=== PATIENT | female | born 1980 | race Caucasian/White ===

== ENCOUNTER 2021-10-28 08:48 | Emergency (ER) | payer OTHER ==
[2021-10-28 10:13] LABS: Appearance CLEAR (CLEAR); Bilirubin NEGATIVE (NEGATIVE); Glucose 250 mg/dL (NEGATIVE); Ketones NEGATIVE (NEGATIVE); Protein,Urine Dip NEGATIVE (Negative); RBC NEGATIVE Ery/ul (0-5); Specific Gravity 1.015 (1.005-1.025)
[2021-10-28 10:14] LABS: Dipstick done @ ? MAIN LAB; Nitrite NEGATIVE (NEGATIVE); Urobilinogen 0.2 mg/dL (0-1)
[2021-10-28 10:15] LABS: Absolute Neutrophil Ct (ANC) 1.79 (1.4-6.9); Basophil (Absolute #) 0.02 (0-0.4); Eosinophil % 5.8 % (0.00-5.0); Hematocrit 40.2 % (35-47); Hemoglobin 13.4 gm/dl (12.0-16.0); Lymphocyte (Absolute #) 2.72 (1.0-4.6); Lymphocytes % 52.6 % (24.0-44.0); Mean Cell Volume 97.3 fl (78-100); Mean Corpuscular Hemoglobin 32.4 pg (26-32); Mean Corpuscular Hgb Concent. 33.3 g/dl (32-36); Mean Platelet Volume 10.6 fl (7.5-11.0); Monocyte (Absolute #) 0.34 (0.0-1.3); Monocytes % 6.6 % (0.0-12.0); Neutrophil % 34.6 % (36.0-66.0); Platelet Count 212 K/mm3 (150-450); Red Blood Count 4.13 M/mm3 (4.1-5.4); White Blood Count 5.2 K/mm3 (4.0-10.5)
[2021-10-28 10:26] VITALS: O2SAT 99
[2021-10-28 10:26] LABS: Epithelial Cells RARE /HPF (FEW); RBC 0-2 /HPF (0-2); WBC 0-2 /HPF (0-5)
--- NOTE | 2021-10-28 10:26 | ERPHSYRPT ---
- History of Present Illness Source: patient Exam Limitations: other (Very poor historian) Patient Subjective Stated Complaint: pt here for swollen face since this morning, she aslo is concerned with sore to right index finger, and right foot, no fevers Triage Nursing Assessment: pt alert, resp easy , face mask in place, has slight swelling to right of face, and has scan to right indec finger with is red and swollen, has scab to top of foot, she states her blood sugars have been high, and has not taken insulin today Physician History: 41 yo wf who is currently at a treatment for alcohol abuse states that her "face was swelling and that she had drainage from her R eye w discharge." She has R facial pressure but denies coryza/sinus drainage. Pt is a Type1 diabetic who has poor glucose control. She has a mild cough and has chronic nausea due to gastroparesis. Vomiting/diarrhea/dysuria/hematuria/fever/melena/hematichezia are all denied. Timing/Duration: today Severity: mild Modifying Factors: Improves With: nothing Associated Symptoms: nausea, cough, loss of appetite, No vomiting, No abdominal pain, No shortness of breath, No heartburn, No diaphoresis, No chills, No chest pain, No fever, No headaches, No malaise, No rash, No syncope, No seizure, No weakness Allergies/Adverse Reactions: grapefruit Allergy (Verified 10/28/21 09:05) dicyclomine [From Bentyl] Adverse Reaction (Verified 10/28/21 09:05) Hx Influenza Vaccination/Date Given: No Hx Pneumococcal Vaccination/Date Given: Yes Travel Risk - International Travel Have you traveled outside of the country in past 3 weeks: No - Coronavirus Screening Are you exhibiting any of the following symptoms?: No Close contact with a COVID-19 positive Pt in past 14-21 Days: No - Vaccine Status Have you recieved a Covid-19 vaccination: No - Review of Systems Constitutional: No Symptoms Eyes: No Symptoms, Discharge Ears, Nose, & Throat: No Symptoms Respiratory: No Symptoms, Cough Cardiac: No Symptoms Abdominal/Gastrointestinal: No Symptoms, Nausea Genitourinary Symptoms: No Symptoms Musculoskeletal: No Symptoms Skin: Skin Lesions Neurological: No Symptoms Psychological: No Symptoms Endocrine: No Symptoms Hematologic/Lymphatic: No Symptoms Immunological/Allergic: No Symptoms - Past Medical History Pertinent Past Medical History: Yes Respiratory History: Asthma Endocrine Medical History: Diabetes Type I GI Medical History: Other Psycho-Social History: Depression, Other Other Medical History: sepsis 2020,ptsd , chronic pain syndrome, gastric parasis - Past Surgical History Past Surgical History: Yes Gastrointestinal: Appendectomy, Cholecystectomy Musculoskeletal: Orthopedic Surgery Other Surgical History: left foot, right shoulder - Social History Smoking Status: Never smoker Exposure to second hand smoke: Yes Drug Use: none Patient Lives Alone: No Significant Family History: no pertinent family hx - Female History Hx Last Menstrual Period: jul Hx Now: No - Nursing Vital Signs Nursing Vital Signs: Initial Vital Signs Temperature 98.4 F 10/28/21 08:52 Pulse Rate 112 H 10/28/21 08:52 Respiratory Rate 16 10/28/21 08:52 Blood Pressure 182/114 10/28/21 08:52 O2 Sat by Pulse Oximetry 99 10/28/21 08:52 Pain Scale Pain Intensity 0 Hypertensive - Physical Exam General Appearance: no apparent distress Eye Exam: PERRL/EOMI, eyes nml inspection Ears, Nose, Throat Exam: pharynx normal, other (R TM occluded by cerumen) Neck Exam: normal inspection, non-tender, supple, full range of motion, No meningismus, No mass, No Brudzinski, No Kernig's Respiratory Exam: normal breath sounds, lungs clear, airway intact Cardiovascular Exam: regular rate/rhythm, capillary refill <2 sec, No normal heart sounds, No murmur Gastrointestinal/Abdomen Exam: soft, normal bowel sounds, No tenderness Back Exam: normal inspection, normal range of motion, No CVA tenderness Extremity Exam: normal inspection, normal range of motion Neurologic Exam: alert, oriented x 3, cooperative, 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 as tested, normal mood/affect, nml cerebellar function, nml station & gait, sensation nml Skin Exam: normal color, warm, dry, other (Very small excoriated area on R dorsal index wo evidence of cellulitis and w no exudate/Also similar lesion on R dorsal foot wo evidence of cellulitis or exudate/Good pedal pulse-radial pulse of R foot-R hand and good sensation of all digits) Lymphatic Exam: No adenopathy SpO2 Interpretation: normal SpO2: 99 O2 Delivery: Room Air - Course Nursing assessment & vital signs reviewed: Yes - Radiology Exams Chest X-ray Interpretation: Interpreted by me (CXR neg) - CT Exams Maxillofacial Bones CT Interpretation: Tele-radiologist Report (Nothing acute) Ordered Tests: Active Orders 24 hr Category Date Time Status CHEST 1 VIEW (PORTABLE) Stat Exams 10/28/21 09:47 Taken FACIAL BONES WO CONTRAST [CT] Stat Exams 10/28/21 09:46 Taken CBC W DIFF Stat Lab 10/28/21 09:05 Completed CMP Stat Lab 10/28/21 09:05 Completed Lactic Acid Stat Lab 10/28/21 09:48 Completed POCT GLUCOSE Stat Lab 10/28/21 09:24 Completed Medication Summary Discontinued Medications Generic Name Dose Route Start Last Admin Trade Name Freq PRN Reason Stop Dose Admin Clonidine 0.2 mg 10/28/21 10:29 10/28/21 10:35 Clonidine Hcl 0.1 Mg Tablet PO 10/28/21 10:30 0.2 mg STAT ONE Administration Clonidine Confirm 10/28/21 10:29 Clonidine Hcl 0.1 Mg Tablet Administered 10/28/21 10:30 Dose 0.2 mg .ROUTE .STK-MED ONE Insulin Glargine 12 unit 10/28/21 11:09 10/28/21 11:33 Insulin Glargine 1 Unit SQ 10/28/21 11:10 12 unit STAT ONE Administration Lab/Rad Data: Laboratory Result Diagrams 10/28/21 09:05 10/28/21 09:05 Laboratory Results 10/28/21 10/28/21 10/28/21 Range/Units 10:07 09:59 09:48 WBC (4.0-10.5) K/mm3 RBC (4.1-5.4) M/mm3 Hgb (12.0-16.0) gm/dl Hct (35-47) % MCV (78-100) fl MCH (26-32) pg MCHC (32-36) g/dl RDW (11.5-14.0) % Plt Count (150-450) K/mm3 MPV (7.5-11.0) fl Gran % (36.0-66.0) % Eos # (Auto) (0-0.5) Absolute Lymphs (auto) (1.0-4.6) Absolute Monos (auto) (0.0-1.3) Lymphocytes % (24.0-44.0) % Monocytes % (0.0-12.0) % Eosinophils % (0.00-5.0) % Basophils % (0.0-0.4) % Absolute Granulocytes (1.4-6.9) Basophils # (0-0.4) Sodium (137-145) mmol/L Potassium (3.5-5.1) mmol/L Chloride (98-107) mmol/L Carbon Dioxide (22-30) mmol/L Anion Gap (5-15) MEQ/L BUN (7-17) mg/dL Creatinine (0.52-1.04) mg/dL Estimated GFR ML/MIN Glucose (74-106) mg/dL POC Glucometer (74 to 106) mg/dL Lactic Acid 1.2 (0.4-2.0) Calcium (8.4-10.2) mg/dL Total Bilirubin (0.2-1.3) mg/dL AST (14-36) U/L ALT (0-35) U/L Alkaline Phosphatase (38-126) U/L Serum Total Protein (6.3-8.2) g/dL Albumin (3.5-5.0) g/dL Urinalys Dipstick Clnc MAIN LAB Urine Color YELLOW (YELLOW) Urine Appearance CLEAR (CLEAR) Urine pH 6.0 (5-6) Ur Specific [place] 1.015 (1.005-1.025) POC Urine Protein Conf NEGATIVE (Negative) Urine Ketones NEGATIVE (NEGATIVE) Urine Nitrite NEGATIVE (NEGATIVE) Urine Bilirubin NEGATIVE (NEGATIVE) Urine Urobilinogen 0.2 (0-1) mg/dL Urine Leukocytes TRACE (NEGATIVE) Urine WBC (Auto) 0-2 (0-5) /HPF Urine RBC (Auto) 0-2 (0-2) /HPF U Epithel Cells (Auto) RARE (FEW) /HPF Urine Bacteria (Auto) Not Reportable Urine RBC NEGATIVE (0-5) Mahamed/ul Ur Culture Indicated? NO Urine Glucose 250 (NEGATIVE) mg/dL Influenza Type A Ag NEGATIVE (NEGATIVE) Influenza Type B Ag NEGATIVE (NEGATIVE) RSV (PCR) NEGATIVE (Negative) SARS-CoV-2 (PCR) NEGATIVE (NEGATIVE) 10/28/21 10/28/21 10/28/21 Range/Units 09:24 09:05 09:05 WBC 5.2 (4.0-10.5) K/mm3 RBC 4.13 (4.1-5.4) M/mm3 Hgb 13.4 (12.0-16.0) gm/dl Hct 40.2 (35-47) % MCV 97.3 (78-100) fl MCH 32.4 H (26-32) pg MCHC 33.3 (32-36) g/dl RDW 13.0 (11.5-14.0) % Plt Count 212 (150-450) K/mm3 MPV 10.6 (7.5-11.0) fl Gran % 34.6 L (36.0-66.0) % Eos # (Auto) 0.30 (0-0.5) Absolute Lymphs (auto) 2.72 (1.0-4.6) Absolute Monos (auto) 0.34 (0.0-1.3) Lymphocytes % 52.6 H (24.0-44.0) % Monocytes % 6.6 (0.0-12.0) % Eosinophils % 5.8 H (0.00-5.0) % Basophils % 0.4 (0.0-0.4) % Absolute Granulocytes 1.79 (1.4-6.9) Basophils # 0.02 (0-0.4) Sodium 135 L (137-145) mmol/L Potassium 4.0 (3.5-5.1) mmol/L Chloride 100 (98-107) mmol/L Carbon Dioxide 25 (22-30) mmol/L Anion Gap 13.7 (5-15) MEQ/L BUN 17 (7-17) mg/dL Creatinine 0.64 (0.52-1.04) mg/dL Estimated GFR > 60.0 ML/MIN Glucose 334 H (74-106) mg/dL POC Glucometer 343 H (74 to 106) mg/dL Lactic Acid (0.4-2.0) Calcium 8.6 (8.4-10.2) mg/dL Total Bilirubin 0.50 (0.2-1.3) mg/dL AST 117 H (14-36) U/L ALT 122 H (0-35) U/L Alkaline Phosphatase 144 H (38-126) U/L Serum Total Protein 5.8 L (6.3-8.2) g/dL Albumin 3.6 (3.5-5.0) g/dL Urinalys Dipstick Clnc Urine Color (YELLOW) Urine Appearance (CLEAR) Urine pH (5-6) Ur Specific [place] (1.005-1.025) POC Urine Protein Conf (Negative) Urine Ketones (NEGATIVE) Urine Nitrite (NEGATIVE) Urine Bilirubin (NEGATIVE) Urine Urobilinogen (0-1) mg/dL Urine Leukocytes (NEGATIVE) Urine WBC (Auto) (0-5) /HPF Urine RBC (Auto) (0-2) /HPF U Epithel Cells (Auto) (FEW) /HPF Urine Bacteria (Auto) Urine RBC (0-5) Mahamed/ul Ur Culture Indicated? Urine Glucose (NEGATIVE) mg/dL Influenza Type A Ag (NEGATIVE) Influenza Type B Ag (NEGATIVE) RSV (PCR) (Negative) SARS-CoV-2 (PCR) (NEGATIVE) - Progress Progress: improved Progress Note: 10/28/21 11:49 0.2 po Clonidine w mild improvement in BP 12 units sq Lantis(usual AM dose for pt) Pt fed breakfast 10/28/21 13:11 Pt not given Humalog because she only takes 1unit 3 times a day No observable facial edema or eye discharge during stay Counseled pt/family regarding: lab results, diagnosis, need for follow-up, rad results - Departure Departure Disposition: Home Clinical Impression: Hypertension, Diabetes, Transaminitis Condition: Stable Critical Care Time: No Referrals: HAL PARK MD [Primary Care Provider] - Follow up/PCP as directed Instructions: Type 1 Diabetes, High Blood Pressure in Adults Additional Instructions: Continue current medications Resume current diabetes care Return to ER for any new signs/symptoms Watch your blood pressure
[2021-10-28] MEDS ORDERED: CLONIDINE 0.1 MG TABLET PO ONE (10:29)
[2021-10-28] MEDS ORDERED: CLONIDINE 0.1 MG TABLET ONE (10:29)
[2021-10-28 10:35] LABS: Urine Cultured Indicated? NO
[2021-10-28 10:46] LABS: ALBUMIN 3.6 g/dL (3.5-5.0); ALKALINE PHOSPHATASE 144 U/L (38-126); ANION GAP 13.7 MEQ/L (5-15); BLOOD UREA NITROGEN 17 mg/dL (7-17); CHLORIDE 100 mmol/L (98-107); Calcium 8.6 mg/dL (8.4-10.2); Carbon Dioxide 25 mmol/L (22-30); Creatinine 1 0.64 mg/dL (0.52-1.04); EST GLOMERULAR FILTRATION RATE > 60.0 ML/MIN; Glucose 334 mg/dL (74-106); SGOT/AST 117 U/L (14-36); SGPT/ALT 122 U/L (0-35); SODIUM 135 mmol/L (137-145); Total Protein 5.8 g/dL (6.3-8.2)
[2021-10-28 10:48] LABS: INFLUENZA A NEGATIVE (NEGATIVE); INFLUENZA B NEGATIVE (NEGATIVE); RESPIRATORY SYNCTIAL VIRUS NEGATIVE (Negative); SARS-CoV-2 Xpert Express NEGATIVE (NEGATIVE)
[2021-10-28] MEDS ORDERED: Lantus Insulin SQ ONE (11:09)
[2021-10-28 11:58] VITALS: BP 151/98; PULSE 98
--- NOTE | 2021-10-28 18:10 | XRAY ---
Indication: Cough. Right facial edema. Right eye matted shut. Comparison: None Portable chest demonstrates normal heart, lungs, and bony thorax.
--- NOTE | 2021-10-28 18:12 | XRAY ---
Indication: Cough. Right facial edema. Right eye matted shut. Multiple contiguous axial images obtained through the facial bones. Sagittal and coronal reformatted images obtained. Comparison: None No acute fracture, suspicious bony lesions, or osseous obstructive process. Orbits including roots, ortez, and floors intact. Mild left and minimal right maxillary sinus mucosal thickening. Remaining paranasal sinuses and nasal passages are clear. Mild nasal septal deviation to the right. Visualized noncontrasted soft tissues including base of the brain unremarkable. Impression: Minimal paranasal sinus disease and nasal septal deviation. Remaining CT facial bones negative. Comment: Preliminary interpretation made by [facility]. No critical discrepancy.
== END 2021-10-28 11:58 | disposition home or self-care (01) ==
LOC: ED 08:48
DX: R74.01 Elevation of levels of liver transaminase levels (principal); I10 Essential (primary) hypertension; E10.43 Type 1 diabetes mellitus with diabetic autonomic (poly)neuropathy; E10.65 Type 1 diabetes mellitus with hyperglycemia; K31.84 Gastroparesis; Z79.4 Long term (current) use of insulin; R05.9 Cough, unspecified; R11.0 Nausea
CPT/HCPCS: 0241U; 36000; 36415; 70486; 71045; 80053; 81015; 82947; 83605; 85025; 96372; 99284; A9270-GY

== ENCOUNTER 2021-12-05 18:28 | Emergency (ER) | payer OTHER ==
--- NOTE | 2021-12-05 19:08 | ERPHSYRPT ---
- History of Present Illness Time Seen by Provider: 12/05/21 19:08 Source: patient, family Patient Subjective Stated Complaint: pt c/o of body aches, cough, hyperglycemia, diarrhea, N&V x3 days Triage Nursing Assessment: Pt brought to the ER by someone from [facility], hyp ertensive, rates body pain as 9/10, has body aches, cough, diarrhea, N&V, hyperglycemia, pt is wearing a blood sugar sensor and it is 381, our glucometer tested at 339, pulses normal, skin n/w/d, no difficulties with breathing, has not coughed while in the room Physician History: This is a 41-year-old white female patient who is a resident of the [facility] and noticed approximately 3 days ago that she could not smell or taste. She had associated mild headache which worsened and mild aches and pains which worsened over the last 3 days as well. In the last 3 days, she has had the loss of taste and smell, headaches body aches nausea vomiting and diarrhea and a cough. She was seen at an outpatient clinic today and underwent a COVID test and that returned positive. She has no known exposure to anyone that she is aware of that has COVID or any other flu diagnosis. Patient has a history of hypothyroidism, migraine headache, asthma, anxiety, ADD H, chronic pain syndrome, gastric bypass surgery and gastroparesis as well as insulin-dependent diabetes. Her blood sugar on her monitor, was 396. On our Accu-Chek on arrival to emergency department was approximately 381. Patient also complains of yeast infection and a dry socket of her left side of her oral cavity. She is not on any antibiotics. Timing/Duration: day(s) (3) Severity: mild (To moderate) Modifying Factors: Improves With: nothing Associated Symptoms: nausea, vomiting, cough, loss of appetite, weakness, No abdominal pain, No shortness of breath, No chest pain Allergies/Adverse Reactions: grapefruit Allergy (Verified 12/05/21 18:52) dicyclomine [From Bentyl] Adverse Reaction (Verified 12/05/21 18:52) Home Medications: AMITRIPTYLINE HCL 50 mg Tab [AMITRIPTYLINE HCL 50 mg Tablet] 50 mg PO HS 12/05/21 [History] Apixaban [Eliquis 5 mg Tablet] 5 mg PO BID 12/05/21 [History] Atomoxetine HCl [Strattera] 60 mg PO UD 12/05/21 [History] Baclofen 20 mg PO QID 12/05/21 [History] Buspirone HCl 15 mg PO HS 12/05/21 [History] Clonidine HCl 0.1 mg [Clonidine 0.1 mg Tablet] 0.1 mg PO DAILY 12/05/21 [History] Dexlansoprazole [Dexlansoprazole Dr] 60 mg PO DAILY 12/05/21 [History] Escitalopram Oxalate [Lexapro] 20 mg PO DAILY 12/05/21 [History] Ferrous Sulfate 325 mg PO DAILY 12/05/21 [History] Folic Acid 1 mg [Folate 1 mg] 1 mg PO DAILY 12/05/21 [History] Furosemide 20 mg [Lasix 20 mg] 20 mg PO DAILY 12/05/21 [History] Gabapentin [Neurontin] 600 mg PO QID 12/05/21 [History] Insulin Lispro [Insulin Lispro Kwikpen U-100] 0 unit SQ UD 12/05/21 [History] Ipratropium/Albuterol Sulfate [Combivent Respimat Inhal [place]] 1 inh PO UD 12/05/21 [History] Levothyroxine Sodium 0.25 mcg PO QAM 12/05/21 [History] Lidocaine/Transparent Dressing [Lidocaine 4% Kit] 1 each TP DAILY 12/05/21 [History] Metoclopramide HCl 10 mg PO QID 12/05/21 [History] Midodrine HCl [Proamatine] 10 mg PO TID 12/05/21 [History] Mirtazapine 15 mg PO 12/05/21 [History] Promethazine HCl 25 mg [Phenergan 25 mg] 25 mg PO UD PRN 12/05/21 [History] Ropinirole HCl 0.5 mg [Requip 0.5 MG] 0.5 mg PO HS 12/05/21 [History] Sucralfate 1 gm PO QID 12/05/21 [History] Topiramate 100 mg PO HS 12/05/21 [History] Hx Influenza Vaccination/Date Given: No Hx Pneumococcal Vaccination/Date Given: Yes Travel Risk - International Travel Have you traveled outside of the country in past 3 weeks: No - Coronavirus Screening Are you exhibiting any of the following symptoms?: Yes Symptoms: Cough: New Onset, Shortness of Breath, Vomiting/Diarrhea, Loss of Taste or Smell, Headaches/Body Aches/Fatigue Close contact with a COVID-19 positive Pt in past 14-21 Days: No - Vaccine Status Have you recieved a Covid-19 vaccination: No - Review of Systems Constitutional: Weakness Eyes: No Symptoms Ears, Nose, & Throat: No Symptoms Respiratory: Cough Cardiac: No Symptoms Abdominal/Gastrointestinal: Nausea, Vomiting, Diarrhea, No Abdominal Pain Genitourinary Symptoms: No Symptoms Musculoskeletal: Arthralgias, Myalgias Skin: No Symptoms Neurological: No Symptoms Psychological: No Symptoms Endocrine: No Symptoms Hematologic/Lymphatic: No Symptoms Immunological/Allergic: No Symptoms All Other Systems: Reviewed and Negative - Past Medical History Pertinent Past Medical History: Yes Neurological History: Migraines Respiratory History: Asthma Endocrine Medical History: Diabetes Type I GI Medical History: Other Psycho-Social History: Anxiety, Attention Deficit Disorder, Depression, Other Other Medical History: sepsis 2020,ptsd , chronic pain syndrome, gastric parasis, hypotension - Past Surgical History Past Surgical History: Yes Gastrointestinal: Appendectomy, Cholecystectomy Musculoskeletal: Orthopedic Surgery Other Surgical History: left foot, right shoulder, gastric bypass - Social History Smoking Status: Never smoker Exposure to second hand smoke: No Drug Use: none Patient Lives Alone: No Significant Family History: no pertinent family hx - Female History Hx Last Menstrual Period: approx 3 months ago Hx Now: No (no sex) - Nursing Vital Signs Nursing Vital Signs: Initial Vital Signs Temperature 98.4 F 12/05/21 18:31 Pulse Rate 88 12/05/21 18:31 Blood Pressure 165/104 12/05/21 18:31 O2 Sat by Pulse Oximetry 100 12/05/21 18:31 Pain Scale Pain Intensity 0 - Physical Exam General Appearance: no apparent distress, alert, anxiety Eye Exam: PERRL/EOMI, eyes nml inspection Ears, Nose, Throat Exam: normal ENT inspection, moist mucous membranes Neck Exam: normal inspection, non-tender, supple, full range of motion Respiratory Exam: normal breath sounds, lungs clear, airway intact, No chest tenderness, No respiratory distress Cardiovascular Exam: regular rate/rhythm, normal heart sounds, normal peripheral pulses Gastrointestinal/Abdomen Exam: soft, normal bowel sounds, No tenderness Pelvic Exam: not done Rectal Exam: not done Back Exam: normal inspection, normal range of motion, No CVA tenderness, No vertebral tenderness Extremity Exam: normal inspection, normal range of motion, pelvis stable Neurologic Exam: alert, oriented x 3, cooperative, temporary administrative assistant II-XII nml as tested, normal mood/affect, nml cerebellar function, nml station & gait, sensation nml Skin Exam: normal color, warm, dry Lymphatic Exam: No adenopathy SpO2 Interpretation: normal SpO2: 100 O2 Delivery: Room Air - Course Nursing assessment & vital signs reviewed: Yes Ordered Tests: Active Orders 24 hr Category Date Time Status IV Insertion STAT Care 12/05/21 19:16 Active CHEST 1 VIEW (PORTABLE) Stat Exams 12/05/21 19:17 Taken AMYLASE Stat Lab 12/05/21 18:55 Completed BLOOD CULTURE Stat Lab 12/05/21 19:40 Received CBC W DIFF Stat Lab 12/05/21 18:55 Completed CMP Stat Lab 12/05/21 18:55 Completed HCG,QUALITATIVE URINE Stat Lab 12/05/21 21:18 Completed LIPASE Stat Lab 12/05/21 18:55 Completed Lactic Acid Stat Lab 12/05/21 19:28 Completed [place] Screen Stat Lab 12/05/21 18:55 Completed POCT GLUCOSE Stat Lab 12/05/21 18:50 Completed POCT GLUCOSE Stat Lab 12/05/21 20:56 Completed T4 (Thyroxine) Stat Lab 12/05/21 18:55 Completed TROPONIN Q3H Lab 12/05/21 18:55 Completed TROPONIN Q3H Lab 12/05/21 22:30 Ordered TROPONIN Q3H Lab 12/06/21 01:30 Ordered TROPONIN Q3H Lab 12/06/21 04:30 Ordered TROPONIN Q3H Lab 12/06/21 07:30 Ordered TSH [TSH, 3RD Generation] Stat Lab 12/05/21 18:55 Completed UA W/RFX CULTURE Stat Lab 12/05/21 21:20 Completed Urine Triage Profile Stat Lab 12/05/21 21:18 Received Medication Summary Discontinued Medications Generic Name Dose Route Start Last Admin Trade Name Freq PRN Reason Stop Dose Admin Cephalexin HCl 500 mg 12/05/21 19:28 12/05/21 19:42 Cephalexin 500 Mg Capsule PO 12/05/21 19:29 500 mg STAT ONE Administration Cephalexin HCl Confirm 12/05/21 19:40 Cephalexin Mh500 Mg Capsule Administered 12/05/21 19:41 Dose 500 mg .ROUTE .STK-MED ONE Clonidine 0.1 mg 12/05/21 21:27 12/05/21 21:31 Clonidine Hcl 0.1 Mg Tablet PO 12/05/21 21:28 0.1 mg STAT ONE Administration Clonidine Confirm 12/05/21 21:29 Clonidine Hcl 0.1 Mg Tablet Administered 12/05/21 21:30 Dose 0.1 mg .ROUTE .STK-MED ONE Fluconazole 150 mg 12/05/21 19:32 12/05/21 20:04 Fluconazole 150 Mg Tablet PO 12/05/21 19:33 150 mg STAT ONE Administration Fluconazole Confirm 12/05/21 19:58 Fluconazole 100 Mg Tablet Administered 12/05/21 19:59 Dose 200 mg .ROUTE .STK-MED ONE Sodium Chloride 1,000 mls @ 999 mls/hr 12/05/21 19:16 12/05/21 21:10 Sodium Chloride 0.9% 1000 Ml IV 12/05/21 20:16 Infused .Q1H1M STA Infusion Sodium Chloride Confirm 12/05/21 19:29 Sodium Chloride 0.9% 1000 Ml Administered 12/05/21 19:30 Dose 1,000 mls @ ud .ROUTE .STK-MED ONE Insulin Human Regular 4 unit 12/05/21 19:34 12/05/21 19:42 Insulin Regular, Human 1 Unit IV 12/05/21 19:35 4 unit STAT ONE Administration Insulin Human Regular Confirm 12/05/21 19:42 Insulin Regular, Human 1 Unit Administered 12/05/21 19:43 Dose 4 unit .ROUTE .STK-MED ONE Ketorolac Tromethamine 30 mg 12/05/21 19:27 12/05/21 19:33 Ketorolac Tromethamine 30 Mg/Ml Inj IV 12/05/21 19:28 30 mg STAT ONE Administration Ketorolac Tromethamine Confirm 12/05/21 19:32 Ketorolac Tromethamine 30 Mg/Ml Inj Administered 12/05/21 19:33 Dose 30 mg .ROUTE .STK-MED ONE Ondansetron HCl 4 mg 12/05/21 19:16 12/05/21 19:31 Ondansetron Hcl 4 Mg/2 Ml Vial IV 12/05/21 19:17 4 mg STAT ONE Administration Ondansetron HCl Confirm 12/05/21 19:28 Ondansetron Hcl 4 Mg/2 Ml Vial Administered 12/05/21 19:29 Dose 4 mg .ROUTE .STK-MED ONE Pantoprazole Sodium 40 mg 12/05/21 19:16 12/05/21 19:31 Pantoprazole 40 Mg Vial IV 12/05/21 19:17 40 mg STAT ONE Administration Pantoprazole Sodium Confirm 12/05/21 19:28 Pantoprazole 40 Mg Vial Administered 12/05/21 19:29 Dose 40 mg IV .STK-MED ONE Lab/Rad Data: Laboratory Result Diagrams 12/05/21 18:55 12/05/21 18:55 Laboratory Results 12/05/21 12/05/21 12/05/21 Range/Units 21:20 21:18 20:56 WBC (4.0-10.5) x10^3/uL RBC (4.1-5.4) x10^6/uL Hgb (12.0-16.0) g/dL Hct (35-47) % MCV (78-100) fL MCH (26-32) pg MCHC (32-36) g/dL RDW (11.5-14.0) % Plt Count (150-450) x10^3/uL MPV (7.5-11.0) fL Gran % (36.0-66.0) % Immature Gran % (Auto) (0.00-0.4) % Nucleat RBC Rel Count (0.00-0.1) % Eos # (Auto) (0-0.5) x10^3/uL Immature Gran # (Auto) (0.00-0.03) x10^3u/L Absolute Lymphs (auto) (1.0-4.6) x10^3/uL Absolute Monos (auto) (0.0-1.3) x10^3/uL Absolute Nucleated RBC (0.00-0.01) x10^3u/L Lymphocytes % (24.0-44.0) % Monocytes % (0.0-12.0) % Eosinophils % (0.00-5.0) % Basophils % (0.0-0.4) % Absolute Granulocytes (1.4-6.9) x10^3/uL Basophils # (0-0.4) x10^3/uL Sodium (137-145) mmol/L Potassium (3.5-5.1) mmol/L Chloride (98-107) mmol/L Carbon Dioxide (22-30) mmol/L Anion Gap (5-15) MEQ/L BUN (7-17) mg/dL Creatinine (0.52-1.04) mg/dL Estimated GFR ML/MIN Glucose (74-106) mg/dL POC Glucometer 106 (74 to 106) mg/dL Lactic Acid (0.4-2.0) Calcium (8.4-10.2) mg/dL Total Bilirubin (0.2-1.3) mg/dL AST (14-36) U/L ALT (0-35) U/L Alkaline Phosphatase (38-126) U/L Troponin I (0.000-0.034) ng/mL Serum Total Protein (6.3-8.2) g/dL Albumin (3.5-5.0) g/dL Amylase (30-110) U/L Lipase (23-300) U/L Thyroxine (T4) (5.53-10.96) ug/dL TSH 3rd Generation (0.47-4.68) mIU/L Urinalys Dipstick Clnc MAIN LAB Urine Color YELLOW (YELLOW) Urine Appearance CLEAR (CLEAR) Urine pH 7.0 (5-6) Ur Specific [place] 1.020 (1.005-1.025) POC Urine Protein Conf NEGATIVE (Negative) Urine Ketones NEGATIVE (NEGATIVE) Urine Nitrite NEGATIVE (NEGATIVE) Urine Bilirubin NEGATIVE (NEGATIVE) Urine Urobilinogen 0.2 (0-1) mg/dL Urine Leukocytes NEGATIVE (NEGATIVE) Urine WBC (Auto) 0-2 (0-5) /HPF Urine RBC (Auto) 0-2 (0-2) /HPF U Epithel Cells (Auto) RARE (FEW) /HPF Urine Bacteria (Auto) NONE (NEGATIVE) /HPF Urine RBC TRACE-INTACT (0-5) Mahamed/ul Ur Culture Indicated? NO Urine Glucose 500 (NEGATIVE) mg/dL Urine HCG, Qual NEGATIVE (Negative) Monoscreen (Negative) Influenza Type A Ag (NEGATIVE) Influenza Type B Ag (NEGATIVE) RSV (PCR) (Negative) SARS-CoV-2 (PCR) (NEGATIVE) Group A Strep Antibody (NEGATIVE) Slides for Path Review 12/05/21 12/05/21 12/05/21 Range/Units 19:40 19:40 19:28 WBC (4.0-10.5) x10^3/uL RBC (4.1-5.4) x10^6/uL Hgb (12.0-16.0) g/dL Hct (35-47) % MCV (78-100) fL MCH (26-32) pg MCHC (32-36) g/dL RDW (11.5-14.0) % Plt Count (150-450) x10^3/uL MPV (7.5-11.0) fL Gran % (36.0-66.0) % Immature Gran % (Auto) (0.00-0.4) % Nucleat RBC Rel Count (0.00-0.1) % Eos # (Auto) (0-0.5) x10^3/uL Immature Gran # (Auto) (0.00-0.03) x10^3u/L Absolute Lymphs (auto) (1.0-4.6) x10^3/uL Absolute Monos (auto) (0.0-1.3) x10^3/uL Absolute Nucleated RBC (0.00-0.01) x10^3u/L Lymphocytes % (24.0-44.0) % Monocytes % (0.0-12.0) % Eosinophils % (0.00-5.0) % Basophils % (0.0-0.4) % Absolute Granulocytes (1.4-6.9) x10^3/uL Basophils # (0-0.4) x10^3/uL Sodium (137-145) mmol/L Potassium (3.5-5.1) mmol/L Chloride (98-107) mmol/L Carbon Dioxide (22-30) mmol/L Anion Gap (5-15) MEQ/L BUN (7-17) mg/dL Creatinine (0.52-1.04) mg/dL Estimated GFR ML/MIN Glucose (74-106) mg/dL POC Glucometer (74 to 106) mg/dL Lactic Acid 0.9 (0.4-2.0) Calcium (8.4-10.2) mg/dL Total Bilirubin (0.2-1.3) mg/dL AST (14-36) U/L ALT (0-35) U/L Alkaline Phosphatase (38-126) U/L Troponin I (0.000-0.034) ng/mL Serum Total Protein (6.3-8.2) g/dL Albumin (3.5-5.0) g/dL Amylase (30-110) U/L Lipase (23-300) U/L Thyroxine (T4) (5.53-10.96) ug/dL TSH 3rd Generation (0.47-4.68) mIU/L Urinalys Dipstick Clnc Urine Color (YELLOW) Urine Appearance (CLEAR) Urine pH (5-6) Ur Specific [place] (1.005-1.025) POC Urine Protein Conf (Negative) Urine Ketones (NEGATIVE) Urine Nitrite (NEGATIVE) Urine Bilirubin (NEGATIVE) Urine Urobilinogen (0-1) mg/dL Urine Leukocytes (NEGATIVE) Urine WBC (Auto) (0-5) /HPF Urine RBC (Auto) (0-2) /HPF U Epithel Cells (Auto) (FEW) /HPF Urine Bacteria (Auto) (NEGATIVE) /HPF Urine RBC (0-5) Mahamed/ul Ur Culture Indicated? Urine Glucose (NEGATIVE) mg/dL Urine HCG, Qual (Negative) Monoscreen (Negative) Influenza Type A Ag NEGATIVE (NEGATIVE) Influenza Type B Ag NEGATIVE (NEGATIVE) RSV (PCR) NEGATIVE (Negative) SARS-CoV-2 (PCR) POSITIVE A (NEGATIVE) Group A Strep Antibody NOT DETECTED (NEGATIVE) Slides for Path Review 12/05/21 12/05/21 12/05/21 Range/Units 18:55 18:55 18:55 WBC (4.0-10.5) x10^3/uL RBC (4.1-5.4) x10^6/uL Hgb (12.0-16.0) g/dL Hct (35-47) % MCV (78-100) fL MCH (26-32) pg MCHC (32-36) g/dL RDW (11.5-14.0) % Plt Count (150-450) x10^3/uL MPV (7.5-11.0) fL Gran % (36.0-66.0) % Immature Gran % (Auto) (0.00-0.4) % Nucleat RBC Rel Count (0.00-0.1) % Eos # (Auto) (0-0.5) x10^3/uL Immature Gran # (Auto) (0.00-0.03) x10^3u/L Absolute Lymphs (auto) (1.0-4.6) x10^3/uL Absolute Monos (auto) (0.0-1.3) x10^3/uL Absolute Nucleated RBC (0.00-0.01) x10^3u/L Lymphocytes % (24.0-44.0) % Monocytes % (0.0-12.0) % Eosinophils % (0.00-5.0) % Basophils % (0.0-0.4) % Absolute Granulocytes (1.4-6.9) x10^3/uL Basophils # (0-0.4) x10^3/uL Sodium (137-145) mmol/L Potassium (3.5-5.1) mmol/L Chloride (98-107) mmol/L Carbon Dioxide (22-30) mmol/L Anion Gap (5-15) MEQ/L BUN (7-17) mg/dL Creatinine (0.52-1.04) mg/dL Estimated GFR ML/MIN Glucose (74-106) mg/dL POC Glucometer (74 to 106) mg/dL Lactic Acid (0.4-2.0) Calcium (8.4-10.2) mg/dL Total Bilirubin (0.2-1.3) mg/dL AST (14-36) U/L ALT (0-35) U/L Alkaline Phosphatase (38-126) U/L Troponin I < 0.012 (0.000-0.034) ng/mL Serum Total Protein (6.3-8.2) g/dL Albumin (3.5-5.0) g/dL Amylase (30-110) U/L Lipase (23-300) U/L Thyroxine (T4) 5.86 (5.53-10.96) ug/dL TSH 3rd Generation 1.280 (0.47-4.68) mIU/L Urinalys Dipstick Clnc Urine Color (YELLOW) Urine Appearance (CLEAR) Urine pH (5-6) Ur Specific [place] (1.005-1.025) POC Urine Protein Conf (Negative) Urine Ketones (NEGATIVE) Urine Nitrite (NEGATIVE) Urine Bilirubin (NEGATIVE) Urine Urobilinogen (0-1) mg/dL Urine Leukocytes (NEGATIVE) Urine WBC (Auto) (0-5) /HPF Urine RBC (Auto) (0-2) /HPF U Epithel Cells (Auto) (FEW) /HPF Urine Bacteria (Auto) (NEGATIVE) /HPF Urine RBC (0-5) Mahamed/ul Ur Culture Indicated? Urine Glucose (NEGATIVE) mg/dL Urine HCG, Qual (Negative) Monoscreen NEGATIVE (Negative) Influenza Type A Ag (NEGATIVE) Influenza Type B Ag (NEGATIVE) RSV (PCR) (Negative) SARS-CoV-2 (PCR) (NEGATIVE) Group A Strep Antibody (NEGATIVE) Slides for Path Review 12/05/21 12/05/21 12/05/21 Range/Units 18:55 18:55 18:50 WBC 2.4 L (4.0-10.5) x10^3/uL RBC 3.94 L (4.1-5.4) x10^6/uL Hgb 13.8 (12.0-16.0) g/dL Hct 40.0 (35-47) % MCV 101.5 H (78-100) fL MCH 35.0 H (26-32) pg MCHC 34.5 (32-36) g/dL RDW 13.0 (11.5-14.0) % Plt Count 227 (150-450) x10^3/uL MPV 12.5 H (7.5-11.0) fL Gran % 18.2 L (36.0-66.0) % Immature Gran % (Auto) 0.0 (0.00-0.4) % Nucleat RBC Rel Count 0.0 (0.00-0.1) % Eos # (Auto) 0.02 (0-0.5) x10^3/uL Immature Gran # (Auto) 0.00 (0.00-0.03) x10^3u/L Absolute Lymphs (auto) 1.77 (1.0-4.6) x10^3/uL Absolute Monos (auto) 0.14 (0.0-1.3) x10^3/uL Absolute Nucleated RBC 0.00 (0.00-0.01) x10^3u/L Lymphocytes % 74.7 H (24.0-44.0) % Monocytes % 5.9 (0.0-12.0) % Eosinophils % 0.8 (0.00-5.0) % Basophils % 0.4 (0.0-0.4) % Absolute Granulocytes 0.43 L (1.4-6.9) x10^3/uL Basophils # 0.01 (0-0.4) x10^3/uL Sodium 135 L (137-145) mmol/L Potassium 4.2 (3.5-5.1) mmol/L Chloride 104 (98-107) mmol/L Carbon Dioxide 26 (22-30) mmol/L Anion Gap 10.0 (5-15) MEQ/L BUN 12 (7-17) mg/dL Creatinine 0.62 (0.52-1.04) mg/dL Estimated GFR > 60.0 ML/MIN Glucose 316 H (74-106) mg/dL POC Glucometer 339 H (74 to 106) mg/dL Lactic Acid (0.4-2.0) Calcium 8.6 (8.4-10.2) mg/dL Total Bilirubin 0.40 (0.2-1.3) mg/dL AST 72 H (14-36) U/L ALT 95 H (0-35) U/L Alkaline Phosphatase 128 H (38-126) U/L Troponin I (0.000-0.034) ng/mL Serum Total Protein 5.5 L (6.3-8.2) g/dL Albumin 3.2 L (3.5-5.0) g/dL Amylase 45 (30-110) U/L Lipase 15 L (23-300) U/L Thyroxine (T4) (5.53-10.96) ug/dL TSH 3rd Generation (0.47-4.68) mIU/L Urinalys Dipstick Clnc Urine Color (YELLOW) Urine Appearance (CLEAR) Urine pH (5-6) Ur Specific [place] (1.005-1.025) POC Urine Protein Conf (Negative) Urine Ketones (NEGATIVE) Urine Nitrite (NEGATIVE) Urine Bilirubin (NEGATIVE) Urine Urobilinogen (0-1) mg/dL Urine Leukocytes (NEGATIVE) Urine WBC (Auto) (0-5) /HPF Urine RBC (Auto) (0-2) /HPF U Epithel Cells (Auto) (FEW) /HPF Urine Bacteria (Auto) (NEGATIVE) /HPF Urine RBC (0-5) Mahamed/ul Ur Culture Indicated? Urine Glucose (NEGATIVE) mg/dL Urine HCG, Qual (Negative) Monoscreen (Negative) Influenza Type A Ag (NEGATIVE) Influenza Type B Ag (NEGATIVE) RSV (PCR) (Negative) SARS-CoV-2 (PCR) (NEGATIVE) Group A Strep Antibody (NEGATIVE) Slides for Path Review YES - Progress Progress: improved - Departure Departure Disposition: Home Clinical Impression: Nausea vomiting and diarrhea, COVID-19 virus infection Condition: Stable Critical Care Time: No Referrals: HAL PARK MD [Primary Care Provider] - Follow up/PCP as directed Additional Instructions: Drink plenty of fluids. Monitor your blood sugar closely. Quarantine yourself for 7 to 10 days. Follow-up with your primary care physician for further evaluation and management. Take all your medications as prescribed. Prescriptions: Ondansetron ODT 4 MG [Zofran Odt 4 mg] 4 mg PO Q6H PRN PRN #10 tablet PRN Reason: Vomiting
[2021-12-05] MEDS ORDERED: PROTONIX 40 MG IV IV ONE ×2 (19:16→19:28)
[2021-12-05] MEDS ORDERED: Sodium Chloride 0.9% 1000 ML 1,000 ML IV STA (19:16)
[2021-12-05] MEDS ORDERED: Zofran 4 MG/2 ML VIAL IV ONE (19:16)
[2021-12-05] MEDS ORDERED: TORAdol 30 mg Injection IV ONE (19:27)
[2021-12-05] MEDS ORDERED: Zofran 4 MG/2 ML VIAL ONE (19:28)
[2021-12-05] MEDS ORDERED: KEFLEX 500 MG PO ONE (19:28)
[2021-12-05] MEDS ORDERED: Sodium Chloride 0.9% 1000 ML 1,000 ML ONE (19:29)
[2021-12-05] MEDS ORDERED: TORAdol 30 mg Injection ONE (19:32)
[2021-12-05] MEDS ORDERED: DIFLUCAN PO ONE (19:32)
[2021-12-05] MEDS ORDERED: HUMULIN R IV ONE (19:34)
[2021-12-05] MEDS ORDERED: KEFLEX 500 MG ONE (19:40)
[2021-12-05] MEDS ORDERED: HUMULIN R ONE (19:42)
[2021-12-05] MEDS ORDERED: Diflucan 100 MG ONE (19:58)
[2021-12-05 20:02] LABS: Absolute Neutrophil Ct (ANC) 0.43 x10^3/uL (1.4-6.9); Basophil (Absolute #) 0.01 x10^3/uL (0-0.4); Eosinophil % 0.8 % (0.00-5.0); Eosinophil (Absolute #) 0.02 x10^3/uL (0-0.5); Hemoglobin 13.8 g/dL (12.0-16.0); Lymphocyte (Absolute #) 1.77 x10^3/uL (1.0-4.6); Lymphocytes % 74.7 % (24.0-44.0); Mean Cell Volume 101.5 fL (78-100); Mean Corpuscular Hgb Concent. 34.5 g/dL (32-36); Mean Platelet Volume 12.5 fL (7.5-11.0); Monocyte (Absolute #) 0.14 x10^3/uL (0.0-1.3); Monocytes % 5.9 % (0.0-12.0); Neutrophil % 18.2 % (36.0-66.0); Platelet Count 227 x10^3/uL (150-450); Red Blood Count 3.94 x10^6/uL (4.1-5.4); White Blood Count 2.4 x10^3/uL (4.0-10.5)
[2021-12-05 20:11] LABS: ALBUMIN 3.2 g/dL (3.5-5.0); ALKALINE PHOSPHATASE 128 U/L (38-126); AMYLASE 45 U/L (30-110); BLOOD UREA NITROGEN 12 mg/dL (7-17); CHLORIDE 104 mmol/L (98-107); Calcium 8.6 mg/dL (8.4-10.2); Carbon Dioxide 26 mmol/L (22-30); Creatinine 1 0.62 mg/dL (0.52-1.04); EST GLOMERULAR FILTRATION RATE > 60.0 ML/MIN; Glucose 316 mg/dL (74-106); LIPASE 15 U/L (23-300); Potassium 4.2 mmol/L (3.5-5.1); SGOT/AST 72 U/L (14-36); SGPT/ALT 95 U/L (0-35); SODIUM 135 mmol/L (137-145); Total Protein 5.5 g/dL (6.3-8.2)
[2021-12-05 20:31] LABS: INFLUENZA A NEGATIVE (NEGATIVE); INFLUENZA B NEGATIVE (NEGATIVE); RESPIRATORY SYNCTIAL VIRUS NEGATIVE (Negative)
[2021-12-05 20:37] LABS: SARS-CoV-2 Xpert Express POSITIVE (NEGATIVE)
[2021-12-05 20:42] LABS: T4 (Thyroxine) 5.86 ug/dL (5.53-10.96); TSH, 3RD Generation 1.28 mIU/L (0.47-4.68)
[2021-12-05 20:54] LABS: Slide Review 1 YES
[2021-12-05] MEDS ORDERED: CLONIDINE 0.1 MG TABLET PO ONE (21:27)
[2021-12-05] MEDS ORDERED: CLONIDINE 0.1 MG TABLET ONE (21:29)
[2021-12-05 21:35] VITALS: O2SAT 100
[2021-12-05 21:48] LABS: Epithelial Cells RARE /HPF (FEW); RBC 0-2 /HPF (0-2); WBC 0-2 /HPF (0-5)
[2021-12-05 21:49] LABS: Appearance CLEAR (CLEAR); Bilirubin NEGATIVE (NEGATIVE); Glucose 500 mg/dL (NEGATIVE)
[2021-12-05 21:50] LABS: Dipstick done @ ? MAIN LAB; Ketones NEGATIVE (NEGATIVE); Nitrite NEGATIVE (NEGATIVE); Protein,Urine Dip NEGATIVE (Negative); RBC TRACE-INTACT Ery/ul (0-5); Urine Cultured Indicated? NO; Urobilinogen 0.2 mg/dL (0-1)
[2021-12-05 22:03] LABS: Amphetamine,Urine NEGATIVE (NEGATIVE); Barbiturate,Urine NEGATIVE (NEGATIVE); Benzodiazepine,Urine NEGATIVE (NEGATIVE); Cocaine,Urine NEGATIVE (NEGATIVE); Methadone,Urine NEGATIVE (NEGATIVE); Opiate,Urine NEGATIVE (NEGATIVE); PCP,Urine NEGATIVE (NEGATIVE); THC,Urine NEGATIVE (NEGATIVE)
[2021-12-05 22:12] VITALS: BP 167/112; PULSE 90
--- NOTE | 2021-12-06 08:45 | XRAY ---
Indication: Cough. Positive Covid 19. Comparison: October 28, 2021. Portable chest again demonstrates normal heart and lungs. Bony thorax intact. No new/acute findings.
== END 2021-12-05 22:23 | disposition home or self-care (01) ==
LOC: ED 18:28
DX: U07.1 COVID-19 (principal); R11.2 Nausea with vomiting, unspecified; R19.7 Diarrhea, unspecified; R43.8 Other disturbances of smell and taste; R51.9 Headache, unspecified; M79.10 Myalgia, unspecified site; R05.1 Acute cough; E10.65 Type 1 diabetes mellitus with hyperglycemia; Z79.01 Long term (current) use of anticoagulants; Z79.4 Long term (current) use of insulin; Z79.899 Other long term (current) drug therapy; Z28.310 Unvaccinated for COVID-19
CPT/HCPCS: 0241U; 36000; 36415; 71045; 80053; 80307; 81015; 82150; 82947; 83605; 83690; 84436; 84443; 84484; 84703; 85025; 86308; 87040; 87651; 96374; 96375; 99284; J1815; J1885; J2405; A9270-GY

== ENCOUNTER 2022-01-29 01:32 | Emergency (ER) | payer OTHER ==
--- NOTE | 2022-01-29 01:37 | ERPHSYRPT ---
- History of Present Illness Time Seen by Provider: 01/29/22 01:36 Source: patient, EMS Exam Limitations: no limitations Physician History: This is a 41-year-old white female insulin-dependent diabetic who checked her blood sugar approximately an hour and a half prior to arrival to emergency room. Based on a blood sugar reading of "high" patient used her sliding scale and thought she was receiving 2 units of her Lyumjev insulin subcutaneously. In fact, she gave herself 12 units and was concerned that she might have overdosed accidentally. She called EMS and EMS service arrived and rechecked her blood sugar and it was approximately 280 on their Accu-Chek reading. They waited approximately 10 minutes and rechecked the blood sugar and the reading was approximately 380. Patient does have a history of anxiety and she was very concerned because its change so quickly. Therefore she was brought to the emergency department. Upon arrival into the emergency department her blood sugar is more the expected 302 on our Accu-Chek reading. Patient arrives hemodynamically stable with no specific complaints. Timing/Duration: today Severity: mild Associated Symptoms: denies symptoms Allergies/Adverse Reactions: grapefruit Allergy (Verified 12/05/21 18:52) dicyclomine [From Bentyl] Adverse Reaction (Verified 12/05/21 18:52) Home Medications: AMITRIPTYLINE HCL 50 mg Tab [AMITRIPTYLINE HCL 50 mg Tablet] 50 mg PO HS 12/05/21 [History] Apixaban [Eliquis 5 mg Tablet] 5 mg PO BID 12/05/21 [History] Atomoxetine HCl [Strattera] 60 mg PO UD 12/05/21 [History] Baclofen 20 mg PO QID 12/05/21 [History] Buspirone HCl 15 mg PO HS 12/05/21 [History] Clonidine HCl 0.1 mg [Clonidine 0.1 mg Tablet] 0.1 mg PO DAILY 12/05/21 [His tory] Dexlansoprazole [Dexlansoprazole Dr] 60 mg PO DAILY 12/05/21 [History] Escitalopram Oxalate [Lexapro] 20 mg PO DAILY 12/05/21 [History] Ferrous Sulfate 325 mg PO DAILY 12/05/21 [History] Folic Acid 1 mg [Folate 1 mg] 1 mg PO DAILY 12/05/21 [History] Furosemide 20 mg [Lasix 20 mg] 20 mg PO DAILY 12/05/21 [History] Gabapentin [Neurontin] 600 mg PO QID 12/05/21 [History] Insulin Lispro [Insulin Lispro Kwikpen U-100] 0 unit SQ UD 12/05/21 [History] Ipratropium/Albuterol Sulfate [Combivent Respimat Inhal [place]] 1 inh PO UD 12/05/21 [History] Levothyroxine Sodium 0.25 mcg PO QAM 12/05/21 [History] Lidocaine/Transparent Dressing [Lidocaine 4% Kit] 1 each TP DAILY 12/05/21 [History] Metoclopramide HCl 10 mg PO QID 12/05/21 [History] Midodrine HCl [Proamatine] 10 mg PO TID 12/05/21 [History] Mirtazapine 15 mg PO HS 12/05/21 [History] Promethazine HCl 25 mg [Phenergan 25 mg] 25 mg PO UD PRN 12/05/21 [History] Ropinirole HCl 0.5 mg [Requip 0.5 MG] 0.5 mg PO HS 12/05/21 [History] Sucralfate 1 gm PO QID 12/05/21 [History] Topiramate 100 mg PO HS 12/05/21 [History] Hx Influenza Vaccination/Date Given: No Hx Pneumococcal Vaccination/Date Given: Yes Travel Risk - International Travel Have you traveled outside of the country in past 3 weeks: No - Coronavirus Screening Are you exhibiting any of the following symptoms?: No Close contact with a COVID-19 positive Pt in past 14-21 Days: No - Vaccine Status Have you recieved a Covid-19 vaccination: No - Review of Systems Constitutional: No Symptoms Eyes: No Symptoms Ears, Nose, & Throat: No Symptoms Respiratory: No Symptoms Cardiac: No Symptoms Abdominal/Gastrointestinal: No Symptoms Genitourinary Symptoms: No Symptoms Musculoskeletal: No Symptoms Skin: No Symptoms Neurological: No Symptoms Psychological: No Symptoms Endocrine: No Symptoms Hematologic/Lymphatic: No Symptoms Immunological/Allergic: No Symptoms All Other Systems: Reviewed and Negative - Past Medical History Pertinent Past Medical History: Yes Neurological History: Migraines Respiratory History: Asthma Endocrine Medical History: Diabetes Type I GI Medical History: Other Psycho-Social History: Anxiety, Attention Deficit Disorder, Depression, Other Other Medical History: sepsis 2020,ptsd , chronic pain syndrome, gastric parasis, hypotension - Past Surgical History Past Surgical History: Yes Gastrointestinal: Appendectomy, Cholecystectomy Musculoskeletal: Orthopedic Surgery Other Surgical History: left foot, right shoulder, gastric bypass - Social History Smoking Status: Never smoker Exposure to second hand smoke: No Drug Use: none Patient Lives Alone: No Significant Family History: no pertinent family hx - Nursing Vital Signs Nursing Vital Signs: Initial Vital Signs Temperature 96.8 F 01/29/22 01:33 Pulse Rate 88 01/29/22 01:33 Respiratory Rate 18 01/29/22 01:33 Blood Pressure 143/88 01/29/22 01:33 O2 Sat by Pulse Oximetry 96 01/29/22 01:33 Pain Scale Pain Intensity 6 - Physical Exam General Appearance: no apparent distress, alert, anxiety, thin Eye Exam: PERRL/EOMI, eyes nml inspection Ears, Nose, Throat Exam: normal ENT inspection, moist mucous membranes Neck Exam: normal inspection, non-tender, supple, full range of motion Respiratory Exam: normal breath sounds, lungs clear, airway intact, No chest tenderness, No respiratory distress Cardiovascular Exam: regular rate/rhythm, normal heart sounds, normal peripheral pulses Gastrointestinal/Abdomen Exam: soft, normal bowel sounds, No tenderness Pelvic Exam: not done Rectal Exam: not done Back Exam: normal inspection, normal range of motion, No CVA tenderness, No vertebral tenderness Extremity Exam: normal inspection, normal range of motion, pelvis stable Neurologic Exam: alert, oriented x 3, cooperative, blender / cook II-XII nml as tested, normal mood/affect, nml cerebellar function, nml station & gait, sensation nml Skin Exam: normal color, warm, dry Lymphatic Exam: No adenopathy SpO2 Interpretation: normal O2 Delivery: Room Air - Course Nursing assessment & vital signs reviewed: Yes Ordered Tests: Active Orders 24 hr Category Date Time Status POCT GLUCOSE Stat Lab 01/29/22 02:48 Completed Lab/Rad Data: Laboratory Results 01/29/22 Range/Units 02:48 POC Glucometer 89 (74 to 106) mg/dL - Progress Progress: improved, re-examined Progress Note: 01/29/22 02:23 Medical decision making: I reviewed the pharmacologic profile of Lyumjev insulin with the patient. We discussed the onset of action being 15 to 17 minutes, the peak time of action being approximately 1 hour and the half-life measures approximately 44 minutes. Together, we decided that we would recheck the blood sugar at approximately 02 45 this morning. The patient normally has a blood sugar around 250. We will discharge the patient to home if her blood sugar is between 200 and 300. She can then restart monitoring and covering with her usual sliding scale. Counseled pt/family regarding: diagnosis, need for follow-up - Departure Departure Disposition: Home Clinical Impression: Hyperglycemia due to type 1 diabetes mellitus, Accidental medication overdose Condition: Stable Critical Care Time: No Referrals: HAL PARK MD [NON-STAFF PHY W/O PRIVILEGES] - Follow up/PCP as directed Additional Instructions: Monitor your blood sugar closely. Make sure you are eating your diabetic diet well and checking your blood sugar levels before you treat your blood sugar levels with insulin. Follow-up with your primary prescribing provider for further evaluation and management.
[2022-01-29] MEDS ORDERED: D50W 50 ml Abboject IV ONE (03:46)
[2022-01-29 04:34] LABS: Absolute Neutrophil Ct (ANC) 1.45 x10^3/uL (1.4-6.9); Basophil (Absolute #) 0.05 x10^3/uL (0-0.4); Eosinophil % 6.8 % (0.00-5.0); Eosinophil (Absolute #) 0.37 x10^3/uL (0-0.5); Hematocrit 37.7 % (35-47); Hemoglobin 12.1 g/dL (12.0-16.0); Lymphocyte (Absolute #) 3.23 x10^3/uL (1.0-4.6); Lymphocytes % 59.3 % (24.0-44.0); Mean Cell Volume 100.8 fL (78-100); Mean Corpuscular Hemoglobin 32.4 pg (26-32); Mean Corpuscular Hgb Concent. 32.1 g/dL (32-36); Mean Platelet Volume 10.3 fL (7.5-11.0); Monocyte (Absolute #) 0.34 x10^3/uL (0.0-1.3); Monocytes % 6.2 % (0.0-12.0); Neutrophil % 26.6 % (36.0-66.0); Platelet Count 172 x10^3/uL (150-450); Red Blood Count 3.74 x10^6/uL (4.1-5.4); Red Cell Distribution Width 13.2 % (11.5-14.0); White Blood Count 5.5 x10^3/uL (4.0-10.5)
[2022-01-29 04:41] LABS: ALBUMIN 3.4 g/dL (3.5-5.0); ALKALINE PHOSPHATASE 91 U/L (38-126); ANION GAP 11.4 MEQ/L (5-15); BLOOD UREA NITROGEN 24 mg/dL (7-17); CHLORIDE 107 mmol/L (98-107); Calcium 8.9 mg/dL (8.4-10.2); Carbon Dioxide 23 mmol/L (22-30); Creatinine 1 0.57 mg/dL (0.52-1.04); EST GLOMERULAR FILTRATION RATE > 60.0 ML/MIN; Glucose 170 mg/dL (74-106); Potassium 3.7 mmol/L (3.5-5.1); SGOT/AST 39 U/L (14-36); SGPT/ALT 63 U/L (0-35); SODIUM 138 mmol/L (137-145); Total Protein 5.4 g/dL (6.3-8.2)
[2022-01-29 06:27] VITALS: BP 155/100; PULSE 81; O2SAT 100
== END 2022-01-29 07:05 | disposition home or self-care (01) ==
LOC: ED 01:32
DX: T38.3X1A Poisoning by insulin and oral hypoglycemic [antidiabetic] drugs, accidental (unintentional), initial encounter (principal); E10.65 Type 1 diabetes mellitus with hyperglycemia; Z79.01 Long term (current) use of anticoagulants; Z79.899 Other long term (current) drug therapy; Z28.310 Unvaccinated for COVID-19
CPT/HCPCS: 36415; 80053; 82947; 85025; 99283

== ENCOUNTER 2022-03-17 17:03 | Observation (INO) | payer OTHER ==
[2022-03-17] MEDS ORDERED: Sodium Chloride 0.9% 1000 ML 1,000 ML IV STA ×3 (17:18→23:07)
[2022-03-17] MEDS ORDERED: Zofran 4 MG/2 ML VIAL IV ONE (17:18)
[2022-03-17] MEDS ORDERED: Zofran 4 MG/2 ML VIAL ONE (17:36)
[2022-03-17] MEDS ORDERED: Sodium Chloride 0.9% 1000 ML 1,000 ML ONE ×2 (17:36→19:30)
--- NOTE | 2022-03-17 17:42 | ERPHSYRPT ---
- History of Present Illness Time Seen by Provider: 03/17/22 17:04 Source: patient Exam Limitations: no limitations Patient Subjective Stated Complaint: Pt got a new insulin pump 2 weeks ago and she changed her sight last night and she thinks that she must have got a bad s ight because her sugars were up and she has administered insulin through the pump but her sugars are still registering high Triage Nursing Assessment: Pt was brought to the ER by someone from the [facility], tachycardic, rates generalized pain as 8/10, vomited this morning, diarrhea, wears a dexcom that reads into her insulin pump, pt ate oatmeal and 3 eggs this morning but did not eat lunch or dinner, pulses normal Physician History: 41-year-old female insulin-dependent diabetic with recent change in insulin pump, last night changed site but her blood sugar was reading high despite using appropriate dosage which she thinks might have a bad site. She also report having nausea and one episode of vomiting and some loose stool without any a bdominal pain. She is complaining of generalized body aches fatigue tiredness, lack of energy. Does report history of DKA multiple times in the past. Timing/Duration: yesterday, gradual onset, worse Severity: moderate, severe Modifying Factors: Improves With: nothing Associated Symptoms: nausea, vomiting, loss of appetite, malaise, weakness, No shortness of breath, No cough, No chills, No chest pain Allergies/Adverse Reactions: grapefruit Allergy (Verified 03/17/22 17:36) dicyclomine [From Bentyl] Adverse Reaction (Verified 03/17/22 17:36) Home Medications: AMITRIPTYLINE HCL 50 mg Tab [AMITRIPTYLINE HCL 50 mg Tablet] 50 mg PO HS 12/05/21 [History] Apixaban [Eliquis 5 mg Tablet] 5 mg PO BID 12/05/21 [History] Atomoxetine HCl [Strattera] 60 mg PO UD 12/05/21 [History] Baclofen 20 mg PO QID 12/05/21 [History] Buspirone HCl 15 mg PO HS 12/05/21 [History] Clonidine HCl 0.1 mg [Clonidine 0.1 mg Tablet] 0.1 mg PO DAILY 12/05/21 [History] Dexlansoprazole [Dexlansoprazole Dr] 60 mg PO DAILY 12/05/21 [History] Escitalopram Oxalate [Lexapro] 20 mg PO DAILY 12/05/21 [History] Ferrous Sulfate 325 mg PO DAILY 12/05/21 [History] Folic Acid 1 mg [Folate 1 mg] 1 mg PO DAILY 12/05/21 [History] Furosemide 20 mg [Lasix 20 mg] 20 mg PO DAILY 12/05/21 [History] Gabapentin [Neurontin] 600 mg PO QID 12/05/21 [History] Insulin Lispro [Insulin Lispro Kwikpen U-100] 0 unit SQ UD 12/05/21 [History] Ipratropium/Albuterol Sulfate [Combivent Respimat Inhal [place]] 1 inh PO UD 12/05/21 [History] Levothyroxine Sodium 0.25 mcg PO QAM 12/05/21 [History] Lidocaine/Transparent Dressing [Lidocaine 4% Kit] 1 each TP DAILY 12/05/21 [History] Metoclopramide HCl 10 mg PO QID 12/05/21 [History] Midodrine HCl [Proamatine] 10 mg PO TID 12/05/21 [History] Mirtazapine 15 mg PO HS 12/05/21 [History] Promethazine HCl 25 mg [Phenergan 25 mg] 25 mg PO UD PRN 12/05/21 [History] Ropinirole HCl 0.5 mg [Requip 0.5 MG] 0.5 mg PO HS 12/05/21 [History] Sucralfate 1 gm PO QID 12/05/21 [History] Topiramate 100 mg PO HS 12/05/21 [History] Hx Influenza Vaccination/Date Given: No Hx Pneumococcal Vaccination/Date Given: Yes Travel Risk - International Travel Have you traveled outside of the country in past 3 weeks: No - Coronavirus Screening Are you exhibiting any of the following symptoms?: No Close contact with a COVID-19 positive Pt in past 14-21 Days: No - Vaccine Status Have you recieved a Covid-19 vaccination: No - Review of Systems Constitutional: Fatigue, Weakness Eyes: No Symptoms Ears, Nose, & Throat: No Symptoms Respiratory: No Symptoms Cardiac: No Symptoms Abdominal/Gastrointestinal: Abdominal Pain, Nausea, Vomiting, Diarrhea Genitourinary Symptoms: No Symptoms Musculoskeletal: Myalgias Skin: No Symptoms Neurological: Headache Psychological: Anxiety, Depression Endocrine: No Symptoms Hematologic/Lymphatic: No Symptoms Immunological/Allergic: No Symptoms - Past Medical History Pertinent Past Medical History: Yes Neurological History: Migraines Respiratory History: Asthma Endocrine Medical History: Diabetes Type I GI Medical History: Other Psycho-Social History: Anxiety, Attention Deficit Disorder, Depression, Other Other Medical History: sepsis 2020,ptsd , chronic pain syndrome, gastric parasis, hypotension - Past Surgical History Past Surgical History: Yes Gastrointestinal: Appendectomy, Cholecystectomy Musculoskeletal: Orthopedic Surgery Other Surgical History: left foot, right shoulder, gastric bypass - Social History Smoking Status: Never smoker Exposure to second hand smoke: No Drug Use: none Patient Lives Alone: No Significant Family History: no pertinent family hx - Female History Hx Last Menstrual Period: over a year-menapause Hx Now: No - Nursing Vital Signs Nursing Vital Signs: Initial Vital Signs Pulse Rate 115 H 03/17/22 17:19 Blood Pressure 122/66 03/17/22 17:19 O2 Sat by Pulse Oximetry 100 03/17/22 17:19 Pain Scale Pain Intensity 8 - Physical Exam General Appearance: no apparent distress, alert Eye Exam: PERRL/EOMI, eyes nml inspection Ears, Nose, Throat Exam: normal ENT inspection, TMs normal, pharynx normal, moist mucous membranes Neck Exam: normal inspection, non-tender, supple, full range of motion Respiratory Exam: normal breath sounds, lungs clear Cardiovascular Exam: normal heart sounds, tachycardia Gastrointestinal/Abdomen Exam: soft, normal bowel sounds, No tenderness, No guarding Back Exam: normal inspection, normal range of motion Extremity Exam: normal inspection, normal range of motion, pelvis stable Neurologic Exam: alert, oriented x 3, cooperative, pulp grinder and blender II-XII nml as tested Skin Exam: normal color SpO2 Interpretation: normal SpO2: 100 O2 Delivery: Room Air - Course EKG Interpreted by Me: RATE (110), Sinus Tach, NORMAL AXIS, NORMAL INTERVALS, NORMAL QRS Ordered Tests: Active Orders 24 hr Category Date Time Status EKG-ER Only STAT Care 03/17/22 17:18 Active IV Insertion STAT Care 03/17/22 17:18 Active NPO (ED) STAT Care 03/17/22 17:18 Active BLOOD CULTURE Stat Lab 03/17/22 17:45 Received CBC W DIFF Stat Lab 03/17/22 17:35 Completed CMP Stat Lab 03/17/22 17:35 Completed HCG,QUALITATIVE URINE Stat Lab 03/17/22 17:35 Completed LIPASE Stat Lab 03/17/22 17:35 Completed Lactic Acid Stat Lab 03/17/22 17:35 Completed MAGNESIUM Stat Lab 03/17/22 17:35 Completed TROPONIN Q4H Lab 03/17/22 17:35 Completed TROPONIN Q4H Lab 03/17/22 21:30 Ordered TROPONIN Q4H Lab 03/18/22 01:30 Ordered UA W/RFX CULTURE Stat Lab 03/17/22 17:35 Completed VENOUS BLOOD GAS Urgent Lab 03/17/22 17:35 Completed Medication Summary Generic Name Dose Route Start Last Admin Trade Name Freq PRN Reason Stop Dose Admin Sodium Chloride 1,000 mls @ 999 mls/hr 03/17/22 19:13 Sodium Chloride 0.9% 1000 Ml IV 03/17/22 20:13 .Q1H1M STA Discontinued Medications Generic Name Dose Route Start Last Admin Trade Name Freq PRN Reason Stop Dose Admin Sodium Chloride 1,000 mls @ 999 mls/hr 03/17/22 17:18 03/17/22 18:43 Sodium Chloride 0.9% 1000 Ml IV 03/17/22 18:18 Infused .Q1H1M STA Infusion Sodium Chloride Confirm 03/17/22 17:36 Sodium Chloride 0.9% 1000 Ml Administered 03/17/22 17:37 Dose 1,000 mls @ ud .ROUTE .STK-MED ONE Sodium Chloride Confirm 03/17/22 19:30 Sodium Chloride 0.9% 1000 Ml Administered 03/17/22 19:31 Dose 1,000 mls @ ud .ROUTE .STK-MED ONE Ondansetron HCl 4 mg 03/17/22 17:18 03/17/22 17:42 Ondansetron Hcl 4 Mg/2 Ml Vial IV 03/17/22 17:19 4 mg STAT ONE Administration Ondansetron HCl Confirm 03/17/22 17:36 Ondansetron Hcl 4 Mg/2 Ml Vial Administered 03/17/22 17:37 Dose 4 mg .ROUTE .STK-MED ONE Lab/Rad Data: Laboratory Result Diagrams 03/17/22 17:35 03/17/22 17:35 Laboratory Results 03/17/22 03/17/22 03/17/22 Range/Units 17:35 17:35 17:35 WBC (4.0-10.5) x10^3/uL RBC (4.1-5.4) x10^6/uL Hgb (12.0-16.0) g/dL Hct (35-47) % MCV (78-100) fL MCH (26-32) pg MCHC (32-36) g/dL RDW (11.5-14.0) % Plt Count (150-450) x10^3/uL MPV (7.5-11.0) fL Gran % (36.0-66.0) % Immature Gran % (Auto) (0.00-0.4) % Nucleat RBC Rel Count (0.00-0.1) % Eos # (Auto) (0-0.5) x10^3/uL Immature Gran # (Auto) (0.00-0.03) x10^3u/L Absolute Lymphs (auto) (1.0-4.6) x10^3/uL Absolute Monos (auto) (0.0-1.3) x10^3/uL Absolute Nucleated RBC (0.00-0.01) x10^3u/L Lymphocytes % (24.0-44.0) % Monocytes % (0.0-12.0) % Eosinophils % (0.00-5.0) % Basophils % (0.0-0.4) % Absolute Granulocytes (1.4-6.9) x10^3/uL Basophils # (0-0.4) x10^3/uL pO2/FiO2 Ratio 21.0 % VBG pH 7.30 L (7.32-7.42) VBG pCO2 at Pat Temp 34 L (42-55) mm/Hg VBG pO2 at Pat Temp 73 H (25-40) mm/Hg VBG HCO3 16.7 L* (22-28) meq/L VBG O2 Sat (Foreign) 89.1 L (95-100) VBG Base Excess -8.8 L (-2.0-2.0) VBG Hemoglobin 12.4 VBG Carboxyhemoglobin 0.0 (0.0-6.9) % T HGB POC Potassium 5.5 H (3.5-5.1) Sodium (137-145) mmol/L Potassium (3.5-5.1) mmol/L Chloride (98-107) mmol/L Carbon Dioxide (22-30) mmol/L Anion Gap (5-15) MEQ/L BUN (7-17) mg/dL Creatinine (0.52-1.04) mg/dL Estimated GFR ML/MIN Glucose (74-106) mg/dL Lactic Acid (0.4-2.0) Calcium (8.4-10.2) mg/dL Magnesium (1.6-2.3) mg/dL Total Bilirubin (0.2-1.3) mg/dL AST (14-36) U/L ALT (0-35) U/L Alkaline Phosphatase (38-126) U/L Troponin I < 0.012 (0.000-0.034) ng/mL Serum Total Protein (6.3-8.2) g/dL Albumin (3.5-5.0) g/dL Lipase (23-300) U/L Urinalys Dipstick Clnc MAIN LAB Urine Color YELLOW (YELLOW) Urine Appearance CLEAR (CLEAR) Urine pH 5.0 (5-6) Ur Specific Kiana <=1.005 (1.005-1.025) POC Urine Protein Conf NEGATIVE (Negative) Urine Ketones SMALL-15 (NEGATIVE) Urine Nitrite NEGATIVE (NEGATIVE) Urine Bilirubin NEGATIVE (NEGATIVE) Urine Urobilinogen 0.2 (0-1) mg/dL Urine Leukocytes NEGATIVE (NEGATIVE) Urine WBC (Auto) NONE (0-5) /HPF Urine RBC (Auto) NONE (0-2) /HPF U Epithel Cells (Auto) NONE (FEW) /HPF Urine Bacteria (Auto) NONE (NEGATIVE) /HPF Urine RBC NEGATIVE (0-5) Mahamed/ul Urine Mucus (Auto) SLIGHT (NEGATIVE) /HPF Ur Culture Indicated? NO Urine Glucose >=1000 (NEGATIVE) mg/dL Urine HCG, Qual (Negative) 03/17/22 03/17/22 03/17/22 Range/Units 17:35 17:35 17:35 WBC (4.0-10.5) x10^3/uL RBC (4.1-5.4) x10^6/uL Hgb (12.0-16.0) g/dL Hct (35-47) % MCV (78-100) fL MCH (26-32) pg MCHC (32-36) g/dL RDW (11.5-14.0) % Plt Count (150-450) x10^3/uL MPV (7.5-11.0) fL Gran % (36.0-66.0) % Immature Gran % (Auto) (0.00-0.4) % Nucleat RBC Rel Count (0.00-0.1) % Eos # (Auto) (0-0.5) x10^3/uL Immature Gran # (Auto) (0.00-0.03) x10^3u/L Absolute Lymphs (auto) (1.0-4.6) x10^3/uL Absolute Monos (auto) (0.0-1.3) x10^3/uL Absolute Nucleated RBC (0.00-0.01) x10^3u/L Lymphocytes % (24.0-44.0) % Monocytes % (0.0-12.0) % Eosinophils % (0.00-5.0) % Basophils % (0.0-0.4) % Absolute Granulocytes (1.4-6.9) x10^3/uL Basophils # (0-0.4) x10^3/uL pO2/FiO2 Ratio % VBG pH (7.32-7.42) VBG pCO2 at Pat Temp (42-55) mm/Hg VBG pO2 at Pat Temp (25-40) mm/Hg VBG HCO3 (22-28) meq/L VBG O2 Sat (Foreign) (95-100) VBG Base Excess (-2.0-2.0) VBG Hemoglobin VBG Carboxyhemoglobin (0.0-6.9) % T HGB POC Potassium (3.5-5.1) Sodium 121 L (137-145) mmol/L Potassium 5.6 H (3.5-5.1) mmol/L Chloride 86 L (98-107) mmol/L Carbon Dioxide 17 L (22-30) mmol/L Anion Gap 24.2 H (5-15) MEQ/L BUN 18 H (7-17) mg/dL Creatinine 1.21 H (0.52-1.04) mg/dL Estimated GFR 52.1 ML/MIN Glucose 1141 H* (74-106) mg/dL Lactic Acid 3.4 H (0.4-2.0) Calcium 8.1 L (8.4-10.2) mg/dL Magnesium 2.5 H (1.6-2.3) mg/dL Total Bilirubin 0.90 (0.2-1.3) mg/dL AST 317 H (14-36) U/L ALT 290 H (0-35) U/L Alkaline Phosphatase 242 H (38-126) U/L Troponin I (0.000-0.034) ng/mL Serum Total Protein 5.8 L (6.3-8.2) g/dL Albumin 3.9 (3.5-5.0) g/dL Lipase 38 (23-300) U/L Urinalys Dipstick Clnc Urine Color (YELLOW) Urine Appearance (CLEAR) Urine pH (5-6) Ur Specific Kiana (1.005-1.025) POC Urine Protein Conf (Negative) Urine Ketones (NEGATIVE) Urine Nitrite (NEGATIVE) Urine Bilirubin (NEGATIVE) Urine Urobilinogen (0-1) mg/dL Urine Leukocytes (NEGATIVE) Urine WBC (Auto) (0-5) /HPF Urine RBC (Auto) (0-2) /HPF U Epithel Cells (Auto) (FEW) /HPF Urine Bacteria (Auto) (NEGATIVE) /HPF Urine RBC (0-5) Mahamed/ul Urine Mucus (Auto) (NEGATIVE) /HPF Ur Culture Indicated? Urine Glucose (NEGATIVE) mg/dL Urine HCG, Qual NEGATIVE (Negative) 03/17/22 Range/Units 17:35 WBC 5.3 (4.0-10.5) x10^3/uL RBC 3.29 L (4.1-5.4) x10^6/uL Hgb 11.6 L (12.0-16.0) g/dL Hct 36.5 (35-47) % MCV 110.9 H (78-100) fL MCH 35.3 H (26-32) pg MCHC 31.8 L (32-36) g/dL RDW 12.9 (11.5-14.0) % Plt Count 210 (150-450) x10^3/uL MPV 11.5 H (7.5-11.0) fL Gran % 72.2 H (36.0-66.0) % Immature Gran % (Auto) 0.4 (0.00-0.4) % Nucleat RBC Rel Count 0.0 (0.00-0.1) % Eos # (Auto) 0.02 (0-0.5) x10^3/uL Immature Gran # (Auto) 0.02 (0.00-0.03) x10^3u/L Absolute Lymphs (auto) 0.92 L (1.0-4.6) x10^3/uL Absolute Monos (auto) 0.48 (0.0-1.3) x10^3/uL Absolute Nucleated RBC 0.00 (0.00-0.01) x10^3u/L Lymphocytes % 17.5 L (24.0-44.0) % Monocytes % 9.1 (0.0-12.0) % Eosinophils % 0.4 (0.00-5.0) % Basophils % 0.4 (0.0-0.4) % Absolute Granulocytes 3.79 (1.4-6.9) x10^3/uL Basophils # 0.02 (0-0.4) x10^3/uL pO2/FiO2 Ratio % VBG pH (7.32-7.42) VBG pCO2 at Pat Temp (42-55) mm/Hg VBG pO2 at Pat Temp (25-40) mm/Hg VBG HCO3 (22-28) meq/L VBG O2 Sat (Foreign) (95-100) VBG Base Excess (-2.0-2.0) VBG Hemoglobin VBG Carboxyhemoglobin (0.0-6.9) % T HGB POC Potassium (3.5-5.1) Sodium (137-145) mmol/L Potassium (3.5-5.1) mmol/L Chloride (98-107) mmol/L Carbon Dioxide (22-30) mmol/L Anion Gap (5-15) MEQ/L BUN (7-17) mg/dL Creatinine (0.52-1.04) mg/dL Estimated GFR ML/MIN Glucose (74-106) mg/dL Lactic Acid (0.4-2.0) Calcium (8.4-10.2) mg/dL Magnesium (1.6-2.3) mg/dL Total Bilirubin (0.2-1.3) mg/dL AST (14-36) U/L ALT (0-35) U/L Alkaline Phosphatase (38-126) U/L Troponin I (0.000-0.034) ng/mL Serum Total Protein (6.3-8.2) g/dL Albumin (3.5-5.0) g/dL Lipase (23-300) U/L Urinalys Dipstick Clnc Urine Color (YELLOW) Urine Appearance (CLEAR) Urine pH (5-6) Ur Specific Kiana (1.005-1.025) POC Urine Protein Conf (Negative) Urine Ketones (NEGATIVE) Urine Nitrite (NEGATIVE) Urine Bilirubin (NEGATIVE) Urine Urobilinogen (0-1) mg/dL Urine Leukocytes (NEGATIVE) Urine WBC (Auto) (0-5) /HPF Urine RBC (Auto) (0-2) /HPF U Epithel Cells (Auto) (FEW) /HPF Urine Bacteria (Auto) (NEGATIVE) /HPF Urine RBC (0-5) Mahamed/ul Urine Mucus (Auto) (NEGATIVE) /HPF Ur Culture Indicated? Urine Glucose (NEGATIVE) mg/dL Urine HCG, Qual (Negative) - Progress Progress: improved, re-examined Progress Note: 03/17/22 19:33 41-year-old is evaluated for hyperglycemia. She is given fluid bolus. She has a normal white count, chemistries show blood glucose of 1141 with a gap of 24 and bicarb of 17 with minimal ketones in the urine and serum pH of 7.3. I believe patient is in hyperosmolar state, started on insulin per protocol. Discussed with Dr. Glaser and patient is being admitted. Discussed with : Quinten Will see patient in: hospital (observation) Counseled pt/family regarding: lab results, diagnosis, need for follow-up - Departure Departure Disposition: Observation Clinical Impression: Nausea vomiting and diarrhea, Hyperosmolar hyperglycemic state (HHS) Condition: Stable Critical Care Time: No Referrals: ANGELITO BLEDSOE DO [Primary Care Provider] - Follow up/PCP as directed
[2022-03-17 17:48] LABS: VBG BASE EXCESS -8.8 (-2.0-2.0); VBG HCO3- 16.7 meq/L (22-28); VBG HEMOGLOBIN 12.4; VBG O2 SATURATION 89.1 (95-100); VBG POTASSIUM 5.5 (3.5-5.1); VBG pH 7.3 (7.32-7.42)
[2022-03-17 17:56] LABS: Absolute Neutrophil Ct (ANC) 3.79 x10^3/uL (1.4-6.9); Basophil (Absolute #) 0.02 x10^3/uL (0-0.4); Eosinophil % 0.4 % (0.00-5.0); Eosinophil (Absolute #) 0.02 x10^3/uL (0-0.5); Hematocrit 36.5 % (35-47); Hemoglobin 11.6 g/dL (12.0-16.0); Lymphocyte (Absolute #) 0.92 x10^3/uL (1.0-4.6); Lymphocytes % 17.5 % (24.0-44.0); Mean Cell Volume 110.9 fL (78-100); Mean Corpuscular Hemoglobin 35.3 pg (26-32); Mean Corpuscular Hgb Concent. 31.8 g/dL (32-36); Mean Platelet Volume 11.5 fL (7.5-11.0); Monocyte (Absolute #) 0.48 x10^3/uL (0.0-1.3); Monocytes % 9.1 % (0.0-12.0); Neutrophil % 72.2 % (36.0-66.0); Platelet Count 210 x10^3/uL (150-450); Red Blood Count 3.29 x10^6/uL (4.1-5.4); Red Cell Distribution Width 12.9 % (11.5-14.0); White Blood Count 5.3 x10^3/uL (4.0-10.5)
[2022-03-17 18:00] LABS: Appearance CLEAR (CLEAR); Bilirubin NEGATIVE (NEGATIVE); Glucose >=1000 mg/dL (NEGATIVE); Ketones SMALL-15 (NEGATIVE)
[2022-03-17 18:01] LABS: Dipstick done @ ? MAIN LAB; Nitrite NEGATIVE (NEGATIVE); Protein,Urine Dip NEGATIVE (Negative); RBC NEGATIVE Ery/ul (0-5); Specific Gravity <=1.005 (1.005-1.025); Urobilinogen 0.2 mg/dL (0-1)
[2022-03-17 18:05] LABS: Mucus SLIGHT /HPF (NEGATIVE)
[2022-03-17 18:12] LABS: ALBUMIN 3.9 g/dL (3.5-5.0); ANION GAP 24.2 MEQ/L (5-15); BILIRUBIN,TOTAL 0.9 mg/dL (0.2-1.3); Calcium 8.1 mg/dL (8.4-10.2); Creatinine 1 1.21 mg/dL (0.52-1.04); EST GLOMERULAR FILTRATION RATE 52.1 ML/MIN; MAGNESIUM 2.5 mg/dL (1.6-2.3); Potassium 5.6 mmol/L (3.5-5.1); Total Protein 5.8 g/dL (6.3-8.2)
[2022-03-17 19:00] LABS: Urine Cultured Indicated? NO
[2022-03-17 20:21] LABS: INFLUENZA A NEGATIVE (NEGATIVE); INFLUENZA B NEGATIVE (NEGATIVE); RESPIRATORY SYNCTIAL VIRUS NEGATIVE (Negative); SARS-CoV-2 Xpert Express NEGATIVE (NEGATIVE)
[2022-03-17] MEDS ORDERED: HUMULIN R ONE ×2 (20:56→20:57)
[2022-03-17] MEDS ORDERED: Sodium Chloride 0.9% 100 ML ONE (20:58)
[2022-03-17] MEDS ORDERED: HUMULIN R 100 UNIT in Sodium Chloride 0.9% 100 ML IV PRN (21:00)
[2022-03-17] MEDS ORDERED: TYLENOL 325 MG PO PRN (21:26)
[2022-03-17] MEDS ORDERED: DUONEB 0.5-3 MG/3 ml Neb IH PRN (21:26)
[2022-03-17] MEDS ORDERED: Sodium Chloride 0.9% 1000 ML 1,000 ML IV SCH (21:45)
[2022-03-17 22:08] LABS: ANION GAP 20.6 MEQ/L (5-15); Calcium 7.3 mg/dL (8.4-10.2); Creatinine 1 1.12 mg/dL (0.52-1.04)
[2022-03-17] MEDS ORDERED: DUONEB 0.5-3 MG/3 ml Neb IH ONE (22:55)
[2022-03-17] MEDS: DUONEB 0.5-3 MG/3 ml Neb IH SCH (23:09)
[2022-03-17] MEDS: Advair Hfa 230/21 Mcg COMMON CANISTER IH SCH (23:12)
[2022-03-17] MEDS ORDERED: CLONIDINE 0.1 MG TABLET PO ONE (23:57)
[2022-03-17] MEDS ORDERED: ELIQUIS 2.5 MG TABLET PO ONE (23:59)
[2022-03-17] MEDS ORDERED: LIORESAL 10 MG PO ONE (23:59)
[2022-03-17] MEDS ORDERED: BUSPAR 5 MG PO ONE (23:59)
[2022-03-18] MEDS ORDERED: FEOSOL 325 MG PO ONE
[2022-03-18] MEDS ORDERED: NEURONTIN PO ONE
[2022-03-18] MEDS ORDERED: ATARAX 25 MG PO PRN ×2 (00:01→07:18)
[2022-03-18] MEDS ORDERED: Reglan 10 MG PO ONE (00:02)
[2022-03-18] MEDS ORDERED: MIRTAZAPINE PO ONE (00:03)
[2022-03-18] MEDS ORDERED: PROAMATINE PO ONE (00:03)
[2022-03-18] MEDS ORDERED: TOPIRAMATE PO ONE (00:04)
[2022-03-18] MEDS ORDERED: Requip 0.5 MG PO ONE (00:04)
[2022-03-18] MEDS ORDERED: VENTOLIN COMMON CANISTER IH PRN (00:14)
[2022-03-18] MEDS ORDERED: REMERON 30 MG ONE (00:18)
[2022-03-18] MEDS: Carafate 1 GM PO ONE ×2 (00:31→00:40)
[2022-03-18 01:31] LABS: ANION GAP 12.4 MEQ/L (5-15); BLOOD UREA NITROGEN 16 mg/dL (7-17); CHLORIDE 103 mmol/L (98-107); Calcium 7.2 mg/dL (8.4-10.2); Carbon Dioxide 17 mmol/L (22-30); Creatinine 1 0.85 mg/dL (0.52-1.04); EST GLOMERULAR FILTRATION RATE > 60.0 ML/MIN; Glucose 414 mg/dL (74-106); Potassium 4.3 mmol/L (3.5-5.1); SODIUM 128 mmol/L (137-145)
[2022-03-18] MEDS ORDERED: D5W/0.45NS W/ 20mEq KCl 1000 ML 1,000 ML IV ONE (02:14)
[2022-03-18] MEDS: D5W/0.45NS W/ 20mEq KCl 1000 ML 1,000 ML IV SCH ×3 (02:19→20:03)
[2022-03-18 05:26] LABS: Absolute Neutrophil Ct (ANC) 2.12 x10^3/uL (1.4-6.9); Basophil (Absolute #) 0.02 x10^3/uL (0-0.4); Eosinophil % 3.3 % (0.00-5.0); Eosinophil (Absolute #) 0.17 x10^3/uL (0-0.5); Hematocrit 30.4 % (35-47); Hemoglobin 10.2 g/dL (12.0-16.0); Lymphocyte (Absolute #) 2.53 x10^3/uL (1.0-4.6); Lymphocytes % 48.5 % (24.0-44.0); Mean Cell Volume 102.7 fL (78-100); Mean Corpuscular Hemoglobin 34.5 pg (26-32); Mean Corpuscular Hgb Concent. 33.6 g/dL (32-36); Mean Platelet Volume 10.6 fL (7.5-11.0); Monocyte (Absolute #) 0.37 x10^3/uL (0.0-1.3); Monocytes % 7.1 % (0.0-12.0); Neutrophil % 40.5 % (36.0-66.0); Platelet Count 180 x10^3/uL (150-450); Red Blood Count 2.96 x10^6/uL (4.1-5.4); Red Cell Distribution Width 11.9 % (11.5-14.0); White Blood Count 5.2 x10^3/uL (4.0-10.5)
[2022-03-18 06:24] LABS: ALBUMIN 2.8 g/dL (3.5-5.0); ALKALINE PHOSPHATASE 131 U/L (38-126); ANION GAP 7.5 MEQ/L (5-15); BLOOD UREA NITROGEN 14 mg/dL (7-17); CHLORIDE 107 mmol/L (98-107); Calcium 7.5 mg/dL (8.4-10.2); Carbon Dioxide 24 mmol/L (22-30); Creatinine 1 0.86 mg/dL (0.52-1.04); EST GLOMERULAR FILTRATION RATE > 60.0 ML/MIN; Glucose 302 mg/dL (74-106); Potassium 3.7 mmol/L (3.5-5.1); SGOT/AST 91 U/L (14-36); SGPT/ALT 196 U/L (0-35); SODIUM 134 mmol/L (137-145); Total Protein 4.5 g/dL (6.3-8.2)
[2022-03-18] MEDS: DUONEB 0.5-3 MG/3 ml Neb IH SCH ×2 (06:36→11:32)
[2022-03-18] MEDS: Advair Hfa 230/21 Mcg COMMON CANISTER IH SCH ×2 (06:39→18:37)
[2022-03-18] MEDS ORDERED: MIRTAZAPINE PO PRN (07:10)
[2022-03-18] MEDS ORDERED: NON-FORMULARY ITEM (Hydroxyzine Hcl [Hydroxyzine Hcl] 50 MG Tablet) PO PRN (07:10)
[2022-03-18] MEDS ORDERED: REMERON 30 MG PO PRN (07:27)
[2022-03-18] MEDS ORDERED: MEDICATION INTERVENTION MC SCH ×3 (07:45→10:30)
[2022-03-18] MEDS: Reglan 10 MG PO SCH ×4 (08:20→22:01)
[2022-03-18 08:32] LABS: ANION GAP 9.3 MEQ/L (5-15); BLOOD UREA NITROGEN 12 mg/dL (7-17); CHLORIDE 106 mmol/L (98-107); Calcium 7.6 mg/dL (8.4-10.2); Carbon Dioxide 23 mmol/L (22-30); Creatinine 1 0.76 mg/dL (0.52-1.04); EST GLOMERULAR FILTRATION RATE > 60.0 ML/MIN; Glucose 344 mg/dL (74-106); Potassium 4.8 mmol/L (3.5-5.1); SODIUM 134 mmol/L (137-145)
--- NOTE | 2022-03-18 08:45 | PCM.HP ---
History of Present Illness - Chief Complaint Chief Complaint: [facility] History of Present Illness: is a 41 year old female pt of [facility] ( Residency) with brittle IDDM who was admitted through ER with HHS and BS of 1141. She started on an insulin pump 2 weeks ago with Muna Bahena. She changed sites 2d ago about 7 pm, then was "high" all night but was sleeping. Though she was somewhere > 400, in the morning was reading "HI" on accucheck, but was busy and by around 3 pm felt like she'd been "hit by a bus," was dizzy/lightheaded, generalized pain, muscle cramps. She changed her site then, but her BS didn't decreased. She was giving 5 units at a time due to the brittle nature of her diabetes. Pt is in alcohol rehab at [facility] for the past 5 months (of a 9 mo program). Not a smoker and no drug hx. Has had multiple hospitalizations for DKA (nearly 33 yrs of IDDM hx). Had sepsis with renal failure and [place] in Jul 2020. In DKA in Aug 2021 and transferred to tertiary care ctr. Overnight, her BS decreased to 400 then into the 200s. Around 2 am her fluids w ere switched to D5 1/2 NS. Insulin drip down to 0.25unit. Will d/c that, low dose SS, check BS q2h, let her eat. Co2 was 17 initially, down to 12 last pm (I was not called), then back to 17 this morning. Na intiially 123, now 128. - Review of Systems Constitutional: Chills (felt cold) Respiratory: Short Of Breath (better with nebs) Cardiac: Chest Pain (better with nebs), Edema (ankles, mild, x 2d) Abdominal/Gastrointestinal: Vomiting (x1), Diarrhea (for several weeks) Psychological: Anxiety, Depression (chronically, no current exacerbation), No Suicidal Ideations, No Homicidal Ideations All Other Systems: Reviewed and Negative Medications & Allergies Home Medications: Home Medication List AMITRIPTYLINE HCL 50 mg Tab [AMITRIPTYLINE HCL 50 mg Tablet] 50 mg PO HS 12/05/21 [History Confirmed 03/17/22] Apixaban [Eliquis 5 mg Tablet] 5 mg PO BID 12/05/21 [History Confirmed 03/17/22] Atomoxetine HCl [Strattera] 60 mg PO DAILY 12/05/21 [History Confirmed 03/17/22] Baclofen 20 mg PO QID 12/05/21 [History Confirmed 03/17/22] Buspirone HCl 15 mg PO HS 12/05/21 [History Confirmed 03/17/22] Clonidine HCl 0.1 mg [Clonidine 0.1 mg Tablet] 0.1 mg PO QHS 12/05/21 [History Confirmed 03/17/22] Dexlansoprazole [Dexlansoprazole Dr] 60 mg PO DAILY 12/05/21 [History Confirmed 03/17/22] Escitalopram Oxalate [Lexapro] 20 mg PO DAILY 12/05/21 [History Confirmed 03/17/22] Ferrous Sulfate 325 mg PO TID 12/05/21 [History Confirmed 03/17/22] Folic Acid 1 mg [Folate 1 mg] 1 mg PO DAILY 12/05/21 [History Confirmed 03/17/22] Furosemide 20 mg [Lasix 20 mg] 20 mg PO DAILY 12/05/21 [History Confirmed 03/17/22] Gabapentin [Neurontin] 600 mg PO QID 12/05/21 [History Confirmed 03/17/22] Ipratropium/Albuterol Sulfate [Combivent Respimat Inhal [place]] 1 inh PO DAILY 12/05/21 [History Confirmed 03/17/22] Levothyroxine Sodium 0.25 mcg PO QAM 12/05/21 [History Confirmed 03/17/22] Lidocaine/Transparent Dressing [Lidocaine 4% Kit] 1 each TP DAILY PRN PRN 12/05/21 [History Confirmed 03/17/22] Metoclopramide HCl 10 mg PO QID 12/05/21 [History Confirmed 03/17/22] Midodrine HCl [Proamatine] 5 mg PO TID 12/05/21 [History Confirmed 03/17/22] Mirtazapine 15 mg PO HS 12/05/21 [History Confirmed 03/17/22] Promethazine HCl 25 mg [Phenergan 25 mg] 25 mg PO Q4-6HPRN PRN 12/05/21 [History Confirmed 03/17/22] Ropinirole HCl 0.5 mg [Requip 0.5 MG] 0.5 mg PO HS 12/05/21 [History Confirmed 03/17/22] Sucralfate 1 gm PO QID 12/05/21 [History Confirmed 03/17/22] Albuterol 2.5 mg/3 ml Neb [Proventil 2.5 mg/3 ml Neb] 1 neb IH DAILY PRN PRN 03/17/22 [History Confirmed 03/17/22] Albuterol Sulfate [Albuterol Sulfate Hfa] 2 puff IH DAILY PRN PRN 03/17/22 [History Confirmed 03/17/22] Atomoxetine HCl [Strattera] 40 mg PO LUNCH 03/17/22 [History Confirmed 03/17/22] Biotin 5,000 mcg PO DAILY 03/17/22 [History Confirmed 03/17/22] Budesonide/Formoterol Fumarate [Budesonide-Formoterol 160-4.5] 2 puff IH BID 03/17/22 [History Confirmed 03/17/22] Diclofenac Epolamine 1 patch TOP Q12H PRN PRN 03/17/22 [History Confirmed 03/17/22] Erythromycin Base [Erythromycin] 250 mg PO BID 03/17/22 [History Confirmed 03/17/22] Mirtazapine 15 mg PO HS PRN PRN 03/17/22 [History Confirmed 03/17/22] Montelukast Sodium 10 mg [Singulair 10 MG] 10 mg PO DAILY 03/17/22 [History Confirmed 03/17/22] Multivitamin 1 tab PO DAILY 03/17/22 [History Confirmed 03/17/22] Omeprazole 20 mg PO DAILY PRN PRN 03/17/22 [History Confirmed 03/17/22] Topiramate 50 mg PO QHS 03/17/22 [History Confirmed 03/17/22] hydrOXYzine HCL [Hydroxyzine HCl] 50 mg PO HS PRN PRN 03/17/22 [History Confirmed 03/17/22] Allergies/Adverse Reactions: Allergies Allergy/AdvReac Type Severity Reaction Status Date / Time grapefruit Allergy Swelling Verified 03/17/22 21:57 dicyclomine [From Bentyl] AdvReac Verified 03/17/22 21:57 - Past Medical History Past Medical History: Yes Neurological History: Migraines ENT History: No Pertinent History Cardiac History: Coronary Artery Disease, Deep Vein Thrombosis, Myocardial Infarction ([place]) Respiratory History: Asthma, Pneumonia, Pulmonary Embolism Endocrine Medical History: Diabetes Type I Musculoskelatal History: No Pertinent History GI Medical History: GERD, GI Bleed, Other History: Renal Disease Pyscho-Social History: Anxiety, Attention Deficit Disorder, Depression, Other Reproductive Disorders: No Pertinent History Comment: sepsis 2020, ptsd, chronic pain syndrome, gastric paresis, hypotension. carpal tunnel bilateral and trigger finger left hand, kidney stones - Female History Hx Last Menstrual Period: over a year-menopause Are you now?: No - Past Surgical History Past Surgical History: Yes Neuro Surgical History: No Pertinent History Cardiac History: Cardiac Catheterization, Cardiac Stent Respiratory Surgery: No Pertinent History GI Surgical History: Appendectomy, Cholecystectomy Genitourinary Surgical Hx: No Pertinent History Musculskeletal Surgical Hx: Orthopedic Surgery Female Surgical History: No Pertinent History Other Surgical History: left foot, right shoulder. uvula removed. gastric bypass - Social History Smoking Status: Never smoker Exposure to second hand smoke: No Alcohol: None Drug Use: none Significant Family History: no pertinent family hx - Physical Exam Vital Signs: Vital Signs - 24 hr Temp Pulse Resp BP Pulse Ox 03/18/22 08:10 97.9 F 94 H 13 105/56 93 L 03/18/22 06:49 90 14 100 03/18/22 05:00 97.6 F 94 H 16 106/65 98 03/18/22 01:00 117 H 93/65 03/18/22 00:01 111 H 03/18/22 00:00 98.6 F 114 H 18 110/57 99 03/17/22 23:35 98.7 F 110 H 20 77/58 98 03/17/22 23:08 112 H 18 98 03/17/22 23:00 108 H 77/58 99 03/17/22 22:45 110 H 120/54 97 03/17/22 21:30 111 H 88/54 92 L 03/17/22 21:00 110 H 18 97/49 98 03/17/22 20:00 112 H 16 102/62 100 03/17/22 19:35 100 03/17/22 19:00 110 H 16 98/51 95 03/17/22 18:19 110 H 23 93/74 100 03/17/22 17:19 115 H 122/66 100 General Appearance: no apparent distress, alert Neurologic Exam: oriented x 3, cooperative Eye Exam: eyes nml inspection Ears, Nose, Throat Exam: moist mucous membranes Neck Exam: normal inspection Respiratory Exam: normal breath sounds, lungs clear, No crackles/rales, No rhonchi, No wheezing Cardiovascular Exam: regular rate/rhythm, normal heart sounds, No murmur Gastrointestinal/Abdomen Exam: soft, normal bowel sounds, No tenderness, No distention, No mass, No guarding, No rebound Back Exam: normal inspection, No rash Extremity Exam: normal inspection, No pedal edema, No swelling Results - Labs Lab/Micro Results: Lab Results-Last 24 Hours 03/17/22 03/17/22 03/17/22 Range/Units 17:35 17:35 17:35 WBC 5.3 (4.0-10.5) x10^3/uL RBC 3.29 L (4.1-5.4) x10^6/uL Hgb 11.6 L (12.0-16.0) g/dL Hct 36.5 (35-47) % MCV 110.9 H (78-100) fL MCH 35.3 H (26-32) pg MCHC 31.8 L (32-36) g/dL RDW 12.9 (11.5-14.0) % Plt Count 210 (150-450) x10^3/uL MPV 11.5 H (7.5-11.0) fL Gran % 72.2 H (36.0-66.0) % Immature Gran % (Auto) 0.4 (0.00-0.4) % Nucleat RBC Rel Count 0.0 (0.00-0.1) % Eos # (Auto) 0.02 (0-0.5) x10^3/uL Immature Gran # (Auto) 0.02 (0.00-0.03) x10^3u/L Absolute Lymphs (auto) 0.92 L (1.0-4.6) x10^3/uL Absolute Monos (auto) 0.48 (0.0-1.3) x10^3/uL Absolute Nucleated RBC 0.00 (0.00-0.01) x10^3u/L Lymphocytes % 17.5 L (24.0-44.0) % Monocytes % 9.1 (0.0-12.0) % Eosinophils % 0.4 (0.00-5.0) % Basophils % 0.4 (0.0-0.4) % Absolute Granulocytes 3.79 (1.4-6.9) x10^3/uL Basophils # 0.02 (0-0.4) x10^3/uL pO2/FiO2 Ratio % VBG pH (7.32-7.42) VBG pCO2 at Pat Temp (42-55) mm/Hg VBG pO2 at Pat Temp (25-40) mm/Hg VBG HCO3 (22-28) meq/L VBG O2 Sat (Foreign) (95-100) VBG Base Excess (-2.0-2.0) VBG Hemoglobin VBG Carboxyhemoglobin (0.0-6.9) % T HGB POC Potassium (3.5-5.1) Sodium 121 L (137-145) mmol/L Potassium 5.6 H (3.5-5.1) mmol/L Chloride 86 L (98-107) mmol/L Carbon Dioxide 17 L (22-30) mmol/L Anion Gap 24.2 H (5-15) MEQ/L BUN 18 H (7-17) mg/dL Creatinine 1.21 H (0.52-1.04) mg/dL Estimated GFR 52.1 ML/MIN Glucose 1141 H* (74-106) mg/dL POC Glucometer (50 to 500) mg/dL Lactic Acid 3.4 H (0.4-2.0) Calcium 8.1 L (8.4-10.2) mg/dL Magnesium 2.5 H (1.6-2.3) mg/dL Total Bilirubin 0.90 (0.2-1.3) mg/dL AST 317 H (14-36) U/L ALT 290 H (0-35) U/L Alkaline Phosphatase 242 H (38-126) U/L Troponin I (0.000-0.034) ng/mL Serum Total Protein 5.8 L (6.3-8.2) g/dL Albumin 3.9 (3.5-5.0) g/dL Lipase 38 (23-300) U/L Urinalys Dipstick Clnc Urine Color (YELLOW) Urine Appearance (CLEAR) Urine pH (5-6) Ur Specific [place] (1.005-1.025) POC Urine Protein Conf (Negative) Urine Ketones (NEGATIVE) Urine Nitrite (NEGATIVE) Urine Bilirubin (NEGATIVE) Urine Urobilinogen (0-1) mg/dL Urine Leukocytes (NEGATIVE) Urine WBC (Auto) (0-5) /HPF Urine RBC (Auto) (0-2) /HPF U Epithel Cells (Auto) (FEW) /HPF Urine Bacteria (Auto) (NEGATIVE) /HPF Urine RBC (0-5) Mahamed/ul Urine Mucus (Auto) (NEGATIVE) /HPF Ur Culture Indicated? Urine Glucose (NEGATIVE) mg/dL Urine HCG, Qual (Negative) Influenza Type A Ag (NEGATIVE) Influenza Type B Ag (NEGATIVE) RSV (PCR) (Negative) SARS-CoV-2 (PCR) (NEGATIVE) 03/17/22 03/17/22 03/17/22 Range/Units 17:35 17:35 17:35 WBC (4.0-10.5) x10^3/uL RBC (4.1-5.4) x10^6/uL Hgb (12.0-16.0) g/dL Hct (35-47) % MCV (78-100) fL MCH (26-32) pg MCHC (32-36) g/dL RDW (11.5-14.0) % Plt Count (150-450) x10^3/uL MPV (7.5-11.0) fL Gran % (36.0-66.0) % Immature Gran % (Auto) (0.00-0.4) % Nucleat RBC Rel Count (0.00-0.1) % Eos # (Auto) (0-0.5) x10^3/uL Immature Gran # (Auto) (0.00-0.03) x10^3u/L Absolute Lymphs (auto) (1.0-4.6) x10^3/uL Absolute Monos (auto) (0.0-1.3) x10^3/uL Absolute Nucleated RBC (0.00-0.01) x10^3u/L Lymphocytes % (24.0-44.0) % Monocytes % (0.0-12.0) % Eosinophils % (0.00-5.0) % Basophils % (0.0-0.4) % Absolute Granulocytes (1.4-6.9) x10^3/uL Basophils # (0-0.4) x10^3/uL pO2/FiO2 Ratio 21.0 % VBG pH 7.30 L (7.32-7.42) VBG pCO2 at Pat Temp 34 L (42-55) mm/Hg VBG pO2 at Pat Temp 73 H (25-40) mm/Hg VBG HCO3 16.7 L* (22-28) meq/L VBG O2 Sat (Foreign) 89.1 L (95-100) VBG Base Excess -8.8 L (-2.0-2.0) VBG Hemoglobin 12.4 VBG Carboxyhemoglobin 0.0 (0.0-6.9) % T HGB POC Potassium 5.5 H (3.5-5.1) Sodium (137-145) mmol/L Potassium (3.5-5.1) mmol/L Chloride (98-107) mmol/L Carbon Dioxide (22-30) mmol/L Anion Gap (5-15) MEQ/L BUN (7-17) mg/dL Creatinine (0.52-1.04) mg/dL Estimated GFR ML/MIN Glucose (74-106) mg/dL POC Glucometer (50 to 500) mg/dL Lactic Acid (0.4-2.0) Calcium (8.4-10.2) mg/dL Magnesium (1.6-2.3) mg/dL Total Bilirubin (0.2-1.3) mg/dL AST (14-36) U/L ALT (0-35) U/L Alkaline Phosphatase (38-126) U/L Troponin I < 0.012 (0.000-0.034) ng/mL Serum Total Protein (6.3-8.2) g/dL Albumin (3.5-5.0) g/dL Lipase (23-300) U/L Urinalys Dipstick Clnc Urine Color (YELLOW) Urine Appearance (CLEAR) Urine pH (5-6) Ur Specific [place] (1.005-1.025) POC Urine Protein Conf (Negative) Urine Ketones (NEGATIVE) Urine Nitrite (NEGATIVE) Urine Bilirubin (NEGATIVE) Urine Urobilinogen (0-1) mg/dL Urine Leukocytes (NEGATIVE) Urine WBC (Auto) (0-5) /HPF Urine RBC (Auto) (0-2) /HPF U Epithel Cells (Auto) (FEW) /HPF Urine Bacteria (Auto) (NEGATIVE) /HPF Urine RBC (0-5) Mahamed/ul Urine Mucus (Auto) (NEGATIVE) /HPF Ur Culture Indicated? Urine Glucose (NEGATIVE) mg/dL Urine HCG, Qual NEGATIVE (Negative) Influenza Type A Ag (NEGATIVE) Influenza Type B Ag (NEGATIVE) RSV (PCR) (Negative) SARS-CoV-2 (PCR) (NEGATIVE) 03/17/22 03/17/22 03/17/22 Range/Units 17:35 19:39 21:34 WBC (4.0-10.5) x10^3/uL RBC (4.1-5.4) x10^6/uL Hgb (12.0-16.0) g/dL Hct (35-47) % MCV (78-100) fL MCH (26-32) pg MCHC (32-36) g/dL RDW (11.5-14.0) % Plt Count (150-450) x10^3/uL MPV (7.5-11.0) fL Gran % (36.0-66.0) % Immature Gran % (Auto) (0.00-0.4) % Nucleat RBC Rel Count (0.00-0.1) % Eos # (Auto) (0-0.5) x10^3/uL Immature Gran # (Auto) (0.00-0.03) x10^3u/L Absolute Lymphs (auto) (1.0-4.6) x10^3/uL Absolute Monos (auto) (0.0-1.3) x10^3/uL Absolute Nucleated RBC (0.00-0.01) x10^3u/L Lymphocytes % (24.0-44.0) % Monocytes % (0.0-12.0) % Eosinophils % (0.00-5.0) % Basophils % (0.0-0.4) % Absolute Granulocytes (1.4-6.9) x10^3/uL Basophils # (0-0.4) x10^3/uL pO2/FiO2 Ratio % VBG pH (7.32-7.42) VBG pCO2 at Pat Temp (42-55) mm/Hg VBG pO2 at Pat Temp (25-40) mm/Hg VBG HCO3 (22-28) meq/L VBG O2 Sat (Foreign) (95-100) VBG Base Excess (-2.0-2.0) VBG Hemoglobin VBG Carboxyhemoglobin (0.0-6.9) % T HGB POC Potassium (3.5-5.1) Sodium 123 L (137-145) mmol/L Potassium 5.0 (3.5-5.1) mmol/L Chloride 94 L (98-107) mmol/L Carbon Dioxide 12 L* (22-30) mmol/L Anion Gap 20.6 H (5-15) MEQ/L BUN 18 H (7-17) mg/dL Creatinine 1.12 H (0.52-1.04) mg/dL Estimated GFR 57.0 ML/MIN Glucose 879 H* (74-106) mg/dL POC Glucometer (50 to 500) mg/dL Lactic Acid (0.4-2.0) Calcium 7.3 L (8.4-10.2) mg/dL Magnesium (1.6-2.3) mg/dL Total Bilirubin (0.2-1.3) mg/dL AST (14-36) U/L ALT (0-35) U/L Alkaline Phosphatase (38-126) U/L Troponin I (0.000-0.034) ng/mL Serum Total Protein (6.3-8.2) g/dL Albumin (3.5-5.0) g/dL Lipase (23-300) U/L Urinalys Dipstick Clnc MAIN LAB Urine Color YELLOW (YELLOW) Urine Appearance CLEAR (CLEAR) Urine pH 5.0 (5-6) Ur Specific [place] <=1.005 (1.005-1.025) POC Urine Protein Conf NEGATIVE (Negative) Urine Ketones SMALL-15 (NEGATIVE) Urine Nitrite NEGATIVE (NEGATIVE) Urine Bilirubin NEGATIVE (NEGATIVE) Urine Urobilinogen 0.2 (0-1) mg/dL Urine Leukocytes NEGATIVE (NEGATIVE) Urine WBC (Auto) NONE (0-5) /HPF Urine RBC (Auto) NONE (0-2) /HPF U Epithel Cells (Auto) NONE (FEW) /HPF Urine Bacteria (Auto) NONE (NEGATIVE) /HPF Urine RBC NEGATIVE (0-5) Mahamed/ul Urine Mucus (Auto) SLIGHT (NEGATIVE) /HPF Ur Culture Indicated? NO Urine Glucose >=1000 (NEGATIVE) mg/dL Urine HCG, Qual (Negative) Influenza Type A Ag NEGATIVE (NEGATIVE) Influenza Type B Ag NEGATIVE (NEGATIVE) RSV (PCR) NEGATIVE (Negative) SARS-CoV-2 (PCR) NEGATIVE (NEGATIVE) 03/17/22 03/17/22 03/17/22 Range/Units 21:50 21:56 23:12 WBC (4.0-10.5) x10^3/uL RBC (4.1-5.4) x10^6/uL Hgb (12.0-16.0) g/dL Hct (35-47) % MCV (78-100) fL MCH (26-32) pg MCHC (32-36) g/dL RDW (11.5-14.0) % Plt Count (150-450) x10^3/uL MPV (7.5-11.0) fL Gran % (36.0-66.0) % Immature Gran % (Auto) (0.00-0.4) % Nucleat RBC Rel Count (0.00-0.1) % Eos # (Auto) (0-0.5) x10^3/uL Immature Gran # (Auto) (0.00-0.03) x10^3u/L Absolute Lymphs (auto) (1.0-4.6) x10^3/uL Absolute Monos (auto) (0.0-1.3) x10^3/uL Absolute Nucleated RBC (0.00-0.01) x10^3u/L Lymphocytes % (24.0-44.0) % Monocytes % (0.0-12.0) % Eosinophils % (0.00-5.0) % Basophils % (0.0-0.4) % Absolute Granulocytes (1.4-6.9) x10^3/uL Basophils # (0-0.4) x10^3/uL pO2/FiO2 Ratio % VBG pH (7.32-7.42) VBG pCO2 at Pat Temp (42-55) mm/Hg VBG pO2 at Pat Temp (25-40) mm/Hg VBG HCO3 (22-28) meq/L VBG O2 Sat (Foreign) (95-100) VBG Base Excess (-2.0-2.0) VBG Hemoglobin VBG Carboxyhemoglobin (0.0-6.9) % T HGB POC Potassium (3.5-5.1) Sodium (137-145) mmol/L Potassium (3.5-5.1) mmol/L Chloride (98-107) mmol/L Carbon Dioxide (22-30) mmol/L Anion Gap (5-15) MEQ/L BUN (7-17) mg/dL Creatinine (0.52-1.04) mg/dL Estimated GFR ML/MIN Glucose (74-106) mg/dL POC Glucometer 558 H* (50 to 500) mg/dL Lactic Acid 2.4 H (0.4-2.0) Calcium (8.4-10.2) mg/dL Magnesium (1.6-2.3) mg/dL Total Bilirubin (0.2-1.3) mg/dL AST (14-36) U/L ALT (0-35) U/L Alkaline Phosphatase (38-126) U/L Troponin I < 0.012 (0.000-0.034) ng/mL Serum Total Protein (6.3-8.2) g/dL Albumin (3.5-5.0) g/dL Lipase (23-300) U/L Urinalys Dipstick Clnc Urine Color (YELLOW) Urine Appearance (CLEAR) Urine pH (5-6) Ur Specific [place] (1.005-1.025) POC Urine Protein Conf (Negative) Urine Ketones (NEGATIVE) Urine Nitrite (NEGATIVE) Urine Bilirubin (NEGATIVE) Urine Urobilinogen (0-1) mg/dL Urine Leukocytes (NEGATIVE) Urine WBC (Auto) (0-5) /HPF Urine RBC (Auto) (0-2) /HPF U Epithel Cells (Auto) (FEW) /HPF Urine Bacteria (Auto) (NEGATIVE) /HPF Urine RBC (0-5) Mahamed/ul Urine Mucus (Auto) (NEGATIVE) /HPF Ur Culture Indicated? Urine Glucose (NEGATIVE) mg/dL Urine HCG, Qual (Negative) Influenza Type A Ag (NEGATIVE) Influenza Type B Ag (NEGATIVE) RSV (PCR) (Negative) SARS-CoV-2 (PCR) (NEGATIVE) 03/18/22 03/18/22 03/18/22 Range/Units 00:04 00:28 01:09 WBC (4.0-10.5) x10^3/uL RBC (4.1-5.4) x10^6/uL Hgb (12.0-16.0) g/dL Hct (35-47) % MCV (78-100) fL MCH (26-32) pg MCHC (32-36) g/dL RDW (11.5-14.0) % Plt Count (150-450) x10^3/uL MPV (7.5-11.0) fL Gran % (36.0-66.0) % Immature Gran % (Auto) (0.00-0.4) % Nucleat RBC Rel Count (0.00-0.1) % Eos # (Auto) (0-0.5) x10^3/uL Immature Gran # (Auto) (0.00-0.03) x10^3u/L Absolute Lymphs (auto) (1.0-4.6) x10^3/uL Absolute Monos (auto) (0.0-1.3) x10^3/uL Absolute Nucleated RBC (0.00-0.01) x10^3u/L Lymphocytes % (24.0-44.0) % Monocytes % (0.0-12.0) % Eosinophils % (0.00-5.0) % Basophils % (0.0-0.4) % Absolute Granulocytes (1.4-6.9) x10^3/uL Basophils # (0-0.4) x10^3/uL pO2/FiO2 Ratio % VBG pH (7.32-7.42) VBG pCO2 at Pat Temp (42-55) mm/Hg VBG pO2 at Pat Temp (25-40) mm/Hg VBG HCO3 (22-28) meq/L VBG O2 Sat (Foreign) (95-100) VBG Base Excess (-2.0-2.0) VBG Hemoglobin VBG Carboxyhemoglobin (0.0-6.9) % T HGB POC Potassium (3.5-5.1) Sodium (137-145) mmol/L Potassium (3.5-5.1) mmol/L Chloride (98-107) mmol/L Carbon Dioxide (22-30) mmol/L Anion Gap (5-15) MEQ/L BUN (7-17) mg/dL Creatinine (0.52-1.04) mg/dL Estimated GFR ML/MIN Glucose (74-106) mg/dL POC Glucometer 441 H 414 H (50 to 500) mg/dL Lactic Acid (0.4-2.0) Calcium (8.4-10.2) mg/dL Magnesium (1.6-2.3) mg/dL Total Bilirubin (0.2-1.3) mg/dL AST (14-36) U/L ALT (0-35) U/L Alkaline Phosphatase (38-126) U/L Troponin I 0.014 (0.000-0.034) ng/mL Serum Total Protein (6.3-8.2) g/dL Albumin (3.5-5.0) g/dL Lipase (23-300) U/L Urinalys Dipstick Clnc Urine Color (YELLOW) Urine Appearance (CLEAR) Urine pH (5-6) Ur Specific [place] (1.005-1.025) POC Urine Protein Conf (Negative) Urine Ketones (NEGATIVE) Urine Nitrite (NEGATIVE) Urine Bilirubin (NEGATIVE) Urine Urobilinogen (0-1) mg/dL Urine Leukocytes (NEGATIVE) Urine WBC (Auto) (0-5) /HPF Urine RBC (Auto) (0-2) /HPF U Epithel Cells (Auto) (FEW) /HPF Urine Bacteria (Auto) (NEGATIVE) /HPF Urine RBC (0-5) Mahamed/ul Urine Mucus (Auto) (NEGATIVE) /HPF Ur Culture Indicated? Urine Glucose (NEGATIVE) mg/dL Urine HCG, Qual (Negative) Influenza Type A Ag (NEGATIVE) Influenza Type B Ag (NEGATIVE) RSV (PCR) (Negative) SARS-CoV-2 (PCR) (NEGATIVE) 03/18/22 03/18/22 03/18/22 Range/Units 01:09 02:07 03:06 WBC (4.0-10.5) x10^3/uL RBC (4.1-5.4) x10^6/uL Hgb (12.0-16.0) g/dL Hct (35-47) % MCV (78-100) fL MCH (26-32) pg MCHC (32-36) g/dL RDW (11.5-14.0) % Plt Count (150-450) x10^3/uL MPV (7.5-11.0) fL Gran % (36.0-66.0) % Immature Gran % (Auto) (0.00-0.4) % Nucleat RBC Rel Count (0.00-0.1) % Eos # (Auto) (0-0.5) x10^3/uL Immature Gran # (Auto) (0.00-0.03) x10^3u/L Absolute Lymphs (auto) (1.0-4.6) x10^3/uL Absolute Monos (auto) (0.0-1.3) x10^3/uL Absolute Nucleated RBC (0.00-0.01) x10^3u/L Lymphocytes % (24.0-44.0) % Monocytes % (0.0-12.0) % Eosinophils % (0.00-5.0) % Basophils % (0.0-0.4) % Absolute Granulocytes (1.4-6.9) x10^3/uL Basophils # (0-0.4) x10^3/uL pO2/FiO2 Ratio % VBG pH (7.32-7.42) VBG pCO2 at Pat Temp (42-55) mm/Hg VBG pO2 at Pat Temp (25-40) mm/Hg VBG HCO3 (22-28) meq/L VBG O2 Sat (Foreign) (95-100) VBG Base Excess (-2.0-2.0) VBG Hemoglobin VBG Carboxyhemoglobin (0.0-6.9) % T HGB POC Potassium (3.5-5.1) Sodium 128 L (137-145) mmol/L Potassium 4.3 (3.5-5.1) mmol/L Chloride 103 (98-107) mmol/L Carbon Dioxide 17 L (22-30) mmol/L Anion Gap 12.4 (5-15) MEQ/L BUN 16 (7-17) mg/dL Creatinine 0.85 (0.52-1.04) mg/dL Estimated GFR > 60.0 ML/MIN Glucose 414 H (74-106) mg/dL POC Glucometer 336 H 325 H (50 to 500) mg/dL Lactic Acid (0.4-2.0) Calcium 7.2 L (8.4-10.2) mg/dL Magnesium (1.6-2.3) mg/dL Total Bilirubin (0.2-1.3) mg/dL AST (14-36) U/L ALT (0-35) U/L Alkaline Phosphatase (38-126) U/L Troponin I (0.000-0.034) ng/mL Serum Total Protein (6.3-8.2) g/dL Albumin (3.5-5.0) g/dL Lipase (23-300) U/L Urinalys Dipstick Clnc Urine Color (YELLOW) Urine Appearance (CLEAR) Urine pH (5-6) Ur Specific [place] (1.005-1.025) POC Urine Protein Conf (Negative) Urine Ketones (NEGATIVE) Urine Nitrite (NEGATIVE) Urine Bilirubin (NEGATIVE) Urine Urobilinogen (0-1) mg/dL Urine Leukocytes (NEGATIVE) Urine WBC (Auto) (0-5) /HPF Urine RBC (Auto) (0-2) /HPF U Epithel Cells (Auto) (FEW) /HPF Urine Bacteria (Auto) (NEGATIVE) /HPF Urine RBC (0-5) Mahamed/ul Urine Mucus (Auto) (NEGATIVE) /HPF Ur Culture Indicated? Urine Glucose (NEGATIVE) mg/dL Urine HCG, Qual (Negative) Influenza Type A Ag (NEGATIVE) Influenza Type B Ag (NEGATIVE) RSV (PCR) (Negative) SARS-CoV-2 (PCR) (NEGATIVE) 03/18/22 03/18/22 03/18/22 Range/Units 04:06 04:30 04:30 WBC 5.2 (4.0-10.5) x10^3/uL RBC 2.96 L (4.1-5.4) x10^6/uL Hgb 10.2 L (12.0-16.0) g/dL Hct 30.4 L (35-47) % MCV 102.7 H D (78-100) fL MCH 34.5 H (26-32) pg MCHC 33.6 (32-36) g/dL RDW 11.9 (11.5-14.0) % Plt Count 180 (150-450) x10^3/uL MPV 10.6 (7.5-11.0) fL Gran % 40.5 (36.0-66.0) % Immature Gran % (Auto) 0.2 (0.00-0.4) % Nucleat RBC Rel Count 0.0 (0.00-0.1) % Eos # (Auto) 0.17 (0-0.5) x10^3/uL Immature Gran # (Auto) 0.01 (0.00-0.03) x10^3u/L Absolute Lymphs (auto) 2.53 (1.0-4.6) x10^3/uL Absolute Monos (auto) 0.37 (0.0-1.3) x10^3/uL Absolute Nucleated RBC 0.00 (0.00-0.01) x10^3u/L Lymphocytes % 48.5 H (24.0-44.0) % Monocytes % 7.1 (0.0-12.0) % Eosinophils % 3.3 (0.00-5.0) % Basophils % 0.4 (0.0-0.4) % Absolute Granulocytes 2.12 (1.4-6.9) x10^3/uL Basophils # 0.02 (0-0.4) x10^3/uL pO2/FiO2 Ratio % VBG pH (7.32-7.42) VBG pCO2 at Pat Temp (42-55) mm/Hg VBG pO2 at Pat Temp (25-40) mm/Hg VBG HCO3 (22-28) meq/L VBG O2 Sat (Foreign) (95-100) VBG Base Excess (-2.0-2.0) VBG Hemoglobin VBG Carboxyhemoglobin (0.0-6.9) % T HGB POC Potassium (3.5-5.1) Sodium 134 L (137-145) mmol/L Potassium 3.7 (3.5-5.1) mmol/L Chloride 107 (98-107) mmol/L Carbon Dioxide 24 (22-30) mmol/L Anion Gap 7.5 (5-15) MEQ/L BUN 14 (7-17) mg/dL Creatinine 0.86 (0.52-1.04) mg/dL Estimated GFR > 60.0 ML/MIN Glucose 302 H (74-106) mg/dL POC Glucometer 293 H (50 to 500) mg/dL Lactic Acid (0.4-2.0) Calcium 7.5 L (8.4-10.2) mg/dL Magnesium (1.6-2.3) mg/dL Total Bilirubin 0.20 (0.2-1.3) mg/dL AST 91 H (14-36) U/L ALT 196 H (0-35) U/L Alkaline Phosphatase 131 H (38-126) U/L Troponin I (0.000-0.034) ng/mL Serum Total Protein 4.5 L (6.3-8.2) g/dL Albumin 2.8 L (3.5-5.0) g/dL Lipase (23-300) U/L Urinalys Dipstick Clnc Urine Color (YELLOW) Urine Appearance (CLEAR) Urine pH (5-6) Ur Specific [place] (1.005-1.025) POC Urine Protein Conf (Negative) Urine Ketones (NEGATIVE) Urine Nitrite (NEGATIVE) Urine Bilirubin (NEGATIVE) Urine Urobilinogen (0-1) mg/dL Urine Leukocytes (NEGATIVE) Urine WBC (Auto) (0-5) /HPF Urine RBC (Auto) (0-2) /HPF U Epithel Cells (Auto) (FEW) /HPF Urine Bacteria (Auto) (NEGATIVE) /HPF Urine RBC (0-5) Mahamed/ul Urine Mucus (Auto) (NEGATIVE) /HPF Ur Culture Indicated? Urine Glucose (NEGATIVE) mg/dL Urine HCG, Qual (Negative) Influenza Type A Ag (NEGATIVE) Influenza Type B Ag (NEGATIVE) RSV (PCR) (Negative) SARS-CoV-2 (PCR) (NEGATIVE) 03/18/22 03/18/22 03/18/22 Range/Units 05:01 06:01 06:55 WBC (4.0-10.5) x10^3/uL RBC (4.1-5.4) x10^6/uL Hgb (12.0-16.0) g/dL Hct (35-47) % MCV (78-100) fL MCH (26-32) pg MCHC (32-36) g/dL RDW (11.5-14.0) % Plt Count (150-450) x10^3/uL MPV (7.5-11.0) fL Gran % (36.0-66.0) % Immature Gran % (Auto) (0.00-0.4) % Nucleat RBC Rel Count (0.00-0.1) % Eos # (Auto) (0-0.5) x10^3/uL Immature Gran # (Auto) (0.00-0.03) x10^3u/L Absolute Lymphs (auto) (1.0-4.6) x10^3/uL Absolute Monos (auto) (0.0-1.3) x10^3/uL Absolute Nucleated RBC (0.00-0.01) x10^3u/L Lymphocytes % (24.0-44.0) % Monocytes % (0.0-12.0) % Eosinophils % (0.00-5.0) % Basophils % (0.0-0.4) % Absolute Granulocytes (1.4-6.9) x10^3/uL Basophils # (0-0.4) x10^3/uL pO2/FiO2 Ratio % VBG pH (7.32-7.42) VBG pCO2 at Pat Temp (42-55) mm/Hg VBG pO2 at Pat Temp (25-40) mm/Hg VBG HCO3 (22-28) meq/L VBG O2 Sat (Foreign) (95-100) VBG Base Excess (-2.0-2.0) VBG Hemoglobin VBG Carboxyhemoglobin (0.0-6.9) % T HGB POC Potassium (3.5-5.1) Sodium (137-145) mmol/L Potassium (3.5-5.1) mmol/L Chloride (98-107) mmol/L Carbon Dioxide (22-30) mmol/L Anion Gap (5-15) MEQ/L BUN (7-17) mg/dL Creatinine (0.52-1.04) mg/dL Estimated GFR ML/MIN Glucose (74-106) mg/dL POC Glucometer 278 H 291 H 274 H (50 to 500) mg/dL Lactic Acid (0.4-2.0) Calcium (8.4-10.2) mg/dL Magnesium (1.6-2.3) mg/dL Total Bilirubin (0.2-1.3) mg/dL AST (14-36) U/L ALT (0-35) U/L Alkaline Phosphatase (38-126) U/L Troponin I (0.000-0.034) ng/mL Serum Total Protein (6.3-8.2) g/dL Albumin (3.5-5.0) g/dL Lipase (23-300) U/L Urinalys Dipstick Clnc Urine Color (YELLOW) Urine Appearance (CLEAR) Urine pH (5-6) Ur Specific [place] (1.005-1.025) POC Urine Protein Conf (Negative) Urine Ketones (NEGATIVE) Urine Nitrite (NEGATIVE) Urine Bilirubin (NEGATIVE) Urine Urobilinogen (0-1) mg/dL Urine Leukocytes (NEGATIVE) Urine WBC (Auto) (0-5) /HPF Urine RBC (Auto) (0-2) /HPF U Epithel Cells (Auto) (FEW) /HPF Urine Bacteria (Auto) (NEGATIVE) /HPF Urine RBC (0-5) Mahamed/ul Urine Mucus (Auto) (NEGATIVE) /HPF Ur Culture Indicated? Urine Glucose (NEGATIVE) mg/dL Urine HCG, Qual (Negative) Influenza Type A Ag (NEGATIVE) Influenza Type B Ag (NEGATIVE) RSV (PCR) (Negative) SARS-CoV-2 (PCR) (NEGATIVE) 03/18/22 03/18/22 Range/Units 07:39 08:15 WBC (4.0-10.5) x10^3/uL RBC (4.1-5.4) x10^6/uL Hgb (12.0-16.0) g/dL Hct (35-47) % MCV (78-100) fL MCH (26-32) pg MCHC (32-36) g/dL RDW (11.5-14.0) % Plt Count (150-450) x10^3/uL MPV (7.5-11.0) fL Gran % (36.0-66.0) % Immature Gran % (Auto) (0.00-0.4) % Nucleat RBC Rel Count (0.00-0.1) % Eos # (Auto) (0-0.5) x10^3/uL Immature Gran # (Auto) (0.00-0.03) x10^3u/L Absolute Lymphs (auto) (1.0-4.6) x10^3/uL Absolute Monos (auto) (0.0-1.3) x10^3/uL Absolute Nucleated RBC (0.00-0.01) x10^3u/L Lymphocytes % (24.0-44.0) % Monocytes % (0.0-12.0) % Eosinophils % (0.00-5.0) % Basophils % (0.0-0.4) % Absolute Granulocytes (1.4-6.9) x10^3/uL Basophils # (0-0.4) x10^3/uL pO2/FiO2 Ratio % VBG pH (7.32-7.42) VBG pCO2 at Pat Temp (42-55) mm/Hg VBG pO2 at Pat Temp (25-40) mm/Hg VBG HCO3 (22-28) meq/L VBG O2 Sat (Foreign) (95-100) VBG Base Excess (-2.0-2.0) VBG Hemoglobin VBG Carboxyhemoglobin (0.0-6.9) % T HGB POC Potassium (3.5-5.1) Sodium 134 L (137-145) mmol/L Potassium 4.8 D (3.5-5.1) mmol/L Chloride 106 (98-107) mmol/L Carbon Dioxide 23 (22-30) mmol/L Anion Gap 9.3 (5-15) MEQ/L BUN 12 (7-17) mg/dL Creatinine 0.76 (0.52-1.04) mg/dL Estimated GFR > 60.0 ML/MIN Glucose 344 H (74-106) mg/dL POC Glucometer 304 H (50 to 500) mg/dL Lactic Acid (0.4-2.0) Calcium 7.6 L (8.4-10.2) mg/dL Magnesium (1.6-2.3) mg/dL Total Bilirubin (0.2-1.3) mg/dL AST (14-36) U/L ALT (0-35) U/L Alkaline Phosphatase (38-126) U/L Troponin I (0.000-0.034) ng/mL Serum Total Protein (6.3-8.2) g/dL Albumin (3.5-5.0) g/dL Lipase (23-300) U/L Urinalys Dipstick Clnc Urine Color (YELLOW) Urine Appearance (CLEAR) Urine pH (5-6) Ur Specific [place] (1.005-1.025) POC Urine Protein Conf (Negative) Urine Ketones (NEGATIVE) Urine Nitrite (NEGATIVE) Urine Bilirubin (NEGATIVE) Urine Urobilinogen (0-1) mg/dL Urine Leukocytes (NEGATIVE) Urine WBC (Auto) (0-5) /HPF Urine RBC (Auto) (0-2) /HPF U Epithel Cells (Auto) (FEW) /HPF Urine Bacteria (Auto) (NEGATIVE) /HPF Urine RBC (0-5) Mahamed/ul Urine Mucus (Auto) (NEGATIVE) /HPF Ur Culture Indicated? Urine Glucose (NEGATIVE) mg/dL Urine HCG, Qual (Negative) Influenza Type A Ag (NEGATIVE) Influenza Type B Ag (NEGATIVE) RSV (PCR) (Negative) SARS-CoV-2 (PCR) (NEGATIVE) Accuchecks Date 03/18/22 Date 03/18/22 Date 03/18/22 Date 03/18/22 Date 03/18/22 Date 03/18/22 Date 03/18/22 Date 03/18/22 Date 03/18/22 Date 03/17/22 Time 08:11 Time 07:00 Time 06:00 Time 05:00 Time 03:00 Time 03:00 Time 01:00 Time 01:00 Time 00:00 Time 23:00 - Other Procedures and Tests Respiratory Therapy 03/18/22 00:16 Respiratory Therapy Assessment DAILY Assessment/Plan (1) Hyperosmolar hyperglycemic state (HHS) Current Visit: Yes Status: Acute Assessment & Plan: improved, but still low CO2. continue to watch. Off insulin drip. BS in the 200s now, which is probably fairly normal for her (she says she is extremely nervous is BS gets to 150 because she drops so suddenly from there at times). Code(s): E11.00 - TYPE 2 DIAB W HYPROSM W/O NONKET HYPRGLY-HYPROS COMA ([facility]) (2) Diarrhea Current Visit: Yes Status: Acute Qualifiers: Diarrhea type: unspecified type Qualified Code(s): R19.7 - Diarrhea, unspecified Assessment & Plan: Will do GI pathogen panel Code(s): R19.7 - DIARRHEA, UNSPECIFIED (3) Hyponatremia Current Visit: Yes Status: Acute Assessment & Plan: improved Code(s): E87.1 - HYPO-OSMOLALITY AND HYPONATREMIA (4) Anemia Current Visit: Yes Status: Acute Qualifiers: Anemia type: unspecified type Qualified Code(s): D64.9 - Anemia, unspecified Code(s): D64.9 - ANEMIA, UNSPECIFIED
[2022-03-18] MEDS ORDERED: NON-FORMULARY ITEM (Apixaban*** [Eliquis 5 Mg Tablet***] 5 MG Tablet) PO SCH (10:00)
[2022-03-18] MEDS ORDERED: Carafate SUSPENSION 1000 MG/10 ML PO SCH (10:00)
[2022-03-18] MEDS ORDERED: ERYTHROMYCIN BASE 250 MG PO SCH (10:00)
[2022-03-18] MEDS ORDERED: FLUZONE QUAD 2022-2023 SYRINGE IM ONE (10:00)
[2022-03-18] MEDS ORDERED: NON-FORMULARY ITEM (Gabapentin [Neurontin] 600 MG Tablet) PO SCH (10:00)
[2022-03-18] MEDS ORDERED: NON-FORMULARY ITEM (Baclofen [Baclofen] 20 MG Tablet) PO SCH (10:00)
[2022-03-18] MEDS ORDERED: PROTONIX 40 MG IV IV SCH (10:00)
[2022-03-18] MEDS ORDERED: LIDOCAINE TP PRN (10:10)
[2022-03-18] MEDS ORDERED: DICLOFENAC EPOLAMINE TOP PRN (10:10)
[2022-03-18] MEDS: PROAMATINE PO SCH ×3 (10:57→22:04)
[2022-03-18] MEDS: FEOSOL 325 MG PO SCH ×3 (10:57→22:02)
[2022-03-18] MEDS: ELIQUIS 2.5 MG TABLET PO SCH ×2 (10:57→22:02)
[2022-03-18] MEDS: Carafate 1 GM PO SCH ×5 (10:57→22:04)
[2022-03-18] MEDS: LIORESAL 10 MG PO SCH ×4 (10:57→22:01)
[2022-03-18] MEDS: NEURONTIN PO SCH ×4 (10:57→22:01)
[2022-03-18] MEDS: Singulair 10 MG PO SCH (10:59)
[2022-03-18] MEDS: LASIX 20 MG PO SCH (10:59)
[2022-03-18] MEDS: FOLATE 1 MG PO SCH (11:00)
[2022-03-18] MEDS: Lexapro PO SCH ×3 (11:00→22:02)
[2022-03-18] MEDS: SYNTHROID 25 MCG PO SCH (11:00)
[2022-03-18] MEDS: Protonix 40MG Tablet PO SCH (11:00)
[2022-03-18 12:49] LABS: ANION GAP 11.5 MEQ/L (5-15); BLOOD UREA NITROGEN 10 mg/dL (7-17); CHLORIDE 108 mmol/L (98-107); Calcium 8.2 mg/dL (8.4-10.2); Carbon Dioxide 22 mmol/L (22-30); Creatinine 1 0.73 mg/dL (0.52-1.04); EST GLOMERULAR FILTRATION RATE > 60.0 ML/MIN; Glucose 75 mg/dL (74-106); Potassium 4.1 mmol/L (3.5-5.1); SODIUM 138 mmol/L (137-145)
[2022-03-18] MEDS: HUMALOG SQ PRN ×4 (14:28→22:09)
[2022-03-18 16:05] LABS: 027 TOX PROD PRESUMPTIVE NEGATIVE (NEGATIVE); TOXIGENIC C. DIFF ORG NEGATIVE (NEGATIVE)
[2022-03-18] MEDS: PROVENTIL 2.5 MG/3 ML NEB IH PRN (16:24)
[2022-03-18 16:29] LABS: ANION GAP 13.8 MEQ/L (5-15); BLOOD UREA NITROGEN 9 mg/dL (7-17); CHLORIDE 107 mmol/L (98-107); Calcium 7.9 mg/dL (8.4-10.2); Creatinine 1 0.85 mg/dL (0.52-1.04); EST GLOMERULAR FILTRATION RATE > 60.0 ML/MIN; Glucose 280 mg/dL (74-106); Potassium 5.1 mmol/L (3.5-5.1); SODIUM 129 mmol/L (137-145)
[2022-03-18 16:40] LABS: Carbon Dioxide 13 mmol/L (22-30)
[2022-03-18] MEDS: PHENERGAN 25 MG PO PRN (18:24)
[2022-03-18 20:34] LABS: ANION GAP 10.4 MEQ/L (5-15); BLOOD UREA NITROGEN 8 mg/dL (7-17); CHLORIDE 109 mmol/L (98-107); Calcium 7.4 mg/dL (8.4-10.2); Carbon Dioxide 17 mmol/L (22-30); Creatinine 1 0.87 mg/dL (0.52-1.04); EST GLOMERULAR FILTRATION RATE > 60.0 ML/MIN; Glucose 454 mg/dL (74-106); Potassium 4.3 mmol/L (3.5-5.1); SODIUM 132 mmol/L (137-145)
[2022-03-18] MEDS ORDERED: MIRTAZAPINE PO SCH (22:00)
[2022-03-18] MEDS ORDERED: NON-FORMULARY ITEM (Buspirone Hcl [Buspirone Hcl] 7.5 MG Tablet) PO SCH (22:00)
[2022-03-18] MEDS: REMERON 30 MG PO SCH (22:01)
[2022-03-18] MEDS: Requip 0.5 MG PO SCH (22:01)
[2022-03-18] MEDS: TOPIRAMATE PO SCH (22:03)
[2022-03-18] MEDS: BUSPAR 5 MG PO SCH (22:03)
[2022-03-18] MEDS: CLONIDINE 0.1 MG TABLET PO SCH (22:03)
[2022-03-19 01:06] LABS: ANION GAP 9.4 MEQ/L (5-15); BLOOD UREA NITROGEN 9 mg/dL (7-17); CHLORIDE 114 mmol/L (98-107); Calcium 8.4 mg/dL (8.4-10.2); Carbon Dioxide 21 mmol/L (22-30); Creatinine 1 0.83 mg/dL (0.52-1.04); EST GLOMERULAR FILTRATION RATE > 60.0 ML/MIN; Potassium 3.7 mmol/L (3.5-5.1)
[2022-03-19 01:14] LABS: Glucose 46 mg/dL (74-106); SODIUM 140 mmol/L (137-145)
[2022-03-19 05:27] LABS: Hematocrit 31.4 % (35-47); Mean Cell Volume 108.7 fL (78-100); Mean Corpuscular Hemoglobin 34.6 pg (26-32); Mean Corpuscular Hgb Concent. 31.8 g/dL (32-36); Mean Platelet Volume 10.8 fL (7.5-11.0); Platelet Count 167 x10^3/uL (150-450); Red Blood Count 2.89 x10^6/uL (4.1-5.4); Red Cell Distribution Width 12.6 % (11.5-14.0); White Blood Count 3.9 x10^3/uL (4.0-10.5)
[2022-03-19] MEDS: D5W/0.45NS W/ 20mEq KCl 1000 ML 1,000 ML IV SCH ×2 (05:47→15:26)
[2022-03-19 05:54] LABS: ANION GAP 8.5 MEQ/L (5-15); BLOOD UREA NITROGEN 10 mg/dL (7-17); CHLORIDE 110 mmol/L (98-107); Calcium 7.8 mg/dL (8.4-10.2); Carbon Dioxide 20 mmol/L (22-30); Creatinine 1 0.72 mg/dL (0.52-1.04); EST GLOMERULAR FILTRATION RATE > 60.0 ML/MIN; Glucose 329 mg/dL (74-106); SODIUM 134 mmol/L (137-145)
[2022-03-19] MEDS: DUONEB 0.5-3 MG/3 ml Neb IH SCH (05:57)
[2022-03-19] MEDS: Advair Hfa 230/21 Mcg COMMON CANISTER IH SCH ×2 (06:00→18:04)
[2022-03-19] MEDS: HUMALOG SQ PRN ×4 (06:03→23:32)
[2022-03-19 06:06] LABS: Potassium 4.7 mmol/L (3.5-5.1)
[2022-03-19] MEDS: Zofran 4 MG/2 ML VIAL IV PRN (06:07)
[2022-03-19] MEDS: LASIX 20 MG PO SCH (08:31)
[2022-03-19] MEDS: Reglan 10 MG PO SCH ×4 (08:31→21:56)
[2022-03-19] MEDS: SYNTHROID 25 MCG PO SCH (08:31)
[2022-03-19] MEDS: FEOSOL 325 MG PO SCH ×3 (08:31→21:57)
[2022-03-19] MEDS: ELIQUIS 2.5 MG TABLET PO SCH ×2 (08:31→21:58)
[2022-03-19] MEDS: Singulair 10 MG PO SCH (08:31)
[2022-03-19] MEDS: NEURONTIN PO SCH ×4 (08:31→21:57)
[2022-03-19] MEDS: Protonix 40MG Tablet PO SCH (08:32)
[2022-03-19] MEDS: PROAMATINE PO SCH ×3 (08:32→21:57)
[2022-03-19] MEDS: FOLATE 1 MG PO SCH (08:32)
[2022-03-19] MEDS: Carafate 1 GM PO SCH ×4 (08:33→21:58)
[2022-03-19] MEDS ORDERED: NON-FORMULARY ITEM (Escitalopram Oxalate [Lexapro] 20 MG Tablet) PO SCH (10:00)
[2022-03-19] MEDS ORDERED: DEXLANSOPRAZOLE 60 MG PO SCH (10:00)
[2022-03-19] MEDS: LIORESAL 10 MG PO SCH ×4 (10:15→21:57)
[2022-03-19] MEDS: PROVENTIL 2.5 MG/3 ML NEB IH PRN (11:01)
[2022-03-19] MEDS ORDERED: Mylicon 80MG PO PRN (14:33)
[2022-03-19] MEDS ORDERED: MARY'S MOUTHWASH PO PRN (14:35)
--- NOTE | 2022-03-19 14:42 | PCM.NOTE ---
Date and Time: 03/19/22 4663 Subjective Assessment: Pt is not feeling well, is dizzy when up. Her head (maxillary and frontal sinuses) are painful and burning; this started several days prior to admission. She is tolerating po but still feeling nauseated. Had several episodes of low blood sugars; decided with RN that if BS are 300 or over, will take low dose SS, but if under 300 will just observe. C/o gas and bloating. C/o chest feeling heavy/lungs tight. Doing nebs; did extra neb without relief. - Review of Systems Constitutional: Fatigue Ears, Nose, & Throat: Sinus Drainage, Other (sinus pain) Respiratory: Other (lungs tight) Cardiac: Chest Pain Abdominal/Gastrointestinal: Nausea, Other (gas pain and abd bloating) Objective Exam General Appearance: no apparent distress, alert Neurologic Exam: oriented x 3, cooperative Skin Exam: normal color, warm, dry, No rash Eye Exam: eyes nml inspection Ears, Nose, Throat Exam: moist mucous membranes Neck Exam: normal inspection Respiratory Exam: normal breath sounds, lungs clear, No crackles/rales, No rhonchi, No wheezing Cardiovascular Exam: regular rate/rhythm, normal heart sounds, No murmur Gastrointestinal/Abdomen Exam: soft, normal bowel sounds, No tenderness, No distention, No mass, No guarding, No rebound Extremity Exam: normal inspection, No pedal edema, No swelling Back Exam: normal inspection, No rash OBJECTIVE DATA Vital Signs: Vital Signs - 24 hr Temp Pulse Resp BP Pulse Ox 03/19/22 12:00 98.2 F 102 H 28 H 128/79 96 03/19/22 11:14 90 18 95 03/19/22 08:00 98.2 F 99 H 16 99/66 95 03/19/22 06:03 92 H 24 100 03/19/22 04:00 97.9 F 82 19 120/67 96 03/19/22 00:01 84 03/19/22 00:00 97.7 F 84 14 100/57 98 03/18/22 20:00 98 H 03/18/22 19:44 96.8 F 98 H 20 112/70 96 03/18/22 18:37 88 16 100 03/18/22 16:46 98.0 F 78 16 109/83 97 03/18/22 16:43 64 18 95 Pain Assessment - Last Documented Pain Intensity 0 Pain Scale Used 0-10 Pain Scale Intake and Output: Intake & Output 03/17/22 03/18/22 03/19/22 03/20/22 11:59 11:59 11:59 11:59 Intake Total 3666 2841 Output Total 5234 2977 1656 Balance 274 -2094 -4159 Weight 62 kg 62.2 kg Lab Results: Lab Results-Last 24 Hours 03/18/22 03/18/22 03/18/22 Range/Units 15:23 16:00 16:14 WBC (4.0-10.5) x10^3/uL RBC (4.1-5.4) x10^6/uL Hgb (12.0-16.0) g/dL Hct (35-47) % MCV (78-100) fL MCH (26-32) pg MCHC (32-36) g/dL RDW (11.5-14.0) % Plt Count (150-450) x10^3/uL MPV (7.5-11.0) fL Sodium 129 L D (137-145) mmol/L Potassium 5.1 D (3.5-5.1) mmol/L Chloride 107 (98-107) mmol/L Carbon Dioxide 13 L* (22-30) mmol/L Anion Gap 13.8 (5-15) MEQ/L BUN 9 (7-17) mg/dL Creatinine 0.85 (0.52-1.04) mg/dL Estimated GFR > 60.0 ML/MIN Glucose 280 H (74-106) mg/dL POC Glucometer 201 H (74 to 106) mg/dL Hemoglobin A1c (4.5-6.0) % Calcium 7.9 L (8.4-10.2) mg/dL C. difficile Screen NEGATIVE (NEGATIVE) C.difficile 027-NAP1-B1 PRESUMPTIVE NEGATIVE (NEGATIVE) 03/18/22 03/18/22 03/18/22 Range/Units 18:19 20:10 20:11 WBC (4.0-10.5) x10^3/uL RBC (4.1-5.4) x10^6/uL Hgb (12.0-16.0) g/dL Hct (35-47) % MCV (78-100) fL MCH (26-32) pg MCHC (32-36) g/dL RDW (11.5-14.0) % Plt Count (150-450) x10^3/uL MPV (7.5-11.0) fL Sodium 132 L (137-145) mmol/L Potassium 4.3 (3.5-5.1) mmol/L Chloride 109 H (98-107) mmol/L Carbon Dioxide 17 L (22-30) mmol/L Anion Gap 10.4 (5-15) MEQ/L BUN 8 (7-17) mg/dL Creatinine 0.87 (0.52-1.04) mg/dL Estimated GFR > 60.0 ML/MIN Glucose 454 H (74-106) mg/dL POC Glucometer 270 H 409 H (74 to 106) mg/dL Hemoglobin A1c (4.5-6.0) % Calcium 7.4 L (8.4-10.2) mg/dL C. difficile Screen (NEGATIVE) C.difficile 027-NAP1-B1 (NEGATIVE) 03/18/22 03/19/22 03/19/22 Range/Units 22:00 00:00 00:04 WBC (4.0-10.5) x10^3/uL RBC (4.1-5.4) x10^6/uL Hgb (12.0-16.0) g/dL Hct (35-47) % MCV (78-100) fL MCH (26-32) pg MCHC (32-36) g/dL RDW (11.5-14.0) % Plt Count (150-450) x10^3/uL MPV (7.5-11.0) fL Sodium 140 D (137-145) mmol/L Potassium 3.7 (3.5-5.1) mmol/L Chloride 114 H (98-107) mmol/L Carbon Dioxide 21 L (22-30) mmol/L Anion Gap 9.4 (5-15) MEQ/L BUN 9 (7-17) mg/dL Creatinine 0.83 (0.52-1.04) mg/dL Estimated GFR > 60.0 ML/MIN Glucose 46 L* (74-106) mg/dL POC Glucometer 268 H 69 L (74 to 106) mg/dL Hemoglobin A1c (4.5-6.0) % Calcium 8.4 (8.4-10.2) mg/dL C. difficile Screen (NEGATIVE) C.difficile 027-NAP1-B1 (NEGATIVE) 03/19/22 03/19/22 03/19/22 Range/Units 00:41 01:29 04:05 WBC (4.0-10.5) x10^3/uL RBC (4.1-5.4) x10^6/uL Hgb (12.0-16.0) g/dL Hct (35-47) % MCV (78-100) fL MCH (26-32) pg MCHC (32-36) g/dL RDW (11.5-14.0) % Plt Count (150-450) x10^3/uL MPV (7.5-11.0) fL Sodium (137-145) mmol/L Potassium (3.5-5.1) mmol/L Chloride (98-107) mmol/L Carbon Dioxide (22-30) mmol/L Anion Gap (5-15) MEQ/L BUN (7-17) mg/dL Creatinine (0.52-1.04) mg/dL Estimated GFR ML/MIN Glucose (74-106) mg/dL POC Glucometer 65 L 128 H 300 H (74 to 106) mg/dL Hemoglobin A1c (4.5-6.0) % Calcium (8.4-10.2) mg/dL C. difficile Screen (NEGATIVE) C.difficile 027-NAP1-B1 (NEGATIVE) 03/19/22 03/19/22 03/19/22 Range/Units 04:25 04:25 06:00 WBC 3.9 L (4.0-10.5) x10^3/uL RBC 2.89 L (4.1-5.4) x10^6/uL Hgb 10.0 L (12.0-16.0) g/dL Hct 31.4 L (35-47) % MCV 108.7 H (78-100) fL MCH 34.6 H (26-32) pg MCHC 31.8 L (32-36) g/dL RDW 12.6 (11.5-14.0) % Plt Count 167 (150-450) x10^3/uL MPV 10.8 (7.5-11.0) fL Sodium 134 L (137-145) mmol/L Potassium 4.7 D (3.5-5.1) mmol/L Chloride 110 H (98-107) mmol/L Carbon Dioxide 20 L (22-30) mmol/L Anion Gap 8.5 (5-15) MEQ/L BUN 10 (7-17) mg/dL Creatinine 0.72 (0.52-1.04) mg/dL Estimated GFR > 60.0 ML/MIN Glucose 329 H (74-106) mg/dL POC Glucometer 335 H (74 to 106) mg/dL Hemoglobin A1c (4.5-6.0) % Calcium 7.8 L (8.4-10.2) mg/dL C. difficile Screen (NEGATIVE) C.difficile 027-NAP1-B1 (NEGATIVE) 03/19/22 03/19/22 03/19/22 Range/Units 07:55 10:17 12:02 WBC (4.0-10.5) x10^3/uL RBC (4.1-5.4) x10^6/uL Hgb (12.0-16.0) g/dL Hct (35-47) % MCV (78-100) fL MCH (26-32) pg MCHC (32-36) g/dL RDW (11.5-14.0) % Plt Count (150-450) x10^3/uL MPV (7.5-11.0) fL Sodium (137-145) mmol/L Potassium (3.5-5.1) mmol/L Chloride (98-107) mmol/L Carbon Dioxide (22-30) mmol/L Anion Gap (5-15) MEQ/L BUN (7-17) mg/dL Creatinine (0.52-1.04) mg/dL Estimated GFR ML/MIN Glucose (74-106) mg/dL POC Glucometer 348 H 233 H 255 H (74 to 106) mg/dL Hemoglobin A1c (4.5-6.0) % Calcium (8.4-10.2) mg/dL C. difficile Screen (NEGATIVE) C.difficile 027-NAP1-B1 (NEGATIVE) 03/19/22 Range/Units Unknown WBC (4.0-10.5) x10^3/uL RBC (4.1-5.4) x10^6/uL Hgb (12.0-16.0) g/dL Hct (35-47) % MCV (78-100) fL MCH (26-32) pg MCHC (32-36) g/dL RDW (11.5-14.0) % Plt Count (150-450) x10^3/uL MPV (7.5-11.0) fL Sodium (137-145) mmol/L Potassium (3.5-5.1) mmol/L Chloride (98-107) mmol/L Carbon Dioxide (22-30) mmol/L Anion Gap (5-15) MEQ/L BUN (7-17) mg/dL Creatinine (0.52-1.04) mg/dL Estimated GFR ML/MIN Glucose (74-106) mg/dL POC Glucometer (74 to 106) mg/dL Hemoglobin A1c 5.14 (4.5-6.0) % Calcium (8.4-10.2) mg/dL C. difficile Screen (NEGATIVE) C.difficile 027-NAP1-B1 (NEGATIVE) Radiology Exams: Radiology Procedures Category Date Time Status CHEST 2 VIEWS (PA AND LAT) Urgent Exams 03/19/22 Ordered Multi-Disciplinary Progress Notes: Multi-Disciplinary Progress Notes 03/19/22 12:01 Case Management Note by Tessy Joshi S/W PATIENT- SHE CONTINUES TO DENY ANY NEW NEEDS AT TIME OF DC Initialized on 03/19/22 12:01 - END OF NOTE Assessment/Plan (1) Hyperosmolar hyperglycemic state (HHS) Current Visit: Yes Status: Resolved Assessment & Plan: AG is nl and CO2 is 20 today. Code(s): E11.00 - TYPE 2 DIAB W HYPROSM W/O NONKET HYPRGLY-HYPROS COMA ([facility]) (2) DM I (diabetes mellitus, type I) Current Visit: Yes Status: Acute Qualifiers: Diabetes mellitus complication status: without complication Qualified Code(s): E10.9 - Type 1 diabetes mellitus without complications Assessment & Plan: She has an appt with [facility] tomorrow at 2:30, so plan is to discharge tomorrow; [employer] [facility] [employer] will pick her up at 1:00 and take her to her appt. Would like to continue to watch the BS overnight and hopefully tomorrow she will get her pump adjusted so it is working correctly. (3) Diarrhea Current Visit: Yes Status: Acute Qualifiers: Diarrhea type: unspecified type Qualified Code(s): R19.7 - Diarrhea, unspecified Code(s): R19.7 - DIARRHEA, UNSPECIFIED (4) Hyponatremia Current Visit: Yes Status: Acute Assessment & Plan: much improved, 134 today. Code(s): E87.1 - HYPO-OSMOLALITY AND HYPONATREMIA (5) Anemia Current Visit: Yes Status: Acute Qualifiers: Anemia type: unspecified type Qualified Code(s): D64.9 - Anemia, unspecified Assessment & Plan: Will need OP CBC, CMP. Code(s): D64.9 - ANEMIA, UNSPECIFIED (6) Elevated LFTs Current Visit: Yes Status: Acute Assessment & Plan: rechecking. Code(s): R79.89 - OTHER SPECIFIED ABNORMAL FINDINGS OF BLOOD CHEMISTRY
[2022-03-19 14:53] LABS: ALBUMIN 2.8 g/dL (3.5-5.0); BILIRUBIN,TOTAL 0.2 mg/dL (0.2-1.3); Direct Bilirubin 0.2 mg/dL (0.0-0.4); Total Protein 4.6 g/dL (6.3-8.2)
--- NOTE | 2022-03-19 15:13 | XRAY ---
Exam: AP upright and portable upright lateral chest films from 03/19/2022. Comparison: AP upright portable chest film from 12/05/2021. Indication: Chest tightness. Findings: The two-view study reveals mild rotation of the chest on the lateral radiograph. The heart size and contour are normal. The santino and mediastinal structures appear unremarkable. The lungs are adequately inflated. No air space infiltrates, vascular congestion, pneumothorax, or pleural fluid is seen. Mild lower dorsal kyphosis is seen. Surgical clips are seen within right upper quadrant consistent with prior cholecystectomy. There is minimal anterior vertebral endplate spurring within the lower thoracic spine. No acute osseous process is seen. Impression: 1. No acute cardiopulmonary disease is seen, no change from 12/05/2021.
[2022-03-19] MEDS: ROCEPHIN 1 Gm-D5w 50 ml Bag** 1 G/50 ML IVPB IV SCH (15:26)
[2022-03-19] MEDS: PHENERGAN 25 MG PO PRN (17:54)
[2022-03-19] MEDS: Requip 0.5 MG PO SCH (21:56)
[2022-03-19] MEDS: REMERON 30 MG PO SCH (21:56)
[2022-03-19] MEDS: BUSPAR 5 MG PO SCH (21:57)
[2022-03-19] MEDS: CLONIDINE 0.1 MG TABLET PO SCH (21:58)
[2022-03-19] MEDS: Lexapro PO SCH (21:58)
[2022-03-19] MEDS: TOPIRAMATE PO SCH (21:59)
[2022-03-20] MEDS: D5W/0.45NS W/ 20mEq KCl 1000 ML 1,000 ML IV SCH (02:29)
[2022-03-20 06:07] LABS: Hematocrit 38.9 % (35-47); Hemoglobin 11.4 g/dL (12.0-16.0); Mean Corpuscular Hemoglobin 34.9 pg (26-32); Mean Corpuscular Hgb Concent. 29.3 g/dL (32-36); Mean Platelet Volume 10.5 fL (7.5-11.0); Platelet Count 132 x10^3/uL (150-450); Red Blood Count 3.27 x10^6/uL (4.1-5.4); Red Cell Distribution Width 12.7 % (11.5-14.0)
[2022-03-20] MEDS: DUONEB 0.5-3 MG/3 ml Neb IH SCH (06:31)
[2022-03-20] MEDS: Advair Hfa 230/21 Mcg COMMON CANISTER IH SCH (06:32)
[2022-03-20] MEDS: HUMALOG SQ PRN ×2 (07:18→10:03)
[2022-03-20] MEDS: Reglan 10 MG PO SCH ×2 (08:25→12:09)
[2022-03-20] MEDS: LIORESAL 10 MG PO SCH ×3 (08:25→12:09)
[2022-03-20] MEDS: Protonix 40MG Tablet PO SCH (08:25)
[2022-03-20] MEDS: NEURONTIN PO SCH ×2 (08:25→12:09)
[2022-03-20] MEDS: Singulair 10 MG PO SCH (08:25)
[2022-03-20] MEDS: ELIQUIS 2.5 MG TABLET PO SCH (08:25)
[2022-03-20] MEDS: LASIX 20 MG PO SCH (08:26)
[2022-03-20] MEDS: SYNTHROID 25 MCG PO SCH (08:26)
[2022-03-20] MEDS: FOLATE 1 MG PO SCH (08:26)
[2022-03-20] MEDS: Carafate 1 GM PO SCH ×2 (08:27→12:09)
[2022-03-20] MEDS: ROCEPHIN 1 Gm-D5w 50 ml Bag** 1 G/50 ML IVPB IV SCH (08:27)
[2022-03-20] MEDS: PROAMATINE PO SCH (08:27)
[2022-03-20] MEDS: FEOSOL 325 MG PO SCH (08:27)
[2022-03-20] MEDS ORDERED: PROAMATINE PO ONE (08:35)
[2022-03-20 08:44] LABS: ALBUMIN 3.4 g/dL (3.5-5.0); ALKALINE PHOSPHATASE 131 U/L (38-126); ANION GAP 13.7 MEQ/L (5-15); BLOOD UREA NITROGEN 11 mg/dL (7-17); CHLORIDE 107 mmol/L (98-107); Calcium 8.2 mg/dL (8.4-10.2); Carbon Dioxide 20 mmol/L (22-30); Creatinine 1 0.68 mg/dL (0.52-1.04); EST GLOMERULAR FILTRATION RATE > 60.0 ML/MIN; Glucose 382 mg/dL (74-106); Potassium 4.6 mmol/L (3.5-5.1); SGOT/AST 47 U/L (14-36); SGPT/ALT 120 U/L (0-35); SODIUM 136 mmol/L (137-145); Total Protein 5.3 g/dL (6.3-8.2)
--- NOTE | 2022-03-20 08:44 | PCM.DS ---
Discharge Summary Date of Admission: 03/17/22 21:22 Admitting Physician: DELBERT IBANEZ Primary Care Provider: ANGELITO LARSON, Allergies Allergies grapefruit Allergy (Verified 03/17/22 21:57) [facility] Hospital Summary - Hospital Course Hospital Course: Pt is a 41 yo female pt of Angelito Larson (in [place] under Dr. Luis Pizano) with Type I DM who was admitted through ER in [facility] with a blood sugar of 1141. She had gotten an insulin pump 2 weeks before and had changed the location and it kept reading "HI" then her glucometer read "HI." Her CO2 was 17 when she came in. No immediate nidus of infection was found. She was placed on insulin drip and her BS came down to 300s by the next morning. She is very brittle, and her sugars dropped a few times so we ended up just using low dose sliding scale insulin when her BS was > 300. On her second hospital day she talked about her head hurting with sinus congestion, so we started treating for sinusitis with IV rocephin (day #2 today). She will be sent home with 8 days of po augmentin. She has some low BP here, intermittently (particularly in the morning), so at home she will start taking 10mg midodrin at night, instead of 5mg. She generally takes 5mg po TID but can increase to 10mg po TID as needed. She is anemic and her WBC have been low the past 2 days - will have f/u CBC in 1 week. She has macrocytic anemia so we are checkign B12 and folate this morning. She will be seeing Muna Bahena in office this afternoon, so will be discharged this morning. Her BS have been from 110s to 400 in the past 24 hours. We discussed that if she feels poorly she may need to come back in through the ER. She's had some dizziness with low BP but no syncope. Jsoe po. - Vitals & Intake/Output Vital Signs: Vital Signs Temperature 98.4 F 03/20/22 07:50 Pulse Rate 96 H 03/20/22 07:50 Respiratory Rate 16 03/20/22 07:50 Blood Pressure 94/46 03/20/22 07:50 O2 Sat by Pulse Oximetry 90 L 03/20/22 07:50 Intake & Output: Intake & Output 03/17/22 03/18/22 03/19/22 03/20/22 11:59 11:59 11:59 11:59 Intake Total 3663 6974 3381 Output Total 9356 1511 4589 Balance 325 -8421 -3934 Weight 62 kg 62.2 kg - Lab Result Diagrams: 03/20/22 06:02 03/19/22 04:25 Lab Results-Last 24 Hrs: Lab Results-Last 24 Hours 03/19/22 03/19/22 03/19/22 Range/Units 04:25 10:17 12:02 WBC (4.0-10.5) x10^3/uL RBC (4.1-5.4) x10^6/uL Hgb (12.0-16.0) g/dL Hct (35-47) % MCV (78-100) fL MCH (26-32) pg MCHC (32-36) g/dL RDW (11.5-14.0) % Plt Count (150-450) x10^3/uL MPV (7.5-11.0) fL POC Glucometer 233 H 255 H (74 to 106) mg/dL Total Bilirubin 0.20 (0.2-1.3) mg/dL Direct Bilirubin 0.2 (0.0-0.4) mg/dL AST 48 H (14-36) U/L ALT 146 H (0-35) U/L Alkaline Phosphatase 114 (38-126) U/L Troponin I (0.000-0.034) ng/mL Serum Total Protein 4.6 L (6.3-8.2) g/dL Albumin 2.8 L (3.5-5.0) g/dL 03/19/22 03/19/22 03/19/22 Range/Units 14:50 15:07 17:05 WBC (4.0-10.5) x10^3/uL RBC (4.1-5.4) x10^6/uL Hgb (12.0-16.0) g/dL Hct (35-47) % MCV (78-100) fL MCH (26-32) pg MCHC (32-36) g/dL RDW (11.5-14.0) % Plt Count (150-450) x10^3/uL MPV (7.5-11.0) fL POC Glucometer 329 H 288 H (74 to 106) mg/dL Total Bilirubin (0.2-1.3) mg/dL Direct Bilirubin (0.0-0.4) mg/dL AST (14-36) U/L ALT (0-35) U/L Alkaline Phosphatase (38-126) U/L Troponin I < 0.012 (0.000-0.034) ng/mL Serum Total Protein (6.3-8.2) g/dL Albumin (3.5-5.0) g/dL 03/19/22 03/19/22 03/20/22 Range/Units 20:43 23:21 01:24 WBC (4.0-10.5) x10^3/uL RBC (4.1-5.4) x10^6/uL Hgb (12.0-16.0) g/dL Hct (35-47) % MCV (78-100) fL MCH (26-32) pg MCHC (32-36) g/dL RDW (11.5-14.0) % Plt Count (150-450) x10^3/uL MPV (7.5-11.0) fL POC Glucometer 134 H 411 H 256 H (74 to 106) mg/dL Total Bilirubin (0.2-1.3) mg/dL Direct Bilirubin (0.0-0.4) mg/dL AST (14-36) U/L ALT (0-35) U/L Alkaline Phosphatase (38-126) U/L Troponin I (0.000-0.034) ng/mL Serum Total Protein (6.3-8.2) g/dL Albumin (3.5-5.0) g/dL 03/20/22 03/20/22 03/20/22 Range/Units 03:09 05:04 06:02 WBC 3.0 L (4.0-10.5) x10^3/uL RBC 3.27 L (4.1-5.4) x10^6/uL Hgb 11.4 L (12.0-16.0) g/dL Hct 38.9 (35-47) % MCV 119.0 H D (78-100) fL MCH 34.9 H (26-32) pg MCHC 29.3 L (32-36) g/dL RDW 12.7 (11.5-14.0) % Plt Count 132 L (150-450) x10^3/uL MPV 10.5 (7.5-11.0) fL POC Glucometer 110 H 284 H (74 to 106) mg/dL Total Bilirubin (0.2-1.3) mg/dL Direct Bilirubin (0.0-0.4) mg/dL AST (14-36) U/L ALT (0-35) U/L Alkaline Phosphatase (38-126) U/L Troponin I (0.000-0.034) ng/mL Serum Total Protein (6.3-8.2) g/dL Albumin (3.5-5.0) g/dL 03/20/22 Range/Units 07:08 WBC (4.0-10.5) x10^3/uL RBC (4.1-5.4) x10^6/uL Hgb (12.0-16.0) g/dL Hct (35-47) % MCV (78-100) fL MCH (26-32) pg MCHC (32-36) g/dL RDW (11.5-14.0) % Plt Count (150-450) x10^3/uL MPV (7.5-11.0) fL POC Glucometer 397 H (74 to 106) mg/dL Total Bilirubin (0.2-1.3) mg/dL Direct Bilirubin (0.0-0.4) mg/dL AST (14-36) U/L ALT (0-35) U/L Alkaline Phosphatase (38-126) U/L Troponin I (0.000-0.034) ng/mL Serum Total Protein (6.3-8.2) g/dL Albumin (3.5-5.0) g/dL Micro Results-Entire Visit: Microbiology 03/17/22 17:45 Blood Culture - Preliminary Blood NO GROWTH TO DATE 03/17/22 17:35 Blood Culture - Preliminary Blood NO GROWTH TO DATE Accuchecks Date 03/20/22 Date 03/19/22 Date 03/19/22 Date 03/19/22 Date 03/19/22 Date 03/19/22 Date 03/19/22 Date 03/19/22 Time 05:05 Time 01:15 Time 23:30 Time 17:13 Time 15:16 Time 12:00 Time 10:25 Time 10:25 - Radiology Exams Ordered Rad Exams-Entire Visit: Radiology Procedures Category Date Time Status CHEST 2 VIEWS (PA AND LAT) Urgent Exams 03/19/22 14:53 Completed - Procedures and Test Procedures and Tests throughout Hospitalization: Therapy Orders & Screens 03/18/22 00:00 RT Screen per Nursing Assess ONCE Comment: Protocol Order Physician Instructions: Greater than 3 points order RT Admission Screen Reason For Exam: Triggered on Admission Diagnosis: [facility] Diagnosis: [facility] Pneumonia: No Home O2: No Asthma: Yes CHF: No Home CPAP/BIPAP: No Home Nebs/MDI: Yes Total Points: 9 03/18/22 00:16 Respiratory Therapy Assessment DAILY Comment: Diagnosis: HHS 03/19/22 14:36 EKG STAT Comment: Diagnosis: [facility] Discharge Exam General Appearance: no apparent distress, alert Neurologic Exam: oriented x 3, cooperative Eye Exam: eyes nml inspection Ears, Nose, Throat Exam: moist mucous membranes Neck Exam: normal inspection Respiratory Exam: normal breath sounds, lungs clear, No crackles/rales, No rhonchi, No wheezing Cardiovascular Exam: regular rate/rhythm, normal heart sounds, No murmur Back Exam: normal inspection, No rash Extremity Exam: normal inspection Skin Exam: normal color, warm, dry, No rash Final Diagnosis/Problem List - Final Discharge Diagnosis/Problem (1) Hyperosmolar hyperglycemic state ([facility]HS) Current Visit: Yes Status: Resolved Assessment & Plan: Resolved. Needs to get her pump affixed correctly today and get some education via Muna Bahena - [employer] appt this afternoon. Code(s): E11.00 - TYPE 2 DIAB W HYPROSM W/O NONKET HYPRGLY-HYPROS COMA ([facility]) (2) DM I (diabetes mellitus, type I) Current Visit: Yes Status: Chronic (3) Hyponatremia Current Visit: Yes Status: Acute Assessment & Plan: was much improved - recheck in 1 week. Code(s): E87.1 - HYPO-OSMOLALITY AND HYPONATREMIA (4) Anemia Current Visit: Yes Status: Acute Assessment & Plan: Chronic, and on Fe at home- macrocytic here so checking B12 and folate (she takes a folic acid supplement po) - will recehck CBC in 1 week. Code(s): D64.9 - ANEMIA, UNSPECIFIED (5) Elevated LFTs Current Visit: Yes Status: Acute Assessment & Plan: some improvement today. Code(s): R79.89 - OTHER SPECIFIED ABNORMAL FINDINGS OF BLOOD CHEMISTRY (6) Leukopenia Current Visit: Yes Status: Acute Code(s): D72.819 - DECREASED WHITE BLOOD CELL COUNT, UNSPECIFIED - Discharge Disposition: Home, Self-Care Condition: Good Prescriptions: New Lactobacillus Acidophilus [Acidophilus TABLET] 1 tab PO BID #16 tablet Amox Tr/Potass Clav. 875 mg [Augmentin 875-125 Tablet] 875 mg PO BID 8 Days #16 tablet Simethicone 80 mg [Mylicon 80MG] 80 mg PO QID PRN PRN tablet PRN Reason: Gas Continue Promethazine HCl 25 mg [Phenergan 25 mg] 25 mg PO Q4-6HPRN PRN PRN Reason: Nausea AMITRIPTYLINE HCL 50 mg Tab [AMITRIPTYLINE HCL 50 mg Tablet] 50 mg PO HS Buspirone HCl 15 mg PO HS Atomoxetine HCl [Strattera] 60 mg PO DAILY Apixaban [Eliquis 5 mg Tablet] 5 mg PO BID Folic Acid 1 mg [Folate 1 mg] 1 mg PO DAILY Dexlansoprazole [Dexlansoprazole Dr] 60 mg PO DAILY Gabapentin [Neurontin] 600 mg PO QID Ropinirole HCl 0.5 mg [Requip 0.5 MG] 0.5 mg PO HS Metoclopramide HCl 10 mg PO QID Lidocaine/Transparent Dressing [Lidocaine 4% Kit] 1 each TP DAILY PRN PRN PRN Reason: Pain Levothyroxine Sodium 0.25 mcg PO QAM Sucralfate 1 gm PO QID Furosemide 20 mg [Lasix 20 mg] 20 mg PO DAILY Mirtazapine 15 mg PO HS Clonidine HCl 0.1 mg [Clonidine 0.1 mg Tablet] 0.1 mg PO QHS Ipratropium/Albuterol Sulfate [Combivent Respimat Inhal [place]] 1 inh PO DAILY Baclofen 20 mg PO QID Escitalopram Oxalate [Lexapro] 20 mg PO DAILY Midodrine HCl [Proamatine] 5 mg PO TID Ferrous Sulfate 325 mg PO TID Multivitamin 1 tab PO DAILY Montelukast Sodium 10 mg [Singulair 10 MG] 10 mg PO DAILY Biotin 5,000 mcg PO DAILY Omeprazole 20 mg PO DAILY PRN PRN PRN Reason: heartburn hydrOXYzine HCL [Hydroxyzine HCl] 50 mg PO HS PRN PRN PRN Reason: Insomnia Diclofenac Epolamine 1 patch TOP Q12H PRN PRN PRN Reason: Pain Mirtazapine 15 mg PO HS PRN PRN PRN Reason: Insomnia Topiramate 50 mg PO QHS Atomoxetine HCl [Strattera] 40 mg PO LUNCH Budesonide/Formoterol Fumarate [Budesonide-Formoterol 160-4.5] 2 puff IH BID Albuterol Sulfate [Albuterol Sulfate Hfa] 2 puff IH DAILY PRN PRN PRN Reason: Shortness Of Breath Albuterol 2.5 mg/3 ml Neb [Proventil 2.5 mg/3 ml Neb] 1 neb IH DAILY PRN PRN PRN Reason: Shortness Of Breath Discontinued Erythromycin Base [Erythromycin] 250 mg PO BID Follow up with: ANGELITO LARSON DO [Primary Care Provider] -
[2022-03-20 11:45] VITALS: BP 140/70; O2SAT 98
[2022-03-20 12:07] VITALS: PULSE 113
[2022-03-20] MEDS: Zofran 4 MG/2 ML VIAL IV PRN (12:20)
[2022-03-20 14:10] LABS: Folate (Folic Acid) 17.4 ng/mL (2.76 - >20)
[2022-03-21 13:22] LABS: Adenovirus F40/41 Not Detected (Not Detected); Astrovirus Not Detected (Not Detected); Campylobacter Not Detected (Not Detected); Cryptosporidium Not Detected (Not Detected); Cyclospora cayetanensis Not Detected (Not Detected); Entamoeba histolytica Not Detected (Not Detected); Enteroaggregative E coli Detected (Not Detected); Enterpathogenic E coli Not Detected (Not Detected); Entertoxigenic E coli Not Detected (Not Detected); Giardia lamblia Not Detected (Not Detected); Norovirus GI/GII Detected (Not Detected); Plesiomonas shigelloides Not Detected (Not Detected); Rotavirus A Not Detected (Not Detected); Salmonella Not Detected (Not Detected); Shig-toxin-producing E coli Not Detected (Not Detected); Shigella/Enterinvasive E coli Not Detected (Not Detected); Vibrio Not Detected (Not Detected); Vibrio cholerae Not Detected (Not Detected); Yersinia enterocolitica Not Detected (Not Detected)
[2022-03-21 13:33] LABS: Sapovirus Not Detected (Not Detected)
== END 2022-03-20 13:16 | disposition home or self-care (01) ==
LOC: ED 17:03 → ICU 21:22
PROVIDERS: ADMIT Family Medicine; ATTEND Family Medicine
DX: E11.00 Type 2 diabetes mellitus with hyperosmolarity without nonketotic hyperglycemic-hyperosmolar coma (NKHHC) (principal); E87.1 Hypo-osmolality and hyponatremia; D64.9 Anemia, unspecified; R79.89 Other specified abnormal findings of blood chemistry; D72.819 Decreased white blood cell count, unspecified; I95.9 Hypotension, unspecified; I25.10 Atherosclerotic heart disease of native coronary artery without angina pectoris; J32.9 Chronic sinusitis, unspecified; R19.7 Diarrhea, unspecified; Z79.899 Other long term (current) drug therapy; Z20.828 Contact with and (suspected) exposure to other viral communicable diseases
CPT/HCPCS: 0241U; 36000; 36415; 71046; 80048; 80053; 80076; 81015; 81025; 82607; 82746; 82805; 82947; 83036; 83605; 83690; 83735; 84484; 85025; 85027; 87040; 87493; 87507; 93005; 94640; 96360; 96374; 99285; G0378; J0696; J1815; J1817; J2405; J7609; A9270-GY

== ENCOUNTER 2022-05-01 02:28 | Inpatient (IN) | payer OTHER ==
[2022-05-01] MEDS ORDERED: Sodium Chloride 0.9% 1000 ML 1,000 ML IV STA (02:33)
[2022-05-01 03:12] LABS: Absolute Neutrophil Ct (ANC) 1.86 x10^3/uL (1.4-6.9); Basophil (Absolute #) 0.02 x10^3/uL (0-0.4); Eosinophil % 4.3 % (0.00-5.0); Eosinophil (Absolute #) 0.18 x10^3/uL (0-0.5); Hematocrit 36.9 % (35-47); Lymphocyte (Absolute #) 1.75 x10^3/uL (1.0-4.6); Lymphocytes % 41.9 % (24.0-44.0); Mean Cell Volume 98.1 fL (78-100); Mean Corpuscular Hemoglobin 31.9 pg (26-32); Mean Corpuscular Hgb Concent. 32.5 g/dL (32-36); Mean Platelet Volume 10.4 fL (7.5-11.0); Monocyte (Absolute #) 0.36 x10^3/uL (0.0-1.3); Monocytes % 8.6 % (0.0-12.0); Neutrophil % 44.5 % (36.0-66.0); Platelet Count 182 x10^3/uL (150-450); Red Blood Count 3.76 x10^6/uL (4.1-5.4); Red Cell Distribution Width 12.4 % (11.5-14.0); White Blood Count 4.2 x10^3/uL (4.0-10.5)
[2022-05-01 03:25] LABS: ALBUMIN 3.6 g/dL (3.5-5.0); ALKALINE PHOSPHATASE 221 U/L (38-126); ANION GAP 18.6 MEQ/L (5-15); BLOOD UREA NITROGEN 23 mg/dL (7-17); CHLORIDE 94 mmol/L (98-107); Calcium 8.7 mg/dL (8.4-10.2); Carbon Dioxide 19 mmol/L (22-30); Creatinine 1 0.61 mg/dL (0.52-1.04); EST GLOMERULAR FILTRATION RATE > 60.0 ML/MIN; LIPASE 27 U/L (23-300); Potassium 4.3 mmol/L (3.5-5.1); SGOT/AST 131 U/L (14-36); SGPT/ALT 177 U/L (0-35); SODIUM 127 mmol/L (137-145); Total Protein 5.4 g/dL (6.3-8.2)
[2022-05-01 03:29] LABS: INR 0.99 (0.8-3.0); PROTIME 10.5 SECONDS (9.4-12.5)
[2022-05-01 03:43] LABS: Glucose 706 mg/dL (74-106)
[2022-05-01] MEDS ORDERED: Sodium Chloride 0.9% 1000 ML 1,000 ML ONE (03:47)
[2022-05-01 03:48] LABS: INFLUENZA A NEGATIVE (NEGATIVE); INFLUENZA B NEGATIVE (NEGATIVE); RESPIRATORY SYNCTIAL VIRUS NEGATIVE (Negative); SARS-CoV-2 Xpert Express NEGATIVE (NEGATIVE)
--- NOTE | 2022-05-01 03:50 | ERPHSYRPT ---
- History of Present Illness Time Seen by Provider: 05/01/22 02:35 Source: patient Exam Limitations: no limitations Patient Subjective Stated Complaint: pt states she has been having HI blood sugar reading since 7pm yesterday after eating some popcorn. pt states she has been careful in consuming less carbs, but despite this her blood sugar is still reading HI. pt has a dexcom, basal rate is .375 on insulin pump. Triage Nursing Assessment: pt is alert and oriented x4, pt states she has pain in abdomen that is chronic due to gastroparesis. she rates her pain at 8/10 in abdomen. vitals BP 118/74, 97% RA, HR 111, resp 18, temp 97.5 tympanic Physician History: Patient is a 41-year-old female presents to our ED via EMS with a history of alcoholism, resident at the [facility] positive history of type 1 diabetes on an insulin pump presents to our ED for evaluation of hypoglycemia. Patient took 7 units of Humalog today at approximately 7 PM. In spite patient's blood sugar read high on her monitor. Patient denies pain. No trauma. No fever. Symptoms are mild to moderate in intensity. No specific worsening improving factors. Patient voices no other complaints or concerns at this time. Timing/Duration: today Severity: moderate Modifying Factors: Improves With: nothing Associated Symptoms: denies symptoms Allergies/Adverse Reactions: dicyclomine [From Bentyl] Allergy (Verified 05/01/22 02:40) grapefruit Allergy (Verified 03/17/22 21:57) Swelling Home Medications: AMITRIPTYLINE HCL 50 mg Tab [AMITRIPTYLINE HCL 50 mg Tablet] 50 mg PO HS 12/05 [History] Apixaban [Eliquis 5 mg Tablet] 5 mg PO BID 12/05/21 [History] Atomoxetine HCl [Strattera] 60 mg PO DAILY 12/05/21 [History] Baclofen 20 mg PO QID 12/05/21 [History] Buspirone HCl 15 mg PO HS 12/05/21 [History] Clonidine HCl 0.1 mg [Clonidine 0.1 mg Tablet] 0.1 mg PO QHS 12/05/21 [History] Dexlansoprazole [Dexlansoprazole Dr] 60 mg PO DAILY 12/05/21 [History] Escitalopram Oxalate [Lexapro] 20 mg PO DAILY 12/05/21 [History] Ferrous Sulfate 325 mg PO TID 12/05/21 [History] Folic Acid 1 mg [Folate 1 mg] 1 mg PO DAILY 12/05/21 [History] Furosemide 20 mg [Lasix 20 mg] 20 mg PO DAILY 12/05/21 [History] Gabapentin [Neurontin] 600 mg PO QID 12/05/21 [History] Ipratropium/Albuterol Sulfate [Combivent Respimat Inhal [place]] 1 inh PO DAILY 12/05/21 [History] Levothyroxine Sodium 0.25 mcg PO QAM 12/05/21 [History] Lidocaine/Transparent Dressing [Lidocaine 4% Kit] 1 each TP DAILY PRN PRN 12/05/21 [History] Metoclopramide HCl 10 mg PO QID 12/05/21 [History] Midodrine HCl [Proamatine] 5 mg PO TID 12/05/21 [History] Mirtazapine 15 mg PO HS 12/05/21 [History] Promethazine HCl 25 mg [Phenergan 25 mg] 25 mg PO Q4-6HPRN PRN 12/05/21 [History] Ropinirole HCl 0.5 mg [Requip 0.5 MG] 0.5 mg PO HS 12/05/21 [History] Sucralfate 1 gm PO QID 12/05/21 [History] Albuterol 2.5 mg/3 ml Neb [Proventil 2.5 mg/3 ml Neb] 1 neb IH DAILY PRN PRN 03/17/22 [History] Albuterol Sulfate [Albuterol Sulfate Hfa] 2 puff IH DAILY PRN PRN 03/17/22 [History] Atomoxetine HCl [Strattera] 40 mg PO LUNCH 03/17/22 [History] Biotin 5,000 mcg PO DAILY 03/17/22 [History] Budesonide/Formoterol Fumarate [Budesonide-Formoterol 160-4.5] 2 puff IH BID 03/17/22 [History] Diclofenac Epolamine 1 patch TOP Q12H PRN PRN 03/17/22 [History] Mirtazapine 15 mg PO HS PRN PRN 03/17/22 [History] Montelukast Sodium 10 mg [Singulair 10 MG] 10 mg PO DAILY 03/17/22 [History] Multivitamin 1 tab PO DAILY 03/17/22 [History] Omeprazole 20 mg PO DAILY PRN PRN 03/17/22 [History] Topiramate 50 mg PO QHS 03/17/22 [History] hydrOXYzine HCL [Hydroxyzine HCl] 50 mg PO HS PRN PRN 03/17/22 [History] Hx Influenza Vaccination/Date Given: No Hx Pneumococcal Vaccination/Date Given: Yes Travel Risk - International Travel Have you traveled outside of the country in past 3 weeks: No - Coronavirus Screening Are you exhibiting any of the following symptoms?: No Close contact with a COVID-19 positive Pt in past 14-21 Days: No - Vaccine Status Have you recieved a Covid-19 vaccination: No - Review of Systems Constitutional: No Symptoms, No Fever, No Chills Eyes: No Symptoms Ears, Nose, & Throat: No Symptoms Respiratory: No Symptoms, No Cough, No Dyspnea Cardiac: No Symptoms, No Chest Pain, No Edema, No Syncope Abdominal/Gastrointestinal: No Symptoms, No Abdominal Pain, No Nausea, No Vomiting, No Diarrhea Genitourinary Symptoms: No Symptoms, No Dysuria Musculoskeletal: No Symptoms, No Back Pain, No Neck Pain Skin: No Symptoms, No Rash Neurological: No Symptoms, No Dizziness, No Focal Weakness, No Sensory Changes Psychological: No Symptoms Endocrine: No Symptoms Hematologic/Lymphatic: No Symptoms Immunological/Allergic: No Symptoms All Other Systems: Reviewed and Negative - Past Medical History Pertinent Past Medical History: Yes Neurological History: Migraines ENT History: No Pertinent History Cardiac History: Coronary Artery Disease, Deep Vein Thrombosis, Myocardial Infarction ([place]) Respiratory History: Asthma, Pneumonia, Pulmonary Embolism Endocrine Medical History: Diabetes Type I Musculoskeletal History: No Pertinent History GI Medical History: GERD, GI Bleed, Other History: Renal Disease Psycho-Social History: Anxiety, Attention Deficit Disorder, Depression, Other Female Reproductive Disorders: No Pertinent History Other Medical History: sepsis 2020, ptsd, chronic pain syndrome, gastric paresis, hypotension. carpal tunnel bilateral and trigger finger left hand, kidney stones - Past Surgical History Past Surgical History: Yes Neuro Surgical History: No Pertinent History Cardiac: Cardiac Catheterization, Cardiac Stent Respiratory: No Pertinent History Gastrointestinal: Appendectomy, Cholecystectomy Genitourinary: No Pertinent History Musculoskeletal: Orthopedic Surgery Female Surgical History: No Pertinent History Other Surgical History: left foot, right shoulder. uvula removed. gastric bypass - Social History Smoking Status: Never smoker Exposure to second hand smoke: No Drug Use: none Patient Lives Alone: No Significant Family History: no pertinent family hx - Female History Hx Now: No - Nursing Vital Signs Nursing Vital Signs: Initial Vital Signs Temperature 97.5 F 05/01/22 02:28 Pulse Rate 70 05/01/22 02:28 Respiratory Rate 18 05/01/22 02:28 Blood Pressure 118/74 05/01/22 02:28 O2 Sat by Pulse Oximetry 93 L 05/01/22 02:28 Pain Scale Pain Intensity 0 - Physical Exam General Appearance: no apparent distress, alert Eye Exam: PERRL/EOMI, eyes nml inspection Ears, Nose, Throat Exam: normal ENT inspection, TMs normal, pharynx normal, moist mucous membranes Neck Exam: normal inspection, non-tender, supple, full range of motion Respiratory Exam: normal breath sounds, lungs clear, airway intact, No respiratory distress Cardiovascular Exam: regular rate/rhythm, normal heart sounds, normal peripheral pulses Gastrointestinal/Abdomen Exam: soft, normal bowel sounds, tenderness (Mild diffuse abdominal tenderness), No mass Back Exam: normal inspection, normal range of motion, No CVA tenderness, No vertebral tenderness Extremity Exam: normal inspection, normal range of motion, pelvis stable Neurologic Exam: alert, oriented x 3, cooperative, normal mood/affect, nml cerebellar function, nml station & gait, sensation nml, No motor deficits Skin Exam: normal color, warm, dry, No rash Lymphatic Exam: No adenopathy SpO2 Interpretation: normal SpO2: 94 O2 Delivery: Room Air - Course Nursing assessment & vital signs reviewed: Yes EKG Interpreted by Me: RATE (108), Sinus Tach, NORMAL AXIS, NORMAL INTERVALS - CT Exams Abdomen/Pelvis CT Interpretation: Tele-radiologist Report (Mild left hydronephrosis and hydroureter. Abundant fecal burden throughout the nondistended colon. Mild distention of the proximal small bowel without transition zone. Anterior wedging of T12 vertebrae. Bilateral breast prosthesis) Ordered Tests: Active Orders 24 hr Category Date Time Status Environmental Compliance Inspector STAT Care 05/01/22 02:33 Active EKG-ER Only STAT Care 05/01/22 02:33 Active IV Insertion STAT Care 05/01/22 02:33 Active Pulse Oximetry (ED) STAT Care 05/01/22 02:33 Active Telemetry q4h Care 05/01/22 05:03 Active ABDOMEN AND PELVIS W/0 CONTRAS [CT] Stat Exams 05/01/22 02:36 Taken BLOOD CULTURE Stat Lab 05/01/22 03:00 Received CBC W DIFF Stat Lab 05/01/22 02:50 Completed CMP Stat Lab 05/01/22 02:50 Completed HCG,QUALITATIVE URINE Stat Lab 05/01/22 04:02 Ordered LIPASE Stat Lab 05/01/22 02:50 Completed Lactic Acid Stat Lab 05/01/22 02:55 Completed MAGNESIUM Stat Lab 05/01/22 05:23 Ordered PHOSPHOROUS Stat Lab 05/01/22 05:23 Ordered POCT GLUCOSE Stat Lab 05/01/22 04:40 Completed PROTIME WITH INR Stat Lab 05/01/22 02:50 Completed PTT Stat Lab 05/01/22 02:50 Completed TROPONIN Q4H Lab 05/01/22 02:50 Completed TROPONIN Q4H Lab 05/01/22 06:45 Ordered TROPONIN Q4H Lab 05/01/22 10:45 Ordered UA W/RFX CULTURE Stat Lab 05/01/22 04:02 Ordered VBG [VENOUS BLOOD GAS] Stat Lab 05/01/22 02:55 Completed Transfer Order Routine Transfer 05/01/22 Ordered Medication Summary Generic Name Dose Route Start Last Admin Trade Name Freq PRN Reason Stop Dose Admin Insulin Human Regular 100 unit 100 mls @ 6.223 mls/hr 05/01/22 05:02 05/01/22 05:17 / Sodium Chloride IV 05/31/22 05:01 0.1 unit/kg/hr .Q16H5M PRN 6.223 mls/hr DKA/HYPERGLYCEMIA Administration Protocol 0.1 UNIT/KG/HR Potassium Chloride 20 meq in 100 mls @ 50 mls/hr 05/01/22 05:15 05/01/22 05:19 Potassium Chloride 20 Meq In Water 100ml IV 05/01/22 09:14 50 mls/hr Q2H TRACY Administration Sodium Chloride 1,000 mls @ 100 mls/hr 05/01/22 05:30 05/01/22 05:23 Sodium Chloride 0.9% 1000 Ml IV 05/31/22 05:29 100 mls/hr .Q10H TRACY Administration Discontinued Medications Generic Name Dose Route Start Last Admin Trade Name Mikayla PRN Reason Stop Dose Admin Sodium Chloride 1,000 mls @ 999 mls/hr 05/01/22 02:33 05/01/22 03:48 Sodium Chloride 0.9% 1000 Ml IV 05/01/22 03:33 999 mls/hr .Q1H1M STA Administration Sodium Chloride Confirm 05/01/22 03:47 Sodium Chloride 0.9% 1000 Ml Administered 05/01/22 03:48 Dose 1,000 mls @ ud .ROUTE .STK-MED ONE Sodium Chloride Confirm 05/01/22 05:16 Sodium Chloride 0.9% Administered 05/01/22 05:17 Dose 100 mls @ ud .ROUTE .STK-MED ONE Insulin Human Regular Confirm 05/01/22 05:16 Insulin Regular, Human 1 Unit Administered 05/01/22 05:17 Dose 100 unit .ROUTE .STK-MED ONE Ondansetron HCl 4 mg 05/01/22 04:02 05/01/22 04:22 Ondansetron Hcl 4 Mg/2 Ml Vial IV 05/01/22 04:03 4 mg STAT ONE Administration Ondansetron HCl Confirm 05/01/22 04:20 Ondansetron Hcl 4 Mg/2 Ml Vial Administered 05/01/22 04:21 Dose 4 mg .ROUTE .STK-MED ONE Lab/Rad Data: Laboratory Result Diagrams 05/01/22 02:50 05/01/22 02:50 Laboratory Results 05/01/22 05/01/22 05/01/22 Range/Units 04:40 03:00 02:55 WBC (4.0-10.5) x10^3/uL RBC (4.1-5.4) x10^6/uL Hgb (12.0-16.0) g/dL Hct (35-47) % MCV (78-100) fL MCH (26-32) pg MCHC (32-36) g/dL RDW (11.5-14.0) % Plt Count (150-450) x10^3/uL MPV (7.5-11.0) fL Gran % (36.0-66.0) % Immature Gran % (Auto) (0.00-0.4) % Nucleat RBC Rel Count (0.00-0.1) % Eos # (Auto) (0-0.5) x10^3/uL Immature Gran # (Auto) (0.00-0.03) x10^3u/L Absolute Lymphs (auto) (1.0-4.6) x10^3/uL Absolute Monos (auto) (0.0-1.3) x10^3/uL Absolute Nucleated RBC (0.00-0.01) x10^3u/L Lymphocytes % (24.0-44.0) % Monocytes % (0.0-12.0) % Eosinophils % (0.00-5.0) % Basophils % (0.0-0.4) % Absolute Granulocytes (1.4-6.9) x10^3/uL Basophils # (0-0.4) x10^3/uL PT (9.4-12.5) SECONDS INR (0.8-3.0) APTT (25.1-36.5) SECONDS pO2/FiO2 Ratio 21.0 % VBG pH 7.44 H (7.32-7.42) VBG pCO2 at Pat Temp 30 L (42-55) mm/Hg VBG pO2 at Pat Temp 105 H (25-40) mm/Hg VBG HCO3 20.4 L (22-28) meq/L VBG O2 Sat (Foreign) 93.5 L (95-100) VBG Base Excess -2.8 L (-2.0-2.0) VBG Hemoglobin 12.6 VBG Carboxyhemoglobin 0.0 (0.0-6.9) % T HGB POC Potassium 4.5 (3.5-5.1) Sodium (137-145) mmol/L Potassium (3.5-5.1) mmol/L Chloride (98-107) mmol/L Carbon Dioxide (22-30) mmol/L Anion Gap (5-15) MEQ/L BUN (7-17) mg/dL Creatinine (0.52-1.04) mg/dL Estimated GFR ML/MIN Glucose (74-106) mg/dL POC Glucometer 514 H* (50 to 500) mg/dL Lactic Acid (0.4-2.0) Calcium (8.4-10.2) mg/dL Total Bilirubin (0.2-1.3) mg/dL AST (14-36) U/L ALT (0-35) U/L Alkaline Phosphatase (38-126) U/L Troponin I (0.000-0.034) ng/mL Serum Total Protein (6.3-8.2) g/dL Albumin (3.5-5.0) g/dL Lipase (23-300) U/L Influenza Type A Ag NEGATIVE (NEGATIVE) Influenza Type B Ag NEGATIVE (NEGATIVE) RSV (PCR) NEGATIVE (Negative) SARS-CoV-2 (PCR) NEGATIVE (NEGATIVE) 05/01/22 05/01/22 05/01/22 Range/Units 02:55 02:50 02:50 WBC (4.0-10.5) x10^3/uL RBC (4.1-5.4) x10^6/uL Hgb (12.0-16.0) g/dL Hct (35-47) % MCV (78-100) fL MCH (26-32) pg MCHC (32-36) g/dL RDW (11.5-14.0) % Plt Count (150-450) x10^3/uL MPV (7.5-11.0) fL Gran % (36.0-66.0) % Immature Gran % (Auto) (0.00-0.4) % Nucleat RBC Rel Count (0.00-0.1) % Eos # (Auto) (0-0.5) x10^3/uL Immature Gran # (Auto) (0.00-0.03) x10^3u/L Absolute Lymphs (auto) (1.0-4.6) x10^3/uL Absolute Monos (auto) (0.0-1.3) x10^3/uL Absolute Nucleated RBC (0.00-0.01) x10^3u/L Lymphocytes % (24.0-44.0) % Monocytes % (0.0-12.0) % Eosinophils % (0.00-5.0) % Basophils % (0.0-0.4) % Absolute Granulocytes (1.4-6.9) x10^3/uL Basophils # (0-0.4) x10^3/uL PT 10.5 (9.4-12.5) SECONDS INR 0.99 (0.8-3.0) APTT 25.0 L (25.1-36.5) SECONDS pO2/FiO2 Ratio % VBG pH (7.32-7.42) VBG pCO2 at Pat Temp (42-55) mm/Hg VBG pO2 at Pat Temp (25-40) mm/Hg VBG HCO3 (22-28) meq/L VBG O2 Sat (Foreign) (95-100) VBG Base Excess (-2.0-2.0) VBG Hemoglobin VBG Carboxyhemoglobin (0.0-6.9) % T HGB POC Potassium (3.5-5.1) Sodium (137-145) mmol/L Potassium (3.5-5.1) mmol/L Chloride (98-107) mmol/L Carbon Dioxide (22-30) mmol/L Anion Gap (5-15) MEQ/L BUN (7-17) mg/dL Creatinine (0.52-1.04) mg/dL Estimated GFR ML/MIN Glucose (74-106) mg/dL POC Glucometer (50 to 500) mg/dL Lactic Acid 1.5 (0.4-2.0) Calcium (8.4-10.2) mg/dL Total Bilirubin (0.2-1.3) mg/dL AST (14-36) U/L ALT (0-35) U/L Alkaline Phosphatase (38-126) U/L Troponin I < 0.012 (0.000-0.034) ng/mL Serum Total Protein (6.3-8.2) g/dL Albumin (3.5-5.0) g/dL Lipase (23-300) U/L Influenza Type A Ag (NEGATIVE) Influenza Type B Ag (NEGATIVE) RSV (PCR) (Negative) SARS-CoV-2 (PCR) (NEGATIVE) 05/01/22 05/01/22 Range/Units 02:50 02:50 WBC 4.2 (4.0-10.5) x10^3/uL RBC 3.76 L (4.1-5.4) x10^6/uL Hgb 12.0 (12.0-16.0) g/dL Hct 36.9 (35-47) % MCV 98.1 (78-100) fL MCH 31.9 (26-32) pg MCHC 32.5 (32-36) g/dL RDW 12.4 (11.5-14.0) % Plt Count 182 (150-450) x10^3/uL MPV 10.4 (7.5-11.0) fL Gran % 44.5 (36.0-66.0) % Immature Gran % (Auto) 0.2 (0.00-0.4) % Nucleat RBC Rel Count 0.0 (0.00-0.1) % Eos # (Auto) 0.18 (0-0.5) x10^3/uL Immature Gran # (Auto) 0.01 (0.00-0.03) x10^3u/L Absolute Lymphs (auto) 1.75 (1.0-4.6) x10^3/uL Absolute Monos (auto) 0.36 (0.0-1.3) x10^3/uL Absolute Nucleated RBC 0.00 (0.00-0.01) x10^3u/L Lymphocytes % 41.9 (24.0-44.0) % Monocytes % 8.6 (0.0-12.0) % Eosinophils % 4.3 (0.00-5.0) % Basophils % 0.5 (0.0-0.4) % Absolute Granulocytes 1.86 (1.4-6.9) x10^3/uL Basophils # 0.02 (0-0.4) x10^3/uL PT (9.4-12.5) SECONDS INR (0.8-3.0) APTT (25.1-36.5) SECONDS pO2/FiO2 Ratio % VBG pH (7.32-7.42) VBG pCO2 at Pat Temp (42-55) mm/Hg VBG pO2 at Pat Temp (25-40) mm/Hg VBG HCO3 (22-28) meq/L VBG O2 Sat (Foreign) (95-100) VBG Base Excess (-2.0-2.0) VBG Hemoglobin VBG Carboxyhemoglobin (0.0-6.9) % T HGB POC Potassium (3.5-5.1) Sodium 127 L (137-145) mmol/L Potassium 4.3 (3.5-5.1) mmol/L Chloride 94 L (98-107) mmol/L Carbon Dioxide 19 L (22-30) mmol/L Anion Gap 18.6 H (5-15) MEQ/L BUN 23 H (7-17) mg/dL Creatinine 0.61 (0.52-1.04) mg/dL Estimated GFR > 60.0 ML/MIN Glucose 706 H* (74-106) mg/dL POC Glucometer (50 to 500) mg/dL Lactic Acid (0.4-2.0) Calcium 8.7 (8.4-10.2) mg/dL Total Bilirubin 0.70 (0.2-1.3) mg/dL AST 131 H (14-36) U/L ALT 177 H (0-35) U/L Alkaline Phosphatase 221 H (38-126) U/L Troponin I (0.000-0.034) ng/mL Serum Total Protein 5.4 L (6.3-8.2) g/dL Albumin 3.6 (3.5-5.0) g/dL Lipase 27 (23-300) U/L Influenza Type A Ag (NEGATIVE) Influenza Type B Ag (NEGATIVE) RSV (PCR) (Negative) SARS-CoV-2 (PCR) (NEGATIVE) - Progress Progress: improved Progress Note: Corrected sodium is 136. Serum osmolarity using measured sodium is 305, water deficit is estimated to be at 3.4 L 05/01/22 04:31 Patient may require a CT urogram to further evaluate the mild left hydr onephrosis and hydroureter observed on CT abdomen pelvis. 05/01/22 05:01 Patient reassessed. Vital stable. Patient in DKA. Insulin and potassium initiated. IV fluids infusing. We will admit patient to the ICU for further evaluation and treatment. 05/01/22 05:[address] Glaser who accepts admission to observation. 05/01/22 05:32 Discussed with : Quinten Will see patient in: hospital (observation) Counseled pt/family regarding: lab results, diagnosis, rad results - Departure Departure Disposition: Observation Clinical Impression: fecal stasis, Left hydronephrosis and hydroureter, DKA (diabetic ketoacidosis), Transaminitis, Elevated alkaline phosphatase level Condition: Stable Critical Care Time: No Referrals: ANGELITO BLEDSOE DO [Primary Care Provider] - Follow up/PCP as directed
[2022-05-01 03:55] LABS: VBG BASE EXCESS -2.8 (-2.0-2.0); VBG HCO3- 20.4 meq/L (22-28); VBG HEMOGLOBIN 12.6; VBG O2 SATURATION 93.5 (95-100); VBG POTASSIUM 4.5 (3.5-5.1); VBG pH 7.44 (7.32-7.42)
[2022-05-01] MEDS ORDERED: Zofran 4 MG/2 ML VIAL IV ONE (04:02)
[2022-05-01] MEDS ORDERED: Zofran 4 MG/2 ML VIAL ONE (04:20)
[2022-05-01] MEDS ORDERED: HUMULIN R 100 UNIT in Sodium Chloride 0.9% 100 ML IV PRN (05:02)
[2022-05-01] MEDS ORDERED: HUMULIN R ONE (05:16)
[2022-05-01] MEDS ORDERED: Sodium Chloride 0.9% 100 ML ONE (05:16)
[2022-05-01] MEDS: POTASSIUM CHLORIDE 20 mEq IN WATER 100ML 20 MEQ/100 ML BAG IV SCH ×2 (05:19→21:41)
[2022-05-01] MEDS: Sodium Chloride 0.9% 1000 ML 1,000 ML IV SCH ×3 (05:23→21:31)
[2022-05-01 05:53] LABS: MAGNESIUM 2.5 mg/dL (1.6-2.3); PHOSPHOROUS 5.2 mg/dL (2.5-4.5)
[2022-05-01 06:00] LABS: Appearance CLEAR (CLEAR)
[2022-05-01 06:01] LABS: Bilirubin NEGATIVE (NEGATIVE); Dipstick done @ ? MAIN LAB; Glucose >=1000 mg/dL (NEGATIVE); Ketones >=160 (NEGATIVE); Nitrite NEGATIVE (NEGATIVE); Protein,Urine Dip NEGATIVE (Negative); RBC TRACE-INTACT Ery/ul (0-5); Urobilinogen 0.2 mg/dL (0-1)
[2022-05-01 06:04] LABS: Urine Cultured Indicated? NO
[2022-05-01] MEDS ORDERED: MORPHINE SULFATE 2 MG INJ IV PRN (06:10)
[2022-05-01] MEDS ORDERED: Sodium Chloride 0.9% 1000 ML 1,000 ML IV SCH (06:10)
[2022-05-01] MEDS ORDERED: VENTOLIN COMMON CANISTER IH PRN (07:51)
[2022-05-01] MEDS ORDERED: PROVENTIL 2.5 MG/3 ML NEB IH PRN (07:51)
[2022-05-01] MEDS ORDERED: NON-FORMULARY ITEM (Hydroxyzine Hcl [Hydroxyzine Hcl] 50 MG Tablet) PO PRN (07:51)
[2022-05-01] MEDS ORDERED: NON-FORMULARY ITEM (Ondansetron Hcl [Ondansetron Hcl] 4 MG Tablet) PO PRN (07:51)
[2022-05-01] MEDS ORDERED: DICLOFENAC EPOLAMINE TOP PRN (07:51)
[2022-05-01] MEDS ORDERED: LIDOCAINE TP PRN (07:51)
[2022-05-01] MEDS ORDERED: NON-FORMULARY ITEM (Omeprazole [Omeprazole] 20 MG Capsule.Dr) PO PRN (07:51)
[2022-05-01] MEDS ORDERED: NON-FORMULARY ITEM (Lipase/Protease/Amylase [Creon Dr 36,000 Unit Capsule] 1 EACH Capsule. PO SCH ×2 (08:00→11:30)
[2022-05-01 08:12] LABS: ANION GAP 8.9 MEQ/L (5-15); BLOOD UREA NITROGEN 20 mg/dL (7-17); CHLORIDE 103 mmol/L (98-107); Calcium 8.1 mg/dL (8.4-10.2); Carbon Dioxide 26 mmol/L (22-30); EST GLOMERULAR FILTRATION RATE > 60.0 ML/MIN; Glucose 278 mg/dL (74-106); Potassium 4.5 mmol/L (3.5-5.1); SODIUM 133 mmol/L (137-145)
[2022-05-01] MEDS ORDERED: Protonix 20MG Tablet PO PRN (08:13)
[2022-05-01] MEDS ORDERED: ATARAX 25 MG PO PRN (08:19)
[2022-05-01] MEDS ORDERED: DUONEB 0.5-3 MG/3 ml Neb IH ONE (08:27)
[2022-05-01] MEDS: DUONEB 0.5-3 MG/3 ml Neb IH SCH ×2 (08:27→21:14)
[2022-05-01] MEDS ORDERED: Lidoderm Patch 5% TOP PRN (08:51)
[2022-05-01] MEDS: LIORESAL 10 MG PO SCH ×4 (08:53→21:26)
--- NOTE | 2022-05-01 08:56 | XRAY ---
Indication: Abdomen pain. Multiple contiguous axial images obtained through the abdomen and pelvis without contrast. Comparison: None Lung bases are clear. Heart not enlarged. Partially visualized bilateral breast implants. Previous gastric bypass surgery and cholecystectomy. Noncontrasted stomach and bowel loops appear nonobstructed. There is significant diffuse scattered colonic fecal debris with moderate rectal impaction. No free fluid/air. Remaining liver, pancreas, spleen, adrenal glands, kidneys, ureters, bladder, and uterus are unremarkable for noncontrast exam. Mild scattered vascular calcifications. No AAA. Osseous structures intact. No ventral or inguinal hernias. Impression: Diffuse fecal stasis with rectal impaction. Comment: Preliminary interpretation made by [facility]. No critical discrepancy.
[2022-05-01] MEDS ORDERED: MEDICATION INTERVENTION MC SCH ×5 (09:00)
[2022-05-01] MEDS: ROCEPHIN 1 Gm-D5w 50 ml Bag** 1 G/50 ML IVPB IV SCH (09:55)
[2022-05-01] MEDS: Singulair 10 MG PO SCH (09:56)
[2022-05-01] MEDS: Reglan 10 MG PO SCH ×4 (09:56→21:28)
[2022-05-01] MEDS: SYNTHROID 25 MCG PO SCH (09:56)
[2022-05-01] MEDS: Protonix 40MG Tablet PO SCH (09:57)
[2022-05-01] MEDS: NEURONTIN PO SCH ×4 (09:57→21:28)
[2022-05-01] MEDS: FOLATE 1 MG PO SCH (09:58)
[2022-05-01] MEDS: ELIQUIS 2.5 MG TABLET PO SCH ×2 (09:59→21:26)
[2022-05-01] MEDS ORDERED: COMBIVENT RESPIMAT COMMON CANISTER IH SCH (10:00)
[2022-05-01] MEDS ORDERED: NON-FORMULARY ITEM (Midodrine Hcl [Midodrine Hcl] 10 MG Tablet) PO SCH (10:00)
[2022-05-01] MEDS ORDERED: NON-FORMULARY ITEM (Budesonide/Formoterol Fumarate [Budesonide-Formoterol 160-4.5] 10.2 GM IH SCH (10:00)
[2022-05-01] MEDS ORDERED: FLUZONE QUAD 2022-2023 SYRINGE IM ONE (10:00)
[2022-05-01] MEDS ORDERED: NON-FORMULARY ITEM (Baclofen [Baclofen] 20 MG Tablet) PO SCH (10:00)
[2022-05-01] MEDS ORDERED: NON-FORMULARY ITEM (Apixaban*** [Eliquis 5 Mg Tablet***] 5 MG Tablet) PO SCH (10:00)
[2022-05-01] MEDS ORDERED: ERYTHROMYCIN BASE 250 MG PO SCH (10:00)
[2022-05-01] MEDS ORDERED: DEXLANSOPRAZOLE 60 MG PO SCH (10:00)
[2022-05-01] MEDS ORDERED: NON-FORMULARY ITEM (Gabapentin [Neurontin] 600 MG Tablet) PO SCH (10:00)
[2022-05-01] MEDS: PROAMATINE PO SCH ×3 (10:22→21:26)
[2022-05-01] MEDS: Carafate SUSPENSION 1000 MG/10 ML PO SCH ×4 (10:22→21:28)
[2022-05-01] MEDS: PATIENT OWN MEDICATION PO SCH ×2 (12:43→17:29)
[2022-05-01 13:04] LABS: ANION GAP 8.3 MEQ/L (5-15); BLOOD UREA NITROGEN 18 mg/dL (7-17); CHLORIDE 104 mmol/L (98-107); Calcium 7.9 mg/dL (8.4-10.2); Carbon Dioxide 25 mmol/L (22-30); Creatinine 1 0.67 mg/dL (0.52-1.04); EST GLOMERULAR FILTRATION RATE > 60.0 ML/MIN; Glucose 310 mg/dL (74-106); Potassium 4.3 mmol/L (3.5-5.1); SODIUM 133 mmol/L (137-145)
--- NOTE | 2022-05-01 14:49 | PCM.HP ---
History of Present Illness - Chief Complaint Chief Complaint: DKA, hydronephrosis History of Present Illness: is a 41 year old female pt of DAVION Larson with hx DM on insulin who was admitted through ER with [facility]. Her BS was 706 and CO2 was 19 (AG 18.6). Pt lives at [facility]. Her pump is working, but she started reading high for the past 3-4 days. She said yesterday she kept giving herself insulin but thought maybe her site was bad (could not get the blood sugar to stop reading "HI"). She changed the site a few times without results. She notes she's had lung and sinus congestion for 3-4 days. Run down for 3-4 days. She was placed on insulin drip, although cautiously as her sugars are quite brittle. - Review of Systems Cardiac: Chest Pain (substernal discomfort, thinks reflux, 3.5/10, dull constant, tight, x 3-4 d) Abdominal/Gastrointestinal: Nausea (creon helps) Genitourinary Symptoms: Dysuria, No Hematuria Neurological: Dizziness Psychological: Anxiety (10d ago, got into some trouble at [facility], had increased anxiety/depression, but that has resolved.) All Other Systems: Reviewed and Negative Medications & Allergies Home Medications: Home Medication List AMITRIPTYLINE HCL 50 mg Tab [AMITRIPTYLINE HCL 50 mg Tablet] 50 mg PO HS 12/05/21 [History Confirmed 05/01/22] Apixaban [Eliquis 5 mg Tablet] 5 mg PO BID 12/05/21 [History Confirmed 05/01/22] Atomoxetine HCl [Strattera] 60 mg PO DAILY 12/05/21 [History Confirmed 05/01/22] Baclofen 20 mg PO QID 12/05/21 [History Confirmed 05/01/22] Dexlansoprazole [Dexlansoprazole Dr] 60 mg PO DAILY 12/05/21 [History Confirmed 05/01/22] Escitalopram Oxalate [Lexapro] 20 mg PO 1700 12/05/21 [History Confirmed 05/01/22] Ferrous Sulfate 325 mg PO TID 12/05/21 [History Confirmed 05/01/22] Folic Acid 1 mg [Folate 1 mg] 1 mg PO DAILY 12/05/21 [History Confirmed 05/01/22] Furosemide 20 mg [Lasix 20 mg] 20 mg PO DAILY 12/05/21 [History Confirmed 05/01/22] Gabapentin [Neurontin] 600 mg PO QID 12/05/21 [History Confirmed 05/01/22] Ipratropium/Albuterol Sulfate [Combivent Respimat Inhal [place]] 1 inh PO DAILY 12/05/21 [History Confirmed 05/01/22] Levothyroxine Sodium 25 mcg PO QAM 12/05/21 [History Confirmed 05/01/22] Lidocaine/Transparent Dressing [Lidocaine 4% Kit] 1 each TP DAILY PRN PRN 12/05/21 [History Confirmed 05/01/22] Metoclopramide HCl 10 mg PO QID 12/05/21 [History Confirmed 05/01/22] Mirtazapine 15 mg PO HS 12/05/21 [History Confirmed 05/01/22] Promethazine HCl 25 mg [Phenergan 25 mg] 25 mg PO Q4-6HPRN PRN 12/05/21 [History Confirmed 05/01/22] Ropinirole HCl 0.5 mg [Requip 0.5 MG] 0.5 mg PO HS 12/05/21 [History Confirmed 05/01/22] Sucralfate 1 gm PO QID 12/05/21 [History Confirmed 05/01/22] Albuterol 2.5 mg/3 ml Neb [Proventil 2.5 mg/3 ml Neb] 1 neb IH DAILY PRN PRN 03/17/22 [History Confirmed 05/01/22] Albuterol Sulfate [Albuterol Sulfate Hfa] 2 puff IH DAILY PRN PRN 03/17/22 [History Confirmed 05/01/22] Atomoxetine HCl [Strattera] 40 mg PO LUNCH 03/17/22 [History Confirmed 05/01/22] Biotin 5,000 mcg PO DAILY 03/17/22 [History Confirmed 05/01/22] Budesonide/Formoterol Fumarate [Budesonide-Formoterol 160-4.5] 2 puff IH BID 03/17/22 [History Confirmed 05/01/22] Diclofenac Epolamine 1 patch TOP Q12H PRN PRN 03/17/22 [History Confirmed 04/07 12/26] Mirtazapine 15 mg PO HS PRN PRN 03/17/22 [History Confirmed 05/01/22] Montelukast Sodium 10 mg [Singulair 10 MG] 10 mg PO DAILY 03/17/22 [History Confirmed 05/01/22] Multivitamin 1 tab PO DAILY 03/17/22 [History Confirmed 05/01/22] Omeprazole 20 mg PO DAILY PRN PRN 03/17/22 [History Confirmed 05/01/22] Topiramate 50 mg PO QHS 03/17/22 [History Confirmed 05/01/22] hydrOXYzine HCL [Hydroxyzine HCl] 50 mg PO HS PRN PRN 03/17/22 [History Confirmed 05/01/22] Simethicone 80 mg [Mylicon 80MG] 80 mg PO QID PRN PRN tablet 03/20/22 [Rx Confirmed 05/01/22] Buspirone HCl 5 mg [Buspar 5 mg] 10 mg PO QHS 05/01/22 [History Confirmed 05/01/22] Erythromycin Base [Erythromycin] 250 mg PO BID 05/01/22 [History Confirmed 05/01/22] Lipase/Protease/Amylase [Gina [place] 36,000 Unit Capsule] 1 cap PO TID PRN 05/01/22 [History Confirmed 05/01/22] Lipase/Protease/Amylase [[place] 36,000 Unit Capsule] 2 cap PO AC 05/01/22 [History Confirmed 05/01/22] Midodrine HCl 10 mg PO TID 05/01/22 [History Confirmed 05/01/22] ondansetron HCL [Ondansetron HCl] 4 mg PO Q6H PRN PRN 05/01/22 [History Confirmed 05/01/22] Allergies/Adverse Reactions: Allergies Allergy/AdvReac Type Severity Reaction Status Date / Time dicyclomine [From Bentyl] Allergy Verified 05/01/22 06:13 grapefruit Allergy Swelling Verified 05/01/22 06:13 - Past Medical History Past Medical History: Yes Neurological History: Migraines ENT History: No Pertinent History Cardiac History: Coronary Artery Disease, Deep Vein Thrombosis, Myocardial Infarction ([place]) Respiratory History: Asthma, Pneumonia, Pulmonary Embolism Endocrine Medical History: Diabetes Type I Musculoskelatal History: No Pertinent History GI Medical History: GERD, GI Bleed, Other History: Renal Disease Pyscho-Social History: Anxiety, Attention Deficit Disorder, Depression, Other Reproductive Disorders: No Pertinent History Comment: sepsis 2020, ptsd, chronic pain syndrome, gastric paresis, hypotension. carpal tunnel bilateral and trigger finger left hand, kidney stones - Female History Are you now?: No - Past Surgical History Past Surgical History: Yes Neuro Surgical History: No Pertinent History Cardiac History: Cardiac Catheterization, Cardiac Stent Respiratory Surgery: No Pertinent History GI Surgical History: Appendectomy, Cholecystectomy Genitourinary Surgical Hx: No Pertinent History Musculskeletal Surgical Hx: Orthopedic Surgery Female Surgical History: No Pertinent History Other Surgical History: left foot, right shoulder. uvula removed. gastric bypass - Social History Smoking Status: Never smoker Exposure to second hand smoke: No Alcohol: None Drug Use: none Significant Family History: no pertinent family hx - Physical Exam Vital Signs: Vital Signs - 24 hr Temp Pulse Resp BP Pulse Ox 05/01/22 12:00 98.6 F 98 H 24 146/96 96 05/01/22 09:30 97.9 F 93 H 21 122/69 96 05/01/22 08:30 98 H 18 97 05/01/22 07:25 97.5 F 95 H 23 127/63 96 05/01/22 07:00 98 H 20 127/63 97 05/01/22 06:44 97 05/01/22 06:00 97.9 F 93 H 21 122/69 96 05/01/22 05:35 94 L 05/01/22 05:09 93 H 18 115/74 99 05/01/22 04:00 95 H 18 138/77 98 05/01/22 03:28 96 H 20 141/87 98 05/01/22 02:50 94 L 05/01/22 02:28 97.5 F 70 18 118/74 93 L General Appearance: no apparent distress, alert Neurologic Exam: oriented x 3, cooperative Eye Exam: eyes nml inspection Ears, Nose, Throat Exam: moist mucous membranes Neck Exam: normal inspection, non-tender, No lymphadenopathy, No subcutaneous emphysema, No thyromegaly Respiratory Exam: normal breath sounds, lungs clear, No diminished breath sounds, No crackles/rales, No rhonchi, No wheezing Cardiovascular Exam: regular rate/rhythm, normal heart sounds, No murmur Gastrointestinal/Abdomen Exam: soft, normal bowel sounds, No distention, No mass, No guarding, No rebound Back Exam: normal inspection, No rash Extremity Exam: normal inspection, No pedal edema, No swelling Skin Exam: normal color, warm, dry, No rash Results - Labs Lab/Micro Results: Lab Results-Last 24 Hours 05/01/22 05/01/22 05/01/22 Range/Units 02:50 02:50 02:50 WBC 4.2 (4.0-10.5) x10^3/uL RBC 3.76 L (4.1-5.4) x10^6/uL Hgb 12.0 (12.0-16.0) g/dL Hct 36.9 (35-47) % MCV 98.1 (78-100) fL MCH 31.9 (26-32) pg MCHC 32.5 (32-36) g/dL RDW 12.4 (11.5-14.0) % Plt Count 182 (150-450) x10^3/uL MPV 10.4 (7.5-11.0) fL Gran % 44.5 (36.0-66.0) % Immature Gran % (Auto) 0.2 (0.00-0.4) % Nucleat RBC Rel Count 0.0 (0.00-0.1) % Eos # (Auto) 0.18 (0-0.5) x10^3/uL Immature Gran # (Auto) 0.01 (0.00-0.03) x10^3u/L Absolute Lymphs (auto) 1.75 (1.0-4.6) x10^3/uL Absolute Monos (auto) 0.36 (0.0-1.3) x10^3/uL Absolute Nucleated RBC 0.00 (0.00-0.01) x10^3u/L Lymphocytes % 41.9 (24.0-44.0) % Monocytes % 8.6 (0.0-12.0) % Eosinophils % 4.3 (0.00-5.0) % Basophils % 0.5 (0.0-0.4) % Absolute Granulocytes 1.86 (1.4-6.9) x10^3/uL Basophils # 0.02 (0-0.4) x10^3/uL PT (9.4-12.5) SECONDS INR (0.8-3.0) APTT (25.1-36.5) SECONDS pO2/FiO2 Ratio % VBG pH (7.32-7.42) VBG pCO2 at Pat Temp (42-55) mm/Hg VBG pO2 at Pat Temp (25-40) mm/Hg VBG HCO3 (22-28) meq/L VBG O2 Sat (Foreign) (95-100) VBG Base Excess (-2.0-2.0) VBG Hemoglobin VBG Carboxyhemoglobin (0.0-6.9) % T HGB POC Potassium (3.5-5.1) Sodium 127 L (137-145) mmol/L Potassium 4.3 (3.5-5.1) mmol/L Chloride 94 L (98-107) mmol/L Carbon Dioxide 19 L (22-30) mmol/L Anion Gap 18.6 H (5-15) MEQ/L BUN 23 H (7-17) mg/dL Creatinine 0.61 (0.52-1.04) mg/dL Estimated GFR > 60.0 ML/MIN Glucose 706 H* (74-106) mg/dL POC Glucometer (50 to 500) mg/dL Lactic Acid (0.4-2.0) Calcium 8.7 (8.4-10.2) mg/dL Phosphorus (2.5-4.5) mg/dL Magnesium (1.6-2.3) mg/dL Total Bilirubin 0.70 (0.2-1.3) mg/dL AST 131 H (14-36) U/L ALT 177 H (0-35) U/L Alkaline Phosphatase 221 H (38-126) U/L Troponin I < 0.012 (0.000-0.034) ng/mL Serum Total Protein 5.4 L (6.3-8.2) g/dL Albumin 3.6 (3.5-5.0) g/dL Lipase 27 (23-300) U/L Urinalys Dipstick Clnc Urine Color (YELLOW) Urine Appearance (CLEAR) Urine pH (5-6) Ur Specific [place] (1.005-1.025) POC Urine Protein Conf (Negative) Urine Ketones (NEGATIVE) Urine Nitrite (NEGATIVE) Urine Bilirubin (NEGATIVE) Urine Urobilinogen (0-1) mg/dL Urine Leukocytes (NEGATIVE) Urine WBC (Auto) (0-5) /HPF Urine RBC (Auto) U Epithel Cells (Auto) (FEW) /HPF Urine Bacteria (Auto) Urine RBC (0-5) Mahamed/ul Ur Culture Indicated? Urine Glucose (NEGATIVE) mg/dL Urine HCG, Qual (Negative) Influenza Type A Ag (NEGATIVE) Influenza Type B Ag (NEGATIVE) RSV (PCR) (Negative) SARS-CoV-2 (PCR) (NEGATIVE) 05/01/22 05/01/22 05/01/22 Range/Units 02:50 02:50 02:55 WBC (4.0-10.5) x10^3/uL RBC (4.1-5.4) x10^6/uL Hgb (12.0-16.0) g/dL Hct (35-47) % MCV (78-100) fL MCH (26-32) pg MCHC (32-36) g/dL RDW (11.5-14.0) % Plt Count (150-450) x10^3/uL MPV (7.5-11.0) fL Gran % (36.0-66.0) % Immature Gran % (Auto) (0.00-0.4) % Nucleat RBC Rel Count (0.00-0.1) % Eos # (Auto) (0-0.5) x10^3/uL Immature Gran # (Auto) (0.00-0.03) x10^3u/L Absolute Lymphs (auto) (1.0-4.6) x10^3/uL Absolute Monos (auto) (0.0-1.3) x10^3/uL Absolute Nucleated RBC (0.00-0.01) x10^3u/L Lymphocytes % (24.0-44.0) % Monocytes % (0.0-12.0) % Eosinophils % (0.00-5.0) % Basophils % (0.0-0.4) % Absolute Granulocytes (1.4-6.9) x10^3/uL Basophils # (0-0.4) x10^3/uL PT 10.5 (9.4-12.5) SECONDS INR 0.99 (0.8-3.0) APTT 25.0 L (25.1-36.5) SECONDS pO2/FiO2 Ratio % VBG pH (7.32-7.42) VBG pCO2 at Pat Temp (42-55) mm/Hg VBG pO2 at Pat Temp (25-40) mm/Hg VBG HCO3 (22-28) meq/L VBG O2 Sat (Foreign) (95-100) VBG Base Excess (-2.0-2.0) VBG Hemoglobin VBG Carboxyhemoglobin (0.0-6.9) % T HGB POC Potassium (3.5-5.1) Sodium (137-145) mmol/L Potassium (3.5-5.1) mmol/L Chloride (98-107) mmol/L Carbon Dioxide (22-30) mmol/L Anion Gap (5-15) MEQ/L BUN (7-17) mg/dL Creatinine (0.52-1.04) mg/dL Estimated GFR ML/MIN Glucose (74-106) mg/dL POC Glucometer (50 to 500) mg/dL Lactic Acid 1.5 (0.4-2.0) Calcium (8.4-10.2) mg/dL Phosphorus 5.2 H (2.5-4.5) mg/dL Magnesium 2.5 H (1.6-2.3) mg/dL Total Bilirubin (0.2-1.3) mg/dL AST (14-36) U/L ALT (0-35) U/L Alkaline Phosphatase (38-126) U/L Troponin I (0.000-0.034) ng/mL Serum Total Protein (6.3-8.2) g/dL Albumin (3.5-5.0) g/dL Lipase (23-300) U/L Urinalys Dipstick Clnc Urine Color (YELLOW) Urine Appearance (CLEAR) Urine pH (5-6) Ur Specific [place] (1.005-1.025) POC Urine Protein Conf (Negative) Urine Ketones (NEGATIVE) Urine Nitrite (NEGATIVE) Urine Bilirubin (NEGATIVE) Urine Urobilinogen (0-1) mg/dL Urine Leukocytes (NEGATIVE) Urine WBC (Auto) (0-5) /HPF Urine RBC (Auto) U Epithel Cells (Auto) (FEW) /HPF Urine Bacteria (Auto) Urine RBC (0-5) Mahamed/ul Ur Culture Indicated? Urine Glucose (NEGATIVE) mg/dL Urine HCG, Qual (Negative) Influenza Type A Ag (NEGATIVE) Influenza Type B Ag (NEGATIVE) RSV (PCR) (Negative) SARS-CoV-2 (PCR) (NEGATIVE) 05/01/22 05/01/22 05/01/22 Range/Units 02:55 03:00 04:02 WBC (4.0-10.5) x10^3/uL RBC (4.1-5.4) x10^6/uL Hgb (12.0-16.0) g/dL Hct (35-47) % MCV (78-100) fL MCH (26-32) pg MCHC (32-36) g/dL RDW (11.5-14.0) % Plt Count (150-450) x10^3/uL MPV (7.5-11.0) fL Gran % (36.0-66.0) % Immature Gran % (Auto) (0.00-0.4) % Nucleat RBC Rel Count (0.00-0.1) % Eos # (Auto) (0-0.5) x10^3/uL Immature Gran # (Auto) (0.00-0.03) x10^3u/L Absolute Lymphs (auto) (1.0-4.6) x10^3/uL Absolute Monos (auto) (0.0-1.3) x10^3/uL Absolute Nucleated RBC (0.00-0.01) x10^3u/L Lymphocytes % (24.0-44.0) % Monocytes % (0.0-12.0) % Eosinophils % (0.00-5.0) % Basophils % (0.0-0.4) % Absolute Granulocytes (1.4-6.9) x10^3/uL Basophils # (0-0.4) x10^3/uL PT (9.4-12.5) SECONDS INR (0.8-3.0) APTT (25.1-36.5) SECONDS pO2/FiO2 Ratio 21.0 % VBG pH 7.44 H (7.32-7.42) VBG pCO2 at Pat Temp 30 L (42-55) mm/Hg VBG pO2 at Pat Temp 105 H (25-40) mm/Hg VBG HCO3 20.4 L (22-28) meq/L VBG O2 Sat (Foreign) 93.5 L (95-100) VBG Base Excess -2.8 L (-2.0-2.0) VBG Hemoglobin 12.6 VBG Carboxyhemoglobin 0.0 (0.0-6.9) % T HGB POC Potassium 4.5 (3.5-5.1) Sodium (137-145) mmol/L Potassium (3.5-5.1) mmol/L Chloride (98-107) mmol/L Carbon Dioxide (22-30) mmol/L Anion Gap (5-15) MEQ/L BUN (7-17) mg/dL Creatinine (0.52-1.04) mg/dL Estimated GFR ML/MIN Glucose (74-106) mg/dL POC Glucometer (50 to 500) mg/dL Lactic Acid (0.4-2.0) Calcium (8.4-10.2) mg/dL Phosphorus (2.5-4.5) mg/dL Magnesium (1.6-2.3) mg/dL Total Bilirubin (0.2-1.3) mg/dL AST (14-36) U/L ALT (0-35) U/L Alkaline Phosphatase (38-126) U/L Troponin I (0.000-0.034) ng/mL Serum Total Protein (6.3-8.2) g/dL Albumin (3.5-5.0) g/dL Lipase (23-300) U/L Urinalys Dipstick Clnc Urine Color (YELLOW) Urine Appearance (CLEAR) Urine pH (5-6) Ur Specific [place] (1.005-1.025) POC Urine Protein Conf (Negative) Urine Ketones (NEGATIVE) Urine Nitrite (NEGATIVE) Urine Bilirubin (NEGATIVE) Urine Urobilinogen (0-1) mg/dL Urine Leukocytes (NEGATIVE) Urine WBC (Auto) (0-5) /HPF Urine RBC (Auto) U Epithel Cells (Auto) (FEW) /HPF Urine Bacteria (Auto) Urine RBC (0-5) Mahamed/ul Ur Culture Indicated? Urine Glucose (NEGATIVE) mg/dL Urine HCG, Qual NEGATIVE (Negative) Influenza Type A Ag NEGATIVE (NEGATIVE) Influenza Type B Ag NEGATIVE (NEGATIVE) RSV (PCR) NEGATIVE (Negative) SARS-CoV-2 (PCR) NEGATIVE (NEGATIVE) 05/01/22 05/01/22 05/01/22 Range/Units 04:40 05:30 06:08 WBC (4.0-10.5) x10^3/uL RBC (4.1-5.4) x10^6/uL Hgb (12.0-16.0) g/dL Hct (35-47) % MCV (78-100) fL MCH (26-32) pg MCHC (32-36) g/dL RDW (11.5-14.0) % Plt Count (150-450) x10^3/uL MPV (7.5-11.0) fL Gran % (36.0-66.0) % Immature Gran % (Auto) (0.00-0.4) % Nucleat RBC Rel Count (0.00-0.1) % Eos # (Auto) (0-0.5) x10^3/uL Immature Gran # (Auto) (0.00-0.03) x10^3u/L Absolute Lymphs (auto) (1.0-4.6) x10^3/uL Absolute Monos (auto) (0.0-1.3) x10^3/uL Absolute Nucleated RBC (0.00-0.01) x10^3u/L Lymphocytes % (24.0-44.0) % Monocytes % (0.0-12.0) % Eosinophils % (0.00-5.0) % Basophils % (0.0-0.4) % Absolute Granulocytes (1.4-6.9) x10^3/uL Basophils # (0-0.4) x10^3/uL PT (9.4-12.5) SECONDS INR (0.8-3.0) APTT (25.1-36.5) SECONDS pO2/FiO2 Ratio % VBG pH (7.32-7.42) VBG pCO2 at Pat Temp (42-55) mm/Hg VBG pO2 at Pat Temp (25-40) mm/Hg VBG HCO3 (22-28) meq/L VBG O2 Sat (Foreign) (95-100) VBG Base Excess (-2.0-2.0) VBG Hemoglobin VBG Carboxyhemoglobin (0.0-6.9) % T HGB POC Potassium (3.5-5.1) Sodium (137-145) mmol/L Potassium (3.5-5.1) mmol/L Chloride (98-107) mmol/L Carbon Dioxide (22-30) mmol/L Anion Gap (5-15) MEQ/L BUN (7-17) mg/dL Creatinine (0.52-1.04) mg/dL Estimated GFR ML/MIN Glucose (74-106) mg/dL POC Glucometer 514 H* 455 H (50 to 500) mg/dL Lactic Acid (0.4-2.0) Calcium (8.4-10.2) mg/dL Phosphorus (2.5-4.5) mg/dL Magnesium (1.6-2.3) mg/dL Total Bilirubin (0.2-1.3) mg/dL AST (14-36) U/L ALT (0-35) U/L Alkaline Phosphatase (38-126) U/L Troponin I (0.000-0.034) ng/mL Serum Total Protein (6.3-8.2) g/dL Albumin (3.5-5.0) g/dL Lipase (23-300) U/L Urinalys Dipstick Clnc MAIN LAB Urine Color YELLOW (YELLOW) Urine Appearance CLEAR (CLEAR) Urine pH 6.0 (5-6) Ur Specific [place] 1.010 (1.005-1.025) POC Urine Protein Conf NEGATIVE (Negative) Urine Ketones >=160 (NEGATIVE) Urine Nitrite NEGATIVE (NEGATIVE) Urine Bilirubin NEGATIVE (NEGATIVE) Urine Urobilinogen 0.2 (0-1) mg/dL Urine Leukocytes NEGATIVE (NEGATIVE) Urine WBC (Auto) NONE (0-5) /HPF Urine RBC (Auto) Not Reportable U Epithel Cells (Auto) NONE (FEW) /HPF Urine Bacteria (Auto) Not Reportable Urine RBC TRACE-INTACT (0-5) Mahamed/ul Ur Culture Indicated? NO Urine Glucose >=1000 (NEGATIVE) mg/dL Urine HCG, Qual (Negative) Influenza Type A Ag (NEGATIVE) Influenza Type B Ag (NEGATIVE) RSV (PCR) (Negative) SARS-CoV-2 (PCR) (NEGATIVE) 05/01/22 05/01/22 05/01/22 Range/Units 07:10 08:00 08:00 WBC (4.0-10.5) x10^3/uL RBC (4.1-5.4) x10^6/uL Hgb (12.0-16.0) g/dL Hct (35-47) % MCV (78-100) fL MCH (26-32) pg MCHC (32-36) g/dL RDW (11.5-14.0) % Plt Count (150-450) x10^3/uL MPV (7.5-11.0) fL Gran % (36.0-66.0) % Immature Gran % (Auto) (0.00-0.4) % Nucleat RBC Rel Count (0.00-0.1) % Eos # (Auto) (0-0.5) x10^3/uL Immature Gran # (Auto) (0.00-0.03) x10^3u/L Absolute Lymphs (auto) (1.0-4.6) x10^3/uL Absolute Monos (auto) (0.0-1.3) x10^3/uL Absolute Nucleated RBC (0.00-0.01) x10^3u/L Lymphocytes % (24.0-44.0) % Monocytes % (0.0-12.0) % Eosinophils % (0.00-5.0) % Basophils % (0.0-0.4) % Absolute Granulocytes (1.4-6.9) x10^3/uL Basophils # (0-0.4) x10^3/uL PT (9.4-12.5) SECONDS INR (0.8-3.0) APTT (25.1-36.5) SECONDS pO2/FiO2 Ratio % VBG pH (7.32-7.42) VBG pCO2 at Pat Temp (42-55) mm/Hg VBG pO2 at Pat Temp (25-40) mm/Hg VBG HCO3 (22-28) meq/L VBG O2 Sat (Foreign) (95-100) VBG Base Excess (-2.0-2.0) VBG Hemoglobin VBG Carboxyhemoglobin (0.0-6.9) % T HGB POC Potassium (3.5-5.1) Sodium 133 L (137-145) mmol/L Potassium 4.5 (3.5-5.1) mmol/L Chloride 103 (98-107) mmol/L Carbon Dioxide 26 (22-30) mmol/L Anion Gap 8.9 (5-15) MEQ/L BUN 20 H (7-17) mg/dL Creatinine 0.50 L (0.52-1.04) mg/dL Estimated GFR > 60.0 ML/MIN Glucose 278 H (74-106) mg/dL POC Glucometer 322 H (50 to 500) mg/dL Lactic Acid (0.4-2.0) Calcium 8.1 L (8.4-10.2) mg/dL Phosphorus (2.5-4.5) mg/dL Magnesium (1.6-2.3) mg/dL Total Bilirubin (0.2-1.3) mg/dL AST (14-36) U/L ALT (0-35) U/L Alkaline Phosphatase (38-126) U/L Troponin I < 0.012 (0.000-0.034) ng/mL Serum Total Protein (6.3-8.2) g/dL Albumin (3.5-5.0) g/dL Lipase (23-300) U/L Urinalys Dipstick Clnc Urine Color (YELLOW) Urine Appearance (CLEAR) Urine pH (5-6) Ur Specific [place] (1.005-1.025) POC Urine Protein Conf (Negative) Urine Ketones (NEGATIVE) Urine Nitrite (NEGATIVE) Urine Bilirubin (NEGATIVE) Urine Urobilinogen (0-1) mg/dL Urine Leukocytes (NEGATIVE) Urine WBC (Auto) (0-5) /HPF Urine RBC (Auto) U Epithel Cells (Auto) (FEW) /HPF Urine Bacteria (Auto) Urine RBC (0-5) Mahamed/ul Ur Culture Indicated? Urine Glucose (NEGATIVE) mg/dL Urine HCG, Qual (Negative) Influenza Type A Ag (NEGATIVE) Influenza Type B Ag (NEGATIVE) RSV (PCR) (Negative) SARS-CoV-2 (PCR) (NEGATIVE) 10/26/22 10/26/22 10/26/22 Range/Units 08:06 09:06 10:19 WBC (4.0-10.5) x10^3/uL RBC (4.1-5.4) x10^6/uL Hgb (12.0-16.0) g/dL Hct (35-47) % MCV (78-100) fL MCH (26-32) pg MCHC (32-36) g/dL RDW (11.5-14.0) % Plt Count (150-450) x10^3/uL MPV (7.5-11.0) fL Gran % (36.0-66.0) % Immature Gran % (Auto) (0.00-0.4) % Nucleat RBC Rel Count (0.00-0.1) % Eos # (Auto) (0-0.5) x10^3/uL Immature Gran # (Auto) (0.00-0.03) x10^3u/L Absolute Lymphs (auto) (1.0-4.6) x10^3/uL Absolute Monos (auto) (0.0-1.3) x10^3/uL Absolute Nucleated RBC (0.00-0.01) x10^3u/L Lymphocytes % (24.0-44.0) % Monocytes % (0.0-12.0) % Eosinophils % (0.00-5.0) % Basophils % (0.0-0.4) % Absolute Granulocytes (1.4-6.9) x10^3/uL Basophils # (0-0.4) x10^3/uL PT (9.4-12.5) SECONDS INR (0.8-3.0) APTT (25.1-36.5) SECONDS pO2/FiO2 Ratio % VBG pH (7.32-7.42) VBG pCO2 at Pat Temp (42-55) mm/Hg VBG pO2 at Pat Temp (25-40) mm/Hg VBG HCO3 (22-28) meq/L VBG O2 Sat (Foreign) (95-100) VBG Base Excess (-2.0-2.0) VBG Hemoglobin VBG Carboxyhemoglobin (0.0-6.9) % T HGB POC Potassium (3.5-5.1) Sodium (137-145) mmol/L Potassium (3.5-5.1) mmol/L Chloride (98-107) mmol/L Carbon Dioxide (22-30) mmol/L Anion Gap (5-15) MEQ/L BUN (7-17) mg/dL Creatinine (0.52-1.04) mg/dL Estimated GFR ML/MIN Glucose (74-106) mg/dL POC Glucometer 266 H 263 H 326 H (50 to 500) mg/dL Lactic Acid (0.4-2.0) Calcium (8.4-10.2) mg/dL Phosphorus (2.5-4.5) mg/dL Magnesium (1.6-2.3) mg/dL Total Bilirubin (0.2-1.3) mg/dL AST (14-36) U/L ALT (0-35) U/L Alkaline Phosphatase (38-126) U/L Troponin I (0.000-0.034) ng/mL Serum Total Protein (6.3-8.2) g/dL Albumin (3.5-5.0) g/dL Lipase (23-300) U/L Urinalys Dipstick Clnc Urine Color (YELLOW) Urine Appearance (CLEAR) Urine pH (5-6) Ur Specific [place] (1.005-1.025) POC Urine Protein Conf (Negative) Urine Ketones (NEGATIVE) Urine Nitrite (NEGATIVE) Urine Bilirubin (NEGATIVE) Urine Urobilinogen (0-1) mg/dL Urine Leukocytes (NEGATIVE) Urine WBC (Auto) (0-5) /HPF Urine RBC (Auto) U Epithel Cells (Auto) (FEW) /HPF Urine Bacteria (Auto) Urine RBC (0-5) Mahamed/ul Ur Culture Indicated? Urine Glucose (NEGATIVE) mg/dL Urine HCG, Qual (Negative) Influenza Type A Ag (NEGATIVE) Influenza Type B Ag (NEGATIVE) RSV (PCR) (Negative) SARS-CoV-2 (PCR) (NEGATIVE) 05/01/22 05/01/22 05/01/22 Range/Units 10:40 11:04 12:12 WBC (4.0-10.5) x10^3/uL RBC (4.1-5.4) x10^6/uL Hgb (12.0-16.0) g/dL Hct (35-47) % MCV (78-100) fL MCH (26-32) pg MCHC (32-36) g/dL RDW (11.5-14.0) % Plt Count (150-450) x10^3/uL MPV (7.5-11.0) fL Gran % (36.0-66.0) % Immature Gran % (Auto) (0.00-0.4) % Nucleat RBC Rel Count (0.00-0.1) % Eos # (Auto) (0-0.5) x10^3/uL Immature Gran # (Auto) (0.00-0.03) x10^3u/L Absolute Lymphs (auto) (1.0-4.6) x10^3/uL Absolute Monos (auto) (0.0-1.3) x10^3/uL Absolute Nucleated RBC (0.00-0.01) x10^3u/L Lymphocytes % (24.0-44.0) % Monocytes % (0.0-12.0) % Eosinophils % (0.00-5.0) % Basophils % (0.0-0.4) % Absolute Granulocytes (1.4-6.9) x10^3/uL Basophils # (0-0.4) x10^3/uL PT (9.4-12.5) SECONDS INR (0.8-3.0) APTT (25.1-36.5) SECONDS pO2/FiO2 Ratio % VBG pH (7.32-7.42) VBG pCO2 at Pat Temp (42-55) mm/Hg VBG pO2 at Pat Temp (25-40) mm/Hg VBG HCO3 (22-28) meq/L VBG O2 Sat (Foreign) (95-100) VBG Base Excess (-2.0-2.0) VBG Hemoglobin VBG Carboxyhemoglobin (0.0-6.9) % T HGB POC Potassium (3.5-5.1) Sodium (137-145) mmol/L Potassium (3.5-5.1) mmol/L Chloride (98-107) mmol/L Carbon Dioxide (22-30) mmol/L Anion Gap (5-15) MEQ/L BUN (7-17) mg/dL Creatinine (0.52-1.04) mg/dL Estimated GFR ML/MIN Glucose (74-106) mg/dL POC Glucometer 366 H 328 H (50 to 500) mg/dL Lactic Acid (0.4-2.0) Calcium (8.4-10.2) mg/dL Phosphorus (2.5-4.5) mg/dL Magnesium (1.6-2.3) mg/dL Total Bilirubin (0.2-1.3) mg/dL AST (14-36) U/L ALT (0-35) U/L Alkaline Phosphatase (38-126) U/L Troponin I < 0.012 (0.000-0.034) ng/mL Serum Total Protein (6.3-8.2) g/dL Albumin (3.5-5.0) g/dL Lipase (23-300) U/L Urinalys Dipstick Clnc Urine Color (YELLOW) Urine Appearance (CLEAR) Urine pH (5-6) Ur Specific [place] (1.005-1.025) POC Urine Protein Conf (Negative) Urine Ketones (NEGATIVE) Urine Nitrite (NEGATIVE) Urine Bilirubin (NEGATIVE) Urine Urobilinogen (0-1) mg/dL Urine Leukocytes (NEGATIVE) Urine WBC (Auto) (0-5) /HPF Urine RBC (Auto) U Epithel Cells (Auto) (FEW) /HPF Urine Bacteria (Auto) Urine RBC (0-5) Mahamed/ul Ur Culture Indicated? Urine Glucose (NEGATIVE) mg/dL Urine HCG, Qual (Negative) Influenza Type A Ag (NEGATIVE) Influenza Type B Ag (NEGATIVE) RSV (PCR) (Negative) SARS-CoV-2 (PCR) (NEGATIVE) 05/01/22 05/01/22 05/01/22 Range/Units 12:37 13:10 13:53 WBC (4.0-10.5) x10^3/uL RBC (4.1-5.4) x10^6/uL Hgb (12.0-16.0) g/dL Hct (35-47) % MCV (78-100) fL MCH (26-32) pg MCHC (32-36) g/dL RDW (11.5-14.0) % Plt Count (150-450) x10^3/uL MPV (7.5-11.0) fL Gran % (36.0-66.0) % Immature Gran % (Auto) (0.00-0.4) % Nucleat RBC Rel Count (0.00-0.1) % Eos # (Auto) (0-0.5) x10^3/uL Immature Gran # (Auto) (0.00-0.03) x10^3u/L Absolute Lymphs (auto) (1.0-4.6) x10^3/uL Absolute Monos (auto) (0.0-1.3) x10^3/uL Absolute Nucleated RBC (0.00-0.01) x10^3u/L Lymphocytes % (24.0-44.0) % Monocytes % (0.0-12.0) % Eosinophils % (0.00-5.0) % Basophils % (0.0-0.4) % Absolute Granulocytes (1.4-6.9) x10^3/uL Basophils # (0-0.4) x10^3/uL PT (9.4-12.5) SECONDS INR (0.8-3.0) APTT (25.1-36.5) SECONDS pO2/FiO2 Ratio % VBG pH (7.32-7.42) VBG pCO2 at Pat Temp (42-55) mm/Hg VBG pO2 at Pat Temp (25-40) mm/Hg VBG HCO3 (22-28) meq/L VBG O2 Sat (Foreign) (95-100) VBG Base Excess (-2.0-2.0) VBG Hemoglobin VBG Carboxyhemoglobin (0.0-6.9) % T HGB POC Potassium (3.5-5.1) Sodium 133 L (137-145) mmol/L Potassium 4.3 (3.5-5.1) mmol/L Chloride 104 (98-107) mmol/L Carbon Dioxide 25 (22-30) mmol/L Anion Gap 8.3 (5-15) MEQ/L BUN 18 H (7-17) mg/dL Creatinine 0.67 (0.52-1.04) mg/dL Estimated GFR > 60.0 ML/MIN Glucose 310 H (74-106) mg/dL POC Glucometer 327 H 377 H (50 to 500) mg/dL Lactic Acid (0.4-2.0) Calcium 7.9 L (8.4-10.2) mg/dL Phosphorus (2.5-4.5) mg/dL Magnesium (1.6-2.3) mg/dL Total Bilirubin (0.2-1.3) mg/dL AST (14-36) U/L ALT (0-35) U/L Alkaline Phosphatase (38-126) U/L Troponin I (0.000-0.034) ng/mL Serum Total Protein (6.3-8.2) g/dL Albumin (3.5-5.0) g/dL Lipase (23-300) U/L Urinalys Dipstick Clnc Urine Color (YELLOW) Urine Appearance (CLEAR) Urine pH (5-6) Ur Specific [place] (1.005-1.025) POC Urine Protein Conf (Negative) Urine Ketones (NEGATIVE) Urine Nitrite (NEGATIVE) Urine Bilirubin (NEGATIVE) Urine Urobilinogen (0-1) mg/dL Urine Leukocytes (NEGATIVE) Urine WBC (Auto) (0-5) /HPF Urine RBC (Auto) U Epithel Cells (Auto) (FEW) /HPF Urine Bacteria (Auto) Urine RBC (0-5) Mahamed/ul Ur Culture Indicated? Urine Glucose (NEGATIVE) mg/dL Urine HCG, Qual (Negative) Influenza Type A Ag (NEGATIVE) Influenza Type B Ag (NEGATIVE) RSV (PCR) (Negative) SARS-CoV-2 (PCR) (NEGATIVE) Accuchecks Date 05/01/22 Date 05/01/22 Date 05/01/22 Date 05/01/22 Time 13:57 Time 11:00 Time 08:07 - Radiology Impressions Radiology Exams & Impressions: Radiology Procedures Category Date Time Status ABDOMEN AND PELVIS W/0 CONTRAS [CT] Stat Exams 05/01/22 02:36 Completed - Other Procedures and Tests Respiratory Therapy 05/01/22 08:30 Respiratory Therapy Assessment DAILY Assessment/Plan (1) Hyperosmolar hyperglycemic state (HHS) Current Visit: No Status: Resolved Assessment & Plan: BS has come down. Will discontinue the drip when under 250. Tolerating po. I think likely to developing sinusitis - will treat with IV antibiotics. Code(s): E11.00 - TYPE 2 DIAB W HYPROSM W/O NONKET HYPRGLY-HYPROS COMA ([facility]) (2) Hyponatremia Current Visit: No Status: Acute Code(s): E87.1 - HYPO-OSMOLALITY AND HYPONATREMIA (3) DM I (diabetes mellitus, type I) Current Visit: No Status: Chronic Qualifiers: Diabetes mellitus complication status: without complication Qualified Code(s): E10.9 - Type 1 diabetes mellitus without complications (4) Acute sinusitis Current Visit: Yes Status: Acute Qualifiers: Sinusitis location: frontal Recurrence: recurrent Qualified Code(s): J01.11 - Acute recurrent frontal sinusitis Assessment & Plan: will treat with rocephin inpatient; amoxicillin when discharges to home. Code(s): J01.90 - ACUTE SINUSITIS, UNSPECIFIED
[2022-05-01] MEDS: Lexapro PO SCH (16:16)
[2022-05-01 16:40] LABS: ANION GAP 9.6 MEQ/L (5-15); BLOOD UREA NITROGEN 17 mg/dL (7-17); CHLORIDE 104 mmol/L (98-107); Calcium 8.4 mg/dL (8.4-10.2); Carbon Dioxide 25 mmol/L (22-30); EST GLOMERULAR FILTRATION RATE > 60.0 ML/MIN; Glucose 249 mg/dL (74-106); SODIUM 134 mmol/L (137-145)
[2022-05-01] MEDS ORDERED: NON-FORMULARY ITEM (Escitalopram Oxalate [Lexapro] 20 MG Tablet) PO SCH (17:00)
[2022-05-01] MEDS ORDERED: CLONIDINE 0.1 MG TABLET PO ONE (18:02)
[2022-05-01] MEDS ORDERED: Advair Hfa 230/21 Mcg COMMON CANISTER IH SCH (19:00)
[2022-05-01] MEDS: Zofran 4 MG/2 ML VIAL IV PRN (19:07)
[2022-05-01] MEDS: Advair Hfa 230/21 Mcg COMMON CANISTER IH SCH (19:18)
[2022-05-01] MEDS: Requip 0.5 MG PO SCH (21:26)
[2022-05-01] MEDS: TOPIRAMATE PO SCH (21:26)
[2022-05-01] MEDS: BUSPAR 5 MG PO SCH (21:27)
[2022-05-01] MEDS: MIRTAZAPINE PO SCH (21:27)
[2022-05-01] MEDS ORDERED: Lantus Insulin SQ ONE (22:00)
[2022-05-02] MEDS ORDERED: HUMALOG SQ PRN
[2022-05-02 04:48] LABS: Absolute Neutrophil Ct (ANC) 1.89 x10^3/uL (1.4-6.9); Basophil (Absolute #) 0.02 x10^3/uL (0-0.4); Eosinophil % 5.9 % (0.00-5.0); Eosinophil (Absolute #) 0.26 x10^3/uL (0-0.5); Hematocrit 34.1 % (35-47); Hemoglobin 11.2 g/dL (12.0-16.0); Lymphocyte (Absolute #) 1.92 x10^3/uL (1.0-4.6); Lymphocytes % 43.2 % (24.0-44.0); Mean Cell Volume 96.3 fL (78-100); Mean Corpuscular Hemoglobin 31.6 pg (26-32); Mean Corpuscular Hgb Concent. 32.8 g/dL (32-36); Mean Platelet Volume 10.5 fL (7.5-11.0); Monocyte (Absolute #) 0.34 x10^3/uL (0.0-1.3); Monocytes % 7.7 % (0.0-12.0); Neutrophil % 42.5 % (36.0-66.0); Platelet Count 188 x10^3/uL (150-450); Red Blood Count 3.54 x10^6/uL (4.1-5.4); Red Cell Distribution Width 12.6 % (11.5-14.0); White Blood Count 4.4 x10^3/uL (4.0-10.5)
[2022-05-02 04:51] LABS: VBG BASE EXCESS 5.5 (-2.0-2.0); VBG HCO3- 29.9 meq/L (22-28); VBG HEMOGLOBIN 11.8; VBG O2 SATURATION 92.9 (95-100); VBG POTASSIUM 3.6 (3.5-5.1); VBG pH 7.46 (7.32-7.42)
[2022-05-02 05:15] LABS: ALBUMIN 3.1 g/dL (3.5-5.0); ALKALINE PHOSPHATASE 110 U/L (38-126); ANION GAP 5.2 MEQ/L (5-15); BLOOD UREA NITROGEN 19 mg/dL (7-17); CHLORIDE 104 mmol/L (98-107); Calcium 8.3 mg/dL (8.4-10.2); Carbon Dioxide 29 mmol/L (22-30); Creatinine 1 0.52 mg/dL (0.52-1.04); EST GLOMERULAR FILTRATION RATE > 60.0 ML/MIN; Glucose 177 mg/dL (74-106); Potassium 3.6 mmol/L (3.5-5.1); SGOT/AST 39 U/L (14-36); SGPT/ALT 118 U/L (0-35); SODIUM 135 mmol/L (137-145); Total Protein 5.2 g/dL (6.3-8.2)
[2022-05-02] MEDS: Advair Hfa 230/21 Mcg COMMON CANISTER IH SCH ×4 (06:10→19:42)
[2022-05-02] MEDS: DUONEB 0.5-3 MG/3 ml Neb IH SCH (06:10)
[2022-05-02] MEDS: Zofran 4 MG/2 ML VIAL IV PRN (07:27)
[2022-05-02] MEDS: PATIENT OWN MEDICATION PO SCH ×3 (07:36→16:52)
[2022-05-02] MEDS: PHENERGAN 25 MG PO PRN ×2 (08:29→17:16)
--- NOTE | 2022-05-02 08:59 | PCM.NOTE ---
Date and Time: 05/02/22853 Subjective Assessment: Her insulin drip was off at 9:30 pm last night. She is not feeling well overall (nauseated). Is on moderate dose sliding scale. BS down to 110s at one point. - Review of Systems Constitutional: No Fever Abdominal/Gastrointestinal: Nausea Objective Exam General Appearance: no apparent distress, alert Neurologic Exam: oriented x 3, cooperative Skin Exam: normal color, warm, dry, No rash Eye Exam: eyes nml inspection Ears, Nose, Throat Exam: moist mucous membranes Neck Exam: normal inspection Respiratory Exam: normal breath sounds, lungs clear, No crackles/rales, No rhonchi, No wheezing Cardiovascular Exam: regular rate/rhythm, normal heart sounds, No murmur Gastrointestinal/Abdomen Exam: soft, normal bowel sounds, No tenderness, No distention, No mass, No guarding, No rebound Extremity Exam: normal inspection, No swelling, No tenderness Back Exam: normal inspection, No rash OBJECTIVE DATA Vital Signs: Vital Signs - 24 hr Temp Pulse Resp BP Pulse Ox 05/02/22 07:58 97.9 F 98 H 16 119/75 97 05/02/22 07:38 95 H 05/02/22 06:10 76 16 97 05/02/22 04:00 98.4 F 84 24 127/81 96 05/02/22 00:01 90 05/01/22 23:26 97.3 F 90 15 142/80 95 05/01/22 20:00 97.8 F 97 H 15 149/94 97 05/01/22 19:18 96 H 18 93 L 05/01/22 19:15 157/95 05/01/22 16:00 98.6 F 112 H 14 145/114 100 05/01/22 12:00 98.6 F 93 H 24 146/96 96 05/01/22 09:30 97.9 F 93 H 21 122/69 96 Pain Assessment - Last Documented Pain Intensity 0 Intake and Output: Intake & Output 04/29/22 04/30/22 05/01/22 05/02/22 11:59 11:59 11:59 11:59 Intake Total 1413 Output Total 450 Balance 963 Weight 61.3 kg Lab Results: Lab Results-Last 24 Hours 05/01/22 05/01/22 05/01/22 Range/Units 09:06 10:19 10:40 WBC (4.0-10.5) x10^3/uL RBC (4.1-5.4) x10^6/uL Hgb (12.0-16.0) g/dL Hct (35-47) % MCV (78-100) fL MCH (26-32) pg MCHC (32-36) g/dL RDW (11.5-14.0) % Plt Count (150-450) x10^3/uL MPV (7.5-11.0) fL Gran % (36.0-66.0) % Immature Gran % (Auto) (0.00-0.4) % Nucleat RBC Rel Count (0.00-0.1) % Eos # (Auto) (0-0.5) x10^3/uL Immature Gran # (Auto) (0.00-0.03) x10^3u/L Absolute Lymphs (auto) (1.0-4.6) x10^3/uL Absolute Monos (auto) (0.0-1.3) x10^3/uL Absolute Nucleated RBC (0.00-0.01) x10^3u/L Lymphocytes % (24.0-44.0) % Monocytes % (0.0-12.0) % Eosinophils % (0.00-5.0) % Basophils % (0.0-0.4) % Absolute Granulocytes (1.4-6.9) x10^3/uL Basophils # (0-0.4) x10^3/uL pO2/FiO2 Ratio % VBG pH (7.32-7.42) VBG pCO2 at Pat Temp (42-55) mm/Hg VBG pO2 at Pat Temp (25-40) mm/Hg VBG HCO3 (22-28) meq/L VBG O2 Sat (Foreign) (95-100) VBG Base Excess (-2.0-2.0) VBG Hemoglobin VBG Carboxyhemoglobin (0.0-6.9) % T HGB POC Potassium (3.5-5.1) Sodium (137-145) mmol/L Potassium (3.5-5.1) mmol/L Chloride (98-107) mmol/L Carbon Dioxide (22-30) mmol/L Anion Gap (5-15) MEQ/L BUN (7-17) mg/dL Creatinine (0.52-1.04) mg/dL Estimated GFR ML/MIN Glucose (74-106) mg/dL POC Glucometer 263 H 326 H (74 to 106) mg/dL Calcium (8.4-10.2) mg/dL Total Bilirubin (0.2-1.3) mg/dL AST (14-36) U/L ALT (0-35) U/L Alkaline Phosphatase (38-126) U/L Troponin I < 0.012 (0.000-0.034) ng/mL Serum Total Protein (6.3-8.2) g/dL Albumin (3.5-5.0) g/dL 05/01/22 05/01/22 05/01/22 Range/Units 11:04 12:12 12:37 WBC (4.0-10.5) x10^3/uL RBC (4.1-5.4) x10^6/uL Hgb (12.0-16.0) g/dL Hct (35-47) % MCV (78-100) fL MCH (26-32) pg MCHC (32-36) g/dL RDW (11.5-14.0) % Plt Count (150-450) x10^3/uL MPV (7.5-11.0) fL Gran % (36.0-66.0) % Immature Gran % (Auto) (0.00-0.4) % Nucleat RBC Rel Count (0.00-0.1) % Eos # (Auto) (0-0.5) x10^3/uL Immature Gran # (Auto) (0.00-0.03) x10^3u/L Absolute Lymphs (auto) (1.0-4.6) x10^3/uL Absolute Monos (auto) (0.0-1.3) x10^3/uL Absolute Nucleated RBC (0.00-0.01) x10^3u/L Lymphocytes % (24.0-44.0) % Monocytes % (0.0-12.0) % Eosinophils % (0.00-5.0) % Basophils % (0.0-0.4) % Absolute Granulocytes (1.4-6.9) x10^3/uL Basophils # (0-0.4) x10^3/uL pO2/FiO2 Ratio % VBG pH (7.32-7.42) VBG pCO2 at Pat Temp (42-55) mm/Hg VBG pO2 at Pat Temp (25-40) mm/Hg VBG HCO3 (22-28) meq/L VBG O2 Sat (Foreign) (95-100) VBG Base Excess (-2.0-2.0) VBG Hemoglobin VBG Carboxyhemoglobin (0.0-6.9) % T HGB POC Potassium (3.5-5.1) Sodium 133 L (137-145) mmol/L Potassium 4.3 (3.5-5.1) mmol/L Chloride 104 (98-107) mmol/L Carbon Dioxide 25 (22-30) mmol/L Anion Gap 8.3 (5-15) MEQ/L BUN 18 H (7-17) mg/dL Creatinine 0.67 (0.52-1.04) mg/dL Estimated GFR > 60.0 ML/MIN Glucose 310 H (74-106) mg/dL POC Glucometer 366 H 328 H (74 to 106) mg/dL Calcium 7.9 L (8.4-10.2) mg/dL Total Bilirubin (0.2-1.3) mg/dL AST (14-36) U/L ALT (0-35) U/L Alkaline Phosphatase (38-126) U/L Troponin I (0.000-0.034) ng/mL Serum Total Protein (6.3-8.2) g/dL Albumin (3.5-5.0) g/dL 05/01/22 05/01/22 05/01/22 Range/Units 13:10 13:53 15:06 WBC (4.0-10.5) x10^3/uL RBC (4.1-5.4) x10^6/uL Hgb (12.0-16.0) g/dL Hct (35-47) % MCV (78-100) fL MCH (26-32) pg MCHC (32-36) g/dL RDW (11.5-14.0) % Plt Count (150-450) x10^3/uL MPV (7.5-11.0) fL Gran % (36.0-66.0) % Immature Gran % (Auto) (0.00-0.4) % Nucleat RBC Rel Count (0.00-0.1) % Eos # (Auto) (0-0.5) x10^3/uL Immature Gran # (Auto) (0.00-0.03) x10^3u/L Absolute Lymphs (auto) (1.0-4.6) x10^3/uL Absolute Monos (auto) (0.0-1.3) x10^3/uL Absolute Nucleated RBC (0.00-0.01) x10^3u/L Lymphocytes % (24.0-44.0) % Monocytes % (0.0-12.0) % Eosinophils % (0.00-5.0) % Basophils % (0.0-0.4) % Absolute Granulocytes (1.4-6.9) x10^3/uL Basophils # (0-0.4) x10^3/uL pO2/FiO2 Ratio % VBG pH (7.32-7.42) VBG pCO2 at Pat Temp (42-55) mm/Hg VBG pO2 at Pat Temp (25-40) mm/Hg VBG HCO3 (22-28) meq/L VBG O2 Sat (Foreign) (95-100) VBG Base Excess (-2.0-2.0) VBG Hemoglobin VBG Carboxyhemoglobin (0.0-6.9) % T HGB POC Potassium (3.5-5.1) Sodium (137-145) mmol/L Potassium (3.5-5.1) mmol/L Chloride (98-107) mmol/L Carbon Dioxide (22-30) mmol/L Anion Gap (5-15) MEQ/L BUN (7-17) mg/dL Creatinine (0.52-1.04) mg/dL Estimated GFR ML/MIN Glucose (74-106) mg/dL POC Glucometer 327 H 377 H 341 H (74 to 106) mg/dL Calcium (8.4-10.2) mg/dL Total Bilirubin (0.2-1.3) mg/dL AST (14-36) U/L ALT (0-35) U/L Alkaline Phosphatase (38-126) U/L Troponin I (0.000-0.034) ng/mL Serum Total Protein (6.3-8.2) g/dL Albumin (3.5-5.0) g/dL 05/01/22 05/01/22 05/01/22 Range/Units 16:20 16:23 17:18 WBC (4.0-10.5) x10^3/uL RBC (4.1-5.4) x10^6/uL Hgb (12.0-16.0) g/dL Hct (35-47) % MCV (78-100) fL MCH (26-32) pg MCHC (32-36) g/dL RDW (11.5-14.0) % Plt Count (150-450) x10^3/uL MPV (7.5-11.0) fL Gran % (36.0-66.0) % Immature Gran % (Auto) (0.00-0.4) % Nucleat RBC Rel Count (0.00-0.1) % Eos # (Auto) (0-0.5) x10^3/uL Immature Gran # (Auto) (0.00-0.03) x10^3u/L Absolute Lymphs (auto) (1.0-4.6) x10^3/uL Absolute Monos (auto) (0.0-1.3) x10^3/uL Absolute Nucleated RBC (0.00-0.01) x10^3u/L Lymphocytes % (24.0-44.0) % Monocytes % (0.0-12.0) % Eosinophils % (0.00-5.0) % Basophils % (0.0-0.4) % Absolute Granulocytes (1.4-6.9) x10^3/uL Basophils # (0-0.4) x10^3/uL pO2/FiO2 Ratio % VBG pH (7.32-7.42) VBG pCO2 at Pat Temp (42-55) mm/Hg VBG pO2 at Pat Temp (25-40) mm/Hg VBG HCO3 (22-28) meq/L VBG O2 Sat (Foreign) (95-100) VBG Base Excess (-2.0-2.0) VBG Hemoglobin VBG Carboxyhemoglobin (0.0-6.9) % T HGB POC Potassium (3.5-5.1) Sodium 134 L (137-145) mmol/L Potassium 4.0 (3.5-5.1) mmol/L Chloride 104 (98-107) mmol/L Carbon Dioxide 25 (22-30) mmol/L Anion Gap 9.6 (5-15) MEQ/L BUN 17 (7-17) mg/dL Creatinine 0.60 (0.52-1.04) mg/dL Estimated GFR > 60.0 ML/MIN Glucose 249 H (74-106) mg/dL POC Glucometer 249 H 112 H (74 to 106) mg/dL Calcium 8.4 (8.4-10.2) mg/dL Total Bilirubin (0.2-1.3) mg/dL AST (14-36) U/L ALT (0-35) U/L Alkaline Phosphatase (38-126) U/L Troponin I (0.000-0.034) ng/mL Serum Total Protein (6.3-8.2) g/dL Albumin (3.5-5.0) g/dL 05/01/22 05/01/22 05/01/22 Range/Units 18:58 20:07 20:51 WBC (4.0-10.5) x10^3/uL RBC (4.1-5.4) x10^6/uL Hgb (12.0-16.0) g/dL Hct (35-47) % MCV (78-100) fL MCH (26-32) pg MCHC (32-36) g/dL RDW (11.5-14.0) % Plt Count (150-450) x10^3/uL MPV (7.5-11.0) fL Gran % (36.0-66.0) % Immature Gran % (Auto) (0.00-0.4) % Nucleat RBC Rel Count (0.00-0.1) % Eos # (Auto) (0-0.5) x10^3/uL Immature Gran # (Auto) (0.00-0.03) x10^3u/L Absolute Lymphs (auto) (1.0-4.6) x10^3/uL Absolute Monos (auto) (0.0-1.3) x10^3/uL Absolute Nucleated RBC (0.00-0.01) x10^3u/L Lymphocytes % (24.0-44.0) % Monocytes % (0.0-12.0) % Eosinophils % (0.00-5.0) % Basophils % (0.0-0.4) % Absolute Granulocytes (1.4-6.9) x10^3/uL Basophils # (0-0.4) x10^3/uL pO2/FiO2 Ratio % VBG pH (7.32-7.42) VBG pCO2 at Pat Temp (42-55) mm/Hg VBG pO2 at Pat Temp (25-40) mm/Hg VBG HCO3 (22-28) meq/L VBG O2 Sat (Foreign) (95-100) VBG Base Excess (-2.0-2.0) VBG Hemoglobin VBG Carboxyhemoglobin (0.0-6.9) % T HGB POC Potassium (3.5-5.1) Sodium (137-145) mmol/L Potassium (3.5-5.1) mmol/L Chloride (98-107) mmol/L Carbon Dioxide (22-30) mmol/L Anion Gap (5-15) MEQ/L BUN (7-17) mg/dL Creatinine (0.52-1.04) mg/dL Estimated GFR ML/MIN Glucose (74-106) mg/dL POC Glucometer 286 H 315 H 279 H (74 to 106) mg/dL Calcium (8.4-10.2) mg/dL Total Bilirubin (0.2-1.3) mg/dL AST (14-36) U/L ALT (0-35) U/L Alkaline Phosphatase (38-126) U/L Troponin I (0.000-0.034) ng/mL Serum Total Protein (6.3-8.2) g/dL Albumin (3.5-5.0) g/dL 05/02/22 05/02/22 05/02/22 Range/Units 00:20 02:04 03:57 WBC (4.0-10.5) x10^3/uL RBC (4.1-5.4) x10^6/uL Hgb (12.0-16.0) g/dL Hct (35-47) % MCV (78-100) fL MCH (26-32) pg MCHC (32-36) g/dL RDW (11.5-14.0) % Plt Count (150-450) x10^3/uL MPV (7.5-11.0) fL Gran % (36.0-66.0) % Immature Gran % (Auto) (0.00-0.4) % Nucleat RBC Rel Count (0.00-0.1) % Eos # (Auto) (0-0.5) x10^3/uL Immature Gran # (Auto) (0.00-0.03) x10^3u/L Absolute Lymphs (auto) (1.0-4.6) x10^3/uL Absolute Monos (auto) (0.0-1.3) x10^3/uL Absolute Nucleated RBC (0.00-0.01) x10^3u/L Lymphocytes % (24.0-44.0) % Monocytes % (0.0-12.0) % Eosinophils % (0.00-5.0) % Basophils % (0.0-0.4) % Absolute Granulocytes (1.4-6.9) x10^3/uL Basophils # (0-0.4) x10^3/uL pO2/FiO2 Ratio % VBG pH (7.32-7.42) VBG pCO2 at Pat Temp (42-55) mm/Hg VBG pO2 at Pat Temp (25-40) mm/Hg VBG HCO3 (22-28) meq/L VBG O2 Sat (Foreign) (95-100) VBG Base Excess (-2.0-2.0) VBG Hemoglobin VBG Carboxyhemoglobin (0.0-6.9) % T HGB POC Potassium (3.5-5.1) Sodium (137-145) mmol/L Potassium (3.5-5.1) mmol/L Chloride (98-107) mmol/L Carbon Dioxide (22-30) mmol/L Anion Gap (5-15) MEQ/L BUN (7-17) mg/dL Creatinine (0.52-1.04) mg/dL Estimated GFR ML/MIN Glucose (74-106) mg/dL POC Glucometer 461 H 316 H 172 H (74 to 106) mg/dL Calcium (8.4-10.2) mg/dL Total Bilirubin (0.2-1.3) mg/dL AST (14-36) U/L ALT (0-35) U/L Alkaline Phosphatase (38-126) U/L Troponin I (0.000-0.034) ng/mL Serum Total Protein (6.3-8.2) g/dL Albumin (3.5-5.0) g/dL 05/02/22 05/02/22 05/02/22 Range/Units 04:15 04:15 04:15 WBC 4.4 (4.0-10.5) x10^3/uL RBC 3.54 L (4.1-5.4) x10^6/uL Hgb 11.2 L (12.0-16.0) g/dL Hct 34.1 L (35-47) % MCV 96.3 (78-100) fL MCH 31.6 (26-32) pg MCHC 32.8 (32-36) g/dL RDW 12.6 (11.5-14.0) % Plt Count 188 (150-450) x10^3/uL MPV 10.5 (7.5-11.0) fL Gran % 42.5 (36.0-66.0) % Immature Gran % (Auto) 0.2 (0.00-0.4) % Nucleat RBC Rel Count 0.0 (0.00-0.1) % Eos # (Auto) 0.26 (0-0.5) x10^3/uL Immature Gran # (Auto) 0.01 (0.00-0.03) x10^3u/L Absolute Lymphs (auto) 1.92 (1.0-4.6) x10^3/uL Absolute Monos (auto) 0.34 (0.0-1.3) x10^3/uL Absolute Nucleated RBC 0.00 (0.00-0.01) x10^3u/L Lymphocytes % 43.2 (24.0-44.0) % Monocytes % 7.7 (0.0-12.0) % Eosinophils % 5.9 H (0.00-5.0) % Basophils % 0.5 (0.0-0.4) % Absolute Granulocytes 1.89 (1.4-6.9) x10^3/uL Basophils # 0.02 (0-0.4) x10^3/uL pO2/FiO2 Ratio 21.0 % VBG pH 7.46 H (7.32-7.42) VBG pCO2 at Pat Temp 42 (42-55) mm/Hg VBG pO2 at Pat Temp 105 H (25-40) mm/Hg VBG HCO3 29.9 H* (22-28) meq/L VBG O2 Sat (Foreign) 92.9 L (95-100) VBG Base Excess 5.5 H (-2.0-2.0) VBG Hemoglobin 11.8 VBG Carboxyhemoglobin 0.0 (0.0-6.9) % T HGB POC Potassium 3.6 (3.5-5.1) Sodium 135 L (137-145) mmol/L Potassium 3.6 (3.5-5.1) mmol/L Chloride 104 (98-107) mmol/L Carbon Dioxide 29 (22-30) mmol/L Anion Gap 5.2 (5-15) MEQ/L BUN 19 H (7-17) mg/dL Creatinine 0.52 (0.52-1.04) mg/dL Estimated GFR > 60.0 ML/MIN Glucose 177 H (74-106) mg/dL POC Glucometer (74 to 106) mg/dL Calcium 8.3 L (8.4-10.2) mg/dL Total Bilirubin 0.40 (0.2-1.3) mg/dL AST 39 H (14-36) U/L ALT 118 H (0-35) U/L Alkaline Phosphatase 110 (38-126) U/L Troponin I (0.000-0.034) ng/mL Serum Total Protein 5.2 L (6.3-8.2) g/dL Albumin 3.1 L (3.5-5.0) g/dL 05/02/22 Range/Units 07:22 WBC (4.0-10.5) x10^3/uL RBC (4.1-5.4) x10^6/uL Hgb (12.0-16.0) g/dL Hct (35-47) % MCV (78-100) fL MCH (26-32) pg MCHC (32-36) g/dL RDW (11.5-14.0) % Plt Count (150-450) x10^3/uL MPV (7.5-11.0) fL Gran % (36.0-66.0) % Immature Gran % (Auto) (0.00-0.4) % Nucleat RBC Rel Count (0.00-0.1) % Eos # (Auto) (0-0.5) x10^3/uL Immature Gran # (Auto) (0.00-0.03) x10^3u/L Absolute Lymphs (auto) (1.0-4.6) x10^3/uL Absolute Monos (auto) (0.0-1.3) x10^3/uL Absolute Nucleated RBC (0.00-0.01) x10^3u/L Lymphocytes % (24.0-44.0) % Monocytes % (0.0-12.0) % Eosinophils % (0.00-5.0) % Basophils % (0.0-0.4) % Absolute Granulocytes (1.4-6.9) x10^3/uL Basophils # (0-0.4) x10^3/uL pO2/FiO2 Ratio % VBG pH (7.32-7.42) VBG pCO2 at Pat Temp (42-55) mm/Hg VBG pO2 at Pat Temp (25-40) mm/Hg VBG HCO3 (22-28) meq/L VBG O2 Sat (Foreign) (95-100) VBG Base Excess (-2.0-2.0) VBG Hemoglobin VBG Carboxyhemoglobin (0.0-6.9) % T HGB POC Potassium (3.5-5.1) Sodium (137-145) mmol/L Potassium (3.5-5.1) mmol/L Chloride (98-107) mmol/L Carbon Dioxide (22-30) mmol/L Anion Gap (5-15) MEQ/L BUN (7-17) mg/dL Creatinine (0.52-1.04) mg/dL Estimated GFR ML/MIN Glucose (74-106) mg/dL POC Glucometer 301 H (74 to 106) mg/dL Calcium (8.4-10.2) mg/dL Total Bilirubin (0.2-1.3) mg/dL AST (14-36) U/L ALT (0-35) U/L Alkaline Phosphatase (38-126) U/L Troponin I (0.000-0.034) ng/mL Serum Total Protein (6.3-8.2) g/dL Albumin (3.5-5.0) g/dL Radiology Exams: Radiology Procedures Category Date Time Status ABDOMEN AND PELVIS W/0 CONTRAS [CT] Stat Exams 05/01/22 02:36 Completed Assessment/Plan (1) Hyperosmolar hyperglycemic state (HHS) Current Visit: No Status: Resolved Assessment & Plan: Doing much better. Off insulin drip. Code(s): E11.00 - TYPE 2 DIAB W HYPROSM W/O NONKET HYPRGLY-HYPROS COMA ([facility]) (2) Hyponatremia Current Visit: No Status: Acute Assessment & Plan: much improved Code(s): E87.1 - HYPO-OSMOLALITY AND HYPONATREMIA (3) DM I (diabetes mellitus, type I) Current Visit: No Status: Chronic Qualifiers: Diabetes mellitus complication status: without complication Qualified Code(s): E10.9 - Type 1 diabetes mellitus without complications Assessment & Plan: may need 1/2 the low dose sliding scale to avoid hypoglycemia. (4) Acute sinusitis Current Visit: Yes Status: Acute Qualifiers: Sinusitis location: frontal Recurrence: recurrent Qualified Code(s): J01.11 - Acute recurrent frontal sinusitis Assessment & Plan: on IV rocephin . Code(s): J01.90 - ACUTE SINUSITIS, UNSPECIFIED
[2022-05-02] MEDS: HUMALOG SQ PRN ×4 (10:07→21:18)
[2022-05-02] MEDS: FOLATE 1 MG PO SCH (10:07)
[2022-05-02] MEDS: Reglan 10 MG PO SCH ×4 (10:08→21:17)
[2022-05-02] MEDS: Acidophilus TABLET PO SCH ×3 (10:08→21:17)
[2022-05-02] MEDS: Singulair 10 MG PO SCH (10:08)
[2022-05-02] MEDS: SYNTHROID 25 MCG PO SCH (10:08)
[2022-05-02] MEDS: Protonix 40MG Tablet PO SCH (10:08)
[2022-05-02] MEDS: LIORESAL 10 MG PO SCH ×4 (10:08→21:17)
[2022-05-02] MEDS: NEURONTIN PO SCH ×4 (10:08→21:16)
[2022-05-02] MEDS: ELIQUIS 2.5 MG TABLET PO SCH ×2 (10:08→21:17)
[2022-05-02] MEDS: Carafate SUSPENSION 1000 MG/10 ML PO SCH ×4 (10:09→21:19)
[2022-05-02] MEDS: PROAMATINE PO SCH ×3 (10:10→21:18)
[2022-05-02] MEDS: ROCEPHIN 1 Gm-D5w 50 ml Bag** 1 G/50 ML IVPB IV SCH (10:14)
[2022-05-02] MEDS: Sodium Chloride 0.9% 1000 ML 1,000 ML IV SCH ×2 (11:56→21:16)
[2022-05-02] MEDS: FLUZONE QUAD 2022-2023 SYRINGE IM ONE (13:50)
[2022-05-02] MEDS: Lexapro PO SCH (16:53)
[2022-05-02] MEDS ORDERED: CLONIDINE 0.1 MG TABLET PO ONE (17:35)
[2022-05-02] MEDS: BUSPAR 5 MG PO SCH (21:16)
[2022-05-02] MEDS: TOPIRAMATE PO SCH (21:18)
[2022-05-02] MEDS: MIRTAZAPINE PO SCH (21:18)
[2022-05-02] MEDS: Requip 0.5 MG PO SCH (21:18)
[2022-05-03] MEDS: HUMALOG SQ PRN ×4 (00:47→17:26)
[2022-05-03] MEDS: FLUZONE QUAD 2022-2023 SYRINGE IM ONE (07:13)
[2022-05-03] MEDS: Zofran 4 MG/2 ML VIAL IV PRN ×2 (07:41→17:10)
[2022-05-03] MEDS: Sodium Chloride 0.9% 1000 ML 1,000 ML IV SCH ×2 (07:50→16:32)
[2022-05-03] MEDS: PHENERGAN 25 MG PO PRN ×2 (08:28→13:04)
[2022-05-03] MEDS ORDERED: Lantus Insulin SQ ONE (08:29)
--- NOTE | 2022-05-03 08:34 | PCM.NOTE ---
Date and Time: 05/03/22830 patient states she feels nauseated, weak, dizzy, multiple somatic complaints. pressure under right eye. blood sugar over 400 this am, has been high consisten tly on checks. only receiving sliding scale coverage at this time. Objective Exam General Appearance: no apparent distress, alert Neurologic Exam: alert, oriented x 3, cooperative, normal mood/affect, nml cerebellar function, sensation nml, No motor deficits Ears, Nose, Throat Exam: other (right maxillary sinus tenderness) Respiratory Exam: normal breath sounds, lungs clear, No respiratory distress Cardiovascular Exam: regular rate/rhythm, normal heart sounds Gastrointestinal/Abdomen Exam: soft, No tenderness, No mass OBJECTIVE DATA Vital Signs: Vital Signs - 24 hr Temp Pulse Resp BP Pulse Ox 05/03/22 08:00 95.7 F 84 18 132/84 97 05/03/22 04:00 97.1 F 91 H 18 144/85 97 05/03/22 00:00 97.8 F 89 18 138/86 97 05/02/22 20:00 98.1 F 92 H 20 120/96 97 05/02/22 19:10 87 17 95 05/02/22 16:00 98.1 F 102 H 16 160/110 96 05/02/22 11:29 98.0 F 101 H 16 120/79 98 Pain Assessment - Last Documented Pain Intensity 0 Intake and Output: Intake & Output 04/30/22 05/01/22 05/02/22 05/03/22 11:59 11:59 11:59 11:59 Intake Total 1413 3630 Output Total 450 Balance 963 3630 Weight 61.3 kg 61.3 kg Lab Results: Lab Results-Last 24 Hours 05/02/22 05/02/22 05/02/22 Range/Units 11:08 11:36 16:42 Glucose 639 H* (74-106) mg/dL POC Glucometer Cancelled 260 H 05/02/22 05/02/22 05/03/22 Range/Units 20:26 21:07 00:10 Glucose (74-106) mg/dL POC Glucometer 538 H* 474 H 316 H 05/03/22 05/03/22 Range/Units 04:23 07:43 Glucose (74-106) mg/dL POC Glucometer 195 H 402 H Multi-Disciplinary Progress Notes: Multi-Disciplinary Progress Notes 05/02/22 12:17 Case Management Note by Tessy Joshi S/W PATIENT- SHE CONTINUES TO DENY ANY NEW NEEDS AT TIME OF DC. SHE REPORTS SHE HAS ALL OF HER DIABETIC SUPPLIES AT HOME. Initialized on 05/02/22 12:17 - END OF NOTE Assessment/Plan (1) Hyperosmolar hyperglycemic state (HHS) Current Visit: No Status: Resolved Assessment & Plan: add lantus 20units this am, continue sliding scale coverage, wears a pump at home. no labs this am, check bmp Code(s): E11.00 - TYPE 2 DIAB W HYPROSM W/O NONKET HYPRGLY-HYPROS COMA ([facility]) (2) Acute sinusitis Current Visit: Yes Status: Acute Qualifiers: Sinusitis location: frontal Recurrence: recurrent Qualified Code(s): J01.11 - Acute recurrent frontal sinusitis Assessment & Plan: continue rocephin Code(s): J01.90 - ACUTE SINUSITIS, UNSPECIFIED (3) Hyponatremia Current Visit: No Status: Acute Code(s): E87.1 - HYPO-OSMOLALITY AND HYPONATREMIA
[2022-05-03] MEDS: PATIENT OWN MEDICATION PO SCH ×2 (08:42→11:49)
[2022-05-03] MEDS: LIORESAL 10 MG PO SCH ×4 (09:02→21:49)
[2022-05-03] MEDS: Singulair 10 MG PO SCH (09:02)
[2022-05-03] MEDS: Acidophilus TABLET PO SCH ×3 (09:02→21:49)
[2022-05-03] MEDS: FOLATE 1 MG PO SCH (09:02)
[2022-05-03] MEDS: Protonix 40MG Tablet PO SCH (09:02)
[2022-05-03] MEDS: ELIQUIS 2.5 MG TABLET PO SCH ×2 (09:02→21:49)
[2022-05-03] MEDS: Reglan 10 MG PO SCH ×4 (09:02→21:49)
[2022-05-03] MEDS: NEURONTIN PO SCH ×4 (09:02→21:49)
[2022-05-03] MEDS: ROCEPHIN 1 Gm-D5w 50 ml Bag** 1 G/50 ML IVPB IV SCH (09:02)
[2022-05-03] MEDS: PROAMATINE PO SCH ×3 (09:03→16:27)
[2022-05-03] MEDS: Carafate SUSPENSION 1000 MG/10 ML PO SCH ×4 (09:03→21:53)
[2022-05-03] MEDS: SYNTHROID 25 MCG PO SCH (09:03)
[2022-05-03 09:24] LABS: Absolute Neutrophil Ct (ANC) 1.68 x10^3/uL (1.4-6.9); Basophil (Absolute #) 0.03 x10^3/uL (0-0.4); Eosinophil % 6.3 % (0.00-5.0); Eosinophil (Absolute #) 0.21 x10^3/uL (0-0.5); Hematocrit 43.6 % (35-47); Hemoglobin 13.8 g/dL (12.0-16.0); Lymphocyte (Absolute #) 1.17 x10^3/uL (1.0-4.6); Lymphocytes % 34.9 % (24.0-44.0); Mean Cell Volume 100.2 fL (78-100); Mean Corpuscular Hemoglobin 31.7 pg (26-32); Mean Corpuscular Hgb Concent. 31.7 g/dL (32-36); Mean Platelet Volume 9.7 fL (7.5-11.0); Monocyte (Absolute #) 0.25 x10^3/uL (0.0-1.3); Monocytes % 7.5 % (0.0-12.0); Neutrophil % 50.1 % (36.0-66.0); Platelet Count 186 x10^3/uL (150-450); Red Blood Count 4.35 x10^6/uL (4.1-5.4); Red Cell Distribution Width 13.1 % (11.5-14.0); White Blood Count 3.4 x10^3/uL (4.0-10.5)
[2022-05-03] MEDS: DUONEB 0.5-3 MG/3 ml Neb IH SCH (09:32)
[2022-05-03] MEDS: Advair Hfa 230/21 Mcg COMMON CANISTER IH SCH ×2 (09:32→19:44)
[2022-05-03 09:35] LABS: ANION GAP 8.1 MEQ/L (5-15); BLOOD UREA NITROGEN 15 mg/dL (7-17); CHLORIDE 100 mmol/L (98-107); Calcium 8.8 mg/dL (8.4-10.2); Carbon Dioxide 30 mmol/L (22-30); Creatinine 1 0.52 mg/dL (0.52-1.04); EST GLOMERULAR FILTRATION RATE > 60.0 ML/MIN; Glucose 346 mg/dL (74-106); SODIUM 135 mmol/L (137-145)
[2022-05-03] MEDS: ZENPEP DR 5,000 UNIT CAPSULE PO SCH (16:25)
[2022-05-03] MEDS: Lexapro PO SCH (16:28)
[2022-05-03] MEDS: Lantus Insulin SQ SCH ×2 (17:12→21:50)
[2022-05-03] MEDS ORDERED: D50W 50 ml Abboject IV ONE (21:22)
[2022-05-03] MEDS ORDERED: D50W 50ML Vial IV ONE (21:28)
[2022-05-03] MEDS: TOPIRAMATE PO SCH (21:49)
[2022-05-03] MEDS: Requip 0.5 MG PO SCH (21:49)
[2022-05-03] MEDS: BUSPAR 5 MG PO SCH (21:49)
[2022-05-03] MEDS: Dextrose 5%-NS IV Solution 1000 ML 1,000 ML IV SCH (21:51)
[2022-05-03] MEDS: MIRTAZAPINE PO SCH (21:52)
[2022-05-03] MEDS: Mylicon 80MG PO PRN (22:00)
[2022-05-04] MEDS: Sodium Chloride 0.9% 1000 ML 1,000 ML IV SCH ×3 (01:07→15:53)
[2022-05-04 06:13] LABS: Absolute Neutrophil Ct (ANC) 1.27 x10^3/uL (1.4-6.9); Basophil (Absolute #) 0.02 x10^3/uL (0-0.4); Eosinophil % 6.1 % (0.00-5.0); Hematocrit 35.4 % (35-47); Hemoglobin 11.1 g/dL (12.0-16.0); Lymphocyte (Absolute #) 1.54 x10^3/uL (1.0-4.6); Mean Cell Volume 100.6 fL (78-100); Mean Corpuscular Hemoglobin 31.5 pg (26-32); Mean Corpuscular Hgb Concent. 31.4 g/dL (32-36); Mean Platelet Volume 10.4 fL (7.5-11.0); Monocyte (Absolute #) 0.25 x10^3/uL (0.0-1.3); Monocytes % 7.6 % (0.0-12.0); Neutrophil % 38.7 % (36.0-66.0); Platelet Count 174 x10^3/uL (150-450); Red Blood Count 3.52 x10^6/uL (4.1-5.4); Red Cell Distribution Width 13.6 % (11.5-14.0); White Blood Count 3.3 x10^3/uL (4.0-10.5)
[2022-05-04 06:46] LABS: ANION GAP 7.9 MEQ/L (5-15); BLOOD UREA NITROGEN 14 mg/dL (7-17); CHLORIDE 103 mmol/L (98-107); Calcium 8.3 mg/dL (8.4-10.2); Carbon Dioxide 26 mmol/L (22-30); Creatinine 1 0.52 mg/dL (0.52-1.04); EST GLOMERULAR FILTRATION RATE > 60.0 ML/MIN; Glucose 384 mg/dL (74-106); MAGNESIUM 1.8 mg/dL (1.6-2.3); Potassium 4.2 mmol/L (3.5-5.1); SODIUM 133 mmol/L (137-145)
[2022-05-04] MEDS: Dextrose 5%-NS IV Solution 1000 ML 1,000 ML IV SCH ×2 (07:30→16:14)
[2022-05-04] MEDS: PROAMATINE PO SCH ×3 (08:02→17:08)
[2022-05-04] MEDS: DUONEB 0.5-3 MG/3 ml Neb IH SCH (08:03)
[2022-05-04] MEDS: HUMALOG SQ PRN ×3 (08:05→14:32)
[2022-05-04] MEDS: ZENPEP DR 5,000 UNIT CAPSULE PO SCH ×3 (08:05→16:02)
[2022-05-04] MEDS: Advair Hfa 230/21 Mcg COMMON CANISTER IH SCH ×2 (08:06→20:43)
[2022-05-04] MEDS: Zofran 4 MG/2 ML VIAL IV PRN (08:07)
[2022-05-04] MEDS: PHENERGAN 25 MG PO PRN ×3 (08:07→15:54)
[2022-05-04] MEDS: ELIQUIS 2.5 MG TABLET PO SCH ×2 (08:40→21:19)
[2022-05-04] MEDS: SYNTHROID 25 MCG PO SCH (08:41)
[2022-05-04] MEDS: NEURONTIN PO SCH ×4 (08:41→21:18)
[2022-05-04] MEDS: FOLATE 1 MG PO SCH (08:41)
[2022-05-04] MEDS: ROCEPHIN 1 Gm-D5w 50 ml Bag** 1 G/50 ML IVPB IV SCH (08:41)
[2022-05-04] MEDS: Acidophilus TABLET PO SCH ×3 (08:41→21:19)
[2022-05-04] MEDS: Carafate SUSPENSION 1000 MG/10 ML PO SCH ×4 (08:42→21:19)
[2022-05-04] MEDS: LIORESAL 10 MG PO SCH ×4 (08:42→21:19)
[2022-05-04] MEDS: Protonix 40MG Tablet PO SCH (08:43)
[2022-05-04] MEDS: Reglan 10 MG PO SCH ×4 (08:43→21:18)
[2022-05-04] MEDS: Singulair 10 MG PO SCH (08:43)
--- NOTE | 2022-05-04 11:20 | PCM.NOTE ---
Date and Time: 05/04/221118 Subjective Assessment: doing little better - Review of Systems Constitutional: No Fever, No Chills Eyes: No Symptoms Ears, Nose, & Throat: No Symptoms Respiratory: No Cough, No Short Of Breath Cardiac: No Chest Pain, No Edema, No Syncope Abdominal/Gastrointestinal: No Abdominal Pain, No Nausea, No Vomiting, No Diarrhea Genitourinary Symptoms: No Dysuria Musculoskeletal: No Back Pain, No Neck Pain Skin: No Rash Neurological: No Dizziness, No Focal Weakness, No Sensory Changes Psychological: No Symptoms Endocrine: No Symptoms Hematologic/Lymphatic: No Symptoms Immunological/Allergic: No Symptoms Objective Exam General Appearance: no apparent distress, alert Neurologic Exam: alert, oriented x 3, cooperative, normal mood/affect, nml cerebellar function, sensation nml, No motor deficits Skin Exam: normal color, warm, dry Eye Exam: PERRL, EOMI, eyes nml inspection Ears, Nose, Throat Exam: normal ENT inspection, pharynx normal, moist mucous membranes Neck Exam: normal inspection, non-tender, supple, full range of motion Respiratory Exam: normal breath sounds, lungs clear, No respiratory distress Cardiovascular Exam: regular rate/rhythm, normal heart sounds Gastrointestinal/Abdomen Exam: soft, No tenderness, No mass Extremity Exam: normal inspection, normal range of motion Back Exam: normal inspection, normal range of motion, No CVA tenderness, No vertebral tenderness Pelvic Exam: deferred Rectal Exam: deferred OBJECTIVE DATA Vital Signs: Vital Signs - 24 hr Temp Pulse Resp BP Pulse Ox 05/04/22 08:08 95 05/04/22 08:07 81 16 95 05/04/22 08:00 97.5 F 86 16 142/85 95 05/04/22 04:00 97.5 F 84 16 140/83 95 05/04/22 00:00 97.5 F 95 H 16 125/83 94 L 05/03/22 20:00 97.8 F 112 H 18 159/95 95 05/03/22 19:45 77 18 94 L 05/03/22 16:00 18 05/03/22 12:00 97.1 F 98 H 16 155/90 94 L Pain Assessment - Last Documented Pain Intensity 0 Intake and Output: Intake & Output 05/01/22 05/02/22 05/03/22 05/04/22 11:59 11:59 11:59 11:59 Intake Total 1413 3630 3598 Output Total 450 Balance 963 3630 3598 Weight 61.3 kg 61.3 kg 64.6 kg Lab Results: Lab Results-Last 24 Hours 05/03/22 05/03/22 05/03/22 Range/Units 11:48 16:17 17:22 WBC (4.0-10.5) x10^3/uL RBC (4.1-5.4) x10^6/uL Hgb (12.0-16.0) g/dL Hct (35-47) % MCV (78-100) fL MCH (26-32) pg MCHC (32-36) g/dL RDW (11.5-14.0) % Plt Count (150-450) x10^3/uL MPV (7.5-11.0) fL Gran % (36.0-66.0) % Immature Gran % (Auto) (0.00-0.4) % Nucleat RBC Rel Count (0.00-0.1) % Eos # (Auto) (0-0.5) x10^3/uL Immature Gran # (Auto) (0.00-0.03) x10^3u/L Absolute Lymphs (auto) (1.0-4.6) x10^3/uL Absolute Monos (auto) (0.0-1.3) x10^3/uL Absolute Nucleated RBC (0.00-0.01) x10^3u/L Lymphocytes % (24.0-44.0) % Monocytes % (0.0-12.0) % Eosinophils % (0.00-5.0) % Basophils % (0.0-0.4) % Absolute Granulocytes (1.4-6.9) x10^3/uL Basophils # (0-0.4) x10^3/uL Glucose 685 H* (70-110) Sodium (137-145) mmol/L Potassium (3.5-5.1) mmol/L Chloride (98-107) mmol/L Carbon Dioxide (22-30) mmol/L Anion Gap (5-15) MEQ/L BUN (7-17) mg/dL Creatinine (0.52-1.04) mg/dL Estimated GFR ML/MIN POC Glucometer 218 H 532 H* (74 to 106) mg/dL Calcium (8.4-10.2) mg/dL Magnesium (1.6-2.3) mg/dL 05/03/22 05/03/22 05/03/22 Range/Units 19:26 21:20 21:32 WBC (4.0-10.5) x10^3/uL RBC (4.1-5.4) x10^6/uL Hgb (12.0-16.0) g/dL Hct (35-47) % MCV (78-100) fL MCH (26-32) pg MCHC (32-36) g/dL RDW (11.5-14.0) % Plt Count (150-450) x10^3/uL MPV (7.5-11.0) fL Gran % (36.0-66.0) % Immature Gran % (Auto) (0.00-0.4) % Nucleat RBC Rel Count (0.00-0.1) % Eos # (Auto) (0-0.5) x10^3/uL Immature Gran # (Auto) (0.00-0.03) x10^3u/L Absolute Lymphs (auto) (1.0-4.6) x10^3/uL Absolute Monos (auto) (0.0-1.3) x10^3/uL Absolute Nucleated RBC (0.00-0.01) x10^3u/L Lymphocytes % (24.0-44.0) % Monocytes % (0.0-12.0) % Eosinophils % (0.00-5.0) % Basophils % (0.0-0.4) % Absolute Granulocytes (1.4-6.9) x10^3/uL Basophils # (0-0.4) x10^3/uL Glucose 133 H (70-110) Sodium (137-145) mmol/L Potassium (3.5-5.1) mmol/L Chloride (98-107) mmol/L Carbon Dioxide (22-30) mmol/L Anion Gap (5-15) MEQ/L BUN (7-17) mg/dL Creatinine (0.52-1.04) mg/dL Estimated GFR ML/MIN POC Glucometer 345 H 38 L* (74 to 106) mg/dL Calcium (8.4-10.2) mg/dL Magnesium (1.6-2.3) mg/dL 05/03/22 05/03/22 05/04/22 Range/Units 22:40 23:55 02:47 WBC (4.0-10.5) x10^3/uL RBC (4.1-5.4) x10^6/uL Hgb (12.0-16.0) g/dL Hct (35-47) % MCV (78-100) fL MCH (26-32) pg MCHC (32-36) g/dL RDW (11.5-14.0) % Plt Count (150-450) x10^3/uL MPV (7.5-11.0) fL Gran % (36.0-66.0) % Immature Gran % (Auto) (0.00-0.4) % Nucleat RBC Rel Count (0.00-0.1) % Eos # (Auto) (0-0.5) x10^3/uL Immature Gran # (Auto) (0.00-0.03) x10^3u/L Absolute Lymphs (auto) (1.0-4.6) x10^3/uL Absolute Monos (auto) (0.0-1.3) x10^3/uL Absolute Nucleated RBC (0.00-0.01) x10^3u/L Lymphocytes % (24.0-44.0) % Monocytes % (0.0-12.0) % Eosinophils % (0.00-5.0) % Basophils % (0.0-0.4) % Absolute Granulocytes (1.4-6.9) x10^3/uL Basophils # (0-0.4) x10^3/uL Glucose (70-110) Sodium (137-145) mmol/L Potassium (3.5-5.1) mmol/L Chloride (98-107) mmol/L Carbon Dioxide (22-30) mmol/L Anion Gap (5-15) MEQ/L BUN (7-17) mg/dL Creatinine (0.52-1.04) mg/dL Estimated GFR ML/MIN POC Glucometer 140 H 108 H 254 H (74 to 106) mg/dL Calcium (8.4-10.2) mg/dL Magnesium (1.6-2.3) mg/dL 05/04/22 05/04/22 05/04/22 Range/Units 06:01 06:04 06:04 WBC 3.3 L (4.0-10.5) x10^3/uL RBC 3.52 L (4.1-5.4) x10^6/uL Hgb 11.1 L (12.0-16.0) g/dL Hct 35.4 (35-47) % MCV 100.6 H (78-100) fL MCH 31.5 (26-32) pg MCHC 31.4 L (32-36) g/dL RDW 13.6 (11.5-14.0) % Plt Count 174 (150-450) x10^3/uL MPV 10.4 (7.5-11.0) fL Gran % 38.7 (36.0-66.0) % Immature Gran % (Auto) 0.0 (0.00-0.4) % Nucleat RBC Rel Count 0.0 (0.00-0.1) % Eos # (Auto) 0.20 (0-0.5) x10^3/uL Immature Gran # (Auto) 0.00 (0.00-0.03) x10^3u/L Absolute Lymphs (auto) 1.54 (1.0-4.6) x10^3/uL Absolute Monos (auto) 0.25 (0.0-1.3) x10^3/uL Absolute Nucleated RBC 0.00 (0.00-0.01) x10^3u/L Lymphocytes % 47.0 H (24.0-44.0) % Monocytes % 7.6 (0.0-12.0) % Eosinophils % 6.1 H (0.00-5.0) % Basophils % 0.6 (0.0-0.4) % Absolute Granulocytes 1.27 L (1.4-6.9) x10^3/uL Basophils # 0.02 (0-0.4) x10^3/uL Glucose 384 H (70-110) Sodium 133 L (137-145) mmol/L Potassium 4.2 (3.5-5.1) mmol/L Chloride 103 (98-107) mmol/L Carbon Dioxide 26 (22-30) mmol/L Anion Gap 7.9 (5-15) MEQ/L BUN 14 (7-17) mg/dL Creatinine 0.52 (0.52-1.04) mg/dL Estimated GFR > 60.0 ML/MIN POC Glucometer 355 H (74 to 106) mg/dL Calcium 8.3 L (8.4-10.2) mg/dL Magnesium 1.8 (1.6-2.3) mg/dL 05/04/22 Range/Units 07:39 WBC (4.0-10.5) x10^3/uL RBC (4.1-5.4) x10^6/uL Hgb (12.0-16.0) g/dL Hct (35-47) % MCV (78-100) fL MCH (26-32) pg MCHC (32-36) g/dL RDW (11.5-14.0) % Plt Count (150-450) x10^3/uL MPV (7.5-11.0) fL Gran % (36.0-66.0) % Immature Gran % (Auto) (0.00-0.4) % Nucleat RBC Rel Count (0.00-0.1) % Eos # (Auto) (0-0.5) x10^3/uL Immature Gran # (Auto) (0.00-0.03) x10^3u/L Absolute Lymphs (auto) (1.0-4.6) x10^3/uL Absolute Monos (auto) (0.0-1.3) x10^3/uL Absolute Nucleated RBC (0.00-0.01) x10^3u/L Lymphocytes % (24.0-44.0) % Monocytes % (0.0-12.0) % Eosinophils % (0.00-5.0) % Basophils % (0.0-0.4) % Absolute Granulocytes (1.4-6.9) x10^3/uL Basophils # (0-0.4) x10^3/uL Glucose (70-110) Sodium (137-145) mmol/L Potassium (3.5-5.1) mmol/L Chloride (98-107) mmol/L Carbon Dioxide (22-30) mmol/L Anion Gap (5-15) MEQ/L BUN (7-17) mg/dL Creatinine (0.52-1.04) mg/dL Estimated GFR ML/MIN POC Glucometer 297 H (74 to 106) mg/dL Calcium (8.4-10.2) mg/dL Magnesium (1.6-2.3) mg/dL Multi-Disciplinary Progress Notes: Multi-Disciplinary Progress Notes 05/03/22 11:34 Case Management Note by Tessy Joshi S/W PATIENT- SHE CONTINUES TO DENY ANY NEW NEEDS AT TIME OF DC. SHE REPORTS SHE HAS ALL OF HER DIABETIC SUPPLIES AT HOME AND WILL BE ABLE TO GET TO HER FOLLOW UPS. SHE PLANS TO RETURN HOME TO HER PLF AT TIME OF DC Initialized on 05/03/22 11:34 - END OF NOTE Assessment/Plan (1) DKA (diabetic ketoacidosis) Current Visit: Yes Status: Acute Qualifiers: Diabetes mellitus type: type 1 Diabetes mellitus complication detail: w [facility] coma Qualified Code(s): E10.10 - Type 1 diabetes mellitus with ketoacidosis without coma Assessment & Plan: Chief Complaint Diagnosis HYPEROSMOLAR HYPERGLEMIC STATE, SINUSITIS Allergies Allergy/AdvReac Type Severity Reaction Status Date / Time dicyclomine [From Bentyl] Allergy Verified 05/01/22 06:13 grapefruit Allergy Swelling Verified 05/01/22 06:13 Vital Signs (Last 24 hours) Temp Pulse Resp BP Pulse Ox 05/04/22 08:08 95 05/04/22 08:07 81 16 95 05/04/22 08:00 97.5 F 86 16 142/85 95 05/04/22 04:00 97.5 F 84 16 140/83 95 05/04/22 00:00 97.5 F 95 H 16 125/83 94 L 05/03/22 20:00 97.8 F 112 H 18 159/95 95 05/03/22 19:45 77 18 94 L 05/03/22 16:00 18 05/03/22 12:00 97.1 F 98 H 16 155/90 94 L Home Medications Medication Instructions Recorded Confirmed Last Taken Type Buspirone HCl 5 mg [Buspar 5 10 mg PO QHS 05/01/22 05/01/22 04/29/22 22:00 History mg] Erythromycin Base [Erythromycin] 250 mg PO BID 05/01/22 05/01/22 04/30/22 10:00 History Lipase/Protease/Amylase [Gina Cortes 1 cap PO TID PRN 05/01/22 05/01/22 Unknown History 36,000 Unit Capsule] Lipase/Protease/Amylase [Gina Cortes 2 cap PO AC 05/01/22 05/01/22 04/30/22 17:00 History 36,000 Unit Capsule] Midodrine HCl 10 mg PO TID 05/01/22 05/01/22 04/30/22 17:00 History ondansetron HCL [Ondansetron HCl] 4 mg PO Q6H PRN PRN 05/01/22 05/01/22 Unknown History Current Medications Generic Name Dose Route Start Last Admin Trade Name Freq PRN Reason Stop Dose Admin Albuterol/Ipratropium 3 ml 05/01/22 07:00 05/04/22 08:03 Ipratropium/Albuterol Sulfate 3 Ml Ampul.Neb IH 05/31/22 06:59 3 ml DAILY TRACY Administration Amitriptyline HCl 50 mg 05/01/22 22:00 05/03/22 21:50 Amitriptyline Hcl 50 Mg Tablet PO 05/31/22 21:59 50 mg HS TRACY Administration Lipase/Protease/Amylase 7 each 05/03/22 16:30 05/04/22 08:05 Lipase/Protease/Amylase 1 Each Capsule.Dr PO 06/02/22 16:29 7 each AC TRACY Administration Apixaban 5 mg 05/01/22 10:00 05/04/22 08:40 Apixaban 2.5 Mg Tablet PO 05/31/22 09:59 5 mg BID TRACY Administration Baclofen 20 mg 05/01/22 10:00 05/04/22 08:42 Baclofen 10 Mg Tablet PO 05/31/22 09:59 20 mg QID TRACY Administration Buspirone HCl 10 mg 05/01/22 22:00 05/03/22 21:49 Buspirone Hcl 5 Mg Tablet PO 05/31/22 21:59 10 mg QHS TRACY Administration Escitalopram Oxalate 20 mg 05/01/22 17:00 05/03/22 16:28 Escitalopram Oxalate 10 Mg Tablet PO 05/31/22 16:59 20 mg 1700 TRACY Administration Folic Acid 1 mg 05/01/22 10:00 05/04/22 08:41 Folic Acid 1 Mg Tablet PO 05/31/22 09:59 1 mg DAILY TRACY Administration Gabapentin 600 mg 05/01/22 10:00 05/04/22 08:41 Gabapentin 300 Mg Capsule PO 05/31/22 09:59 600 mg QID TRACY Administration Hydroxyzine HCl 50 mg 05/01/22 08:19 Hydroxyzine Hcl 25 Mg Tablet PO 05/31/22 08:18 HS PRN PRN INSOMNIA Sodium Chloride 1,000 mls @ 100 mls/hr 05/01/22 05:30 05/04/22 06:03 Sodium Chloride 0.9% 1000 Ml IV 05/31/22 05:29 100 mls/hr .Q10H TRACY Administration Ceftriaxone Sodium/Dextrose 1 g in 50 mls @ 100 mls/hr 05/01/22 10:00 05/04/22 08:41 Rocephin 1 Gm-D5w 50 Ml Bag IV 05/06/22 09:59 100 mls/hr Q24H10 TARCY Administration Dextrose/Sodium Chloride 1,000 mls @ 100 mls/hr 05/03/22 22:00 05/04/22 07:30 Dextrose 5%-Ns Iv Solution 1000 Ml IV 06/02/22 21:59 Not Given .Q10H [facility] Insulin Glargine 10 unit 05/03/22 17:00 05/03/22 21:50 Insulin Glargine 1 Unit SQ 06/02/22 16:59 Not Given [facility] Insulin Human Lispro 0 unit 05/02/22 09:26 05/04/22 08:05 Insulin Lispro 1 Unit SQ 06/01/22 09:25 4 unit UD PRN Administration HYPERGLYCEMIA Lactobacillus Acidophilus 1 tab 05/02/22 10:00 05/04/22 08:41 Lactobacillus Acidophilus 1 Tab Tablet PO 06/01/22 09:59 1 tab TID TRACY Administration Levothyroxine Sodium 25 mcg 05/01/22 10:00 05/04/22 08:41 Levothyroxine Sodium 25 Mcg Tablet PO 05/31/22 09:59 25 mcg QAM TRACY Administration Lidocaine 1 patch 05/01/22 08:51 Lidocaine Hcl 1 Patch Patch TOP 05/31/22 08:50 QDP PRN PAIN Metoclopramide HCl 10 mg 10/26/22 10:00 05/04/22 08:43 Metoclopramide Hcl 10 Mg Tablet PO 05/31/22 09:59 10 mg QID TRACY Administration Midodrine 10 mg 05/03/22 13:00 05/04/22 08:02 Midodrine Hcl 5 Mg Tablet PO 06/02/22 12:59 Not Given TIDWM TRACY Mirtazapine 15 mg 05/01/22 22:00 05/03/22 21:52 Mirtazapine 15 Mg Tablet PO 05/31/22 21:59 15 mg HS TRACY Administration Miscellaneous Information 1 each 05/01/22 09:00 Medication Intervention 1 Each Each 05/31/22 08:59 .RN TO CHECK TRACY Miscellaneous Information 1 each 05/01/22 09:00 Medication Intervention 1 Each Each 05/31/22 08:59 .RN TO CHECK TRACY Montelukast Sodium 10 mg 05/01/22 10:00 05/04/22 08:43 Montelukast Sodium 10 Mg Tablet PO 05/31/22 09:59 10 mg DAILY TRACY Administration Morphine Sulfate 2 mg 05/01/22 06:10 Morphine Sulfate 2 Mg/Ml Inj IV 05/06/22 06:09 Q4H PRN PRN PAIN Ondansetron HCl 4 mg 05/01/22 06:10 05/04/22 08:07 Ondansetron Hcl 4 Mg/2 Ml Vial IV 05/31/22 06:09 4 mg Q6H PRN PRN Administration NAUSEA/VOMITING Ondansetron HCl 4 mg 05/01/22 08:11 Zofran 4 Mg/Udtablet Orally Disintegrating PO 05/31/22 08:10 Q6H PRN PRN NAUSEA Pantoprazole Sodium 40 mg 05/01/22 10:00 05/04/22 08:43 Protonix (Pantoprazole) 40 Mg Tablet PO 05/31/22 09:59 40 mg DAILY TRACY Administration Promethazine HCl 25 mg 05/01/22 07:51 05/04/22 08:07 Promethazine Hcl 25 Mg Tablet PO 05/31/22 07:50 25 mg Q4HPRN PRN Administration NAUSEA Ropinirole HCl 0.5 mg 05/01/22 22:00 05/03/22 21:49 Ropinirole Hcl 0.5 Mg Tablet PO 05/31/22 21:59 0.5 mg HS TRACY Administration Fluticasone/Salmeterol 2 puff 05/01/22 09:00 05/04/22 08:06 Fluticasone/Salmeterol 230/ Common Canister IH 05/31/22 08:59 2 puff BIDRT TRACY Administration Simethicone 80 mg 05/01/22 07:51 05/03/22 22:00 Simethicone 80 Mg Tab.Chew PO 05/31/22 07:50 80 mg QID PRN PRN Administration GAS Sucralfate 1,000 mg 05/01/22 10:00 05/04/22 08:42 Sucralfate 1000 Mg/10 Ml Suspension PO 05/31/22 09:59 1,000 mg QID TRACY Administration Topiramate 50 mg 05/01/22 22:00 05/03/22 21:49 Topiramate 50 Mg Tablet PO 05/31/22 21:59 Not Given QHS [facility] Discontinued Medications Generic Name Dose Route Start Last Admin Trade Name Freq PRN Reason Stop Dose Admin Albuterol Sulfate 2 puff 05/01/22 07:51 Albuterol Common Canister Inhaler 05/31/22 07:50 DAILY PRN PRN SHORTNESS OF BREATH Albuterol Sulfate mg 05/01/22 07:51 Albuterol Sulfate 2.5 Mg/3 Ml Neb IH 05/31/22 07:50 DAILY PRN PRN SHORTNESS OF BREATH Albuterol/Ipratropium 1 puff 05/01/22 10:00 Ipratropium/Albuterol Respimat Common Canister 05/31/22 09:59 DAILY TRACY Albuterol/Ipratropium Confirm 05/01/22 08:27 Ipratropium/Albuterol Sulfate 3 Ml Ampul.Neb Administered 05/01/22 08:28 Dose 3 ml IH .STK-MED ONE Clonidine 0.1 mg 05/01/22 18:02 05/01/22 18:05 Clonidine Hcl 0.1 Mg Tablet PO 05/01/22 18:03 0.1 mg STAT ONE Administration Clonidine 0.1 mg 05/02/22 17:35 05/02/22 17:42 Clonidine Hcl 0.1 Mg Tablet PO 05/02/22 17:36 0.1 mg 1XONLY ONE Administration Dextrose Confirm 05/03/22 21:22 Dextrose 50%-Water 50 Ml Abboject Administered 05/03/22 21:23 Dose 50 ml IV .STK-MED ONE Dextrose 25 ml 05/03/22 21:28 05/03/22 21:29 Dextrose 50%-Water 50 Ml Vial IV 05/03/22 21:29 25 ml STAT ONE Administration Sodium Chloride 1,000 mls @ 999 mls/hr 05/01/22 02:33 05/01/22 03:48 Sodium Chloride 0.9% 1000 Ml IV 05/01/22 03:33 999 mls/hr .Q1H1M STA Administration Sodium Chloride Confirm 05/01/22 03:47 Sodium Chloride 0.9% 1000 Ml Administered 05/01/22 03:48 Dose 1,000 mls @ ud .ROUTE .STK-MED ONE Insulin Human Regular 100 unit 100 mls @ 6.223 mls/hr 05/01/22 05:02 05/01/22 21:30 / Sodium Chloride IV 05/31/22 05:01 0 unit/kg/hr .Q16H5M PRN 0 mls/hr DKA/HYPERGLYCEMIA Titration Protocol 0.1 UNIT/KG/HR Potassium Chloride 20 meq in 100 mls @ 50 mls/hr 05/01/22 05:15 05/01/22 21:41 Potassium Chloride 20 Meq In Water 100ml IV 05/01/22 09:14 Not Given Q2H TRACY Sodium Chloride Confirm 05/01/22 05:16 Sodium Chloride 0.9% Administered 05/01/22 05:17 Dose 100 mls @ ud .ROUTE .STK-MED ONE Insulin Glargine 10 unit 05/01/22 22:00 05/01/22 22:31 Insulin Glargine 1 Unit SQ 05/01/22 22:01 Not Given ONCE ONE Insulin Glargine 20 unit 05/03/22 08:29 05/03/22 08:41 Insulin Glargine 1 Unit SQ 05/03/22 08:30 20 unit NOW ONE Administration Insulin Human Lispro 0 unit 05/02/22 00:00 05/02/22 00:27 Insulin Lispro 1 Unit SQ 06/01/22 00:00 15 unit UD PRN Administration HYPERGLYCEMIA Insulin Human Regular Confirm 05/01/22 05:16 Insulin Regular, Human 1 Unit Administered 05/01/22 05:17 Dose 100 unit .ROUTE .STK-MED ONE Midodrine 10 mg 05/01/22 10:00 05/03/22 09:03 Midodrine Hcl 5 Mg Tablet PO 05/31/22 09:59 5 mg TID TRACY Administration Miscellaneous Information 1 each 05/01/22 09:00 Medication Intervention 1 Each Each 05/31/22 08:59 .RN TO CHECK TRACY Miscellaneous Information 1 each 05/01/22 09:00 Medication Intervention 1 Each Each 05/31/22 08:59 .RN TO CHECK TRACY Miscellaneous Information 1 each 05/01/22 09:00 Medication Intervention 1 Each Each 05/31/22 08:59 .RN TO CHECK TRACY Non-Formulary Medication 2 puff 05/01/22 10:00 Budesonide/Formoterol Fumarate [Budesonide-Formoterol 160-4.5] 05/31/22 09:59 BID TRACY Ondansetron HCl 4 mg 05/01/22 04:02 05/01/22 04:22 Ondansetron Hcl 4 Mg/2 Ml Vial IV 05/01/22 04:03 4 mg STAT ONE Administration Ondansetron HCl Confirm 05/01/22 04:20 Ondansetron Hcl 4 Mg/2 Ml Vial Administered 05/01/22 04:21 Dose 4 mg .ROUTE .STK-MED ONE Pantoprazole Sodium 20 mg 05/01/22 08:13 Pantoprazole 20 Mg Tab PO 05/31/22 08:12 DAILY PRN PRN heartburn Creon 36,000 - 1 each 05/01/22 12:30 05/03/22 11:49 Patient Own Med PO 05/31/22 12:29 1 each Misc AC TRACY Administration Fluticasone/Salmeterol 2 puff 05/01/22 19:00 05/01/22 08:27 Fluticasone/Salmeterol / Common Canister IH 05/31/22 18:59 2 puff BIDRT TRACY Administration Intake & Output (Last 24 hours) 05/01/22 05/02/22 05/03/22 05/04/22 11:59 11:59 11:59 11:59 Intake Total 1413 3630 3598 Output Total 450 Balance 963 3630 3598 Weight 61.3 kg 61.3 kg 64.6 kg Microbiology Results (Last 24 hours) 05/01/22 09:15 Clean Catch Midstream Urine Culture - Final <10K NORMAL SKIN RADHA PROBABLE SKIN CONTAMINANT Laboratory Results (Last 24 hours) 05/04/22 05/04/22 05/04/22 07:39 06:04 06:04 WBC 3.3 L RBC 3.52 L Hgb 11.1 L Hct 35.4 MCV 100.6 H MCH 31.5 MCHC 31.4 L RDW 13.6 Plt Count 174 MPV 10.4 Gran % 38.7 Immature Gran % (Auto) 0.0 Nucleat RBC Rel Count 0.0 Eos # (Auto) 0.20 Immature Gran # (Auto) 0.00 Absolute Lymphs (auto) 1.54 Absolute Monos (auto) 0.25 Absolute Nucleated RBC 0.00 Lymphocytes % 47.0 H Monocytes % 7.6 Eosinophils % 6.1 H Basophils % 0.6 Absolute Granulocytes 1.27 L Basophils # 0.02 Glucose 384 H Sodium 133 L Potassium 4.2 Chloride 103 Carbon Dioxide 26 Anion Gap 7.9 BUN 14 Creatinine 0.52 Estimated GFR > 60.0 POC Glucometer 297 H Calcium 8.3 L Magnesium 1.8 05/04/22 05/04/22 05/03/22 06:01 02:47 23:55 WBC RBC Hgb Hct MCV MCH MCHC RDW Plt Count MPV Gran % Immature Gran % (Auto) Nucleat RBC Rel Count Eos # (Auto) Immature Gran # (Auto) Absolute Lymphs (auto) Absolute Monos (auto) Absolute Nucleated RBC Lymphocytes % Monocytes % Eosinophils % Basophils % Absolute Granulocytes Basophils # Glucose Sodium Potassium Chloride Carbon Dioxide Anion Gap BUN Creatinine Estimated GFR POC Glucometer 355 H 254 H 108 H Calcium Magnesium 05/03/22 05/03/22 05/03/22 22:40 21:32 21:20 WBC RBC Hgb Hct MCV MCH MCHC RDW Plt Count MPV Gran % Immature Gran % (Auto) Nucleat RBC Rel Count Eos # (Auto) Immature Gran # (Auto) Absolute Lymphs (auto) Absolute Monos (auto) Absolute Nucleated RBC Lymphocytes % Monocytes % Eosinophils % Basophils % Absolute Granulocytes Basophils # Glucose 133 H Sodium Potassium Chloride Carbon Dioxide Anion Gap BUN Creatinine Estimated GFR POC Glucometer 140 H 38 L* Calcium Magnesium 05/03/22 05/03/22 05/03/22 19:26 17:22 16:17 WBC RBC Hgb Hct MCV MCH MCHC RDW Plt Count MPV Gran % Immature Gran % (Auto) Nucleat RBC Rel Count Eos # (Auto) Immature Gran # (Auto) Absolute Lymphs (auto) Absolute Monos (auto) Absolute Nucleated RBC Lymphocytes % Monocytes % Eosinophils % Basophils % Absolute Granulocytes Basophils # Glucose 685 H* Sodium Potassium Chloride Carbon Dioxide Anion Gap BUN Creatinine Estimated GFR POC Glucometer 345 H 532 H* Calcium Magnesium 05/03/22 11:48 WBC RBC Hgb Hct MCV MCH MCHC RDW Plt Count MPV Gran % Immature Gran % (Auto) Nucleat RBC Rel Count Eos # (Auto) Immature Gran # (Auto) Absolute Lymphs (auto) Absolute Monos (auto) Absolute Nucleated RBC Lymphocytes % Monocytes % Eosinophils % Basophils % Absolute Granulocytes Basophils # Glucose Sodium Potassium Chloride Carbon Dioxide Anion Gap BUN Creatinine Estimated GFR POC Glucometer 218 H Calcium Magnesium Orders (Last 24 hours) Category Date Time Status House Regular Diet Diet 05/04/22 Breakfast Active BMP AM.LAB Lab 05/04/22 06:04 Completed Blood Sugar [Glucose] Stat Lab 05/03/22 21:32 Completed CBC W DIFF AM.LAB Lab 05/04/22 06:04 Completed Glucose,Critical Care Stat Lab 05/03/22 16:17 Completed MAGNESIUM AM.LAB Lab 05/04/22 06:04 Completed POCT GLUCOSE Stat Lab 05/03/22 11:48 Completed POCT GLUCOSE Stat Lab 05/03/22 17:22 Completed POCT GLUCOSE Stat Lab 05/03/22 19:26 Completed POCT GLUCOSE Stat Lab 05/03/22 21:20 Completed POCT GLUCOSE Stat Lab 05/03/22 22:40 Completed POCT GLUCOSE Stat Lab 05/03/22 23:55 Completed POCT GLUCOSE Stat Lab 05/04/22 02:47 Completed POCT GLUCOSE Stat Lab 05/04/22 06:01 Completed POCT GLUCOSE Stat Lab 05/04/22 07:39 Completed D5ns 1000 ml [Dextrose 5%-NS IV Solution 1000 ML] 1,000 Med 05/03/22 22:00 Active ml IV 100 mls/hr Dextrose 50%-Water 50 ml Vial* [D50W 50ML Vial] Med 05/03/22 21:28 Discontinued 25 ml IV STAT ONE Dextrose 50%-Water Syringe [D50W 50 ml Abboject] Med 05/03/22 21:22 Discontinued 50 ml IV .STK-MED ONE Insulin Glargine [Lantus Insulin] Med 05/03/22 17:00 Active 10 unit SQ HS Lipase/Protease/Amylase [Zenpep Dr 5,000 Unit Capsule] Med 05/03/22 16:30 Active 7 each PO AC Midodrine HCl [Proamatine] Med 05/03/22 13:00 Active 10 mg PO TIDWM Pulse Oximetry .spot check RT 05/04/22 08:08 Active Patient Care Notes (Last 24 hours) 05/03/22 21:43 Nursing Note by Zhanna Thompson Call made to Dr. St to report blood glucose, order for D5NS @ 100/hr. Initialized on 05/03/22 21:43 - END OF NOTE 05/03/22 21:30 Nursing Note by Zhanna Thompson Patient's asked for glucose to be taken because she was "feeling funny". POCT taken, blood glucose 38. D50, 25mL given, patient given apple juice. Lab called and erica stat glucose. Initialized on 05/03/22 21:30 - END OF NOTE 05/03/22 21:26 Nursing Note by Nichole Dorman Patient requested blood sugar check due to feeling weird. Does not feel well. Patient is diaphoretic at this time. Checked blood sugar with glucometer. Glucometer read 38 at this time. Notified primary nurse placed stat order for lab draw at this time. Primary nurse treating blood sugar at this time. Refer to [facility]. Initialized on 05/03/22 21:26 - END OF NOTE 05/03/22 11:34 Case Management Note by Tessy Joshi S/W PATIENT- SHE CONTINUES TO DENY ANY NEW NEEDS AT TIME OF DC. SHE REPORTS SHE HAS ALL OF HER DIABETIC SUPPLIES AT HOME AND WILL BE ABLE TO GET TO HER FOLLOW UPS. SHE PLANS TO RETURN HOME TO HER PLF AT TIME OF DC Initialized on 05/03/22 11:34 - END OF NOTE Code(s): E11.10 - TYPE 2 DIABETES MELLITUS WITH KETOACIDOSIS WITHOUT COMA (2) Hyperglycemia due to type 1 diabetes mellitus Current Visit: Yes Status: Acute Code(s): E10.65 - TYPE 1 DIABETES MELLITUS WITH HYPERGLYCEMIA
[2022-05-04] MEDS: ZOFRAN ODT 4 MG PO PRN ×2 (11:59→15:54)
[2022-05-04] MEDS: Lexapro PO SCH (17:07)
[2022-05-04] MEDS: Mylicon 80MG PO PRN (19:44)
[2022-05-04] MEDS: BUSPAR 5 MG PO SCH (21:18)
[2022-05-04] MEDS: Requip 0.5 MG PO SCH (21:19)
[2022-05-04] MEDS: MIRTAZAPINE PO SCH (21:20)
[2022-05-04] MEDS: Lantus Insulin SQ SCH (21:20)
[2022-05-04] MEDS: TOPIRAMATE PO SCH (21:21)
[2022-05-05] MEDS: Sodium Chloride 0.9% 1000 ML 1,000 ML IV SCH ×3 (01:46→20:28)
[2022-05-05] MEDS: Dextrose 5%-NS IV Solution 1000 ML 1,000 ML IV SCH ×2 (03:46→19:39)
[2022-05-05] MEDS: DUONEB 0.5-3 MG/3 ml Neb IH SCH (07:42)
[2022-05-05] MEDS: Advair Hfa 230/21 Mcg COMMON CANISTER IH SCH ×2 (07:43→19:46)
[2022-05-05] MEDS: Zofran 4 MG/2 ML VIAL IV PRN (07:57)
[2022-05-05] MEDS: PROAMATINE PO SCH ×3 (07:57→16:23)
[2022-05-05] MEDS: ZENPEP DR 5,000 UNIT CAPSULE PO SCH ×3 (07:57→16:22)
[2022-05-05] MEDS: SYNTHROID 25 MCG PO SCH (07:59)
[2022-05-05] MEDS: ROCEPHIN 1 Gm-D5w 50 ml Bag** 1 G/50 ML IVPB IV SCH (07:59)
[2022-05-05] MEDS: Reglan 10 MG PO SCH ×4 (09:16→20:32)
[2022-05-05] MEDS: Acidophilus TABLET PO SCH ×3 (09:16→20:32)
[2022-05-05] MEDS: PHENERGAN 25 MG PO PRN ×2 (09:16→17:51)
[2022-05-05] MEDS: ELIQUIS 2.5 MG TABLET PO SCH ×2 (09:17→20:32)
[2022-05-05] MEDS: LIORESAL 10 MG PO SCH ×4 (09:17→20:31)
[2022-05-05] MEDS: Singulair 10 MG PO SCH (09:17)
[2022-05-05] MEDS: FOLATE 1 MG PO SCH (09:17)
[2022-05-05] MEDS: NEURONTIN PO SCH ×4 (09:17→20:32)
[2022-05-05] MEDS: Protonix 40MG Tablet PO SCH (09:18)
[2022-05-05] MEDS: Carafate SUSPENSION 1000 MG/10 ML PO SCH ×4 (09:18→20:33)
--- NOTE | 2022-05-05 13:39 | PCM.NOTE ---
Date and Time: 05/05/221337 Subjective Assessment: still multiple fluctuation in her blood sugars - Review of Systems Constitutional: No Fever, No Chills Eyes: No Symptoms Ears, Nose, & Throat: No Symptoms Respiratory: No Cough, No Short Of Breath Cardiac: No Chest Pain, No Edema, No Syncope Abdominal/Gastrointestinal: No Abdominal Pain, No Nausea, No Vomiting, No Diarrhea Genitourinary Symptoms: No Dysuria Musculoskeletal: No Back Pain, No Neck Pain Skin: No Rash Neurological: No Dizziness, No Focal Weakness, No Sensory Changes Psychological: No Symptoms Endocrine: No Symptoms Hematologic/Lymphatic: No Symptoms Immunological/Allergic: No Symptoms Objective Exam General Appearance: no apparent distress, alert Neurologic Exam: alert, oriented x 3, cooperative, normal mood/affect, nml cerebellar function, sensation nml, No motor deficits Skin Exam: normal color, warm, dry Eye Exam: PERRL, EOMI, eyes nml inspection Ears, Nose, Throat Exam: normal ENT inspection, pharynx normal, moist mucous membranes Neck Exam: normal inspection, non-tender, supple, full range of motion Respiratory Exam: normal breath sounds, lungs clear, No respiratory distress Cardiovascular Exam: regular rate/rhythm, normal heart sounds Gastrointestinal/Abdomen Exam: soft, No tenderness, No mass Extremity Exam: normal inspection, normal range of motion Back Exam: normal inspection, normal range of motion, No CVA tenderness, No vertebral tenderness Pelvic Exam: deferred Rectal Exam: deferred OBJECTIVE DATA Vital Signs: Vital Signs - 24 hr Temp Pulse Resp BP Pulse Ox 05/05/22 12:00 96.9 F 93 H 16 140/72 98 05/05/22 07:53 96.9 F 87 16 145/83 93 L 05/05/22 07:45 85 16 95 05/05/22 04:00 97.3 F 91 H 18 165/80 98 05/05/22 00:00 97.5 F 76 15 124/73 97 05/04/22 20:44 101 H 18 95 05/04/22 20:00 97.1 F 110 H 19 142/85 98 05/04/22 16:00 97.1 F 107 H 18 172/93 99 Pain Assessment - Last Documented Pain Intensity 0 Intake and Output: Intake & Output 05/03/22 05/04/22 05/05/22 05/06/22 11:59 11:59 11:59 11:59 Intake Total 3635 2098 4247 Balance 3630 3592 4242 Weight 64.6 kg 63.1 kg Lab Results: Lab Results-Last 24 Hours 05/01/22 05/04/22 05/04/22 Range/Units 05:30 14:28 15:50 POC Glucometer 355 H 186 H (74 to 106) mg/dL Serum Osmolality 316 H (275-295) mOsmol/kg 05/04/22 05/04/22 05/05/22 Range/Units 16:50 20:02 00:09 POC Glucometer 77 400 H 251 H (74 to 106) mg/dL Serum Osmolality (275-295) mOsmol/kg 05/05/22 05/05/22 05/05/22 Range/Units 03:59 07:29 10:39 POC Glucometer 205 H 184 H 517 H* (74 to 106) mg/dL Serum Osmolality (275-295) mOsmol/kg 05/05/22 05/05/22 05/05/22 Range/Units 10:44 11:48 12:09 POC Glucometer 471 H 500 H 469 H (74 to 106) mg/dL Serum Osmolality (275-295) mOsmol/kg Assessment/Plan (1) DKA (diabetic ketoacidosis) Current Visit: Yes Status: Acute Qualifiers: Diabetes mellitus type: type 1 Diabetes mellitus complication detail: without coma Qualified Code(s): E10.10 - Type 1 diabetes mellitus with ke toacidosis without coma Assessment & Plan: Chief Complaint Diagnosis HYPEROSMOLAR HYPERGLEMIC STATE, SINUSITIS Allergies Allergy/AdvReac Type Severity Reaction Status Date / Time dicyclomine [From Bentyl] Allergy Verified 05/01/22 06:13 grapefruit Allergy Swelling Verified 05/01/22 06:13 Vital Signs (Last 24 hours) Temp Pulse Resp BP Pulse Ox 05/05/22 12:00 96.9 F 93 H 16 140/72 98 05/05/22 07:53 96.9 F 87 16 145/83 93 L 05/05/22 07:45 85 16 95 05/05/22 04:00 97.3 F 91 H 18 165/80 98 05/05/22 00:00 97.5 F 76 15 124/73 97 05/04/22 20:44 101 H 18 95 05/04/22 20:00 97.1 F 110 H 19 142/85 98 05/04/22 16:00 97.1 F 107 H 18 172/93 99 Home Medications Medication Instructions Recorded Confirmed Last Taken Type Buspirone HCl 5 mg [Buspar 5 10 mg PO QHS 05/01/22 05/01/22 04/29/22 22:00 History mg] Erythromycin Base [Erythromycin] 250 mg PO BID 05/01/22 05/01/22 04/30/22 10:00 History Lipase/Protease/Amylase [Gina Cortes 1 cap PO TID PRN 05/01/22 05/01/22 Unknown History 36,000 Unit Capsule] Lipase/Protease/Amylase [Gina Cortes 2 cap PO AC 05/01/22 05/01/22 04/30/22 17:00 History 36,000 Unit Capsule] Midodrine HCl 10 mg PO TID 05/01/22 05/01/22 04/30/22 17:00 History ondansetron HCL [Ondansetron HCl] 4 mg PO Q6H PRN PRN 05/01/22 05/01/22 Unknown History Current Medications Generic Name Dose Route Start Last Admin Trade Name Freq PRN Reason Stop Dose Admin Albuterol/Ipratropium 3 ml 05/01/22 07:00 05/05/22 07:42 Ipratropium/Albuterol Sulfate 3 Ml Ampul.Neb IH 05/31/22 06:59 3 ml DAILY TRACY Administration Amitriptyline HCl 50 mg 05/01/22 22:00 05/04/22 21:19 Amitriptyline Hcl 50 Mg Tablet PO 05/31/22 21:59 50 mg HS TRACY Administration Lipase/Protease/Amylase 7 each 05/03/22 16:30 05/05/22 12:31 Lipase/Protease/Amylase 1 Each Capsule.Dr PO 06/02/22 16:29 7 each AC TRACY Administration Apixaban 5 mg 05/01/22 10:00 05/05/22 09:17 Apixaban 2.5 Mg Tablet PO 05/31/22 09:59 5 mg BID TRACY Administration Baclofen 20 mg 05/01/22 10:00 05/05/22 13:39 Baclofen 10 Mg Tablet PO 05/31/22 09:59 20 mg QID TRACY Administration Buspirone HCl 10 mg 05/01/22 22:00 05/04/22 21:18 Buspirone Hcl 5 Mg Tablet PO 05/31/22 21:59 10 mg QHS TRACY Administration Escitalopram Oxalate 20 mg 05/01/22 17:00 05/04/22 17:07 Escitalopram Oxalate 10 Mg Tablet PO 05/31/22 16:59 20 mg 1700 TRACY Administration Folic Acid 1 mg 05/01/22 10:00 05/05/22 09:17 Folic Acid 1 Mg Tablet PO 05/31/22 09:59 1 mg DAILY TRACY Administration Gabapentin 600 mg 05/01/22 10:00 05/05/22 13:39 Gabapentin 300 Mg Capsule PO 05/31/22 09:59 600 mg QID TRACY Administration Hydroxyzine HCl 50 mg 05/01/22 08:19 Hydroxyzine Hcl 25 Mg Tablet PO 05/31/22 08:18 HS PRN PRN INSOMNIA Sodium Chloride 1,000 mls @ 100 mls/hr 05/01/22 05:30 05/05/22 01:46 Sodium Chloride 0.9% 1000 Ml IV 05/31/22 05:29 100 mls/hr .Q10H TRACY Administration Ceftriaxone Sodium/Dextrose 1 g in 50 mls @ 100 mls/hr 05/01/22 10:00 05/05/22 07:59 Rocephin 1 Gm-D5w 50 Ml Bag IV 05/07/22 09:59 100 mls/hr Q24H10 TRACY Administration Dextrose/Sodium Chloride 1,000 mls @ 100 mls/hr 05/03/22 22:00 05/05/22 03:46 Dextrose 5%-Ns Iv Solution 1000 Ml IV 06/02/22 21:59 Not Given .Q10H [facility] Insulin Glargine 10 unit 05/03/22 17:00 05/04/22 21:20 Insulin Glargine 1 Unit SQ 06/02/22 16:59 Not Given HS [facility] Insulin Human Lispro 0 unit 05/02/22 09:26 05/04/22 14:32 Insulin Lispro 1 Unit SQ 06/01/22 09:25 8 unit UD PRN Administration HYPERGLYCEMIA Lactobacillus Acidophilus 1 tab 05/02/22 10:00 05/05/22 09:16 Lactobacillus Acidophilus 1 Tab Tablet PO 06/01/22 09:59 1 tab TID TRACY Administration Levothyroxine Sodium 25 mcg 05/01/22 10:00 05/05/22 07:59 Levothyroxine Sodium 25 Mcg Tablet PO 05/31/22 09:59 25 mcg QAM TRACY Administration Lidocaine 1 patch 05/01/22 08:51 Lidocaine Hcl 1 Patch Patch TOP 05/31/22 08:50 QDP PRN PAIN Metoclopramide HCl 10 mg 05/01/22 10:00 05/05/22 13:38 Metoclopramide Hcl 10 Mg Tablet PO 05/31/22 09:59 10 mg QID TRACY Administration Midodrine 10 mg 05/03/22 13:00 05/05/22 12:32 Midodrine Hcl 5 Mg Tablet PO 06/02/22 12:59 10 mg TIDWM TRACY Administration Mirtazapine 15 mg 05/01/22 22:00 05/04/22 21:20 Mirtazapine 15 Mg Tablet PO 05/31/22 21:59 15 mg HS TRACY Administration Miscellaneous Information 1 each 05/01/22 09:00 Medication Intervention 1 Each Each 05/31/22 08:59 .RN TO CHECK TRACY Miscellaneous Information 1 each 05/01/22 09:00 Medication Intervention 1 Each Each 05/31/22 08:59 .RN TO CHECK TRACY Montelukast Sodium 10 mg 05/01/22 10:00 05/05/22 09:17 Montelukast Sodium 10 Mg Tablet PO 05/31/22 09:59 10 mg DAILY TRACY Administration Morphine Sulfate 2 mg 05/01/22 06:10 Morphine Sulfate 2 Mg/Ml Inj IV 05/06/22 06:09 Q4H PRN PRN PAIN Ondansetron HCl 4 mg 05/01/22 06:10 05/05/22 07:57 Ondansetron Hcl 4 Mg/2 Ml Vial IV 05/31/22 06:09 4 mg Q6H PRN PRN Administration NAUSEA/VOMITING Ondansetron HCl 4 mg 05/01/22 08:11 05/04/22 15:54 Zofran 4 Mg/Udtablet Orally Disintegrating PO 05/31/22 08:10 4 mg Q6H PRN PRN Administration NAUSEA Pantoprazole Sodium 40 mg 05/01/22 10:00 05/05/22 09:18 Protonix (Pantoprazole) 40 Mg Tablet PO 05/31/22 09:59 40 mg DAILY TRACY Administration Promethazine HCl 25 mg 05/01/22 07:51 05/05/22 09:16 Promethazine Hcl 25 Mg Tablet PO 05/31/22 07:50 25 mg Q4HPRN PRN Administration NAUSEA Ropinirole HCl 0.5 mg 05/01/22 22:00 05/04/22 21:19 Ropinirole Hcl 0.5 Mg Tablet PO 05/31/22 21:59 0.5 mg HS TRACY Administration Fluticasone/Salmeterol 2 puff 05/01/22 09:00 05/05/22 07:43 Fluticasone/Salmeterol / Common Canister 05/31/22 08:59 2 puff BIDRT TRACY Administration Simethicone 80 mg 05/01/22 07:51 05/04/22 19:44 Simethicone 80 Mg Tab.Chew PO 05/31/22 07:50 80 mg QID PRN PRN Administration GAS Sucralfate 1,000 mg 05/01/22 10:00 05/05/22 12:32 Sucralfate 1000 Mg/10 Ml Suspension PO 05/31/22 09:59 1,000 mg QID TRACY Administration Topiramate 50 mg 05/01/22 22:00 05/04/22 21:21 Topiramate 50 Mg Tablet PO 05/31/22 21:59 Not Given QHS TRACY Discontinued Medications Generic Name Dose Route Start Last Admin Trade Name Freq PRN Reason Stop Dose Admin Albuterol Sulfate 2 puff 05/01/22 07:51 Albuterol Common Canister Inhaler 05/31/22 07:50 DAILY PRN PRN SHORTNESS OF BREATH Albuterol Sulfate mg 05/01/22 07:51 Albuterol Sulfate 2.5 Mg/3 Ml Neb 05/31/22 07:50 DAILY PRN PRN SHORTNESS OF BREATH Albuterol/Ipratropium 1 puff 05/01/22 10:00 Ipratropium/Albuterol Respimat Common Canister 05/31/22 09:59 DAILY TRACY Albuterol/Ipratropium Confirm 05/01/22 08:27 Ipratropium/Albuterol Sulfate 3 Ml Ampul.Neb Administered 05/01/22 08:28 Dose 3 ml IH .STK-MED ONE Clonidine 0.1 mg 05/01/22 18:02 05/01/22 18:05 Clonidine Hcl 0.1 Mg Tablet PO 05/01/22 18:03 0.1 mg STAT ONE Administration Clonidine 0.1 mg 05/02/22 17:35 05/02/22 17:42 Clonidine Hcl 0.1 Mg Tablet PO 05/02/22 17:36 0.1 mg 1XONLY ONE Administration Dextrose Confirm 05/03/22 21:22 Dextrose 50%-Water 50 Ml Abboject Administered 05/03/22 21:23 Dose 50 ml IV .STK-MED ONE Dextrose 25 ml 05/03/22 21:28 05/03/22 21:29 Dextrose 50%-Water 50 Ml Vial IV 05/03/22 21:29 25 ml STAT ONE Administration Sodium Chloride 1,000 mls @ 999 mls/hr 05/01/22 02:33 05/01/22 03:48 Sodium Chloride 0.9% 1000 Ml IV 05/01/22 03:33 999 mls/hr .Q1H1M STA Administration Sodium Chloride Confirm 05/01/22 03:47 Sodium Chloride 0.9% 1000 Ml Administered 05/01/22 03:48 Dose 1,000 mls @ ud .ROUTE .STK-MED ONE Insulin Human Regular 100 unit 100 mls @ 6.223 mls/hr 05/01/22 05:02 05/01/22 21:30 / Sodium Chloride IV 05/31/22 05:01 0 unit/kg/hr .Q16H5M PRN 0 mls/hr DKA/HYPERGLYCEMIA Titration Protocol 0.1 UNIT/KG/HR Potassium Chloride 20 meq in 100 mls @ 50 mls/hr 05/01/22 05:15 05/01/22 21:41 Potassium Chloride 20 Meq In Water 100ml IV 05/01/22 09:14 Not Given Q2H TRACY Sodium Chloride Confirm 05/01/22 05:16 Sodium Chloride 0.9% Administered 05/01/22 05:17 Dose 100 mls @ ud .ROUTE .STK-MED ONE Insulin Glargine 10 unit 05/01/22 22:00 05/01/22 22:31 Insulin Glargine 1 Unit SQ 05/01/22 22:01 Not Given ONCE ONE Insulin Glargine 20 unit 05/03/22 08:29 05/03/22 08:41 Insulin Glargine 1 Unit SQ 05/03/22 08:30 20 unit NOW ONE Administration Insulin Human Lispro 0 unit 05/02/22 00:00 05/02/22 00:27 Insulin Lispro 1 Unit SQ 06/01/22 00:00 15 unit UD PRN Administration HYPERGLYCEMIA Insulin Human Regular Confirm 05/01/22 05:16 Insulin Regular, Human 1 Unit Administered 05/01/22 05:17 Dose 100 unit .ROUTE .STK-MED ONE Midodrine 10 mg 05/01/22 10:00 05/03/22 09:03 Midodrine Hcl 5 Mg Tablet PO 05/31/22 09:59 5 mg TID TRACY Administration Miscellaneous Information 1 each 05/01/22 09:00 Medication Intervention 1 Each Each 05/31/22 08:59 .RN TO CHECK TRACY Miscellaneous Information 1 each 05/01/22 09:00 Medication Intervention 1 Each Each 05/31/22 08:59 .RN TO CHECK TRACY Miscellaneous Information 1 each 05/01/22 09:00 Medication Intervention 1 Each Each 05/31/22 08:59 .RN TO CHECK TRACY Non-Formulary Medication 2 puff 05/01/22 10:00 Budesonide/Formoterol Fumarate [Budesonide-Formoterol 160-4.5] IH 05/31/22 09:59 BID TRACY Ondansetron HCl 4 mg 05/01/22 04:02 05/01/22 04:22 Ondansetron Hcl 4 Mg/2 Ml Vial IV 05/01/22 04:03 4 mg STAT ONE Administration Ondansetron HCl Confirm 05/01/22 04:20 Ondansetron Hcl 4 Mg/2 Ml Vial Administered 05/01/22 04:21 Dose 4 mg .ROUTE .STK-MED ONE Pantoprazole Sodium 20 mg 05/01/22 08:13 Pantoprazole 20 Mg Tab PO 05/31/22 08:12 DAILY PRN PRN heartburn Creon 36,000 - 1 each 05/01/22 12:30 05/03/22 11:49 Patient Own Med PO 05/31/22 12:29 1 each Misc AC TRACY Administration Fluticasone/Salmeterol 2 puff 05/01/22 19:00 05/01/22 08:27 Fluticasone/Salmeterol Common Canister IH 05/31/22 18:59 2 puff BIDRT TRACY Administration Intake & Output (Last 24 hours) 05/03/22 05/04/22 05/05/22 05/06/22 11:59 11:59 11:59 11:59 Intake Total 3630 3598 4241 Balance 3630 3598 4241 Weight 64.6 kg 63.1 kg Microbiology Results (Last 24 hours) 05/01/22 02:50 Blood Blood Culture Gram Stain - Final Not Reportable 05/01/22 02:50 Blood Blood Culture - Final NO GROWTH 05/01/22 03:00 Blood Blood Culture Gram Stain - Final Not Reportable 05/01/22 03:00 Blood Blood Culture - Final NO GROWTH Laboratory Results (Last 24 hours) 05/05/22 05/05/22 05/05/22 12:09 11:48 10:44 POC Glucometer 469 H 500 H 471 H Serum Osmolality 05/05/22 05/05/22 05/05/22 10:39 07:29 03:59 POC Glucometer 517 H* 184 H 205 H Serum Osmolality 05/05/22 05/04/22 05/04/22 00:09 20:02 16:50 POC Glucometer 251 H 400 H 77 Serum Osmolality 05/04/22 05/04/22 05/01/22 15:50 14:28 05:30 POC Glucometer 186 H 355 H Serum Osmolality 316 H Orders (Last 24 hours) Category Date Time Status 1800 Calorie Carbohydrate Diet [Consistent Carbohydrate Diet 05/05/22 Dinner Active Diet 1800 Calorie] POCT GLUCOSE Stat Lab 05/04/22 14:28 Completed POCT GLUCOSE Stat Lab 05/04/22 15:50 Completed POCT GLUCOSE Stat Lab 05/04/22 16:50 Completed POCT GLUCOSE Stat Lab 05/04/22 20:02 Completed POCT GLUCOSE Stat Lab 05/05/22 00:09 Completed POCT GLUCOSE Stat Lab 05/05/22 03:59 Completed POCT GLUCOSE Stat Lab 05/05/22 07:29 Completed POCT GLUCOSE Stat Lab 05/05/22 10:39 Completed POCT GLUCOSE Stat Lab 05/05/22 10:39 Received POCT GLUCOSE Stat Lab 05/05/22 10:44 Completed POCT GLUCOSE Stat Lab 05/05/22 11:48 Completed POCT GLUCOSE Stat Lab 05/05/22 12:09 Completed Patient Care Notes (Last 24 hours) 05/04/22 23:25 Nursing Note by Zhanna Thompson During evening assessment, discussed patient's glucose levels, lantus being over 24 hours ago at this time, and resuming dexcom pump. Patient agreeable to resuming after glucose check at 1999. Patient's glucose at 1999 was 400. Patient reconnected pump at that time. It administered 2 units via pump. At 2130 per meter patient's glucose was beginning trend downward, but not in the rapid manner as seen in previous days. Patient resting comfortably at this time. Initialized on 05/04/22 23:25 - END OF NOTE 05/04/22 17:00 (created 05/04/22 17:48) Nursing Note by Tali Sevilla pt "feeling funny" bs in 70s, snack given Initialized on 05/04/22 17:48 - END OF NOTE Code(s): E11.10 - TYPE 2 DIABETES MELLITUS WITH KETOACIDOSIS WITHOUT COMA (2) Hyperglycemia due to type 1 diabetes mellitus Current Visit: Yes Status: Acute Code(s): E10.65 - TYPE 1 DIABETES MELLITUS WITH HYPERGLYCEMIA
[2022-05-05] MEDS ORDERED: HUMALOG IV ONE (16:05)
[2022-05-05] MEDS: Lexapro PO SCH (16:26)
[2022-05-05] MEDS: HUMALOG SQ PRN (20:29)
[2022-05-05] MEDS: BUSPAR 5 MG PO SCH (20:31)
[2022-05-05] MEDS: Requip 0.5 MG PO SCH (20:32)
[2022-05-05] MEDS: Lantus Insulin SQ SCH (20:32)
[2022-05-05] MEDS: MIRTAZAPINE PO SCH (20:33)
[2022-05-05] MEDS: TOPIRAMATE PO SCH (20:33)
[2022-05-06] MEDS: Dextrose 5%-NS IV Solution 1000 ML 1,000 ML IV SCH (02:12)
[2022-05-06] MEDS ORDERED: HUMALOG ONE (04:33)
[2022-05-06] MEDS: HUMALOG SQ PRN ×5 (04:34→23:54)
[2022-05-06 04:37] LABS: Absolute Neutrophil Ct (ANC) 1.25 x10^3/uL (1.4-6.9); Basophil (Absolute #) 0.02 x10^3/uL (0-0.4); Eosinophil % 5.2 % (0.00-5.0); Eosinophil (Absolute #) 0.19 x10^3/uL (0-0.5); Hematocrit 36.2 % (35-47); Hemoglobin 11.3 g/dL (12.0-16.0); Lymphocyte (Absolute #) 1.92 x10^3/uL (1.0-4.6); Mean Cell Volume 99.7 fL (78-100); Mean Corpuscular Hemoglobin 31.1 pg (26-32); Mean Corpuscular Hgb Concent. 31.2 g/dL (32-36); Monocyte (Absolute #) 0.23 x10^3/uL (0.0-1.3); Monocytes % 6.4 % (0.0-12.0); Neutrophil % 34.5 % (36.0-66.0); Platelet Count 175 x10^3/uL (150-450); Red Blood Count 3.63 x10^6/uL (4.1-5.4); Red Cell Distribution Width 13.7 % (11.5-14.0); White Blood Count 3.6 x10^3/uL (4.0-10.5)
[2022-05-06 04:53] LABS: ALBUMIN 3.4 g/dL (3.5-5.0); ALKALINE PHOSPHATASE 147 U/L (38-126); ANION GAP 7.7 MEQ/L (5-15); BLOOD UREA NITROGEN 15 mg/dL (7-17); CHLORIDE 104 mmol/L (98-107); Calcium 8.3 mg/dL (8.4-10.2); Carbon Dioxide 25 mmol/L (22-30); Creatinine 1 0.45 mg/dL (0.52-1.04); EST GLOMERULAR FILTRATION RATE > 60.0 ML/MIN; Glucose 296 mg/dL (74-106); Potassium 4.3 mmol/L (3.5-5.1); SGOT/AST 67 U/L (14-36); SGPT/ALT 150 U/L (0-35); SODIUM 132 mmol/L (137-145); Total Protein 5.4 g/dL (6.3-8.2)
[2022-05-06] MEDS: Sodium Chloride 0.9% 1000 ML 1,000 ML IV SCH ×2 (05:59→16:30)
[2022-05-06] MEDS: DUONEB 0.5-3 MG/3 ml Neb IH SCH (06:56)
[2022-05-06] MEDS: Advair Hfa 230/21 Mcg COMMON CANISTER IH SCH ×2 (06:56→19:55)
[2022-05-06] MEDS: ZENPEP DR 5,000 UNIT CAPSULE PO SCH ×2 (08:35→12:42)
[2022-05-06] MEDS: PHENERGAN 25 MG PO PRN ×3 (08:46→17:30)
[2022-05-06] MEDS: ROCEPHIN 1 Gm-D5w 50 ml Bag** 1 G/50 ML IVPB IV SCH (09:53)
[2022-05-06] MEDS: Reglan 10 MG PO SCH ×4 (09:55→21:15)
[2022-05-06] MEDS: FOLATE 1 MG PO SCH (09:55)
[2022-05-06] MEDS: NEURONTIN PO SCH ×4 (09:55→21:15)
[2022-05-06] MEDS: LIORESAL 10 MG PO SCH ×4 (09:56→21:15)
[2022-05-06] MEDS: ELIQUIS 2.5 MG TABLET PO SCH ×2 (09:56→21:15)
[2022-05-06] MEDS: Acidophilus TABLET PO SCH ×3 (09:56→21:15)
[2022-05-06] MEDS: SYNTHROID 25 MCG PO SCH (09:56)
[2022-05-06] MEDS: Singulair 10 MG PO SCH (09:56)
[2022-05-06] MEDS: Protonix 40MG Tablet PO SCH (09:56)
[2022-05-06] MEDS: Carafate SUSPENSION 1000 MG/10 ML PO SCH ×4 (09:57→21:17)
[2022-05-06] MEDS: PATIENT OWN MEDICATION PO SCH ×6 (12:41→21:26)
[2022-05-06] MEDS ORDERED: CLONIDINE 0.1 MG TABLET PO PRN (13:27)
[2022-05-06] MEDS: Lexapro PO SCH (16:30)
--- NOTE | 2022-05-06 18:20 | PCM.NOTE ---
Date and Time: 05/06/221811 Subjective Assessment: She has continued to have very high and very low blood sugars. Low of 38 during this stay. BP up to 105/117 yesterday, she says she was really nervous at this time. Takes clonidine 0.1mg prn at home for elevated BPs. Doesn't take it all the time because it makes her feel bad. Yesterday her pump was shut off at 4:30 pm and all her insulin pens were removed from the room and placed in lockbox on the unit. There was not a high index of suspicion that medicines were being misused, however. Prior to that, the pump was on at 0.325/hr basal rate. BS yesterday were 303 (0430 am - 5 units insulin), 128 (8 am), 285 (12:15 pm, 10 units insulin), 566 (236 pm, 12 units insulin), 97 (4:30 pm). - Review of Systems Constitutional: No Fever Abdominal/Gastrointestinal: Nausea, No Vomiting Objective Exam General Appearance: no apparent distress, alert Neurologic Exam: oriented x 3, cooperative Skin Exam: normal color, warm, dry, No rash Eye Exam: eyes nml inspection Ears, Nose, Throat Exam: moist mucous membranes Neck Exam: normal inspection Respiratory Exam: normal breath sounds, lungs clear, No crackles/rales, No rhonchi, No wheezing Cardiovascular Exam: regular rate/rhythm, normal heart sounds, No murmur Gastrointestinal/Abdomen Exam: soft, normal bowel sounds, tenderness (mild ttp epigastrum), No distention, No mass, No guarding, No rebound Extremity Exam: normal inspection, No pedal edema, No swelling Back Exam: normal inspection, No rash OBJECTIVE DATA Vital Signs: Vital Signs - 24 hr Temp Pulse Resp BP Pulse Ox 05/06/22 16:00 98.0 F 106 H 16 160/100 93 L 05/06/22 12:00 98.0 F 119 H 16 173/105 97 05/06/22 07:56 98.1 F 91 H 16 147/80 94 L 05/06/22 06:56 92 H 16 94 L 05/06/22 04:00 97.4 F 82 16 140/80 96 05/05/22 23:48 97.6 F 89 18 127/74 98 05/05/22 19:46 102 H 18 93 L 05/05/22 19:28 97.6 F 103 H 18 173/102 97 05/05/22 18:24 108 H 186/111 Pain Assessment - Last Documented Pain Intensity 2 Intake and Output: Intake & Output 05/04/22 05/05/22 05/06/22 05/07/22 11:59 11:59 11:59 11:59 Intake Total 3596 4245 5467 780 Balance 3590 4248 5467 780 Weight 64.6 kg 63.1 kg 63.3 kg Lab Results: Lab Results-Last 24 Hours 05/05/22 05/05/22 05/05/22 Range/Units 18:19 20:11 20:16 WBC (4.0-10.5) x10^3/uL RBC (4.1-5.4) x10^6/uL Hgb (12.0-16.0) g/dL Hct (35-47) % MCV (78-100) fL MCH (26-32) pg MCHC (32-36) g/dL RDW (11.5-14.0) % Plt Count (150-450) x10^3/uL MPV (7.5-11.0) fL Gran % (36.0-66.0) % Immature Gran % (Auto) (0.00-0.4) % Nucleat RBC Rel Count (0.00-0.1) % Eos # (Auto) (0-0.5) x10^3/uL Immature Gran # (Auto) (0.00-0.03) x10^3u/L Absolute Lymphs (auto) (1.0-4.6) x10^3/uL Absolute Monos (auto) (0.0-1.3) x10^3/uL Absolute Nucleated RBC (0.00-0.01) x10^3u/L Lymphocytes % (24.0-44.0) % Monocytes % (0.0-12.0) % Eosinophils % (0.00-5.0) % Basophils % (0.0-0.4) % Absolute Granulocytes (1.4-6.9) x10^3/uL Basophils # (0-0.4) x10^3/uL Sodium (137-145) mmol/L Potassium (3.5-5.1) mmol/L Chloride (98-107) mmol/L Carbon Dioxide (22-30) mmol/L Anion Gap (5-15) MEQ/L BUN (7-17) mg/dL Creatinine (0.52-1.04) mg/dL Estimated GFR ML/MIN Glucose (74-106) mg/dL POC Glucometer 174 H 507 H* 470 H (74 to 106) mg/dL Calcium (8.4-10.2) mg/dL Total Bilirubin (0.2-1.3) mg/dL AST (14-36) U/L ALT (0-35) U/L Alkaline Phosphatase (38-126) U/L Serum Total Protein (6.3-8.2) g/dL Albumin (3.5-5.0) g/dL 05/05/22 05/05/22 05/06/22 Range/Units 22:03 23:46 00:59 WBC (4.0-10.5) x10^3/uL RBC (4.1-5.4) x10^6/uL Hgb (12.0-16.0) g/dL Hct (35-47) % MCV (78-100) fL MCH (26-32) pg MCHC (32-36) g/dL RDW (11.5-14.0) % Plt Count (150-450) x10^3/uL MPV (7.5-11.0) fL Gran % (36.0-66.0) % Immature Gran % (Auto) (0.00-0.4) % Nucleat RBC Rel Count (0.00-0.1) % Eos # (Auto) (0-0.5) x10^3/uL Immature Gran # (Auto) (0.00-0.03) x10^3u/L Absolute Lymphs (auto) (1.0-4.6) x10^3/uL Absolute Monos (auto) (0.0-1.3) x10^3/uL Absolute Nucleated RBC (0.00-0.01) x10^3u/L Lymphocytes % (24.0-44.0) % Monocytes % (0.0-12.0) % Eosinophils % (0.00-5.0) % Basophils % (0.0-0.4) % Absolute Granulocytes (1.4-6.9) x10^3/uL Basophils # (0-0.4) x10^3/uL Sodium (137-145) mmol/L Potassium (3.5-5.1) mmol/L Chloride (98-107) mmol/L Carbon Dioxide (22-30) mmol/L Anion Gap (5-15) MEQ/L BUN (7-17) mg/dL Creatinine (0.52-1.04) mg/dL Estimated GFR ML/MIN Glucose (74-106) mg/dL POC Glucometer 305 H 152 H 212 H (74 to 106) mg/dL Calcium (8.4-10.2) mg/dL Total Bilirubin (0.2-1.3) mg/dL AST (14-36) U/L ALT (0-35) U/L Alkaline Phosphatase (38-126) U/L Serum Total Protein (6.3-8.2) g/dL Albumin (3.5-5.0) g/dL 05/06/22 05/06/22 05/06/22 Range/Units 04:30 04:30 04:30 WBC 3.6 L (4.0-10.5) x10^3/uL RBC 3.63 L (4.1-5.4) x10^6/uL Hgb 11.3 L (12.0-16.0) g/dL Hct 36.2 (35-47) % MCV 99.7 (78-100) fL MCH 31.1 (26-32) pg MCHC 31.2 L (32-36) g/dL RDW 13.7 (11.5-14.0) % Plt Count 175 (150-450) x10^3/uL MPV 10.0 (7.5-11.0) fL Gran % 34.5 L (36.0-66.0) % Immature Gran % (Auto) 0.3 (0.00-0.4) % Nucleat RBC Rel Count 0.0 (0.00-0.1) % Eos # (Auto) 0.19 (0-0.5) x10^3/uL Immature Gran # (Auto) 0.01 (0.00-0.03) x10^3u/L Absolute Lymphs (auto) 1.92 (1.0-4.6) x10^3/uL Absolute Monos (auto) 0.23 (0.0-1.3) x10^3/uL Absolute Nucleated RBC 0.00 (0.00-0.01) x10^3u/L Lymphocytes % 53.0 H (24.0-44.0) % Monocytes % 6.4 (0.0-12.0) % Eosinophils % 5.2 H (0.00-5.0) % Basophils % 0.6 (0.0-0.4) % Absolute Granulocytes 1.25 L (1.4-6.9) x10^3/uL Basophils # 0.02 (0-0.4) x10^3/uL Sodium 132 L (137-145) mmol/L Potassium 4.3 (3.5-5.1) mmol/L Chloride 104 (98-107) mmol/L Carbon Dioxide 25 (22-30) mmol/L Anion Gap 7.7 (5-15) MEQ/L BUN 15 (7-17) mg/dL Creatinine 0.45 L (0.52-1.04) mg/dL Estimated GFR > 60.0 ML/MIN Glucose 296 H (74-106) mg/dL POC Glucometer 303 H (74 to 106) mg/dL Calcium 8.3 L (8.4-10.2) mg/dL Total Bilirubin 0.50 (0.2-1.3) mg/dL AST 67 H (14-36) U/L ALT 150 H (0-35) U/L Alkaline Phosphatase 147 H (38-126) U/L Serum Total Protein 5.4 L (6.3-8.2) g/dL Albumin 3.4 L (3.5-5.0) g/dL 05/06/22 05/06/22 05/06/22 Range/Units 07:59 12:15 14:36 WBC (4.0-10.5) x10^3/uL RBC (4.1-5.4) x10^6/uL Hgb (12.0-16.0) g/dL Hct (35-47) % MCV (78-100) fL MCH (26-32) pg MCHC (32-36) g/dL RDW (11.5-14.0) % Plt Count (150-450) x10^3/uL MPV (7.5-11.0) fL Gran % (36.0-66.0) % Immature Gran % (Auto) (0.00-0.4) % Nucleat RBC Rel Count (0.00-0.1) % Eos # (Auto) (0-0.5) x10^3/uL Immature Gran # (Auto) (0.00-0.03) x10^3u/L Absolute Lymphs (auto) (1.0-4.6) x10^3/uL Absolute Monos (auto) (0.0-1.3) x10^3/uL Absolute Nucleated RBC (0.00-0.01) x10^3u/L Lymphocytes % (24.0-44.0) % Monocytes % (0.0-12.0) % Eosinophils % (0.00-5.0) % Basophils % (0.0-0.4) % Absolute Granulocytes (1.4-6.9) x10^3/uL Basophils # (0-0.4) x10^3/uL Sodium (137-145) mmol/L Potassium (3.5-5.1) mmol/L Chloride (98-107) mmol/L Carbon Dioxide (22-30) mmol/L Anion Gap (5-15) MEQ/L BUN (7-17) mg/dL Creatinine (0.52-1.04) mg/dL Estimated GFR ML/MIN Glucose (74-106) mg/dL POC Glucometer 128 H 285 H 566 H* (74 to 106) mg/dL Calcium (8.4-10.2) mg/dL Total Bilirubin (0.2-1.3) mg/dL AST (14-36) U/L ALT (0-35) U/L Alkaline Phosphatase (38-126) U/L Serum Total Protein (6.3-8.2) g/dL Albumin (3.5-5.0) g/dL 05/06/22 05/06/22 Range/Units 16:33 16:52 WBC (4.0-10.5) x10^3/uL RBC (4.1-5.4) x10^6/uL Hgb (12.0-16.0) g/dL Hct (35-47) % MCV (78-100) fL MCH (26-32) pg MCHC (32-36) g/dL RDW (11.5-14.0) % Plt Count (150-450) x10^3/uL MPV (7.5-11.0) fL Gran % (36.0-66.0) % Immature Gran % (Auto) (0.00-0.4) % Nucleat RBC Rel Count (0.00-0.1) % Eos # (Auto) (0-0.5) x10^3/uL Immature Gran # (Auto) (0.00-0.03) x10^3u/L Absolute Lymphs (auto) (1.0-4.6) x10^3/uL Absolute Monos (auto) (0.0-1.3) x10^3/uL Absolute Nucleated RBC (0.00-0.01) x10^3u/L Lymphocytes % (24.0-44.0) % Monocytes % (0.0-12.0) % Eosinophils % (0.00-5.0) % Basophils % (0.0-0.4) % Absolute Granulocytes (1.4-6.9) x10^3/uL Basophils # (0-0.4) x10^3/uL Sodium (137-145) mmol/L Potassium (3.5-5.1) mmol/L Chloride (98-107) mmol/L Carbon Dioxide (22-30) mmol/L Anion Gap (5-15) MEQ/L BUN (7-17) mg/dL Creatinine (0.52-1.04) mg/dL Estimated GFR ML/MIN Glucose (74-106) mg/dL POC Glucometer 97 53 L (74 to 106) mg/dL Calcium (8.4-10.2) mg/dL Total Bilirubin (0.2-1.3) mg/dL AST (14-36) U/L ALT (0-35) U/L Alkaline Phosphatase (38-126) U/L Serum Total Protein (6.3-8.2) g/dL Albumin (3.5-5.0) g/dL Multi-Disciplinary Progress Notes: Multi-Disciplinary Progress Notes 05/06/22 11:10 Case Management Note by Tessy Joshi S/W PATIENT-SHE CONTINUES TO DENY ANY NEW NEEDS AT TIME OF DC. Initialized on 05/06/22 11:10 - END OF NOTE Assessment/Plan (1) DM I (diabetes mellitus, type I) Current Visit: No Status: Chronic Qualifiers: Diabetes mellitus complication status: with hyperglycemia Qualified Code(s): E10.65 - Type 1 diabetes mellitus with hyperglycemia Assessment & Plan: very brittle. I saw pt this morning and discussed this afternoon with Muna Bahena BARBER INSTRUCTOR, her breaker layer, thank you. Muna advised to replace pt's pump in closed loop with the sensor, so will shut off if hypoglycemic. If we send the pt home tomorrow, Muna can see her in [facility] tomorrow or the next day to download the pump and look at the settings. Advised we will not get her stable but should be able to get her safe on the basal insulin. (2) Hyponatremia Current Visit: No Status: Chronic Code(s): E87.1 - HYPO-OSMOLALITY AND HYPONATREMIA (3) Acute sinusitis Current Visit: Yes Status: Acute Qualifiers: Sinusitis location: frontal Recurrence: recurrent Qualified Code(s): J01.11 - Acute recurrent frontal sinusitis Assessment & Plan: Treated with IV rocephin. Code(s): J01.90 - ACUTE SINUSITIS, UNSPECIFIED
[2022-05-06] MEDS ORDERED: CARDIZEM DRIP 100 MG/100 ML D5W 100 ML IV PRN (19:47)
[2022-05-06] MEDS: Requip 0.5 MG PO SCH (21:14)
[2022-05-06] MEDS: BUSPAR 5 MG PO SCH (21:14)
[2022-05-06] MEDS: TOPIRAMATE PO SCH (21:15)
[2022-05-06] MEDS: MIRTAZAPINE PO SCH (21:16)
[2022-05-06] MEDS: Lantus Insulin SQ SCH (21:17)
[2022-05-07] MEDS: Sodium Chloride 0.9% 1000 ML 1,000 ML IV SCH (02:34)
[2022-05-07] MEDS: HUMALOG SQ PRN ×2 (04:10→08:34)
[2022-05-07] MEDS: DUONEB 0.5-3 MG/3 ml Neb IH SCH (07:04)
[2022-05-07] MEDS: Advair Hfa 230/21 Mcg COMMON CANISTER IH SCH (07:04)
[2022-05-07 07:06] VITALS: PULSE 96; O2SAT 96
[2022-05-07 07:24] VITALS: BP 176/90
[2022-05-07 08:22] LABS: Absolute Neutrophil Ct (ANC) 1.28 x10^3/uL (1.4-6.9); Basophil (Absolute #) 0.03 x10^3/uL (0-0.4); Eosinophil % 4.7 % (0.00-5.0); Eosinophil (Absolute #) 0.17 x10^3/uL (0-0.5); Hematocrit 39.2 % (35-47); Lymphocyte (Absolute #) 1.89 x10^3/uL (1.0-4.6); Lymphocytes % 52.5 % (24.0-44.0); Mean Cell Volume 102.3 fL (78-100); Mean Corpuscular Hemoglobin 31.3 pg (26-32); Mean Corpuscular Hgb Concent. 30.6 g/dL (32-36); Mean Platelet Volume 10.3 fL (7.5-11.0); Monocyte (Absolute #) 0.22 x10^3/uL (0.0-1.3); Monocytes % 6.1 % (0.0-12.0); Neutrophil % 35.6 % (36.0-66.0); Platelet Count 184 x10^3/uL (150-450); Red Blood Count 3.83 x10^6/uL (4.1-5.4); Red Cell Distribution Width 14.3 % (11.5-14.0); White Blood Count 3.6 x10^3/uL (4.0-10.5)
[2022-05-07 08:33] LABS: ALBUMIN 3.9 g/dL (3.5-5.0); ALKALINE PHOSPHATASE 139 U/L (38-126); BLOOD UREA NITROGEN 16 mg/dL (7-17); CHLORIDE 104 mmol/L (98-107); Calcium 8.5 mg/dL (8.4-10.2); Carbon Dioxide 27 mmol/L (22-30); Creatinine 1 0.44 mg/dL (0.52-1.04); EST GLOMERULAR FILTRATION RATE > 60.0 ML/MIN; Glucose 282 mg/dL (74-106); SGOT/AST 43 U/L (14-36); SGPT/ALT 121 U/L (0-35); SODIUM 135 mmol/L (137-145); Total Protein 6.1 g/dL (6.3-8.2)
[2022-05-07] MEDS: Acidophilus TABLET PO SCH (08:36)
[2022-05-07] MEDS: LIORESAL 10 MG PO SCH (08:36)
[2022-05-07] MEDS: ELIQUIS 2.5 MG TABLET PO SCH (08:37)
[2022-05-07] MEDS: PATIENT OWN MEDICATION PO SCH (08:37)
[2022-05-07] MEDS: NEURONTIN PO SCH (08:38)
[2022-05-07] MEDS: Singulair 10 MG PO SCH (08:38)
[2022-05-07] MEDS: SYNTHROID 25 MCG PO SCH (08:38)
[2022-05-07] MEDS: Protonix 40MG Tablet PO SCH (08:38)
[2022-05-07] MEDS: Reglan 10 MG PO SCH (08:38)
[2022-05-07] MEDS: FOLATE 1 MG PO SCH (08:39)
[2022-05-07] MEDS: Carafate SUSPENSION 1000 MG/10 ML PO SCH (08:39)
--- NOTE | 2022-05-07 10:12 | PCM.DS ---
Discharge Summary Date of Admission: 05/01/22 14:43 Admitting Physician: DELBERT IBANEZ Primary Care Provider: ANGELITO BLEDSOE DO Allergies Allergies dicyclomine [From Bentyl] Allergy (Verified 05/01/22 06:13) grapefruit Allergy (Verified 05/01/22 06:13) Swelling Hospital Summary - Hospital Course Hospital Course: Pt is a 41 yo female pt with no local MD with PMHx gastric bypass surgery, polysubs abuse, DM I (on insulin pump) who was admitted through ER with [facility]. BS was > 700. She had been sick for several days, pump had been reading "HI" and she finally couldn't get it to come down. Was put on insulin drip and admitted to ICU. She has had congestion and was initially treated for a sinus infection. BP have also been labile, up >200 sys at one point, but normal (110s) other times. Has clonidine at home for prn elevated BP. Midodrine held here. During her stay, blood sugars have been extremely labile. She has been up over 700 another instance; was at 566, then 2 hours later (after 12 units insulin) was 97. Blood sugar as low as 38. In the past she has had blood sugars as low as 5, so we adjusted her insulin doses, including with the pump, without the pump and with lantus, with sliding scale (from high to 1/2 low dose) and still the blood sugars are persistently labile. I spoke with her platen press operator, Muna Valencia, yesterday and pt will go to her office today after discharge to have the pump downloaded. The pump has been hooked up as a closed loop with her sensor in an effort to avoid dangerous lows. Pump must be evaluated JUSTO. - Vitals & Intake/Output Vital Signs: Vital Signs Temperature 97.3 F 05/07/22 07:23 Pulse Rate 96 H 05/07/22 07:23 Respiratory Rate 17 05/07/22 07:23 Blood Pressure 176/90 05/07/22 07:23 O2 Sat by Pulse Oximetry 96 05/07/22 07:23 Intake & Output: Intake & Output 05/04/22 05/05/22 05/06/22 05/07/22 11:59 11:59 11:59 11:59 Intake Total 3598 4241 5467 3721 Balance 3598 4241 5467 3721 Weight 64.6 kg 63.1 kg 63.3 kg 63.5 kg - Lab Result Diagrams: 05/07/22 08:11 05/07/22 08:11 Lab Results-Last 24 Hrs: Lab Results-Last 24 Hours 05/06/22 05/06/22 05/06/22 Range/Units 12:15 14:36 16:33 WBC (4.0-10.5) x10^3/uL RBC (4.1-5.4) x10^6/uL Hgb (12.0-16.0) g/dL Hct (35-47) % MCV (78-100) fL MCH (26-32) pg MCHC (32-36) g/dL RDW (11.5-14.0) % Plt Count (150-450) x10^3/uL MPV (7.5-11.0) fL Gran % (36.0-66.0) % Immature Gran % (Auto) (0.00-0.4) % Nucleat RBC Rel Count (0.00-0.1) % Eos # (Auto) (0-0.5) x10^3/uL Immature Gran # (Auto) (0.00-0.03) x10^3u/L Absolute Lymphs (auto) (1.0-4.6) x10^3/uL Absolute Monos (auto) (0.0-1.3) x10^3/uL Absolute Nucleated RBC (0.00-0.01) x10^3u/L Lymphocytes % (24.0-44.0) % Monocytes % (0.0-12.0) % Eosinophils % (0.00-5.0) % Basophils % (0.0-0.4) % Absolute Granulocytes (1.4-6.9) x10^3/uL Basophils # (0-0.4) x10^3/uL Sodium (137-145) mmol/L Potassium (3.5-5.1) mmol/L Chloride (98-107) mmol/L Carbon Dioxide (22-30) mmol/L Anion Gap (5-15) MEQ/L BUN (7-17) mg/dL Creatinine (0.52-1.04) mg/dL Estimated GFR ML/MIN Glucose (74-106) mg/dL POC Glucometer 285 H 566 H* 97 (74 to 106) mg/dL Calcium (8.4-10.2) mg/dL Total Bilirubin (0.2-1.3) mg/dL AST (14-36) U/L ALT (0-35) U/L Alkaline Phosphatase (38-126) U/L Serum Total Protein (6.3-8.2) g/dL Albumin (3.5-5.0) g/dL 05/06/22 05/06/22 05/06/22 Range/Units 16:52 19:50 23:49 WBC (4.0-10.5) x10^3/uL RBC (4.1-5.4) x10^6/uL Hgb (12.0-16.0) g/dL Hct (35-47) % MCV (78-100) fL MCH (26-32) pg MCHC (32-36) g/dL RDW (11.5-14.0) % Plt Count (150-450) x10^3/uL MPV (7.5-11.0) fL Gran % (36.0-66.0) % Immature Gran % (Auto) (0.00-0.4) % Nucleat RBC Rel Count (0.00-0.1) % Eos # (Auto) (0-0.5) x10^3/uL Immature Gran # (Auto) (0.00-0.03) x10^3u/L Absolute Lymphs (auto) (1.0-4.6) x10^3/uL Absolute Monos (auto) (0.0-1.3) x10^3/uL Absolute Nucleated RBC (0.00-0.01) x10^3u/L Lymphocytes % (24.0-44.0) % Monocytes % (0.0-12.0) % Eosinophils % (0.00-5.0) % Basophils % (0.0-0.4) % Absolute Granulocytes (1.4-6.9) x10^3/uL Basophils # (0-0.4) x10^3/uL Sodium (137-145) mmol/L Potassium (3.5-5.1) mmol/L Chloride (98-107) mmol/L Carbon Dioxide (22-30) mmol/L Anion Gap (5-15) MEQ/L BUN (7-17) mg/dL Creatinine (0.52-1.04) mg/dL Estimated GFR ML/MIN Glucose (74-106) mg/dL POC Glucometer 53 L 429 H 241 H (74 to 106) mg/dL Calcium (8.4-10.2) mg/dL Total Bilirubin (0.2-1.3) mg/dL AST (14-36) U/L ALT (0-35) U/L Alkaline Phosphatase (38-126) U/L Serum Total Protein (6.3-8.2) g/dL Albumin (3.5-5.0) g/dL 05/07/22 05/07/22 05/07/22 Range/Units 04:03 07:38 08:11 WBC 3.6 L (4.0-10.5) x10^3/uL RBC 3.83 L (4.1-5.4) x10^6/uL Hgb 12.0 (12.0-16.0) g/dL Hct 39.2 (35-47) % MCV 102.3 H (78-100) fL MCH 31.3 (26-32) pg MCHC 30.6 L (32-36) g/dL RDW 14.3 H (11.5-14.0) % Plt Count 184 (150-450) x10^3/uL MPV 10.3 (7.5-11.0) fL Gran % 35.6 L (36.0-66.0) % Immature Gran % (Auto) 0.3 (0.00-0.4) % Nucleat RBC Rel Count 0.0 (0.00-0.1) % Eos # (Auto) 0.17 (0-0.5) x10^3/uL Immature Gran # (Auto) 0.01 (0.00-0.03) x10^3u/L Absolute Lymphs (auto) 1.89 (1.0-4.6) x10^3/uL Absolute Monos (auto) 0.22 (0.0-1.3) x10^3/uL Absolute Nucleated RBC 0.00 (0.00-0.01) x10^3u/L Lymphocytes % 52.5 H (24.0-44.0) % Monocytes % 6.1 (0.0-12.0) % Eosinophils % 4.7 (0.00-5.0) % Basophils % 0.8 (0.0-0.4) % Absolute Granulocytes 1.28 L (1.4-6.9) x10^3/uL Basophils # 0.03 (0-0.4) x10^3/uL Sodium (137-145) mmol/L Potassium (3.5-5.1) mmol/L Chloride (98-107) mmol/L Carbon Dioxide (22-30) mmol/L Anion Gap (5-15) MEQ/L BUN (7-17) mg/dL Creatinine (0.52-1.04) mg/dL Estimated GFR ML/MIN Glucose (74-106) mg/dL POC Glucometer 366 H 249 H (74 to 106) mg/dL Calcium (8.4-10.2) mg/dL Total Bilirubin (0.2-1.3) mg/dL AST (14-36) U/L ALT (0-35) U/L Alkaline Phosphatase (38-126) U/L Serum Total Protein (6.3-8.2) g/dL Albumin (3.5-5.0) g/dL 05/07/22 Range/Units 08:11 WBC (4.0-10.5) x10^3/uL RBC (4.1-5.4) x10^6/uL Hgb (12.0-16.0) g/dL Hct (35-47) % MCV (78-100) fL MCH (26-32) pg MCHC (32-36) g/dL RDW (11.5-14.0) % Plt Count (150-450) x10^3/uL MPV (7.5-11.0) fL Gran % (36.0-66.0) % Immature Gran % (Auto) (0.00-0.4) % Nucleat RBC Rel Count (0.00-0.1) % Eos # (Auto) (0-0.5) x10^3/uL Immature Gran # (Auto) (0.00-0.03) x10^3u/L Absolute Lymphs (auto) (1.0-4.6) x10^3/uL Absolute Monos (auto) (0.0-1.3) x10^3/uL Absolute Nucleated RBC (0.00-0.01) x10^3u/L Lymphocytes % (24.0-44.0) % Monocytes % (0.0-12.0) % Eosinophils % (0.00-5.0) % Basophils % (0.0-0.4) % Absolute Granulocytes (1.4-6.9) x10^3/uL Basophils # (0-0.4) x10^3/uL Sodium 135 L (137-145) mmol/L Potassium 4.0 (3.5-5.1) mmol/L Chloride 104 (98-107) mmol/L Carbon Dioxide 27 (22-30) mmol/L Anion Gap 8.0 (5-15) MEQ/L BUN 16 (7-17) mg/dL Creatinine 0.44 L (0.52-1.04) mg/dL Estimated GFR > 60.0 ML/MIN Glucose 282 H (74-106) mg/dL POC Glucometer (74 to 106) mg/dL Calcium 8.5 (8.4-10.2) mg/dL Total Bilirubin 0.60 (0.2-1.3) mg/dL AST 43 H (14-36) U/L ALT 121 H (0-35) U/L Alkaline Phosphatase 139 H (38-126) U/L Serum Total Protein 6.1 L (6.3-8.2) g/dL Albumin 3.9 (3.5-5.0) g/dL Micro Results-Entire Visit: Microbiology 05/01/22 02:50 Blood Culture Gram Stain - Final Blood Not Reportable Blood Culture - Final NO GROWTH 05/01/22 03:00 Blood Culture Gram Stain - Final Blood Not Reportable Blood Culture - Final NO GROWTH 05/01/22 09:15 Urine Culture - Final Clean Catch Midstream <10K NORMAL SKIN RADHA PROBABLE SKIN CONTAMINANT Accuchecks Date 05/07/22 Date 05/06/22 Date 05/06/22 Date 05/06/22 Time 07:40 Time 20:03 Time 16:47 Time 12:32 - Procedures and Test Procedures and Tests throughout Hospitalization: Therapy Orders & Screens 05/01/22 08:30 Respiratory Therapy Assessment DAILY Comment: Diagnosis: DKA, hydronephrosis 05/01/22 10:43 RT Screen per Nursing Assess ONCE Comment: Protocol Order Physician Instructions: Greater than 3 points order RT Admission Screen Reason For Exam: Triggered on Admission Diagnosis: DKA, hydronephrosis Diagnosis: DKA, hydronephrosis Pneumonia: No Home O2: No Asthma: Yes CHF: No Home CPAP/BIPAP: No Home Nebs/MDI: Yes Total Points: 9 Discharge Exam General Appearance: no apparent distress, alert Neurologic Exam: oriented x 3, cooperative Eye Exam: eyes nml inspection Ears, Nose, Throat Exam: pharynx normal, moist mucous membranes Neck Exam: normal inspection Respiratory Exam: normal breath sounds, lungs clear, No crackles/rales, No rhonchi, No wheezing Cardiovascular Exam: regular rate/rhythm, normal heart sounds, No murmur Gastrointestinal/Abdomen Exam: soft, normal bowel sounds, tenderness (generalized, mild ttp/nausea) Extremity Exam: normal inspection, No pedal edema, No swelling Skin Exam: normal color, warm, dry Final Diagnosis/Problem List - Final Discharge Diagnosis/Problem (1) DM I (diabetes mellitus, type I) Current Visit: No Status: Chronic Assessment & Plan: Extremely brittle. Has remained very brittle here even with close observation. Will discharge pt straight to endocrinology office today. (2) Hyponatremia Current Visit: No Status: Chronic Code(s): E87.1 - HYPO-OSMOLALITY AND HYPONATREMIA (3) Acute sinusitis Current Visit: Yes Status: Resolved Assessment & Plan: Was initially treated with rocephin. Doing well now. Code(s): J01.90 - ACUTE SINUSITIS, UNSPECIFIED (4) Hypotension Current Visit: Yes Status: Acute Assessment & Plan: also labile hypertension; stopped the midodrine. Will want to hold for BP >130 systolic. Taking clonidine here and at home prn elevated blood pressures. Code(s): I95.9 - HYPOTENSION, UNSPECIFIED - Discharge Disposition: Home, Self-Care Condition: Stable Prescriptions: New Lactobacillus Acidophilus [Acidophilus TABLET] 1 tab PO TID tablet Continue Promethazine HCl 25 mg [Phenergan 25 mg] 25 mg PO Q4-6HPRN PRN PRN Reason: Nausea AMITRIPTYLINE HCL 50 mg Tab [AMITRIPTYLINE HCL 50 mg Tablet] 50 mg PO HS Atomoxetine HCl [Strattera] 60 mg PO DAILY Apixaban [Eliquis 5 mg Tablet] 5 mg PO BID Folic Acid 1 mg [Folate 1 mg] 1 mg PO DAILY Dexlansoprazole [Dexlansoprazole Dr] 60 mg PO DAILY Gabapentin [Neurontin] 600 mg PO QID Ropinirole HCl 0.5 mg [Requip 0.5 MG] 0.5 mg PO HS Metoclopramide HCl 10 mg PO QID Lidocaine/Transparent Dressing [Lidocaine 4% Kit] 1 each TP DAILY PRN PRN PRN Reason: Pain Levothyroxine Sodium 25 mcg PO QAM Sucralfate 1 gm PO QID Furosemide 20 mg [Lasix 20 mg] 20 mg PO DAILY Mirtazapine 15 mg PO HS Ipratropium/Albuterol Sulfate [Combivent Respimat Inhal [place]] 1 inh PO DAILY Baclofen 20 mg PO QID Escitalopram Oxalate [Lexapro] 20 mg PO 1700 Ferrous Sulfate 325 mg PO TID Multivitamin 1 tab PO DAILY Montelukast Sodium 10 mg [Singulair 10 MG] 10 mg PO DAILY Biotin 5,000 mcg PO DAILY Omeprazole 20 mg PO DAILY PRN PRN PRN Reason: heartburn hydrOXYzine HCL [Hydroxyzine HCl] 50 mg PO HS PRN PRN PRN Reason: Insomnia Diclofenac Epolamine 1 patch TOP Q12H PRN PRN PRN Reason: Pain Mirtazapine 15 mg PO HS PRN PRN PRN Reason: Insomnia Topiramate 50 mg PO QHS Atomoxetine HCl [Strattera] 40 mg PO LUNCH Budesonide/Formoterol Fumarate [Budesonide-Formoterol 160-4.5] 2 puff IH BID Albuterol Sulfate [Albuterol Sulfate Hfa] 2 puff IH DAILY PRN PRN PRN Reason: Shortness Of Breath Albuterol 2.5 mg/3 ml Neb [Proventil 2.5 mg/3 ml Neb] 1 neb IH DAILY PRN PRN PRN Reason: Shortness Of Breath Simethicone 80 mg [Mylicon 80MG] 80 mg PO QID PRN PRN tablet PRN Reason: Gas Lipase/Protease/Amylase [Gina Cortes 36,000 Unit Capsule] 2 cap PO AC Erythromycin Base [Erythromycin] 250 mg PO BID ondansetron HCL [Ondansetron HCl] 4 mg PO Q6H PRN PRN PRN Reason: Nausea Midodrine HCl 10 mg PO TID Buspirone HCl 5 mg [Buspar 5 mg] 10 mg PO QHS Lipase/Protease/Amylase [Gina Cortes 36,000 Unit Capsule] 1 cap PO TID PRN Follow up with: UMNA VALENCIA NP [NON-STAFF PHY W/O PRIVILEGES] -
== END 2022-05-07 11:12 | disposition home or self-care (01) | DRG 638 ==
LOC: ED 02:28 → ICU 05:56 → OBSVTOIN 14:43
PROVIDERS: ADMIT Family Medicine; ATTEND Family Medicine
DX: E10.10 Type 1 diabetes mellitus with ketoacidosis without coma (principal); E87.1 Hypo-osmolality and hyponatremia; E10.65 Type 1 diabetes mellitus with hyperglycemia; J01.90 Acute sinusitis, unspecified; I95.9 Hypotension, unspecified; I25.10 Atherosclerotic heart disease of native coronary artery without angina pectoris; I25.2 Old myocardial infarction; N28.9 Disorder of kidney and ureter, unspecified; F19.90 Other psychoactive substance use, unspecified, uncomplicated; Z79.899 Other long term (current) drug therapy; Z20.828 Contact with and (suspected) exposure to other viral communicable diseases; Z79.01 Long term (current) use of anticoagulants
CPT/HCPCS: 0241U; 36000; 36415; 74176; 80048; 80053; 81015; 81025; 82805; 82947; 83605; 83690; 83735; 83930; 84100; 84484; 85025; 85610; 85730; 87040; 87086; 90686; 93005; 93041; 93268; 94640; 94760; 96374; 96375; 99285; G0008; J0696; J1815; J1817; J2405; J3480; Q0162; A9270-GY

== ENCOUNTER 2022-06-23 05:31 | Observation (INO) | payer OTHER ==
[2022-06-23] MEDS ORDERED: Sodium Chloride 0.9% 1000 ML 1,000 ML IV STA (06:24)
[2022-06-23] MEDS ORDERED: Sodium Chloride 0.9% 1000 ML 1,000 ML ONE ×2 (06:35→09:27)
[2022-06-23 06:40] LABS: Basophil (Absolute #) 0.02 x10^3/uL (0-0.4); Eosinophil % 0.2 % (0.00-5.0); Eosinophil (Absolute #) 0.01 x10^3/uL (0-0.5); Hematocrit 37.3 % (35-47); Hemoglobin 11.8 g/dL (12.0-16.0); Lymphocyte (Absolute #) 0.72 x10^3/uL (1.0-4.6); Lymphocytes % 12.7 % (24.0-44.0); Mean Cell Volume 101.6 fL (78-100); Mean Corpuscular Hemoglobin 32.2 pg (26-32); Mean Corpuscular Hgb Concent. 31.6 g/dL (32-36); Mean Platelet Volume 10.9 fL (7.5-11.0); Monocyte (Absolute #) 0.53 x10^3/uL (0.0-1.3); Monocytes % 9.3 % (0.0-12.0); Neutrophil % 77.2 % (36.0-66.0); Platelet Count 200 x10^3/uL (150-450); Red Blood Count 3.67 x10^6/uL (4.1-5.4); Red Cell Distribution Width 13.6 % (11.5-14.0); White Blood Count 5.7 x10^3/uL (4.0-10.5)
--- NOTE | 2022-06-23 06:46 | ERPHSYRPT ---
- History of Present Illness Source: patient, EMS Exam Limitations: no limitations Patient Subjective Stated Complaint: fall in bathroom, hit head on shower, did not lose consciouness. headache, hyperglycemia Triage Nursing Assessment: pt brought in my ambulance, pt ambulated from cot to bed. Pt alert and oriented x4, pleasant and cooperative. Pt was up to bathroom, was sitting on toilet, stood up to flush toilet and lost balance. Pt fell over toilet, hit her head on the shower but did not lose consciousness. Pt c/o headache. Pt c/o soreness to back, arms, legs due to fall, describes as aching and cramping. Timing/Duration: today, sudden Severity: moderate Associated Symptoms: nausea, headaches, malaise, weakness, No vomiting, No abdominal pain, No shortness of breath Hx Tetanus, Diphtheria Vaccination/Date Given: Yes Hx Influenza Vaccination/Date Given: Yes Hx Pneumococcal Vaccination/Date Given: No Immunizations Up to Date: Yes <CAMERON ESCALERA - Last Filed: 06/23/22 06:41> <PREMA CHAN - Last Filed: 06/23/22 09:41> - History of Present Illness Time Seen by Provider: 06/23/22 06:18 Physician History: 41-year-old type I diabetic who changed her insulin pump site last night and it was probably not working well with reading of high blood sugar. She was feeling weak fatigued tired, slightly dizzy and went to the bathroom, where she got lightheaded and fell hitting her head without loss of consciousness. She is complaining of mild to moderate headache without numbness tingling or weakness. Per patient her blood sugar is improving and it was 430s prior to arrival. She has nausea but no abdominal pain or vomiting. Denies any chest pain palpitations or shortness of breath. (CAMERON ESCALERA) Allergies/Adverse Reactions: dicyclomine [From Bentyl] Allergy (Verified 06/23/22 05:45) grapefruit Allergy (Verified 06/23/22 05:45) Swelling Home Medications: AMITRIPTYLINE HCL 50 mg Tab [AMITRIPTYLINE HCL 50 mg Tablet] 50 mg PO HS 12/05/21 [History] Apixaban [Eliquis 5 mg Tablet] 5 mg PO BID 12/05/21 [History] Atomoxetine HCl [Strattera] 60 mg PO DAILY 12/05/21 [History] Baclofen 20 mg PO QID 12/05/21 [History] Dexlansoprazole [Dexlansoprazole Dr] 60 mg PO DAILY 12/05/21 [History] Escitalopram Oxalate [Lexapro] 20 mg PO 1700 12/05/21 [History] Ferrous Sulfate 325 mg PO TID 12/05/21 [History] Folic Acid 1 mg [Folate 1 mg] 1 mg PO DAILY 12/05/21 [History] Furosemide 20 mg [Lasix 20 mg] 20 mg PO DAILY 12/05/21 [History] Gabapentin [Neurontin] 600 mg PO QID 12/05/21 [History] Ipratropium/Albuterol Sulfate [Combivent Respimat Inhal Dumas] 1 inh PO DAILY 12/05/21 [History] Levothyroxine Sodium 25 mcg PO QAM 12/05/21 [History] Lidocaine/Transparent Dressing [Lidocaine 4% Kit] 1 each TP DAILY PRN PRN 12/05/21 [History] Metoclopramide HCl 10 mg PO QID 12/05/21 [History] Mirtazapine 15 mg PO HS 12/05/21 [History] Promethazine HCl 25 mg [Phenergan 25 mg] 25 mg PO Q4-6HPRN PRN 12/05/21 [History] Ropinirole HCl 0.5 mg [Requip 0.5 MG] 0.5 mg PO HS 12/05/21 [History] Sucralfate 1 gm PO QID 12/05/21 [History] Albuterol 2.5 mg/3 ml Neb [Proventil 2.5 mg/3 ml Neb] 1 neb IH DAILY PRN PRN 03/17/22 [History] Albuterol Sulfate [Albuterol Sulfate Hfa] 2 puff IH DAILY PRN PRN 03/17/22 [History] Atomoxetine HCl [Strattera] 40 mg PO LUNCH 03/17/22 [History] Biotin 5,000 mcg PO DAILY 03/17/22 [History] Budesonide/Formoterol Fumarate [Budesonide-Formoterol 160-4.5] 2 puff IH BID 03/17/22 [History] Diclofenac Epolamine 1 patch TOP Q12H PRN PRN 03/17/22 [History] Mirtazapine 15 mg PO HS PRN PRN 03/17/22 [History] Montelukast Sodium 10 mg [Singulair 10 MG] 10 mg PO DAILY 03/17/22 [History] Multivitamin 1 tab PO DAILY 03/17/22 [History] Omeprazole 20 mg PO DAILY PRN PRN 03/17/22 [History] Topiramate 50 mg PO QHS 03/17/22 [History] hydrOXYzine HCL [Hydroxyzine HCl] 50 mg PO HS PRN PRN 03/17/22 [History] Buspirone HCl 5 mg [Buspar 5 mg] 10 mg PO QHS 05/01/22 [History] Erythromycin Base [Erythromycin] 250 mg PO BID 05/01/22 [History] Lipase/Protease/Amylase [Gina Cortes 36,000 Unit Capsule] 1 cap PO TID PRN 05/01/22 [History] Lipase/Protease/Amylase [Gina Cortes 36,000 Unit Capsule] 2 cap PO AC 05/01/22 [History] Midodrine HCl 10 mg PO TID 05/01/22 [History] ondansetron HCL [Ondansetron HCl] 4 mg PO Q6H PRN PRN 05/01/22 [History] Travel Risk - International Travel Have you traveled outside of the country in past 3 weeks: No - Coronavirus Screening Are you exhibiting any of the following symptoms?: Yes Symptoms: Shortness of Breath, Headaches/Body Aches/Fatigue Close contact with a COVID-19 positive Pt in past 14-21 Days: No - Vaccine Status Have you recieved a Covid-19 vaccination: No <CAMERON ESCALERA - Last Filed: 06/23/22 06:41> - Review of Systems Constitutional: Fatigue, Weakness Eyes: No Symptoms Ears, Nose, & Throat: No Symptoms Respiratory: No Symptoms Cardiac: No Symptoms Abdominal/Gastrointestinal: Nausea Genitourinary Symptoms: No Symptoms Musculoskeletal: No Symptoms Skin: No Symptoms Neurological: Headache Psychological: No Symptoms Endocrine: No Symptoms Hematologic/Lymphatic: No Symptoms Immunological/Allergic: No Symptoms <ISAAC ESCALERAR - Last Filed: 06/23/22 06:41> - Past Medical History Pertinent Past Medical History: Yes Neurological History: Migraines ENT History: No Pertinent History Cardiac History: Coronary Artery Disease, Deep Vein Thrombosis, Myocardial Infarction ([place]) Respiratory History: Asthma, Pneumonia, Pulmonary Embolism Endocrine Medical History: Diabetes Type I Musculoskeletal History: No Pertinent History GI Medical History: GERD, GI Bleed, Other History: Renal Disease Psycho-Social History: Anxiety, Attention Deficit Disorder, Depression, Other Female Reproductive Disorders: No Pertinent History Other Medical History: sepsis 2020, ptsd, chronic pain syndrome, gastric paresis, hypotension. carpal tunnel bilateral and trigger finger left hand, kidney stones - Past Surgical History Past Surgical History: Yes Neuro Surgical History: No Pertinent History Cardiac: Cardiac Catheterization, Cardiac Stent Respiratory: No Pertinent History Gastrointestinal: Appendectomy, Cholecystectomy Genitourinary: No Pertinent History Musculoskeletal: Orthopedic Surgery Female Surgical History: No Pertinent History Other Surgical History: left foot, right shoulder. uvula removed. gastric bypass - Social History Smoking Status: Never smoker Exposure to second hand smoke: Yes (not for last year) Drug Use: none Patient Lives Alone: No Significant Family History: no pertinent family hx - Female History Hx Now: No <LALI,CAMERON - Last Filed: 06/23/22 06:41> - Physical Exam General Appearance: no apparent distress, alert Eye Exam: PERRL/EOMI Ears, Nose, Throat Exam: normal ENT inspection, TMs normal, pharynx normal, moist mucous membranes Neck Exam: normal inspection, non-tender, supple, full range of motion Respiratory Exam: normal breath sounds, lungs clear Cardiovascular Exam: regular rate/rhythm, normal heart sounds Gastrointestinal/Abdomen Exam: soft, normal bowel sounds, No tenderness Back Exam: normal inspection, normal range of motion Extremity Exam: normal inspection, normal range of motion, pelvis stable Neurologic Exam: alert, oriented x 3, cooperative, physician general internal medicine II-XII nml as tested, normal mood/affect, sensation nml, No motor deficits Skin Exam: normal color SpO2 Interpretation: normal SpO2: 98 O2 Delivery: Room Air <LALI,CAMERON - Last Filed: 06/23/22 06:41> - Nursing Vital Signs Nursing Vital Signs: Initial Vital Signs Temperature 97.6 F 06/23/22 05:35 Pulse Rate 104 H 06/23/22 05:35 Respiratory Rate 18 06/23/22 05:35 Blood Pressure 98/60 06/23/22 05:35 O2 Sat by Pulse Oximetry 98 06/23/22 05:35 Pain Scale Pain Intensity 6 - Course Nursing assessment & vital signs reviewed: Yes - CT Exams Head CT Interpretation: Tele-radiologist Report (CT head neg) Cervical Spine CT Interpretation: Tele-radiologist Report (CT C-spine neg per Telerad) <PREMA CHAN - Last Filed: 06/23/22 09:41> Ordered Tests: Active Orders 24 hr Category Date Time Status EKG-ER Only STAT Care 06/23/22 06:24 Active IV Insertion STAT Care 06/23/22 06:24 Active POCT Glucose Check STAT Care 06/23/22 06:24 Active CERVICAL SPINE WO CONTRAST [CT] Stat Exams 06/23/22 06:25 Completed HEAD WITHOUT CONTRAST [CT] Stat Exams 06/23/22 06:25 Completed BMP Stat Lab 06/23/22 09:22 Ordered CBC W DIFF Stat Lab 06/23/22 06:08 Completed CMP Stat Lab 06/23/22 06:08 Completed Lactic Acid Stat Lab 06/23/22 09:20 Received Lactic Acid Urgent Lab 06/23/22 06:24 Completed MAGNESIUM Stat Lab 06/23/22 06:08 Completed POCT GLUCOSE Stat Lab 06/23/22 06:17 Received POCT GLUCOSE Stat Lab 06/23/22 09:08 Completed UA W/RFX CULTURE Stat Lab 06/23/22 09:12 Completed VBG [VENOUS BLOOD GAS] Stat Lab 06/23/22 06:48 Completed Medication Summary Generic Name Dose Route Start Last Admin Trade Name Freq PRN Reason Stop Dose Admin Insulin Human Regular 100 unit 100 mls @ 7.22 mls/hr 06/23/22 07:57 / Sodium Chloride IV 07/23/22 07:56 .[id number] PRN DKA/HYPERGLYCEMIA Protocol 0.1 UNIT/KG/HR Sodium Chloride 1,000 mls @ 150 mls/hr 06/23/22 09:15 Sodium Chloride 0.9% 1000 Ml IV 07/23/22 09:14 .[id number] TRACY Discontinued Medications Generic Name Dose Route Start Last Admin Trade Name Freq PRN Reason Stop Dose Admin Baclofen 10 mg 06/23/22 08:15 06/23/22 08:29 Baclofen 10 Mg Tablet PO 06/23/22 08:16 10 mg ONCE ONE Administration Diphtheria/Tetanus/Acell Pertussis Confirm 06/23/22 08:36 Tdap --Diph,Pertuss(Acell),Tet Vac/Pf 0.5 Ml Vial Administered 06/23/22 08:37 Dose 0.5 ml IM .STK-MED ONE Sodium Chloride 1,000 mls @ 999 mls/hr 06/23/22 06:24 06/23/22 07:48 Sodium Chloride 0.9% 1000 Ml IV 06/23/22 07:24 Infused .Q1H1M STA Infusion Sodium Chloride Confirm 06/23/22 06:35 Sodium Chloride 0.9% 1000 Ml Administered 06/23/22 06:36 Dose 1,000 mls @ ud .ROUTE .STK-MED ONE Insulin Human Regular 10 unit 06/23/22 07:22 06/23/22 07:35 Insulin Regular, Human 1 Unit IV 06/23/22 07:23 10 unit STAT ONE Administration Insulin Human Regular 10 unit 06/23/22 07:23 06/23/22 07:37 Insulin Regular, Human 1 Unit SQ 06/23/22 07:24 10 unit STAT ONE Administration Insulin Human Regular Confirm 06/23/22 07:37 Insulin Regular, Human 1 Unit Administered 06/23/22 07:38 Dose 20 unit .ROUTE .STK-MED ONE Ketorolac Tromethamine Confirm 06/23/22 08:36 Ketorolac Tromethamine 30 Mg/Ml Inj Administered 06/23/22 08:37 Dose 30 mg .ROUTE .STK-MED ONE Lab/Rad Data: Laboratory Result Diagrams 06/23/22 06:08 06/23/22 06:08 Laboratory Results 06/23/22 06/23/22 06/23/22 Range/Units 09:12 09:08 08:18 WBC (4.0-10.5) x10^3/uL RBC (4.1-5.4) x10^6/uL Hgb (12.0-16.0) g/dL Hct (35-47) % MCV (78-100) fL MCH (26-32) pg MCHC (32-36) g/dL RDW (11.5-14.0) % Plt Count (150-450) x10^3/uL MPV (7.5-11.0) fL Gran % (36.0-66.0) % Immature Gran % (Auto) (0.00-0.4) % Nucleat RBC Rel Count (0.00-0.1) % Eos # (Auto) (0-0.5) x10^3/uL Immature Gran # (Auto) (0.00-0.03) x10^3u/L Absolute Lymphs (auto) (1.0-4.6) x10^3/uL Absolute Monos (auto) (0.0-1.3) x10^3/uL Absolute Nucleated RBC (0.00-0.01) x10^3u/L Lymphocytes % (24.0-44.0) % Monocytes % (0.0-12.0) % Eosinophils % (0.00-5.0) % Basophils % (0.0-0.4) % Absolute Granulocytes (1.4-6.9) x10^3/uL Basophils # (0-0.4) x10^3/uL pO2/FiO2 Ratio % VBG pH (7.32-7.42) VBG pCO2 at Pat Temp (42-55) mm/Hg VBG pO2 at Pat Temp (25-40) mm/Hg VBG HCO3 (22-28) meq/L VBG O2 Sat (Foreign) (95-100) VBG Base Excess (-2.0-2.0) VBG Hemoglobin VBG Carboxyhemoglobin (0.0-6.9) % T HGB POC Potassium (3.5-5.1) Sodium (137-145) mmol/L Potassium (3.5-5.1) mmol/L Chloride (98-107) mmol/L Carbon Dioxide (22-30) mmol/L Anion Gap (5-15) MEQ/L BUN (7-17) mg/dL Creatinine (0.52-1.04) mg/dL Estimated GFR ML/MIN Glucose (74-106) mg/dL POC Glucometer 562 H* (50 to 500) mg/dL Lactic Acid (0.4-2.0) Calcium (8.4-10.2) mg/dL Magnesium (1.6-2.3) mg/dL Total Bilirubin (0.2-1.3) mg/dL AST (14-36) U/L ALT (0-35) U/L Alkaline Phosphatase (38-126) U/L Serum Total Protein (6.3-8.2) g/dL Albumin (3.5-5.0) g/dL Urinalys Dipstick Clnc MAIN LAB Urine Color YELLOW (YELLOW) Urine Appearance CLEAR (CLEAR) Urine pH 5.0 (5-6) Ur Specific [place] 1.015 (1.005-1.025) POC Urine Protein Conf NEGATIVE (Negative) Urine Ketones MODERATE-40 A (NEGATIVE) Urine Nitrite NEGATIVE (NEGATIVE) Urine Bilirubin NEGATIVE (NEGATIVE) Urine Urobilinogen 0.2 (0-1) mg/dL Urine Leukocytes NEGATIVE (NEGATIVE) Urine WBC (Auto) NONE (0-5) /HPF Urine RBC (Auto) 0-2 (0-2) /HPF U Epithel Cells (Auto) RARE (FEW) /HPF Urine Bacteria (Auto) RARE (NEGATIVE) /HPF Urine RBC NEGATIVE (0-5) Mahamed/ul Ur Culture Indicated? NO Urine Glucose >=1000 A (NEGATIVE) mg/dL Influenza Type A Ag NEGATIVE (NEGATIVE) Influenza Type B Ag NEGATIVE (NEGATIVE) RSV (PCR) NEGATIVE (Negative) SARS-CoV-2 (PCR) NEGATIVE (NEGATIVE) 06/23/22 06/23/22 06/23/22 Range/Units 06:48 06:24 06:08 WBC (4.0-10.5) x10^3/uL RBC (4.1-5.4) x10^6/uL Hgb (12.0-16.0) g/dL Hct (35-47) % MCV (78-100) fL MCH (26-32) pg MCHC (32-36) g/dL RDW (11.5-14.0) % Plt Count (150-450) x10^3/uL MPV (7.5-11.0) fL Gran % (36.0-66.0) % Immature Gran % (Auto) (0.00-0.4) % Nucleat RBC Rel Count (0.00-0.1) % Eos # (Auto) (0-0.5) x10^3/uL Immature Gran # (Auto) (0.00-0.03) x10^3u/L Absolute Lymphs (auto) (1.0-4.6) x10^3/uL Absolute Monos (auto) (0.0-1.3) x10^3/uL Absolute Nucleated RBC (0.00-0.01) x10^3u/L Lymphocytes % (24.0-44.0) % Monocytes % (0.0-12.0) % Eosinophils % (0.00-5.0) % Basophils % (0.0-0.4) % Absolute Granulocytes (1.4-6.9) x10^3/uL Basophils # (0-0.4) x10^3/uL pO2/FiO2 Ratio 21.0 % VBG pH 7.34 (7.32-7.42) VBG pCO2 at Pat Temp 30 L (42-55) mm/Hg VBG pO2 at Pat Temp 51 H (25-40) mm/Hg VBG HCO3 16.2 L* (22-28) meq/L VBG O2 Sat (Foreign) 80.6 L (95-100) VBG Base Excess -8.4 L (-2.0-2.0) VBG Hemoglobin 12.6 VBG Carboxyhemoglobin 0.9 (0.0-6.9) % T HGB POC Potassium 5.4 H (3.5-5.1) Sodium 122 L (137-145) mmol/L Potassium 5.2 H (3.5-5.1) mmol/L Chloride 92 L (98-107) mmol/L Carbon Dioxide 18 L (22-30) mmol/L Anion Gap 16.7 H (5-15) MEQ/L BUN 24 H (7-17) mg/dL Creatinine 1.35 H (0.52-1.04) mg/dL Estimated GFR 45.9 ML/MIN Glucose 1002 H* (74-106) mg/dL POC Glucometer (50 to 500) mg/dL Lactic Acid 2.1 H (0.4-2.0) Calcium 7.8 L (8.4-10.2) mg/dL Magnesium 2.8 H (1.6-2.3) mg/dL Total Bilirubin 0.40 (0.2-1.3) mg/dL AST 27 (14-36) U/L ALT 57 H (0-35) U/L Alkaline Phosphatase 209 H (38-126) U/L Serum Total Protein 5.2 L (6.3-8.2) g/dL Albumin 3.4 L (3.5-5.0) g/dL Urinalys Dipstick Clnc Urine Color (YELLOW) Urine Appearance (CLEAR) Urine pH (5-6) Ur Specific [place] (1.005-1.025) POC Urine Protein Conf (Negative) Urine Ketones (NEGATIVE) Urine Nitrite (NEGATIVE) Urine Bilirubin (NEGATIVE) Urine Urobilinogen (0-1) mg/dL Urine Leukocytes (NEGATIVE) Urine WBC (Auto) (0-5) /HPF Urine RBC (Auto) (0-2) /HPF U Epithel Cells (Auto) (FEW) /HPF Urine Bacteria (Auto) (NEGATIVE) /HPF Urine RBC (0-5) Mahamed/ul Ur Culture Indicated? Urine Glucose (NEGATIVE) mg/dL Influenza Type A Ag (NEGATIVE) Influenza Type B Ag (NEGATIVE) RSV (PCR) (Negative) SARS-CoV-2 (PCR) (NEGATIVE) 06/23/22 Range/Units 06:08 WBC 5.7 (4.0-10.5) x10^3/uL RBC 3.67 L (4.1-5.4) x10^6/uL Hgb 11.8 L (12.0-16.0) g/dL Hct 37.3 (35-47) % MCV 101.6 H (78-100) fL MCH 32.2 H (26-32) pg MCHC 31.6 L (32-36) g/dL RDW 13.6 (11.5-14.0) % Plt Count 200 (150-450) x10^3/uL MPV 10.9 (7.5-11.0) fL Gran % 77.2 H (36.0-66.0) % Immature Gran % (Auto) 0.2 (0.00-0.4) % Nucleat RBC Rel Count 0.0 (0.00-0.1) % Eos # (Auto) 0.01 (0-0.5) x10^3/uL Immature Gran # (Auto) 0.01 (0.00-0.03) x10^3u/L Absolute Lymphs (auto) 0.72 L (1.0-4.6) x10^3/uL Absolute Monos (auto) 0.53 (0.0-1.3) x10^3/uL Absolute Nucleated RBC 0.00 (0.00-0.01) x10^3u/L Lymphocytes % 12.7 L (24.0-44.0) % Monocytes % 9.3 (0.0-12.0) % Eosinophils % 0.2 (0.00-5.0) % Basophils % 0.4 (0.0-0.4) % Absolute Granulocytes 4.40 (1.4-6.9) x10^3/uL Basophils # 0.02 (0-0.4) x10^3/uL pO2/FiO2 Ratio % VBG pH (7.32-7.42) VBG pCO2 at Pat Temp (42-55) mm/Hg VBG pO2 at Pat Temp (25-40) mm/Hg VBG HCO3 (22-28) meq/L VBG O2 Sat (Foreign) (95-100) VBG Base Excess (-2.0-2.0) VBG Hemoglobin VBG Carboxyhemoglobin (0.0-6.9) % T HGB POC Potassium (3.5-5.1) Sodium (137-145) mmol/L Potassium (3.5-5.1) mmol/L Chloride (98-107) mmol/L Carbon Dioxide (22-30) mmol/L Anion Gap (5-15) MEQ/L BUN (7-17) mg/dL Creatinine (0.52-1.04) mg/dL Estimated GFR ML/MIN Glucose (74-106) mg/dL POC Glucometer (50 to 500) mg/dL Lactic Acid (0.4-2.0) Calcium (8.4-10.2) mg/dL Magnesium (1.6-2.3) mg/dL Total Bilirubin (0.2-1.3) mg/dL AST (14-36) U/L ALT (0-35) U/L Alkaline Phosphatase (38-126) U/L Serum Total Protein (6.3-8.2) g/dL Albumin (3.5-5.0) g/dL Urinalys Dipstick Clnc Urine Color (YELLOW) Urine Appearance (CLEAR) Urine pH (5-6) Ur Specific [place] (1.005-1.025) POC Urine Protein Conf (Negative) Urine Ketones (NEGATIVE) Urine Nitrite (NEGATIVE) Urine Bilirubin (NEGATIVE) Urine Urobilinogen (0-1) mg/dL Urine Leukocytes (NEGATIVE) Urine WBC (Auto) (0-5) /HPF Urine RBC (Auto) (0-2) /HPF U Epithel Cells (Auto) (FEW) /HPF Urine Bacteria (Auto) (NEGATIVE) /HPF Urine RBC (0-5) Mahamed/ul Ur Culture Indicated? Urine Glucose (NEGATIVE) mg/dL Influenza Type A Ag (NEGATIVE) Influenza Type B Ag (NEGATIVE) RSV (PCR) (Negative) SARS-CoV-2 (PCR) (NEGATIVE) - Progress Progress: improved Discussed with : [place] Will see patient in: hospital (observation) Counseled pt/family regarding: lab results, diagnosis, need for follow-up, rad results <PREMA CHAN - Last Filed: 06/23/22 09:41> - Progress Progress Note: 06/23/22 07:18 Assumed care of pt at 7:00AM w probable DKA and fall. CT C-spine/CT head neg per telerad. EKG sinus tach/Normal QT-QTc/Low voltage/No acute ST segment changes 06/23/22 09:39 1L NS bolus/10units sq InsulinR/10units IV Insulin R w decrease in glucose IVF NS 150ml/Hr Insulin drip 4units/Hr (PREMA CHAN) <CAMERON ESCALERA - Last Filed: 06/23/22 06:41> - Departure Departure Disposition: Observation Critical Care Time: Yes Critical Care Time(excluding separately billable procedures): Critical 30-74 mins <PREMA CHAN - Last Filed: 06/23/22 09:41> - Departure Clinical Impression: DKA (diabetic ketoacidosis) Condition: Stable Referrals: ANGELITO BLEDSOE DO [Primary Care Provider] - Follow up/PCP as directed
[2022-06-23 07:18] LABS: VBG BASE EXCESS -8.4 (-2.0-2.0); VBG CARBOXYHEMOGLOBIN 0.9 % T HGB (0.0-6.9); VBG HCO3- 16.2 meq/L (22-28); VBG HEMOGLOBIN 12.6; VBG O2 SATURATION 80.6 (95-100); VBG POTASSIUM 5.4 (3.5-5.1); VBG pH 7.34 (7.32-7.42)
[2022-06-23] MEDS ORDERED: HUMULIN R IV ONE (07:22)
[2022-06-23] MEDS ORDERED: HUMULIN R SQ ONE (07:23)
[2022-06-23 07:29] LABS: ALBUMIN 3.4 g/dL (3.5-5.0); ANION GAP 16.7 MEQ/L (5-15); BILIRUBIN,TOTAL 0.4 mg/dL (0.2-1.3); Calcium 7.8 mg/dL (8.4-10.2); Creatinine 1 1.35 mg/dL (0.52-1.04); EST GLOMERULAR FILTRATION RATE 45.9 ML/MIN; MAGNESIUM 2.8 mg/dL (1.6-2.3); Potassium 5.2 mmol/L (3.5-5.1); Total Protein 5.2 g/dL (6.3-8.2)
[2022-06-23] MEDS ORDERED: HUMULIN R ONE (07:37)
[2022-06-23] MEDS ORDERED: HUMULIN R 100 UNIT in Sodium Chloride 0.9% 100 ML IV PRN (07:57)
[2022-06-23] MEDS ORDERED: LIORESAL 10 MG PO ONE (08:15)
--- NOTE | 2022-06-23 08:20 | XRAY ---
Indication: Trauma injury following fall. Multiple contiguous axial images obtained through the head without contrast. Comparison: None Normal appearing brain parenchyma, ventricles, and bony calvarium for patient's age. Visualized paranasal sinuses and mastoid air cells are clear. Impression: Normal CT head without contrast exam. Comment: Preliminary interpretation made by [facility]. No critical discrepancy.
--- NOTE | 2022-06-23 08:22 | XRAY ---
Indication: Trauma injury following fall. Multiple contiguous axial images obtained through the cervical spine. Sagittal and coronal reformatted images obtained. Comparison: None Axial images negative for acute fracture, suspicious bony lesions, or spinal canal stenosis. Facets are symmetric. Sagittal and coronal reformatted images demonstrate normal alignment with vertebral body heights/disc spaces maintained. No acute compression fracture, subluxation, or jumped facet. Normal appearing craniocervical junction. Visualized noncontrasted soft tissues including lung apices are unremarkable. Impression: Negative CT cervical spine. Comment: Preliminary interpretation made by C. No critical discrepancy.
[2022-06-23] MEDS ORDERED: TORAdol 30 mg Injection ONE (08:36)
[2022-06-23] MEDS ORDERED: Adacel Vial IM ONE (08:36)
[2022-06-23 09:00] LABS: INFLUENZA A NEGATIVE (NEGATIVE); INFLUENZA B NEGATIVE (NEGATIVE); RESPIRATORY SYNCTIAL VIRUS NEGATIVE (Negative); SARS-CoV-2 Xpert Express NEGATIVE (NEGATIVE)
[2022-06-23] MEDS ORDERED: Sodium Chloride 0.9% 1000 ML 1,000 ML IV SCH (09:15)
[2022-06-23 09:26] LABS: Appearance CLEAR (CLEAR); Bilirubin NEGATIVE (NEGATIVE); Glucose >=1000 mg/dL (NEGATIVE); Ketones MODERATE-40 (NEGATIVE); Protein,Urine Dip NEGATIVE (Negative); RBC NEGATIVE Ery/ul (0-5); Specific Gravity 1.015 (1.005-1.025); Urobilinogen 0.2 mg/dL (0-1)
[2022-06-23 09:27] LABS: Dipstick done @ ? MAIN LAB; Nitrite NEGATIVE (NEGATIVE)
[2022-06-23 09:28] LABS: Bacteria RARE /HPF (NEGATIVE); Epithelial Cells RARE /HPF (FEW); RBC 0-2 /HPF (0-2)
[2022-06-23 09:29] LABS: Urine Cultured Indicated? NO
[2022-06-23] MEDS ORDERED: Zofran 4 MG/2 ML VIAL IV PRN (09:35)
[2022-06-23 10:11] LABS: ANION GAP 15.2 MEQ/L (5-15); Calcium 7.8 mg/dL (8.4-10.2); Creatinine 1 1.3 mg/dL (0.52-1.04); Potassium 3.7 mmol/L (3.5-5.1)
[2022-06-23] MEDS ORDERED: GlucaGen 1 MG IM PRN (11:20)
[2022-06-23] MEDS ORDERED: Glutose 15 GM ORAL GEL PO PRN (11:20)
[2022-06-23] MEDS ORDERED: D50W 50 ml Abboject IV PRN (11:20)
[2022-06-23] MEDS ORDERED: D50W 50 ml Abboject IV ONE ×2 (11:21→11:24)
[2022-06-23] MEDS ORDERED: Requip 0.5 MG PO ONE (11:35)
[2022-06-23] MEDS: D5W/0.45NS W/ 20mEq KCl 1000 ML 1,000 ML IV SCH ×2 (12:05→19:13)
[2022-06-23 12:18] LABS: Amphetamine,Urine NEGATIVE (NEGATIVE); Barbiturate,Urine NEGATIVE (NEGATIVE); Benzodiazepine,Urine NEGATIVE (NEGATIVE); Cocaine,Urine NEGATIVE (NEGATIVE); Methadone,Urine NEGATIVE (NEGATIVE); Opiate,Urine NEGATIVE (NEGATIVE); PCP,Urine NEGATIVE (NEGATIVE); THC,Urine NEGATIVE (NEGATIVE)
[2022-06-23] MEDS: HUMALOG SQ PRN ×3 (14:14→21:09)
[2022-06-23 14:21] LABS: ANION GAP 8.5 MEQ/L (5-15); BLOOD UREA NITROGEN 22 mg/dL (7-17); CHLORIDE 102 mmol/L (98-107); Calcium 7.5 mg/dL (8.4-10.2); Carbon Dioxide 23 mmol/L (22-30); Creatinine 1 0.97 mg/dL (0.52-1.04); EST GLOMERULAR FILTRATION RATE > 60.0 ML/MIN; Glucose 416 mg/dL (74-106); Potassium 4.4 mmol/L (3.5-5.1); SODIUM 129 mmol/L (137-145)
[2022-06-23] MEDS ORDERED: PROVENTIL 2.5 MG/3 ML NEB IH PRN (15:07)
[2022-06-23] MEDS ORDERED: NON-FORMULARY ITEM (Hydroxyzine Hcl [Hydroxyzine Hcl] 50 MG Tablet) PO PRN (15:07)
[2022-06-23] MEDS ORDERED: VENTOLIN COMMON CANISTER IH PRN (15:07)
[2022-06-23] MEDS ORDERED: NON-FORMULARY ITEM (Baclofen [Baclofen] 20 MG Tablet) PO PRN (15:07)
[2022-06-23] MEDS ORDERED: MIRTAZAPINE PO PRN (15:07)
[2022-06-23] MEDS ORDERED: DICLOFENAC EPOLAMINE TOP PRN (15:07)
[2022-06-23] MEDS ORDERED: NON-FORMULARY ITEM (Lipase/Protease/Amylase [Creon Dr 36,000 Unit Capsule] 1 EACH Capsule. PO SCH ×2 (15:15→16:30)
[2022-06-23] MEDS ORDERED: ATARAX 25 MG PO PRN (15:32)
[2022-06-23] MEDS ORDERED: ZENPEP DR 5,000 UNIT CAPSULE PO SCH (15:45)
[2022-06-23] MEDS ORDERED: MEDICATION INTERVENTION MC SCH ×4 (15:45→16:00)
[2022-06-23] MEDS ORDERED: NON-FORMULARY ITEM (Gabapentin [Neurontin] 600 MG Tablet) PO SCH (17:00)
[2022-06-23] MEDS ORDERED: NON-FORMULARY ITEM (Escitalopram Oxalate [Lexapro] 20 MG Tablet) PO SCH (17:00)
[2022-06-23] MEDS: BUSPAR 5 MG PO SCH ×2 (17:04→21:09)
[2022-06-23] MEDS: NEURONTIN PO SCH ×2 (17:04→21:14)
[2022-06-23] MEDS: Lexapro PO SCH (18:01)
[2022-06-23] MEDS: ZENPEP DR 5,000 UNIT CAPSULE PO SCH (18:02)
[2022-06-23] MEDS ORDERED: PROAMATINE PO ONE (18:18)
[2022-06-23] MEDS: Advair Hfa 115/21 Common canister IH SCH (18:37)
--- NOTE | 2022-06-23 19:39 | PCM.HP ---
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 States she changed her insulin paum and Dexcom monitor was not reading . Medications & Allergies Home Medications: Home Medication List AMITRIPTYLINE HCL 50 mg Tab [AMITRIPTYLINE HCL 50 mg Tablet] 50 mg PO HS 12/05/21 [History Confirmed 06/23/22] Apixaban [Eliquis 5 mg Tablet] 5 mg PO BID 12/05/21 [History Confirmed 06/23/22] Atomoxetine HCl [Strattera] 60 mg PO DAILY 12/05/21 [History Confirmed 06/23/22] Baclofen 20 mg PO QIDPRN PRN 12/05/21 [History Confirmed 06/23/22] Dexlansoprazole [Dexlansoprazole Dr] 60 mg PO DAILY 12/05/21 [History Confirmed 06/23/22] Escitalopram Oxalate [Lexapro] 20 mg PO 1700 12/05/21 [History Confirmed 06/23/22] Ferrous Sulfate 325 mg PO DAILY 12/05/21 [History Confirmed 06/23/22] Folic Acid 1 mg [Folate 1 mg] 1 mg PO DAILY 12/05/21 [History Confirmed 06/23/22] Furosemide 20 mg [Lasix 20 mg] 20 mg PO DAILY 12/05/21 [History Confirmed 06/23/22] Gabapentin [Neurontin] 600 mg PO QID 12/05/21 [History Confirmed 06/23/22] Ipratropium/Albuterol Sulfate [Combivent Respimat Inhal [place]] 1 inh PO DAILY 12/05/21 [History Confirmed 06/23/22] Levothyroxine Sodium 25 mcg PO QAM 12/05/21 [History Confirmed 06/23/22] Metoclopramide HCl 10 mg PO QID 12/05/21 [History Confirmed 06/23/22] Mirtazapine 15 mg PO HS 12/05/21 [History Confirmed 06/23/22] Promethazine HCl 25 mg [Phenergan 25 mg] 25 mg PO Q4-6HPRN PRN 12/05/21 [History Confirmed 06/23/22] Ropinirole HCl 0.5 mg [Requip 0.5 MG] 0.5 mg PO HS 12/05/21 [History Confirmed 06/23/22] Sucralfate 1 gm PO BID 12/05/21 [History Confirmed 06/23/22] Albuterol 2.5 mg/3 ml Neb [Proventil 2.5 mg/3 ml Neb] 1 neb IH DAILY PRN PRN 03/17/22 [History Confirmed 06/23/22] Albuterol Sulfate [Albuterol Sulfate Hfa] 2 puff IH DAILY PRN PRN 03/17/22 [History Confirmed 06/23/22] Atomoxetine HCl [Strattera] 40 mg PO LUNCH 03/17/22 [History Confirmed 06/23/22] Budesonide/Formoterol Fumarate [Budesonide-Formoterol 160-4.5] 2 puff IH BID 03/17/22 [History Confirmed 06/23/22] Diclofenac Epolamine 1 patch TOP Q12H PRN PRN 03/17/22 [History Confirmed 06/23/22] Mirtazapine 15 mg PO HS PRN PRN 03/17/22 [History Confirmed 06/23/22] Montelukast Sodium 10 mg [Singulair 10 MG] 10 mg PO DAILY 03/17/22 [History Confirmed 06/23/22] Multivitamin 1 tab PO DAILY 03/17/22 [History Confirmed 06/23/22] Omeprazole 20 mg PO QHS 03/17/22 [History Confirmed 06/23/22] hydrOXYzine HCL [Hydroxyzine HCl] 50 mg PO Q6H PRN PRN 03/17/22 [History Confirmed 06/23/22] Buspirone HCl 5 mg [Buspar 5 mg] 10 mg PO TID 05/01/22 [History Confirmed 06/23/22] Erythromycin Base [Erythromycin] 250 mg PO BID 05/01/22 [History Confirmed 06/23/22] Lipase/Protease/Amylase [[place] 36,000 Unit Capsule] 1 cap PO TID PRN 05/01/22 [History Confirmed 06/23/22] Lipase/Protease/Amylase [G[place] Cort[place] 36,000 Unit Capsule] 2 cap PO AC 05/01/22 [History Confirmed 06/23/22] Midodrine HCl 10 mg PO TID 05/01/22 [History Confirmed 06/23/22] ondansetron HCL [Ondansetron HCl] 4 mg PO Q6H PRN PRN 05/01/22 [History Confirm ed 06/23/22] Lactobacillus Acidophilus [Acidophilus TABLET] 1 tab PO DAILY 06/23/22 [History Confirmed 06/23/22] Allergies/Adverse Reactions: Allergies Allergy/AdvReac Type Severity Reaction Status Date / Time dicyclomine [From Bentyl] Allergy Verified 06/23/22 05:45 grapefruit Allergy Swelling Verified 06/23/22 05:45 - Past Medical History Past Medical History: Yes Neurological History: Migraines ENT History: No Pertinent History Cardiac History: Coronary Artery Disease, Deep Vein Thrombosis, Myocardial Infarction (MS) Respiratory History: Asthma, Pneumonia, Pulmonary Embolism Endocrine Medical History: Diabetes Type I Musculoskelatal History: No Pertinent History GI Medical History: GERD, GI Bleed, Other History: Renal Disease Pyscho-Social History: Anxiety, Attention Deficit Disorder, Depression, Other Reproductive Disorders: No Pertinent History Comment: sepsis 2020, ptsd, chronic pain syndrome, gastric paresis, hypotension. carpal tunnel bilateral and trigger finger left hand, kidney stones - Female History Are you now?: No - Past Surgical History Past Surgical History: Yes Neuro Surgical History: No Pertinent History Cardiac History: Cardiac Catheterization, Cardiac Stent Respiratory Surgery: No Pertinent History GI Surgical History: Appendectomy, Cholecystectomy Genitourinary Surgical Hx: No Pertinent History Musculskeletal Surgical Hx: Orthopedic Surgery Female Surgical History: No Pertinent History Other Surgical History: left foot, right shoulder. uvula removed. gastric bypass - Social History Smoking Status: Never smoker Exposure to second hand smoke: No Alcohol: None Drug Use: none Significant Family History: no pertinent family hx - Physical Exam Vital Signs: Vital Signs - 24 hr Temp Pulse Resp BP BP Pulse Ox 06/23/22 19:14 101 H 28 H 94/54 96 06/23/22 18:00 112 H 29 H 75/49 98 06/23/22 16:39 74 16 98 06/23/22 16:00 104 H 06/23/22 15:38 98.2 F 68 17 139/79 94 L 06/23/22 14:00 104 H 21 89/52 92 L 06/23/22 12:22 98.0 F 118 H 20 104/63 101/54 98 06/23/22 12:00 98.0 F 111 H 20 101/54 06/23/22 11:41 98 06/23/22 10:00 106 H 18 104/61 97 06/23/22 09:36 111 H 06/23/22 06:45 98 06/23/22 06:32 103 H 16 101/46 96 06/23/22 05:35 97.6 F 104 H 18 98/60 98 Results - Labs Lab/Micro Results: Lab Results-Last 24 Hours 06/23/22 06/23/22 06/23/22 Range/Units 06:08 06:08 06:24 WBC 5.7 (4.0-10.5) x10^3/uL RBC 3.67 L (4.1-5.4) x10^6/uL Hgb 11.8 L (12.0-16.0) g/dL Hct 37.3 (35-47) % MCV 101.6 H (78-100) fL MCH 32.2 H (26-32) pg MCHC 31.6 L (32-36) g/dL RDW 13.6 (11.5-14.0) % Plt Count 200 (150-450) x10^3/uL MPV 10.9 (7.5-11.0) fL Gran % 77.2 H (36.0-66.0) % Immature Gran % (Auto) 0.2 (0.00-0.4) % Nucleat RBC Rel Count 0.0 (0.00-0.1) % Eos # (Auto) 0.01 (0-0.5) x10^3/uL Immature Gran # (Auto) 0.01 (0.00-0.03) x10^3u/L Absolute Lymphs (auto) 0.72 L (1.0-4.6) x10^3/uL Absolute Monos (auto) 0.53 (0.0-1.3) x10^3/uL Absolute Nucleated RBC 0.00 (0.00-0.01) x10^3u/L Lymphocytes % 12.7 L (24.0-44.0) % Monocytes % 9.3 (0.0-12.0) % Eosinophils % 0.2 (0.00-5.0) % Basophils % 0.4 (0.0-0.4) % Absolute Granulocytes 4.40 (1.4-6.9) x10^3/uL Basophils # 0.02 (0-0.4) x10^3/uL pO2/FiO2 Ratio % VBG pH (7.32-7.42) VBG pCO2 at Pat Temp (42-55) mm/Hg VBG pO2 at Pat Temp (25-40) mm/Hg VBG HCO3 (22-28) meq/L VBG O2 Sat (Foreign) (95-100) VBG Base Excess (-2.0-2.0) VBG Hemoglobin VBG Carboxyhemoglobin (0.0-6.9) % T HGB POC Potassium (3.5-5.1) Sodium 122 L (137-145) mmol/L Potassium 5.2 H (3.5-5.1) mmol/L Chloride 92 L (98-107) mmol/L Carbon Dioxide 18 L (22-30) mmol/L Anion Gap 16.7 H (5-15) MEQ/L BUN 24 H (7-17) mg/dL Creatinine 1.35 H (0.52-1.04) mg/dL Estimated GFR 45.9 ML/MIN Glucose 1002 H* (74-106) mg/dL POC Glucometer (50 to 500) mg/dL Lactic Acid 2.1 H (0.4-2.0) Calcium 7.8 L (8.4-10.2) mg/dL Magnesium 2.8 H (1.6-2.3) mg/dL Total Bilirubin 0.40 (0.2-1.3) mg/dL AST 27 (14-36) U/L ALT 57 H (0-35) U/L Alkaline Phosphatase 209 H (38-126) U/L Serum Total Protein 5.2 L (6.3-8.2) g/dL Albumin 3.4 L (3.5-5.0) g/dL Urinalys Dipstick Clnc Urine Color (YELLOW) Urine Appearance (CLEAR) Urine pH (5-6) Ur Specific [place] (1.005-1.025) POC Urine Protein Conf (Negative) Urine Ketones (NEGATIVE) Urine Nitrite (NEGATIVE) Urine Bilirubin (NEGATIVE) Urine Urobilinogen (0-1) mg/dL Urine Leukocytes (NEGATIVE) Urine WBC (Auto) (0-5) /HPF Urine RBC (Auto) (0-2) /HPF U Epithel Cells (Auto) (FEW) /HPF Urine Bacteria (Auto) (NEGATIVE) /HPF Urine RBC (0-5) Mahamed/ul Ur Culture Indicated? Urine Glucose (NEGATIVE) mg/dL Urine Opiates Level (NEGATIVE) Ur Methadone (NEGATIVE) Urine Barbiturates (NEGATIVE) Ur Phencyclidine (PCP) (NEGATIVE) Urine Amphetamine (NEGATIVE) U Benzodiazepine Level (NEGATIVE) Urine Cocaine (NEGATIVE) Urine Marijuana (THC) (NEGATIVE) Influenza Type A Ag (NEGATIVE) Influenza Type B Ag (NEGATIVE) RSV (PCR) (Negative) SARS-CoV-2 (PCR) (NEGATIVE) 06/23/22 06/23/22 06/23/22 Range/Units 06:48 08:18 09:08 WBC (4.0-10.5) x10^3/uL RBC (4.1-5.4) x10^6/uL Hgb (12.0-16.0) g/dL Hct (35-47) % MCV (78-100) fL MCH (26-32) pg MCHC (32-36) g/dL RDW (11.5-14.0) % Plt Count (150-450) x10^3/uL MPV (7.5-11.0) fL Gran % (36.0-66.0) % Immature Gran % (Auto) (0.00-0.4) % Nucleat RBC Rel Count (0.00-0.1) % Eos # (Auto) (0-0.5) x10^3/uL Immature Gran # (Auto) (0.00-0.03) x10^3u/L Absolute Lymphs (auto) (1.0-4.6) x10^3/uL Absolute Monos (auto) (0.0-1.3) x10^3/uL Absolute Nucleated RBC (0.00-0.01) x10^3u/L Lymphocytes % (24.0-44.0) % Monocytes % (0.0-12.0) % Eosinophils % (0.00-5.0) % Basophils % (0.0-0.4) % Absolute Granulocytes (1.4-6.9) x10^3/uL Basophils # (0-0.4) x10^3/uL pO2/FiO2 Ratio 21.0 % VBG pH 7.34 (7.32-7.42) VBG pCO2 at Pat Temp 30 L (42-55) mm/Hg VBG pO2 at Pat Temp 51 H (25-40) mm/Hg VBG HCO3 16.2 L* (22-28) meq/L VBG O2 Sat (Foreign) 80.6 L (95-100) VBG Base Excess -8.4 L (-2.0-2.0) VBG Hemoglobin 12.6 VBG Carboxyhemoglobin 0.9 (0.0-6.9) % T HGB POC Potassium 5.4 H (3.5-5.1) Sodium (137-145) mmol/L Potassium (3.5-5.1) mmol/L Chloride (98-107) mmol/L Carbon Dioxide (22-30) mmol/L Anion Gap (5-15) MEQ/L BUN (7-17) mg/dL Creatinine (0.52-1.04) mg/dL Estimated GFR ML/MIN Glucose (74-106) mg/dL POC Glucometer 562 H* (50 to 500) mg/dL Lactic Acid (0.4-2.0) Calcium (8.4-10.2) mg/dL Magnesium (1.6-2.3) mg/dL Total Bilirubin (0.2-1.3) mg/dL AST (14-36) U/L ALT (0-35) U/L Alkaline Phosphatase (38-126) U/L Serum Total Protein (6.3-8.2) g/dL Albumin (3.5-5.0) g/dL Urinalys Dipstick Clnc Urine Color (YELLOW) Urine Appearance (CLEAR) Urine pH (5-6) Ur Specific [place] (1.005-1.025) POC Urine Protein Conf (Negative) Urine Ketones (NEGATIVE) Urine Nitrite (NEGATIVE) Urine Bilirubin (NEGATIVE) Urine Urobilinogen (0-1) mg/dL Urine Leukocytes (NEGATIVE) Urine WBC (Auto) (0-5) /HPF Urine RBC (Auto) (0-2) /HPF U Epithel Cells (Auto) (FEW) /HPF Urine Bacteria (Auto) (NEGATIVE) /HPF Urine RBC (0-5) Mahamed/ul Ur Culture Indicated? Urine Glucose (NEGATIVE) mg/dL Urine Opiates Level (NEGATIVE) Ur Methadone (NEGATIVE) Urine Barbiturates (NEGATIVE) Ur Phencyclidine (PCP) (NEGATIVE) Urine Amphetamine (NEGATIVE) U Benzodiazepine Level (NEGATIVE) Urine Cocaine (NEGATIVE) Urine Marijuana (THC) (NEGATIVE) Influenza Type A Ag NEGATIVE (NEGATIVE) Influenza Type B Ag NEGATIVE (NEGATIVE) RSV (PCR) NEGATIVE (Negative) SARS-CoV-2 (PCR) NEGATIVE (NEGATIVE) 06/23/22 06/23/22 06/23/22 Range/Units 09:12 09:20 09:45 WBC (4.0-10.5) x10^3/uL RBC (4.1-5.4) x10^6/uL Hgb (12.0-16.0) g/dL Hct (35-47) % MCV (78-100) fL MCH (26-32) pg MCHC (32-36) g/dL RDW (11.5-14.0) % Plt Count (150-450) x10^3/uL MPV (7.5-11.0) fL Gran % (36.0-66.0) % Immature Gran % (Auto) (0.00-0.4) % Nucleat RBC Rel Count (0.00-0.1) % Eos # (Auto) (0-0.5) x10^3/uL Immature Gran # (Auto) (0.00-0.03) x10^3u/L Absolute Lymphs (auto) (1.0-4.6) x10^3/uL Absolute Monos (auto) (0.0-1.3) x10^3/uL Absolute Nucleated RBC (0.00-0.01) x10^3u/L Lymphocytes % (24.0-44.0) % Monocytes % (0.0-12.0) % Eosinophils % (0.00-5.0) % Basophils % (0.0-0.4) % Absolute Granulocytes (1.4-6.9) x10^3/uL Basophils # (0-0.4) x10^3/uL pO2/FiO2 Ratio % VBG pH (7.32-7.42) VBG pCO2 at Pat Temp (42-55) mm/Hg VBG pO2 at Pat Temp (25-40) mm/Hg VBG HCO3 (22-28) meq/L VBG O2 Sat (Foreign) (95-100) VBG Base Excess (-2.0-2.0) VBG Hemoglobin VBG Carboxyhemoglobin (0.0-6.9) % T HGB POC Potassium (3.5-5.1) Sodium 131 L D (137-145) mmol/L Potassium 3.7 D (3.5-5.1) mmol/L Chloride 100 (98-107) mmol/L Carbon Dioxide 19 L (22-30) mmol/L Anion Gap 15.2 H (5-15) MEQ/L BUN 23 H (7-17) mg/dL Creatinine 1.30 H (0.52-1.04) mg/dL Estimated GFR 48.0 ML/MIN Glucose 483 H (74-106) mg/dL POC Glucometer (50 to 500) mg/dL Lactic Acid 6.9 H (0.4-2.0) Calcium 7.8 L (8.4-10.2) mg/dL Magnesium (1.6-2.3) mg/dL Total Bilirubin (0.2-1.3) mg/dL AST (14-36) U/L ALT (0-35) U/L Alkaline Phosphatase (38-126) U/L Serum Total Protein (6.3-8.2) g/dL Albumin (3.5-5.0) g/dL Urinalys Dipstick Clnc MAIN LAB Urine Color YELLOW (YELLOW) Urine Appearance CLEAR (CLEAR) Urine pH 5.0 (5-6) Ur Specific [place] 1.015 (1.005-1.025) POC Urine Protein Conf NEGATIVE (Negative) Urine Ketones MODERATE-40 A (NEGATIVE) Urine Nitrite NEGATIVE (NEGATIVE) Urine Bilirubin NEGATIVE (NEGATIVE) Urine Urobilinogen 0.2 (0-1) mg/dL Urine Leukocytes NEGATIVE (NEGATIVE) Urine WBC (Auto) NONE (0-5) /HPF Urine RBC (Auto) 0-2 (0-2) /HPF U Epithel Cells (Auto) RARE (FEW) /HPF Urine Bacteria (Auto) RARE (NEGATIVE) /HPF Urine RBC NEGATIVE (0-5) Mahamed/ul Ur Culture Indicated? NO Urine Glucose >=1000 A (NEGATIVE) mg/dL Urine Opiates Level (NEGATIVE) Ur Methadone (NEGATIVE) Urine Barbiturates (NEGATIVE) Ur Phencyclidine (PCP) (NEGATIVE) Urine Amphetamine (NEGATIVE) U Benzodiazepine Level (NEGATIVE) Urine Cocaine (NEGATIVE) Urine Marijuana (THC) (NEGATIVE) Influenza Type A Ag (NEGATIVE) Influenza Type B Ag (NEGATIVE) RSV (PCR) (Negative) SARS-CoV-2 (PCR) (NEGATIVE) 06/23/22 06/23/22 06/23/22 Range/Units 09:56 10:38 11:02 WBC (4.0-10.5) x10^3/uL RBC (4.1-5.4) x10^6/uL Hgb (12.0-16.0) g/dL Hct (35-47) % MCV (78-100) fL MCH (26-32) pg MCHC (32-36) g/dL RDW (11.5-14.0) % Plt Count (150-450) x10^3/uL MPV (7.5-11.0) fL Gran % (36.0-66.0) % Immature Gran % (Auto) (0.00-0.4) % Nucleat RBC Rel Count (0.00-0.1) % Eos # (Auto) (0-0.5) x10^3/uL Immature Gran # (Auto) (0.00-0.03) x10^3u/L Absolute Lymphs (auto) (1.0-4.6) x10^3/uL Absolute Monos (auto) (0.0-1.3) x10^3/uL Absolute Nucleated RBC (0.00-0.01) x10^3u/L Lymphocytes % (24.0-44.0) % Monocytes % (0.0-12.0) % Eosinophils % (0.00-5.0) % Basophils % (0.0-0.4) % Absolute Granulocytes (1.4-6.9) x10^3/uL Basophils # (0-0.4) x10^3/uL pO2/FiO2 Ratio % VBG pH (7.32-7.42) VBG pCO2 at Pat Temp (42-55) mm/Hg VBG pO2 at Pat Temp (25-40) mm/Hg VBG HCO3 (22-28) meq/L VBG O2 Sat (Foreign) (95-100) VBG Base Excess (-2.0-2.0) VBG Hemoglobin VBG Carboxyhemoglobin (0.0-6.9) % T HGB POC Potassium (3.5-5.1) Sodium (137-145) mmol/L Potassium (3.5-5.1) mmol/L Chloride (98-107) mmol/L Carbon Dioxide (22-30) mmol/L Anion Gap (5-15) MEQ/L BUN (7-17) mg/dL Creatinine (0.52-1.04) mg/dL Estimated GFR ML/MIN Glucose (74-106) mg/dL POC Glucometer 404 H 316 H 215 H (50 to 500) mg/dL Lactic Acid (0.4-2.0) Calcium (8.4-10.2) mg/dL Magnesium (1.6-2.3) mg/dL Total Bilirubin (0.2-1.3) mg/dL AST (14-36) U/L ALT (0-35) U/L Alkaline Phosphatase (38-126) U/L Serum Total Protein (6.3-8.2) g/dL Albumin (3.5-5.0) g/dL Urinalys Dipstick Clnc Urine Color (YELLOW) Urine Appearance (CLEAR) Urine pH (5-6) Ur Specific [place] (1.005-1.025) POC Urine Protein Conf (Negative) Urine Ketones (NEGATIVE) Urine Nitrite (NEGATIVE) Urine Bilirubin (NEGATIVE) Urine Urobilinogen (0-1) mg/dL Urine Leukocytes (NEGATIVE) Urine WBC (Auto) (0-5) /HPF Urine RBC (Auto) (0-2) /HPF U Epithel Cells (Auto) (FEW) /HPF Urine Bacteria (Auto) (NEGATIVE) /HPF Urine RBC (0-5) Mahamed/ul Ur Culture Indicated? Urine Glucose (NEGATIVE) mg/dL Urine Opiates Level (NEGATIVE) Ur Methadone (NEGATIVE) Urine Barbiturates (NEGATIVE) Ur Phencyclidine (PCP) (NEGATIVE) Urine Amphetamine (NEGATIVE) U Benzodiazepine Level (NEGATIVE) Urine Cocaine (NEGATIVE) Urine Marijuana (THC) (NEGATIVE) Influenza Type A Ag (NEGATIVE) Influenza Type B Ag (NEGATIVE) RSV (PCR) (Negative) SARS-CoV-2 (PCR) (NEGATIVE) 06/23/22 06/23/22 06/23/22 Range/Units 11:18 11:46 12:11 WBC (4.0-10.5) x10^3/uL RBC (4.1-5.4) x10^6/uL Hgb (12.0-16.0) g/dL Hct (35-47) % MCV (78-100) fL MCH (26-32) pg MCHC (32-36) g/dL RDW (11.5-14.0) % Plt Count (150-450) x10^3/uL MPV (7.5-11.0) fL Gran % (36.0-66.0) % Immature Gran % (Auto) (0.00-0.4) % Nucleat RBC Rel Count (0.00-0.1) % Eos # (Auto) (0-0.5) x10^3/uL Immature Gran # (Auto) (0.00-0.03) x10^3u/L Absolute Lymphs (auto) (1.0-4.6) x10^3/uL Absolute Monos (auto) (0.0-1.3) x10^3/uL Absolute Nucleated RBC (0.00-0.01) x10^3u/L Lymphocytes % (24.0-44.0) % Monocytes % (0.0-12.0) % Eosinophils % (0.00-5.0) % Basophils % (0.0-0.4) % Absolute Granulocytes (1.4-6.9) x10^3/uL Basophils # (0-0.4) x10^3/uL pO2/FiO2 Ratio % VBG pH (7.32-7.42) VBG pCO2 at Pat Temp (42-55) mm/Hg VBG pO2 at Pat Temp (25-40) mm/Hg VBG HCO3 (22-28) meq/L VBG O2 Sat (Foreign) (95-100) VBG Base Excess (-2.0-2.0) VBG Hemoglobin VBG Carboxyhemoglobin (0.0-6.9) % T HGB POC Potassium (3.5-5.1) Sodium (137-145) mmol/L Potassium (3.5-5.1) mmol/L Chloride (98-107) mmol/L Carbon Dioxide (22-30) mmol/L Anion Gap (5-15) MEQ/L BUN (7-17) mg/dL Creatinine (0.52-1.04) mg/dL Estimated GFR ML/MIN Glucose (74-106) mg/dL POC Glucometer 91 101 136 H (50 to 500) mg/dL Lactic Acid (0.4-2.0) Calcium (8.4-10.2) mg/dL Magnesium (1.6-2.3) mg/dL Total Bilirubin (0.2-1.3) mg/dL AST (14-36) U/L ALT (0-35) U/L Alkaline Phosphatase (38-126) U/L Serum Total Protein (6.3-8.2) g/dL Albumin (3.5-5.0) g/dL Urinalys Dipstick Clnc Urine Color (YELLOW) Urine Appearance (CLEAR) Urine pH (5-6) Ur Specific [place] (1.005-1.025) POC Urine Protein Conf (Negative) Urine Ketones (NEGATIVE) Urine Nitrite (NEGATIVE) Urine Bilirubin (NEGATIVE) Urine Urobilinogen (0-1) mg/dL Urine Leukocytes (NEGATIVE) Urine WBC (Auto) (0-5) /HPF Urine RBC (Auto) (0-2) /HPF U Epithel Cells (Auto) (FEW) /HPF Urine Bacteria (Auto) (NEGATIVE) /HPF Urine RBC (0-5) Mahamed/ul Ur Culture Indicated? Urine Glucose (NEGATIVE) mg/dL Urine Opiates Level (NEGATIVE) Ur Methadone (NEGATIVE) Urine Barbiturates (NEGATIVE) Ur Phencyclidine (PCP) (NEGATIVE) Urine Amphetamine (NEGATIVE) U Benzodiazepine Level (NEGATIVE) Urine Cocaine (NEGATIVE) Urine Marijuana (THC) (NEGATIVE) Influenza Type A Ag (NEGATIVE) Influenza Type B Ag (NEGATIVE) RSV (PCR) (Negative) SARS-CoV-2 (PCR) (NEGATIVE) 06/23/22 06/23/22 06/23/22 Range/Units 12:20 13:10 13:59 WBC (4.0-10.5) x10^3/uL RBC (4.1-5.4) x10^6/uL Hgb (12.0-16.0) g/dL Hct (35-47) % MCV (78-100) fL MCH (26-32) pg MCHC (32-36) g/dL RDW (11.5-14.0) % Plt Count (150-450) x10^3/uL MPV (7.5-11.0) fL Gran % (36.0-66.0) % Immature Gran % (Auto) (0.00-0.4) % Nucleat RBC Rel Count (0.00-0.1) % Eos # (Auto) (0-0.5) x10^3/uL Immature Gran # (Auto) (0.00-0.03) x10^3u/L Absolute Lymphs (auto) (1.0-4.6) x10^3/uL Absolute Monos (auto) (0.0-1.3) x10^3/uL Absolute Nucleated RBC (0.00-0.01) x10^3u/L Lymphocytes % (24.0-44.0) % Monocytes % (0.0-12.0) % Eosinophils % (0.00-5.0) % Basophils % (0.0-0.4) % Absolute Granulocytes (1.4-6.9) x10^3/uL Basophils # (0-0.4) x10^3/uL pO2/FiO2 Ratio % VBG pH (7.32-7.42) VBG pCO2 at Pat Temp (42-55) mm/Hg VBG pO2 at Pat Temp (25-40) mm/Hg VBG HCO3 (22-28) meq/L VBG O2 Sat (Foreign) (95-100) VBG Base Excess (-2.0-2.0) VBG Hemoglobin VBG Carboxyhemoglobin (0.0-6.9) % T HGB POC Potassium (3.5-5.1) Sodium 129 L (137-145) mmol/L Potassium 4.4 (3.5-5.1) mmol/L Chloride 102 (98-107) mmol/L Carbon Dioxide 23 (22-30) mmol/L Anion Gap 8.5 (5-15) MEQ/L BUN 22 H (7-17) mg/dL Creatinine 0.97 (0.52-1.04) mg/dL Estimated GFR > 60.0 ML/MIN Glucose 416 H (74-106) mg/dL POC Glucometer 302 H (50 to 500) mg/dL Lactic Acid (0.4-2.0) Calcium 7.5 L (8.4-10.2) mg/dL Magnesium (1.6-2.3) mg/dL Total Bilirubin (0.2-1.3) mg/dL AST (14-36) U/L ALT (0-35) U/L Alkaline Phosphatase (38-126) U/L Serum Total Protein (6.3-8.2) g/dL Albumin (3.5-5.0) g/dL Urinalys Dipstick Clnc Urine Color (YELLOW) Urine Appearance (CLEAR) Urine pH (5-6) Ur Specific [place] (1.005-1.025) POC Urine Protein Conf (Negative) Urine Ketones (NEGATIVE) Urine Nitrite (NEGATIVE) Urine Bilirubin (NEGATIVE) Urine Urobilinogen (0-1) mg/dL Urine Leukocytes (NEGATIVE) Urine WBC (Auto) (0-5) /HPF Urine RBC (Auto) (0-2) /HPF U Epithel Cells (Auto) (FEW) /HPF Urine Bacteria (Auto) (NEGATIVE) /HPF Urine RBC (0-5) Mahamed/ul Ur Culture Indicated? Urine Glucose (NEGATIVE) mg/dL Urine Opiates Level NEGATIVE (NEGATIVE) Ur Methadone NEGATIVE (NEGATIVE) Urine Barbiturates NEGATIVE (NEGATIVE) Ur Phencyclidine (PCP) NEGATIVE (NEGATIVE) Urine Amphetamine NEGATIVE (NEGATIVE) U Benzodiazepine Level NEGATIVE (NEGATIVE) Urine Cocaine NEGATIVE (NEGATIVE) Urine Marijuana (THC) NEGATIVE (NEGATIVE) Influenza Type A Ag (NEGATIVE) Influenza Type B Ag (NEGATIVE) RSV (PCR) (Negative) SARS-CoV-2 (PCR) (NEGATIVE) 06/23/22 06/23/22 06/23/22 Range/Units 14:03 14:11 14:59 WBC (4.0-10.5) x10^3/uL RBC (4.1-5.4) x10^6/uL Hgb (12.0-16.0) g/dL Hct (35-47) % MCV (78-100) fL MCH (26-32) pg MCHC (32-36) g/dL RDW (11.5-14.0) % Plt Count (150-450) x10^3/uL MPV (7.5-11.0) fL Gran % (36.0-66.0) % Immature Gran % (Auto) (0.00-0.4) % Nucleat RBC Rel Count (0.00-0.1) % Eos # (Auto) (0-0.5) x10^3/uL Immature Gran # (Auto) (0.00-0.03) x10^3u/L Absolute Lymphs (auto) (1.0-4.6) x10^3/uL Absolute Monos (auto) (0.0-1.3) x10^3/uL Absolute Nucleated RBC (0.00-0.01) x10^3u/L Lymphocytes % (24.0-44.0) % Monocytes % (0.0-12.0) % Eosinophils % (0.00-5.0) % Basophils % (0.0-0.4) % Absolute Granulocytes (1.4-6.9) x10^3/uL Basophils # (0-0.4) x10^3/uL pO2/FiO2 Ratio % VBG pH (7.32-7.42) VBG pCO2 at Pat Temp (42-55) mm/Hg VBG pO2 at Pat Temp (25-40) mm/Hg VBG HCO3 (22-28) meq/L VBG O2 Sat (Foreign) (95-100) VBG Base Excess (-2.0-2.0) VBG Hemoglobin VBG Carboxyhemoglobin (0.0-6.9) % T HGB POC Potassium (3.5-5.1) Sodium (137-145) mmol/L Potassium (3.5-5.1) mmol/L Chloride (98-107) mmol/L Carbon Dioxide (22-30) mmol/L Anion Gap (5-15) MEQ/L BUN (7-17) mg/dL Creatinine (0.52-1.04) mg/dL Estimated GFR ML/MIN Glucose (74-106) mg/dL POC Glucometer 390 H 382 H (50 to 500) mg/dL Lactic Acid 1.8 (0.4-2.0) Calcium (8.4-10.2) mg/dL Magnesium (1.6-2.3) mg/dL Total Bilirubin (0.2-1.3) mg/dL AST (14-36) U/L ALT (0-35) U/L Alkaline Phosphatase (38-126) U/L Serum Total Protein (6.3-8.2) g/dL Albumin (3.5-5.0) g/dL Urinalys Dipstick Clnc Urine Color (YELLOW) Urine Appearance (CLEAR) Urine pH (5-6) Ur Specific [place] (1.005-1.025) POC Urine Protein Conf (Negative) Urine Ketones (NEGATIVE) Urine Nitrite (NEGATIVE) Urine Bilirubin (NEGATIVE) Urine Urobilinogen (0-1) mg/dL Urine Leukocytes (NEGATIVE) Urine WBC (Auto) (0-5) /HPF Urine RBC (Auto) (0-2) /HPF U Epithel Cells (Auto) (FEW) /HPF Urine Bacteria (Auto) (NEGATIVE) /HPF Urine RBC (0-5) Mahamed/ul Ur Culture Indicated? Urine Glucose (NEGATIVE) mg/dL Urine Opiates Level (NEGATIVE) Ur Methadone (NEGATIVE) Urine Barbiturates (NEGATIVE) Ur Phencyclidine (PCP) (NEGATIVE) Urine Amphetamine (NEGATIVE) U Benzodiazepine Level (NEGATIVE) Urine Cocaine (NEGATIVE) Urine Marijuana (THC) (NEGATIVE) Influenza Type A Ag (NEGATIVE) Influenza Type B Ag (NEGATIVE) RSV (PCR) (Negative) SARS-CoV-2 (PCR) (NEGATIVE) 06/23/22 06/23/22 06/23/22 Range/Units 16:11 17:05 17:54 WBC (4.0-10.5) x10^3/uL RBC (4.1-5.4) x10^6/uL Hgb (12.0-16.0) g/dL Hct (35-47) % MCV (78-100) fL MCH (26-32) pg MCHC (32-36) g/dL RDW (11.5-14.0) % Plt Count (150-450) x10^3/uL MPV (7.5-11.0) fL Gran % (36.0-66.0) % Immature Gran % (Auto) (0.00-0.4) % Nucleat RBC Rel Count (0.00-0.1) % Eos # (Auto) (0-0.5) x10^3/uL Immature Gran # (Auto) (0.00-0.03) x10^3u/L Absolute Lymphs (auto) (1.0-4.6) x10^3/uL Absolute Monos (auto) (0.0-1.3) x10^3/uL Absolute Nucleated RBC (0.00-0.01) x10^3u/L Lymphocytes % (24.0-44.0) % Monocytes % (0.0-12.0) % Eosinophils % (0.00-5.0) % Basophils % (0.0-0.4) % Absolute Granulocytes (1.4-6.9) x10^3/uL Basophils # (0-0.4) x10^3/uL pO2/FiO2 Ratio % VBG pH (7.32-7.42) VBG pCO2 at Pat Temp (42-55) mm/Hg VBG pO2 at Pat Temp (25-40) mm/Hg VBG HCO3 (22-28) meq/L VBG O2 Sat ([place]) (95-100) VBG Base Excess (-2.0-2.0) VBG Hemoglobin VBG Carboxyhemoglobin (0.0-6.9) % T HGB POC Potassium (3.5-5.1) Sodium (137-145) mmol/L Potassium (3.5-5.1) mmol/L Chloride (98-107) mmol/L Carbon Dioxide (22-30) mmol/L Anion Gap (5-15) MEQ/L BUN (7-17) mg/dL Creatinine (0.52-1.04) mg/dL Estimated GFR ML/MIN Glucose (74-106) mg/dL POC Glucometer 249 H 187 H 54 L (50 to 500) mg/dL Lactic Acid (0.4-2.0) Calcium (8.4-10.2) mg/dL Magnesium (1.6-2.3) mg/dL Total Bilirubin (0.2-1.3) mg/dL AST (14-36) U/L ALT (0-35) U/L Alkaline Phosphatase (38-126) U/L Serum Total Protein (6.3-8.2) g/dL Albumin (3.5-5.0) g/dL Urinalys Dipstick Clnc Urine Color (YELLOW) Urine Appearance (CLEAR) Urine pH (5-6) Ur Specific [place] (1.005-1.025) POC Urine Protein Conf (Negative) Urine Ketones (NEGATIVE) Urine Nitrite (NEGATIVE) Urine Bilirubin (NEGATIVE) Urine Urobilinogen (0-1) mg/dL Urine Leukocytes (NEGATIVE) Urine WBC (Auto) (0-5) /HPF Urine RBC (Auto) (0-2) /HPF U Epithel Cells (Auto) (FEW) /HPF Urine Bacteria (Auto) (NEGATIVE) /HPF Urine RBC (0-5) Mahamed/ul Ur Culture Indicated? Urine Glucose (NEGATIVE) mg/dL Urine Opiates Level (NEGATIVE) Ur Methadone (NEGATIVE) Urine Barbiturates (NEGATIVE) Ur Phencyclidine (PCP) (NEGATIVE) Urine Amphetamine (NEGATIVE) U Benzodiazepine Level (NEGATIVE) Urine Cocaine (NEGATIVE) Urine Marijuana (THC) (NEGATIVE) Influenza Type A Ag (NEGATIVE) Influenza Type B Ag (NEGATIVE) RSV (PCR) (Negative) SARS-CoV-2 (PCR) (NEGATIVE) 06/23/22 06/23/22 06/23/22 Range/Units 18:13 18:35 18:58 WBC (4.0-10.5) x10^3/uL RBC (4.1-5.4) x10^6/uL Hgb (12.0-16.0) g/dL Hct (35-47) % MCV (78-100) fL MCH (26-32) pg MCHC (32-36) g/dL RDW (11.5-14.0) % Plt Count (150-450) x10^3/uL MPV (7.5-11.0) fL Gran % (36.0-66.0) % Immature Gran % (Auto) (0.00-0.4) % Nucleat RBC Rel Count (0.00-0.1) % Eos # (Auto) (0-0.5) x10^3/uL Immature Gran # (Auto) (0.00-0.03) x10^3u/L Absolute Lymphs (auto) (1.0-4.6) x10^3/uL Absolute Monos (auto) (0.0-1.3) x10^3/uL Absolute Nucleated RBC (0.00-0.01) x10^3u/L Lymphocytes % (24.0-44.0) % Monocytes % (0.0-12.0) % Eosinophils % (0.00-5.0) % Basophils % (0.0-0.4) % Absolute Granulocytes (1.4-6.9) x10^3/uL Basophils # (0-0.4) x10^3/uL pO2/FiO2 Ratio % VBG pH (7.32-7.42) VBG pCO2 at Pat Temp (42-55) mm/Hg VBG pO2 at Pat Temp (25-40) mm/Hg VBG HCO3 (22-28) meq/L VBG O2 Sat (Foreign) (95-100) VBG Base Excess (-2.0-2.0) VBG Hemoglobin VBG Carboxyhemoglobin (0.0-6.9) % T HGB POC Potassium (3.5-5.1) Sodium (137-145) mmol/L Potassium (3.5-5.1) mmol/L Chloride (98-107) mmol/L Carbon Dioxide (22-30) mmol/L Anion Gap (5-15) MEQ/L BUN (7-17) mg/dL Creatinine (0.52-1.04) mg/dL Estimated GFR ML/MIN Glucose (74-106) mg/dL POC Glucometer 64 L 143 H 207 H (50 to 500) mg/dL Lactic Acid (0.4-2.0) Calcium (8.4-10.2) mg/dL Magnesium (1.6-2.3) mg/dL Total Bilirubin (0.2-1.3) mg/dL AST (14-36) U/L ALT (0-35) U/L Alkaline Phosphatase (38-126) U/L Serum Total Protein (6.3-8.2) g/dL Albumin (3.5-5.0) g/dL Urinalys Dipstick Clnc Urine Color (YELLOW) Urine Appearance (CLEAR) Urine pH (5-6) Ur Specific [place] (1.005-1.025) POC Urine Protein Conf (Negative) Urine Ketones (NEGATIVE) Urine Nitrite (NEGATIVE) Urine Bilirubin (NEGATIVE) Urine Urobilinogen (0-1) mg/dL Urine Leukocytes (NEGATIVE) Urine WBC (Auto) (0-5) /HPF Urine RBC (Auto) (0-2) /HPF U Epithel Cells (Auto) (FEW) /HPF Urine Bacteria (Auto) (NEGATIVE) /HPF Urine RBC (0-5) Mahamed/ul Ur Culture Indicated? Urine Glucose (NEGATIVE) mg/dL Urine Opiates Level (NEGATIVE) Ur Methadone (NEGATIVE) Urine Barbiturates (NEGATIVE) Ur Phencyclidine (PCP) (NEGATIVE) Urine Amphetamine (NEGATIVE) U Benzodiazepine Level (NEGATIVE) Urine Cocaine (NEGATIVE) Urine Marijuana (THC) (NEGATIVE) Influenza Type A Ag (NEGATIVE) Influenza Type B Ag (NEGATIVE) RSV (PCR) (Negative) SARS-CoV-2 (PCR) (NEGATIVE) Accuchecks Date 06/23/22 Date 06/23/22 Date 06/23/22 Date 06/23/22 Date 06/23/22 Date 06/23/22 Date 06/23/22 Date 06/23/22 Date 06/23/22 Time 19:00 Time 18:00 Time 17:00 Time 15:02 Time 15:02 Time 14:10 Time 13:27 Time 06:32 Time 06:18 - Radiology Impressions Radiology Exams & Impressions: Radiology Procedures Category Date Time Status CERVICAL SPINE WO CONTRAST [CT] Stat Exams 06/23/22 06:25 Completed HEAD WITHOUT CONTRAST [CT] Stat Exams 06/23/22 06:25 Completed - Other Procedures and Tests Respiratory Therapy 06/23/22 16:39 Respiratory Therapy Assessment DAILY
[2022-06-23 19:46] LABS: ANION GAP 8.8 MEQ/L (5-15); BLOOD UREA NITROGEN 21 mg/dL (7-17); CHLORIDE 112 mmol/L (98-107); Calcium 8.2 mg/dL (8.4-10.2); Carbon Dioxide 21 mmol/L (22-30); Creatinine 1 0.92 mg/dL (0.52-1.04); EST GLOMERULAR FILTRATION RATE > 60.0 ML/MIN; Glucose 126 mg/dL (74-106); Potassium 5.1 mmol/L (3.5-5.1); SODIUM 136 mmol/L (137-145)
[2022-06-23] MEDS: ELIQUIS 2.5 MG TABLET PO SCH (21:09)
[2022-06-23] MEDS: Carafate SUSPENSION 1000 MG/10 ML PO SCH (21:09)
[2022-06-23] MEDS: Protonix 40MG Tablet PO SCH (21:09)
[2022-06-23] MEDS: Requip 0.5 MG PO SCH (21:09)
[2022-06-23] MEDS: MIRTAZAPINE PO SCH (21:10)
[2022-06-23] MEDS ORDERED: NON-FORMULARY ITEM (Midodrine Hcl [Midodrine Hcl] 10 MG Tablet) PO SCH (22:00)
[2022-06-23] MEDS ORDERED: NON-FORMULARY ITEM (Apixaban*** [Eliquis 5 Mg Tablet***] 5 MG Tablet) PO SCH (22:00)
[2022-06-23] MEDS ORDERED: NON-FORMULARY ITEM (Omeprazole [Omeprazole] 20 MG Capsule.Dr) PO SCH (22:00)
[2022-06-23] MEDS ORDERED: NON-FORMULARY ITEM (Budesonide/Formoterol Fumarate [Budesonide-Formoterol 160-4.5] 10.2 GM IH SCH (22:00)
[2022-06-23] MEDS ORDERED: PROAMATINE PO SCH (22:00)
[2022-06-23] MEDS ORDERED: ERYTHROMYCIN BASE 250 MG PO SCH (22:00)
[2022-06-23 22:19] LABS: ANION GAP 4.9 MEQ/L (5-15); BLOOD UREA NITROGEN 20 mg/dL (7-17); CHLORIDE 105 mmol/L (98-107); Calcium 7.4 mg/dL (8.4-10.2); Carbon Dioxide 23 mmol/L (22-30); Creatinine 1 0.94 mg/dL (0.52-1.04); EST GLOMERULAR FILTRATION RATE > 60.0 ML/MIN; Glucose 389 mg/dL (74-106); Potassium 4.6 mmol/L (3.5-5.1); SODIUM 128 mmol/L (137-145)
[2022-06-24] MEDS: D5W/0.45NS W/ 20mEq KCl 1000 ML 1,000 ML IV SCH ×2 (02:08→19:12)
[2022-06-24 03:06] LABS: ANION GAP 4.2 MEQ/L (5-15); BLOOD UREA NITROGEN 19 mg/dL (7-17); CHLORIDE 106 mmol/L (98-107); Calcium 7.4 mg/dL (8.4-10.2); Carbon Dioxide 24 mmol/L (22-30); Creatinine 1 0.72 mg/dL (0.52-1.04); EST GLOMERULAR FILTRATION RATE > 60.0 ML/MIN; Glucose 399 mg/dL (74-106); Potassium 4.8 mmol/L (3.5-5.1); SODIUM 129 mmol/L (137-145)
[2022-06-24] MEDS: HUMALOG SQ PRN ×6 (03:09→23:02)
[2022-06-24 05:19] LABS: Absolute Neutrophil Ct (ANC) 1.94 x10^3/uL (1.4-6.9); Basophil (Absolute #) 0.02 x10^3/uL (0-0.4); Eosinophil % 4.4 % (0.00-5.0); Eosinophil (Absolute #) 0.19 x10^3/uL (0-0.5); Hematocrit 33.9 % (35-47); Hemoglobin 10.8 g/dL (12.0-16.0); Lymphocytes % 44.2 % (24.0-44.0); Mean Cell Volume 98.8 fL (78-100); Mean Corpuscular Hemoglobin 31.5 pg (26-32); Mean Corpuscular Hgb Concent. 31.9 g/dL (32-36); Mean Platelet Volume 9.6 fL (7.5-11.0); Monocyte (Absolute #) 0.25 x10^3/uL (0.0-1.3); Monocytes % 5.8 % (0.0-12.0); Neutrophil % 45.1 % (36.0-66.0); Platelet Count 183 x10^3/uL (150-450); Red Blood Count 3.43 x10^6/uL (4.1-5.4); Red Cell Distribution Width 13.4 % (11.5-14.0); White Blood Count 4.3 x10^3/uL (4.0-10.5)
[2022-06-24] MEDS: ZENPEP DR 5,000 UNIT CAPSULE PO SCH ×3 (07:43→17:04)
[2022-06-24] MEDS: LIORESAL 10 MG PO PRN ×2 (07:46→19:57)
[2022-06-24] MEDS: Advair Hfa 115/21 Common canister IH SCH ×2 (08:21→18:19)
[2022-06-24] MEDS: PROAMATINE PO SCH ×3 (08:28→17:04)
[2022-06-24] MEDS: BUSPAR 5 MG PO SCH ×4 (08:29→21:11)
[2022-06-24] MEDS: FOLATE 1 MG PO SCH (08:29)
[2022-06-24] MEDS: FEOSOL 325 MG PO SCH (08:30)
[2022-06-24] MEDS: LASIX 20 MG PO SCH (08:30)
[2022-06-24] MEDS: SYNTHROID 25 MCG PO SCH (08:30)
[2022-06-24] MEDS: Protonix 40MG Tablet PO SCH ×3 (08:30→21:11)
[2022-06-24] MEDS: NEURONTIN PO SCH ×4 (08:30→21:11)
[2022-06-24] MEDS: Acidophilus TABLET PO SCH (08:30)
[2022-06-24] MEDS: THERAGRAN MULTIVITAMIN PO SCH (08:31)
[2022-06-24] MEDS: ELIQUIS 2.5 MG TABLET PO SCH ×2 (08:31→21:11)
[2022-06-24] MEDS: Carafate SUSPENSION 1000 MG/10 ML PO SCH ×2 (09:56→21:11)
[2022-06-24] MEDS: PHENERGAN 25 MG PO PRN ×2 (09:56→17:23)
[2022-06-24] MEDS: Singulair 10 MG PO SCH (09:56)
[2022-06-24] MEDS ORDERED: DEXLANSOPRAZOLE 60 MG PO SCH (10:00)
[2022-06-24] MEDS ORDERED: NON-FORMULARY ITEM (Multivitamin [Multivitamin] 1 EACH Tablet) PO SCH (10:00)
[2022-06-24] MEDS ORDERED: ATOMOXETINE HCL 60 MG PO SCH (10:00)
[2022-06-24] MEDS ORDERED: COMBIVENT RESPIMAT COMMON CANISTER IH SCH (10:00)
[2022-06-24] MEDS ORDERED: HUMALOG ONE (11:10)
[2022-06-24] MEDS ORDERED: ATOMOXETINE HCL 40 MG PO SCH (12:00)
[2022-06-24] MEDS: PROVENTIL 2.5 MG/3 ML NEB IH SCH ×2 (13:35→17:55)
[2022-06-24] MEDS ORDERED: Zithromax 250 MG TABLET PO SCH (15:00)
[2022-06-24 16:54] LABS: ANION GAP 7.3 MEQ/L (5-15); BLOOD UREA NITROGEN 18 mg/dL (7-17); CHLORIDE 104 mmol/L (98-107); Calcium 8.1 mg/dL (8.4-10.2); Carbon Dioxide 23 mmol/L (22-30); Creatinine 1 0.84 mg/dL (0.52-1.04); EST GLOMERULAR FILTRATION RATE > 60.0 ML/MIN; Glucose 258 mg/dL (74-106); MAGNESIUM 2.2 mg/dL (1.6-2.3); Potassium 4.2 mmol/L (3.5-5.1); SODIUM 131 mmol/L (137-145); TSH, 3RD Generation 0.658 mIU/L (0.47-4.68); Vitamin B12 652 pg/mL (239-931)
[2022-06-24] MEDS: Lexapro PO SCH (17:05)
--- NOTE | 2022-06-24 19:25 | PCM.NOTE ---
Date and Time: 06/24/221918 Subjective Assessment: Patient states she is "starting to feel human again, yesterday I felt like ". Blood sugars are to be 250 per Endocrinology because ptn drops so easily to 50s. Her Pump was removed in ER and no Basal or long acting insulin has been given . She is fairly steady on a modified/reduced Low dose sliding scale starting coverage at 250.Patient eats each meal and snack between meals. C/O cough and sore throat,feels chst congestion starting. OBJECTIVE DATA Vital Signs: Vital Signs - 24 hr Temp Pulse Resp BP Pulse Ox 06/24/22 17:57 96 H 20 94 L 06/24/22 16:00 96 H 06/24/22 15:00 97.3 F 100 H 20 148/86 96 06/24/22 13:37 104 H 22 96 06/24/22 12:00 94 H 06/24/22 11:59 97.5 F 91 H 20 116/76 96 06/24/22 10:01 97.5 F 91 H 25 H 116/76 96 06/24/22 09:10 82 06/24/22 08:21 90 18 97 06/24/22 07:37 97 H 06/24/22 07:10 97.5 F 96 H 20 132/80 97 06/24/22 06:00 93 H 19 138/82 95 06/24/22 04:00 97.3 F 92 H 21 122/81 99 06/24/22 02:00 94 H 20 127/64 93 L 06/24/22 01:00 93 H 18 90/56 97 06/24/22 00:01 101 H 06/23/22 23:00 99 H 17 108/73 99 06/23/22 21:00 97 H 21 104/56 97 06/23/22 20:00 97 H Pain Assessment - Last Documented Pain Intensity 0 Intake and Output: Intake & Output 06/22/22 06/23/22 06/24/22 06/25/22 11:59 11:59 11:59 11:59 Intake Total 4537 710 Balance 4534 710 Weight 72.2 kg 80.7 kg Lab Results: Lab Results-Last 24 Hours 06/23/22 06/23/22 06/23/22 Range/Units 18:30 19:58 21:04 WBC (4.0-10.5) x10^3/uL RBC (4.1-5.4) x10^6/uL Hgb (12.0-16.0) g/dL Hct (35-47) % MCV (78-100) fL MCH (26-32) pg MCHC (32-36) g/dL RDW (11.5-14.0) % Plt Count (150-450) x10^3/uL MPV (7.5-11.0) fL Gran % (36.0-66.0) % Immature Gran % (Auto) (0.00-0.4) % Nucleat RBC Rel Count (0.00-0.1) % Eos # (Auto) (0-0.5) x10^3/uL Immature Gran # (Auto) (0.00-0.03) x10^3u/L Absolute Lymphs (auto) (1.0-4.6) x10^3/uL Absolute Monos (auto) (0.0-1.3) x10^3/uL Absolute Nucleated RBC (0.00-0.01) x10^3u/L Lymphocytes % (24.0-44.0) % Monocytes % (0.0-12.0) % Eosinophils % (0.00-5.0) % Basophils % (0.0-0.4) % Absolute Granulocytes (1.4-6.9) x10^3/uL Basophils # (0-0.4) x10^3/uL Sodium 136 L D (137-145) mmol/L Potassium 5.1 (3.5-5.1) mmol/L Chloride 112 H (98-107) mmol/L Carbon Dioxide 21 L (22-30) mmol/L Anion Gap 8.8 (5-15) MEQ/L BUN 21 H (7-17) mg/dL Creatinine 0.92 (0.52-1.04) mg/dL Estimated GFR > 60.0 ML/MIN Glucose 126 H (74-106) mg/dL POC Glucometer 290 H 321 H (74 to 106) mg/dL Hemoglobin A1c (4.5-6.0) % Calcium 8.2 L (8.4-10.2) mg/dL Magnesium (1.6-2.3) mg/dL Vitamin B12 (239-931) pg/mL TSH 3rd Generation (0.47-4.68) mIU/L Group A Strep Antibody (NEGATIVE) 06/23/22 06/23/22 06/23/22 Range/Units 21:57 21:58 22:58 WBC (4.0-10.5) x10^3/uL RBC (4.1-5.4) x10^6/uL Hgb (12.0-16.0) g/dL Hct (35-47) % MCV (78-100) fL MCH (26-32) pg MCHC (32-36) g/dL RDW (11.5-14.0) % Plt Count (150-450) x10^3/uL MPV (7.5-11.0) fL Gran % (36.0-66.0) % Immature Gran % (Auto) (0.00-0.4) % Nucleat RBC Rel Count (0.00-0.1) % Eos # (Auto) (0-0.5) x10^3/uL Immature Gran # (Auto) (0.00-0.03) x10^3u/L Absolute Lymphs (auto) (1.0-4.6) x10^3/uL Absolute Monos (auto) (0.0-1.3) x10^3/uL Absolute Nucleated RBC (0.00-0.01) x10^3u/L Lymphocytes % (24.0-44.0) % Monocytes % (0.0-12.0) % Eosinophils % (0.00-5.0) % Basophils % (0.0-0.4) % Absolute Granulocytes (1.4-6.9) x10^3/uL Basophils # (0-0.4) x10^3/uL Sodium 128 L D (137-145) mmol/L Potassium 4.6 (3.5-5.1) mmol/L Chloride 105 (98-107) mmol/L Carbon Dioxide 23 (22-30) mmol/L Anion Gap 4.9 L (5-15) MEQ/L BUN 20 H (7-17) mg/dL Creatinine 0.94 (0.52-1.04) mg/dL Estimated GFR > 60.0 ML/MIN Glucose 389 H (74-106) mg/dL POC Glucometer 366 H 241 H (74 to 106) mg/dL Hemoglobin A1c (4.5-6.0) % Calcium 7.4 L (8.4-10.2) mg/dL Magnesium (1.6-2.3) mg/dL Vitamin B12 (239-931) pg/mL TSH 3rd Generation (0.47-4.68) mIU/L Group A Strep Antibody (NEGATIVE) 06/23/22 06/24/22 06/24/22 Range/Units 23:55 01:01 02:06 WBC (4.0-10.5) x10^3/uL RBC (4.1-5.4) x10^6/uL Hgb (12.0-16.0) g/dL Hct (35-47) % MCV (78-100) fL MCH (26-32) pg MCHC (32-36) g/dL RDW (11.5-14.0) % Plt Count (150-450) x10^3/uL MPV (7.5-11.0) fL Gran % (36.0-66.0) % Immature Gran % (Auto) (0.00-0.4) % Nucleat RBC Rel Count (0.00-0.1) % Eos # (Auto) (0-0.5) x10^3/uL Immature Gran # (Auto) (0.00-0.03) x10^3u/L Absolute Lymphs (auto) (1.0-4.6) x10^3/uL Absolute Monos (auto) (0.0-1.3) x10^3/uL Absolute Nucleated RBC (0.00-0.01) x10^3u/L Lymphocytes % (24.0-44.0) % Monocytes % (0.0-12.0) % Eosinophils % (0.00-5.0) % Basophils % (0.0-0.4) % Absolute Granulocytes (1.4-6.9) x10^3/uL Basophils # (0-0.4) x10^3/uL Sodium (137-145) mmol/L Potassium (3.5-5.1) mmol/L Chloride (98-107) mmol/L Carbon Dioxide (22-30) mmol/L Anion Gap (5-15) MEQ/L BUN (7-17) mg/dL Creatinine (0.52-1.04) mg/dL Estimated GFR ML/MIN Glucose (74-106) mg/dL POC Glucometer 178 H 321 H 374 H (74 to 106) mg/dL Hemoglobin A1c (4.5-6.0) % Calcium (8.4-10.2) mg/dL Magnesium (1.6-2.3) mg/dL Vitamin B12 (239-931) pg/mL TSH 3rd Generation (0.47-4.68) mIU/L Group A Strep Antibody (NEGATIVE) 06/24/22 06/24/22 06/24/22 Range/Units 02:26 03:03 04:01 WBC (4.0-10.5) x10^3/uL RBC (4.1-5.4) x10^6/uL Hgb (12.0-16.0) g/dL Hct (35-47) % MCV (78-100) fL MCH (26-32) pg MCHC (32-36) g/dL RDW (11.5-14.0) % Plt Count (150-450) x10^3/uL MPV (7.5-11.0) fL Gran % (36.0-66.0) % Immature Gran % (Auto) (0.00-0.4) % Nucleat RBC Rel Count (0.00-0.1) % Eos # (Auto) (0-0.5) x10^3/uL Immature Gran # (Auto) (0.00-0.03) x10^3u/L Absolute Lymphs (auto) (1.0-4.6) x10^3/uL Absolute Monos (auto) (0.0-1.3) x10^3/uL Absolute Nucleated RBC (0.00-0.01) x10^3u/L Lymphocytes % (24.0-44.0) % Monocytes % (0.0-12.0) % Eosinophils % (0.00-5.0) % Basophils % (0.0-0.4) % Absolute Granulocytes (1.4-6.9) x10^3/uL Basophils # (0-0.4) x10^3/uL Sodium 129 L (137-145) mmol/L Potassium 4.8 (3.5-5.1) mmol/L Chloride 106 (98-107) mmol/L Carbon Dioxide 24 (22-30) mmol/L Anion Gap 4.2 L (5-15) MEQ/L BUN 19 H (7-17) mg/dL Creatinine 0.72 (0.52-1.04) mg/dL Estimated GFR > 60.0 ML/MIN Glucose 399 H (74-106) mg/dL POC Glucometer 411 H 372 H (74 to 106) mg/dL Hemoglobin A1c (4.5-6.0) % Calcium 7.4 L (8.4-10.2) mg/dL Magnesium (1.6-2.3) mg/dL Vitamin B12 (239-931) pg/mL TSH 3rd Generation (0.47-4.68) mIU/L Group A Strep Antibody (NEGATIVE) 06/24/22 06/24/22 06/24/22 Range/Units 04:15 05:02 06:02 WBC 4.3 (4.0-10.5) x10^3/uL RBC 3.43 L (4.1-5.4) x10^6/uL Hgb 10.8 L (12.0-16.0) g/dL Hct 33.9 L (35-47) % MCV 98.8 (78-100) fL MCH 31.5 (26-32) pg MCHC 31.9 L (32-36) g/dL RDW 13.4 (11.5-14.0) % Plt Count 183 (150-450) x10^3/uL MPV 9.6 (7.5-11.0) fL Gran % 45.1 (36.0-66.0) % Immature Gran % (Auto) 0.0 (0.00-0.4) % Nucleat RBC Rel Count 0.0 (0.00-0.1) % Eos # (Auto) 0.19 (0-0.5) x10^3/uL Immature Gran # (Auto) 0.00 (0.00-0.03) x10^3u/L Absolute Lymphs (auto) 1.90 (1.0-4.6) x10^3/uL Absolute Monos (auto) 0.25 (0.0-1.3) x10^3/uL Absolute Nucleated RBC 0.00 (0.00-0.01) x10^3u/L Lymphocytes % 44.2 H (24.0-44.0) % Monocytes % 5.8 (0.0-12.0) % Eosinophils % 4.4 (0.00-5.0) % Basophils % 0.5 (0.0-0.4) % Absolute Granulocytes 1.94 (1.4-6.9) x10^3/uL Basophils # 0.02 (0-0.4) x10^3/uL Sodium (137-145) mmol/L Potassium (3.5-5.1) mmol/L Chloride (98-107) mmol/L Carbon Dioxide (22-30) mmol/L Anion Gap (5-15) MEQ/L BUN (7-17) mg/dL Creatinine (0.52-1.04) mg/dL Estimated GFR ML/MIN Glucose (74-106) mg/dL POC Glucometer 242 H 170 H (74 to 106) mg/dL Hemoglobin A1c (4.5-6.0) % Calcium (8.4-10.2) mg/dL Magnesium (1.6-2.3) mg/dL Vitamin B12 (239-931) pg/mL TSH 3rd Generation (0.47-4.68) mIU/L Group A Strep Antibody (NEGATIVE) 06/24/22 06/24/22 06/24/22 Range/Units 07:00 08:08 09:26 WBC (4.0-10.5) x10^3/uL RBC (4.1-5.4) x10^6/uL Hgb (12.0-16.0) g/dL Hct (35-47) % MCV (78-100) fL MCH (26-32) pg MCHC (32-36) g/dL RDW (11.5-14.0) % Plt Count (150-450) x10^3/uL MPV (7.5-11.0) fL Gran % (36.0-66.0) % Immature Gran % (Auto) (0.00-0.4) % Nucleat RBC Rel Count (0.00-0.1) % Eos # (Auto) (0-0.5) x10^3/uL Immature Gran # (Auto) (0.00-0.03) x10^3u/L Absolute Lymphs (auto) (1.0-4.6) x10^3/uL Absolute Monos (auto) (0.0-1.3) x10^3/uL Absolute Nucleated RBC (0.00-0.01) x10^3u/L Lymphocytes % (24.0-44.0) % Monocytes % (0.0-12.0) % Eosinophils % (0.00-5.0) % Basophils % (0.0-0.4) % Absolute Granulocytes (1.4-6.9) x10^3/uL Basophils # (0-0.4) x10^3/uL Sodium (137-145) mmol/L Potassium (3.5-5.1) mmol/L Chloride (98-107) mmol/L Carbon Dioxide (22-30) mmol/L Anion Gap (5-15) MEQ/L BUN (7-17) mg/dL Creatinine (0.52-1.04) mg/dL Estimated GFR ML/MIN Glucose (74-106) mg/dL POC Glucometer 131 H 158 H 258 H (74 to 106) mg/dL Hemoglobin A1c (4.5-6.0) % Calcium (8.4-10.2) mg/dL Magnesium (1.6-2.3) mg/dL Vitamin B12 (239-931) pg/mL TSH 3rd Generation (0.47-4.68) mIU/L Group A Strep Antibody (NEGATIVE) 06/24/22 06/24/22 06/24/22 Range/Units 11:04 11:38 13:13 WBC (4.0-10.5) x10^3/uL RBC (4.1-5.4) x10^6/uL Hgb (12.0-16.0) g/dL Hct (35-47) % MCV (78-100) fL MCH (26-32) pg MCHC (32-36) g/dL RDW (11.5-14.0) % Plt Count (150-450) x10^3/uL MPV (7.5-11.0) fL Gran % (36.0-66.0) % Immature Gran % (Auto) (0.00-0.4) % Nucleat RBC Rel Count (0.00-0.1) % Eos # (Auto) (0-0.5) x10^3/uL Immature Gran # (Auto) (0.00-0.03) x10^3u/L Absolute Lymphs (auto) (1.0-4.6) x10^3/uL Absolute Monos (auto) (0.0-1.3) x10^3/uL Absolute Nucleated RBC (0.00-0.01) x10^3u/L Lymphocytes % (24.0-44.0) % Monocytes % (0.0-12.0) % Eosinophils % (0.00-5.0) % Basophils % (0.0-0.4) % Absolute Granulocytes (1.4-6.9) x10^3/uL Basophils # (0-0.4) x10^3/uL Sodium (137-145) mmol/L Potassium (3.5-5.1) mmol/L Chloride (98-107) mmol/L Carbon Dioxide (22-30) mmol/L Anion Gap (5-15) MEQ/L BUN (7-17) mg/dL Creatinine (0.52-1.04) mg/dL Estimated GFR ML/MIN Glucose (74-106) mg/dL POC Glucometer 399 H 486 H (74 to 106) mg/dL Hemoglobin A1c (4.5-6.0) % Calcium (8.4-10.2) mg/dL Magnesium (1.6-2.3) mg/dL Vitamin B12 (239-931) pg/mL TSH 3rd Generation (0.47-4.68) mIU/L Group A Strep Antibody NOT DETECTED (NEGATIVE) 06/24/22 06/24/22 06/24/22 Range/Units 14:41 15:48 16:56 WBC (4.0-10.5) x10^3/uL RBC (4.1-5.4) x10^6/uL Hgb (12.0-16.0) g/dL Hct (35-47) % MCV (78-100) fL MCH (26-32) pg MCHC (32-36) g/dL RDW (11.5-14.0) % Plt Count (150-450) x10^3/uL MPV (7.5-11.0) fL Gran % (36.0-66.0) % Immature Gran % (Auto) (0.00-0.4) % Nucleat RBC Rel Count (0.00-0.1) % Eos # (Auto) (0-0.5) x10^3/uL Immature Gran # (Auto) (0.00-0.03) x10^3u/L Absolute Lymphs (auto) (1.0-4.6) x10^3/uL Absolute Monos (auto) (0.0-1.3) x10^3/uL Absolute Nucleated RBC (0.00-0.01) x10^3u/L Lymphocytes % (24.0-44.0) % Monocytes % (0.0-12.0) % Eosinophils % (0.00-5.0) % Basophils % (0.0-0.4) % Absolute Granulocytes (1.4-6.9) x10^3/uL Basophils # (0-0.4) x10^3/uL Sodium 131 L (137-145) mmol/L Potassium 4.2 (3.5-5.1) mmol/L Chloride 104 (98-107) mmol/L Carbon Dioxide 23 (22-30) mmol/L Anion Gap 7.3 (5-15) MEQ/L BUN 18 H (7-17) mg/dL Creatinine 0.84 (0.52-1.04) mg/dL Estimated GFR > 60.0 ML/MIN Glucose 258 H (74-106) mg/dL POC Glucometer 374 H 158 H (74 to 106) mg/dL Hemoglobin A1c (4.5-6.0) % Calcium 8.1 L (8.4-10.2) mg/dL Magnesium 2.2 (1.6-2.3) mg/dL Vitamin B12 652 (239-931) pg/mL TSH 3rd Generation 0.658 (0.47-4.68) mIU/L Group A Strep Antibody (NEGATIVE) 06/24/22 06/24/22 Range/Units 18:57 Unknown WBC (4.0-10.5) x10^3/uL RBC (4.1-5.4) x10^6/uL Hgb (12.0-16.0) g/dL Hct (35-47) % MCV (78-100) fL MCH (26-32) pg MCHC (32-36) g/dL RDW (11.5-14.0) % Plt Count (150-450) x10^3/uL MPV (7.5-11.0) fL Gran % (36.0-66.0) % Immature Gran % (Auto) (0.00-0.4) % Nucleat RBC Rel Count (0.00-0.1) % Eos # (Auto) (0-0.5) x10^3/uL Immature Gran # (Auto) (0.00-0.03) x10^3u/L Absolute Lymphs (auto) (1.0-4.6) x10^3/uL Absolute Monos (auto) (0.0-1.3) x10^3/uL Absolute Nucleated RBC (0.00-0.01) x10^3u/L Lymphocytes % (24.0-44.0) % Monocytes % (0.0-12.0) % Eosinophils % (0.00-5.0) % Basophils % (0.0-0.4) % Absolute Granulocytes (1.4-6.9) x10^3/uL Basophils # (0-0.4) x10^3/uL Sodium (137-145) mmol/L Potassium (3.5-5.1) mmol/L Chloride (98-107) mmol/L Carbon Dioxide (22-30) mmol/L Anion Gap (5-15) MEQ/L BUN (7-17) mg/dL Creatinine (0.52-1.04) mg/dL Estimated GFR ML/MIN Glucose (74-106) mg/dL POC Glucometer 418 H (74 to 106) mg/dL Hemoglobin A1c 6.61 H (4.5-6.0) % Calcium (8.4-10.2) mg/dL Magnesium (1.6-2.3) mg/dL Vitamin B12 (239-931) pg/mL TSH 3rd Generation (0.47-4.68) mIU/L Group A Strep Antibody (NEGATIVE) Radiology Exams: Radiology Procedures Category Date Time Status CERVICAL SPINE WO CONTRAST [CT] Stat Exams 06/23/22 06:25 Completed HEAD WITHOUT CONTRAST [CT] Stat Exams 06/23/22 06:25 Completed
[2022-06-24] MEDS: Requip 0.5 MG PO SCH (21:11)
[2022-06-24] MEDS: MIRTAZAPINE PO SCH (21:12)
[2022-06-25] MEDS: HUMALOG SQ PRN ×5 (05:00→11:58)
[2022-06-25] MEDS: ZENPEP DR 5,000 UNIT CAPSULE PO SCH ×2 (08:11→12:49)
[2022-06-25] MEDS: ELIQUIS 2.5 MG TABLET PO SCH (08:12)
[2022-06-25] MEDS: Singulair 10 MG PO SCH (08:12)
[2022-06-25] MEDS: Advair Hfa 115/21 Common canister IH SCH (08:12)
[2022-06-25] MEDS: FEOSOL 325 MG PO SCH (08:12)
[2022-06-25] MEDS: SYNTHROID 25 MCG PO SCH (08:13)
[2022-06-25] MEDS: FOLATE 1 MG PO SCH (08:13)
[2022-06-25] MEDS: THERAGRAN MULTIVITAMIN PO SCH (08:13)
[2022-06-25] MEDS: Acidophilus TABLET PO SCH (08:14)
[2022-06-25] MEDS: LASIX 20 MG PO SCH (08:15)
[2022-06-25] MEDS: NEURONTIN PO SCH ×2 (08:15→12:49)
[2022-06-25] MEDS: Carafate SUSPENSION 1000 MG/10 ML PO SCH (08:15)
[2022-06-25] MEDS: PROAMATINE PO SCH ×2 (08:17→12:50)
[2022-06-25] MEDS: Protonix 40MG Tablet PO SCH (08:17)
[2022-06-25] MEDS: BUSPAR 5 MG PO SCH (08:25)
[2022-06-25] MEDS ORDERED: Zithromax 250 MG TABLET PO SCH (10:00)
[2022-06-25] MEDS: PROVENTIL 2.5 MG/3 ML NEB IH SCH ×2 (11:39→13:32)
[2022-06-25 12:09] VITALS: BP 150/91
[2022-06-25 12:38] LABS: Basophil (Absolute #) 0.01 x10^3/uL (0-0.4); Eosinophil % 1.1 % (0.00-5.0); Eosinophil (Absolute #) 0.05 x10^3/uL (0-0.5); Hematocrit 38.5 % (35-47); Hemoglobin 12.3 g/dL (12.0-16.0); Lymphocytes % 15.8 % (24.0-44.0); Mean Cell Volume 100.3 fL (78-100); Mean Corpuscular Hgb Concent. 31.9 g/dL (32-36); Mean Platelet Volume 10.4 fL (7.5-11.0); Monocyte (Absolute #) 0.17 x10^3/uL (0.0-1.3); Monocytes % 3.8 % (0.0-12.0); Neutrophil % 78.9 % (36.0-66.0); Platelet Count 167 x10^3/uL (150-450); Red Blood Count 3.84 x10^6/uL (4.1-5.4); White Blood Count 4.4 x10^3/uL (4.0-10.5)
[2022-06-25 12:59] LABS: ALBUMIN 3.4 g/dL (3.5-5.0); ALKALINE PHOSPHATASE 134 U/L (38-126); BLOOD UREA NITROGEN 16 mg/dL (7-17); CHLORIDE 94 mmol/L (98-107); Calcium 8.4 mg/dL (8.4-10.2); Carbon Dioxide 28 mmol/L (22-30); Creatinine 1 0.76 mg/dL (0.52-1.04); EST GLOMERULAR FILTRATION RATE > 60.0 ML/MIN; Potassium 4.7 mmol/L (3.5-5.1); SGOT/AST 67 U/L (14-36); SGPT/ALT 65 U/L (0-35); SODIUM 128 mmol/L (137-145); Total Protein 5.6 g/dL (6.3-8.2)
--- NOTE | 2022-06-25 13:24 | XRAY ---
Indication: Cough. Comparison: March 19, 2022 Portable chest again demonstrates normal heart and lungs. Bony thorax intact. No new/acute findings.
--- NOTE | 2022-06-25 13:27 | PCM.DS ---
Discharge Summary Date of Admission: 06/23/22 10:45 Admitting Physician: KENDAL CUENCA DO Primary Care Provider: ANGELITO BLEDSOE DO Allergies Allergies dicyclomine [From Bentyl] Allergy (Verified 06/23/22 05:45) grapefruit Allergy (Verified 06/23/22 05:45) Swelling Hospital Summary - Hospital Course Hospital Course: Pt is a 41 yo brittle Type 1 diabetic who was admitted through ER with DKA. Her pump had been changed and Dexcom 6 wasn't working apparently. Lowest blood sugar in the past 24hours has been 131, but most have been high. Per endocrinology, we are shooting for BS 250, and using modified very low dose sliding scale. She is tolerating po very well. She has developed a cough in the past 24 hours, so we are checking CXR and flu/covid swabs. She was started on zithromax yesterday. The plan is to discharge to home today and f/u with endocrinology as soon as they are available, which I understand is mid-Jul. She is to return to ER with any problems regarding the blood sugars. - Vitals & Intake/Output Vital Signs: Vital Signs Temperature 97.9 F 06/25/22 12:00 Pulse Rate 101 H 06/25/22 12:00 Respiratory Rate 16 06/25/22 12:00 Blood Pressure 150/91 06/25/22 12:00 O2 Sat by Pulse Oximetry 100 06/25/22 12:00 Intake & Output: Intake & Output 06/23/22 06/24/22 06/25/22 06/26/22 11:59 11:59 11:59 11:59 Intake Total 4537 1310 Balance 4537 1310 Weight 72.2 kg 80.7 kg 80 kg - Lab Result Diagrams: 06/25/22 10:00 06/25/22 10:00 Lab Results-Last 24 Hrs: Lab Results-Last 24 Hours 06/24/22 06/24/22 06/24/22 Range/Units 14:41 15:48 16:56 WBC (4.0-10.5) x10^3/uL RBC (4.1-5.4) x10^6/uL Hgb (12.0-16.0) g/dL Hct (35-47) % MCV (78-100) fL MCH (26-32) pg MCHC (32-36) g/dL RDW (11.5-14.0) % Plt Count (150-450) x10^3/uL MPV (7.5-11.0) fL Gran % (36.0-66.0) % Immature Gran % (Auto) (0.00-0.4) % Nucleat RBC Rel Count (0.00-0.1) % Eos # (Auto) (0-0.5) x10^3/uL Immature Gran # (Auto) (0.00-0.03) x10^3u/L Absolute Lymphs (auto) (1.0-4.6) x10^3/uL Absolute Monos (auto) (0.0-1.3) x10^3/uL Absolute Nucleated RBC (0.00-0.01) x10^3u/L Lymphocytes % (24.0-44.0) % Monocytes % (0.0-12.0) % Eosinophils % (0.00-5.0) % Basophils % (0.0-0.4) % Absolute Granulocytes (1.4-6.9) x10^3/uL Basophils # (0-0.4) x10^3/uL Sodium 131 L (137-145) mmol/L Potassium 4.2 (3.5-5.1) mmol/L Chloride 104 (98-107) mmol/L Carbon Dioxide 23 (22-30) mmol/L Anion Gap 7.3 (5-15) MEQ/L BUN 18 H (7-17) mg/dL Creatinine 0.84 (0.52-1.04) mg/dL Estimated GFR > 60.0 ML/MIN Glucose 258 H (74-106) mg/dL POC Glucometer 374 H 158 H (74 to 106) mg/dL Hemoglobin A1c (4.5-6.0) % Calcium 8.1 L (8.4-10.2) mg/dL Magnesium 2.2 (1.6-2.3) mg/dL Total Bilirubin (0.2-1.3) mg/dL AST (14-36) U/L ALT (0-35) U/L Alkaline Phosphatase (38-126) U/L Serum Total Protein (6.3-8.2) g/dL Albumin (3.5-5.0) g/dL Vitamin B12 652 (239-931) pg/mL TSH 3rd Generation 0.658 (0.47-4.68) mIU/L 06/24/22 06/24/22 06/24/22 Range/Units 18:57 21:04 22:59 WBC (4.0-10.5) x10^3/uL RBC (4.1-5.4) x10^6/uL Hgb (12.0-16.0) g/dL Hct (35-47) % MCV (78-100) fL MCH (26-32) pg MCHC (32-36) g/dL RDW (11.5-14.0) % Plt Count (150-450) x10^3/uL MPV (7.5-11.0) fL Gran % (36.0-66.0) % Immature Gran % (Auto) (0.00-0.4) % Nucleat RBC Rel Count (0.00-0.1) % Eos # (Auto) (0-0.5) x10^3/uL Immature Gran # (Auto) (0.00-0.03) x10^3u/L Absolute Lymphs (auto) (1.0-4.6) x10^3/uL Absolute Monos (auto) (0.0-1.3) x10^3/uL Absolute Nucleated RBC (0.00-0.01) x10^3u/L Lymphocytes % (24.0-44.0) % Monocytes % (0.0-12.0) % Eosinophils % (0.00-5.0) % Basophils % (0.0-0.4) % Absolute Granulocytes (1.4-6.9) x10^3/uL Basophils # (0-0.4) x10^3/uL Sodium (137-145) mmol/L Potassium (3.5-5.1) mmol/L Chloride (98-107) mmol/L Carbon Dioxide (22-30) mmol/L Anion Gap (5-15) MEQ/L BUN (7-17) mg/dL Creatinine (0.52-1.04) mg/dL Estimated GFR ML/MIN Glucose (74-106) mg/dL POC Glucometer 418 H 343 H 350 H (74 to 106) mg/dL Hemoglobin A1c (4.5-6.0) % Calcium (8.4-10.2) mg/dL Magnesium (1.6-2.3) mg/dL Total Bilirubin (0.2-1.3) mg/dL AST (14-36) U/L ALT (0-35) U/L Alkaline Phosphatase (38-126) U/L Serum Total Protein (6.3-8.2) g/dL Albumin (3.5-5.0) g/dL Vitamin B12 (239-931) pg/mL TSH 3rd Generation (0.47-4.68) mIU/L 06/24/22 06/25/22 06/25/22 Range/Units Unknown 01:04 03:15 WBC (4.0-10.5) x10^3/uL RBC (4.1-5.4) x10^6/uL Hgb (12.0-16.0) g/dL Hct (35-47) % MCV (78-100) fL MCH (26-32) pg MCHC (32-36) g/dL RDW (11.5-14.0) % Plt Count (150-450) x10^3/uL MPV (7.5-11.0) fL Gran % (36.0-66.0) % Immature Gran % (Auto) (0.00-0.4) % Nucleat RBC Rel Count (0.00-0.1) % Eos # (Auto) (0-0.5) x10^3/uL Immature Gran # (Auto) (0.00-0.03) x10^3u/L Absolute Lymphs (auto) (1.0-4.6) x10^3/uL Absolute Monos (auto) (0.0-1.3) x10^3/uL Absolute Nucleated RBC (0.00-0.01) x10^3u/L Lymphocytes % (24.0-44.0) % Monocytes % (0.0-12.0) % Eosinophils % (0.00-5.0) % Basophils % (0.0-0.4) % Absolute Granulocytes (1.4-6.9) x10^3/uL Basophils # (0-0.4) x10^3/uL Sodium (137-145) mmol/L Potassium (3.5-5.1) mmol/L Chloride (98-107) mmol/L Carbon Dioxide (22-30) mmol/L Anion Gap (5-15) MEQ/L BUN (7-17) mg/dL Creatinine (0.52-1.04) mg/dL Estimated GFR ML/MIN Glucose (74-106) mg/dL POC Glucometer 219 H 276 H (74 to 106) mg/dL Hemoglobin A1c 6.61 H (4.5-6.0) % Calcium (8.4-10.2) mg/dL Magnesium (1.6-2.3) mg/dL Total Bilirubin (0.2-1.3) mg/dL AST (14-36) U/L ALT (0-35) U/L Alkaline Phosphatase (38-126) U/L Serum Total Protein (6.3-8.2) g/dL Albumin (3.5-5.0) g/dL Vitamin B12 (239-931) pg/mL TSH 3rd Generation (0.47-4.68) mIU/L 06/25/22 06/25/22 06/25/22 Range/Units 04:53 08:03 10:00 WBC 4.4 (4.0-10.5) x10^3/uL RBC 3.84 L (4.1-5.4) x10^6/uL Hgb 12.3 (12.0-16.0) g/dL Hct 38.5 (35-47) % MCV 100.3 H (78-100) fL MCH 32.0 (26-32) pg MCHC 31.9 L (32-36) g/dL RDW 13.0 (11.5-14.0) % Plt Count 167 (150-450) x10^3/uL MPV 10.4 (7.5-11.0) fL Gran % 78.9 H (36.0-66.0) % Immature Gran % (Auto) 0.2 (0.00-0.4) % Nucleat RBC Rel Count 0.0 (0.00-0.1) % Eos # (Auto) 0.05 (0-0.5) x10^3/uL Immature Gran # (Auto) 0.01 (0.00-0.03) x10^3u/L Absolute Lymphs (auto) 0.70 L (1.0-4.6) x10^3/uL Absolute Monos (auto) 0.17 (0.0-1.3) x10^3/uL Absolute Nucleated RBC 0.00 (0.00-0.01) x10^3u/L Lymphocytes % 15.8 L (24.0-44.0) % Monocytes % 3.8 (0.0-12.0) % Eosinophils % 1.1 (0.00-5.0) % Basophils % 0.2 (0.0-0.4) % Absolute Granulocytes 3.50 (1.4-6.9) x10^3/uL Basophils # 0.01 (0-0.4) x10^3/uL Sodium (137-145) mmol/L Potassium (3.5-5.1) mmol/L Chloride (98-107) mmol/L Carbon Dioxide (22-30) mmol/L Anion Gap (5-15) MEQ/L BUN (7-17) mg/dL Creatinine (0.52-1.04) mg/dL Estimated GFR ML/MIN Glucose (74-106) mg/dL POC Glucometer 347 H 373 H (74 to 106) mg/dL Hemoglobin A1c (4.5-6.0) % Calcium (8.4-10.2) mg/dL Magnesium (1.6-2.3) mg/dL Total Bilirubin (0.2-1.3) mg/dL AST (14-36) U/L ALT (0-35) U/L Alkaline Phosphatase (38-126) U/L Serum Total Protein (6.3-8.2) g/dL Albumin (3.5-5.0) g/dL Vitamin B12 (239-931) pg/mL TSH 3rd Generation (0.47-4.68) mIU/L 06/25/22 06/25/22 06/25/22 Range/Units 10:00 10:34 11:20 WBC (4.0-10.5) x10^3/uL RBC (4.1-5.4) x10^6/uL Hgb (12.0-16.0) g/dL Hct (35-47) % MCV (78-100) fL MCH (26-32) pg MCHC (32-36) g/dL RDW (11.5-14.0) % Plt Count (150-450) x10^3/uL MPV (7.5-11.0) fL Gran % (36.0-66.0) % Immature Gran % (Auto) (0.00-0.4) % Nucleat RBC Rel Count (0.00-0.1) % Eos # (Auto) (0-0.5) x10^3/uL Immature Gran # (Auto) (0.00-0.03) x10^3u/L Absolute Lymphs (auto) (1.0-4.6) x10^3/uL Absolute Monos (auto) (0.0-1.3) x10^3/uL Absolute Nucleated RBC (0.00-0.01) x10^3u/L Lymphocytes % (24.0-44.0) % Monocytes % (0.0-12.0) % Eosinophils % (0.00-5.0) % Basophils % (0.0-0.4) % Absolute Granulocytes (1.4-6.9) x10^3/uL Basophils # (0-0.4) x10^3/uL Sodium 128 L (137-145) mmol/L Potassium 4.7 (3.5-5.1) mmol/L Chloride 94 L (98-107) mmol/L Carbon Dioxide 28 (22-30) mmol/L Anion Gap 11.0 (5-15) MEQ/L BUN 16 (7-17) mg/dL Creatinine 0.76 (0.52-1.04) mg/dL Estimated GFR > 60.0 ML/MIN Glucose 512 H* (74-106) mg/dL POC Glucometer 539 H* (74 to 106) mg/dL Hemoglobin A1c (4.5-6.0) % Calcium 8.4 (8.4-10.2) mg/dL Magnesium (1.6-2.3) mg/dL Total Bilirubin 0.40 (0.2-1.3) mg/dL AST 67 H (14-36) U/L ALT 65 H (0-35) U/L Alkaline Phosphatase 134 H (38-126) U/L Serum Total Protein 5.6 L (6.3-8.2) g/dL Albumin 3.4 L (3.5-5.0) g/dL Vitamin B12 (239-931) pg/mL TSH 3rd Generation (0.47-4.68) mIU/L Micro Results-Entire Visit: Accuchecks Date 06/25/22 Date 06/25/22 Date 06/24/22 Date 06/24/22 Date 06/24/22 Date 06/24/22 Time 08:14 Time 21:06 Time 19:05 Time 16:58 Time 13:23 - Radiology Exams Ordered Rad Exams-Entire Visit: Radiology Procedures Category Date Time Status CHEST 1 VIEW (PORTABLE) Routine Exams 06/25/22 12:56 Taken - Procedures and Test Procedures and Tests throughout Hospitalization: Therapy Orders & Screens 06/23/22 13:25 RT Screen per Nursing Assess ONCE Comment: Protocol Order Physician Instructions: Greater than 3 points order RT Admission Screen Reason For Exam: Triggered on Admission Diagnosis: DKA Diagnosis: DKA Pneumonia: No Home O2: No Asthma: Yes CHF: No Home CPAP/BIPAP: No Home Nebs/MDI: Yes Total Points: 9 06/23/22 16:39 Respiratory Therapy Assessment DAILY Comment: Diagnosis: DKA Discharge Exam General Appearance: no apparent distress, alert Neurologic Exam: oriented x 3, cooperative Eye Exam: eyes nml inspection Ears, Nose, Throat Exam: moist mucous membranes Neck Exam: normal inspection Respiratory Exam: normal breath sounds, lungs clear, No crackles/rales, No rhonchi, No wheezing Cardiovascular Exam: regular rate/rhythm, normal heart sounds, No murmur Gastrointestinal/Abdomen Exam: soft, normal bowel sounds Back Exam: normal inspection, No rash Extremity Exam: normal inspection, No pedal edema, No swelling Final Diagnosis/Problem List - Final Discharge Diagnosis/Problem (1) DKA (diabetic ketoacidosis) Current Visit: Yes Status: Resolved Code(s): E11.10 - TYPE 2 DIABETES MELLITUS WITH KETOACIDOSIS WITHOUT COMA (2) DM I (diabetes mellitus, type I) Current Visit: No Status: Chronic Assessment & Plan: Very brittle - with insulin pump and dexcom 6 meter. F/u with endocrinology and with PCP. (3) Cough Current Visit: Yes Status: Acute Assessment & Plan: Started zithromax 07/04/22, so will take 3 more days at home. Code(s): R05.9 - COUGH, UNSPECIFIED - Discharge Disposition: Home, Self-Care Condition: Stable Prescriptions: New Hydroxyzine HCl 25 mg [Atarax 25 mg] 50 mg PO Q6H PRN PRN tablet PRN Reason: Insomnia Dextrose 15 gm Oral Gel [Glutose 15 GM ORAL GEL] 15 gm PO PRN PRN PRN Reason: Hypoglycemia Azithromycin 250 mg [Zithromax 250 MG TABLET] 250 mg PO DAILY 3 Days #3 tablet Continue Promethazine HCl 25 mg [Phenergan 25 mg] 25 mg PO Q4-6HPRN PRN PRN Reason: Nausea AMITRIPTYLINE HCL 50 mg Tab [AMITRIPTYLINE HCL 50 mg Tablet] 50 mg PO HS Atomoxetine HCl [Strattera] 60 mg PO DAILY Apixaban [Eliquis 5 mg Tablet] 5 mg PO BID Folic Acid 1 mg [Folate 1 mg] 1 mg PO DAILY Dexlansoprazole [Dexlansoprazole Dr] 60 mg PO DAILY Gabapentin [Neurontin] 600 mg PO QID Ropinirole HCl 0.5 mg [Requip 0.5 MG] 0.5 mg PO HS Metoclopramide HCl 10 mg PO QID Levothyroxine Sodium 25 mcg PO QAM Sucralfate 1 gm PO BID Furosemide 20 mg [Lasix 20 mg] 20 mg PO DAILY Mirtazapine 15 mg PO HS Ipratropium/Albuterol Sulfate [Combivent Respimat Inhal [place]] 1 inh PO DAILY Baclofen 20 mg PO QIDPRN PRN PRN Reason: Muscle Spasms Escitalopram Oxalate [Lexapro] 20 mg PO 1700 Ferrous Sulfate 325 mg PO DAILY Multivitamin 1 tab PO DAILY Montelukast Sodium 10 mg [Singulair 10 MG] 10 mg PO DAILY Omeprazole 20 mg PO QHS hydrOXYzine HCL [Hydroxyzine HCl] 50 mg PO Q6H PRN PRN PRN Reason: Insomnia Diclofenac Epolamine 1 patch TOP Q12H PRN PRN PRN Reason: Pain Mirtazapine 15 mg PO HS PRN PRN PRN Reason: Insomnia Atomoxetine HCl [Strattera] 40 mg PO LUNCH Budesonide/Formoterol Fumarate [Budesonide-Formoterol 160-4.5] 2 puff IH BID Albuterol Sulfate [Albuterol Sulfate Hfa] 2 puff IH DAILY PRN PRN PRN Reason: Shortness Of Breath Albuterol 2.5 mg/3 ml Neb [Proventil 2.5 mg/3 ml Neb] 1 neb IH DAILY PRN PRN PRN Reason: Shortness Of Breath Lipase/Protease/Amylase [G[place] Cort[place] 36,000 Unit Capsule] 2 cap PO AC Erythromycin Base [Erythromycin] 250 mg PO BID ondansetron HCL [Ondansetron HCl] 4 mg PO Q6H PRN PRN PRN Reason: Nausea Midodrine HCl 10 mg PO TID Buspirone HCl 5 mg [Buspar 5 mg] 10 mg PO TID Lipase/Protease/Amylase [Gina Cortes 36,000 Unit Capsule] 1 cap PO TID PRN Lactobacillus Acidophilus [Acidophilus TABLET] 1 tab PO DAILY Follow up with: IVÁN VALENCIA NP [NON-STAFF PHY W/O PRIVILEGES] - 07/22/22 10:20 am ANGELITO BLEDSOE DO [Primary Care Provider] -
[2022-06-25 13:36] VITALS: PULSE 116; O2SAT 95
[2022-06-25 14:08] LABS: INFLUENZA A NEGATIVE (NEGATIVE); INFLUENZA B NEGATIVE (NEGATIVE); RESPIRATORY SYNCTIAL VIRUS NEGATIVE (Negative); SARS-CoV-2 Xpert Express NEGATIVE (NEGATIVE)
== END 2022-06-25 15:00 | disposition home or self-care (01) ==
LOC: ED 05:31 → ICU 10:45
PROVIDERS: ADMIT Family Medicine; ATTEND Family Medicine
DX: E11.10 Type 2 diabetes mellitus with ketoacidosis without coma (principal); R05.9 Cough, unspecified; W18.30XA Fall on same level, unspecified, initial encounter; I25.10 Atherosclerotic heart disease of native coronary artery without angina pectoris; I25.2 Old myocardial infarction; Z79.01 Long term (current) use of anticoagulants; Z79.899 Other long term (current) drug therapy; Z20.828 Contact with and (suspected) exposure to other viral communicable diseases
CPT/HCPCS: 0241U; 36000; 36415; 70450; 71045; 72125; 80048; 80053; 80307; 81015; 82607; 82805; 82947; 83036; 83605; 83735; 84443; 85025; 87651; 93005; 94640; 96360; 96372; 96374; 99285; 99291; 90715; 93268; J1815; J1817; J1885; J2405; J7609; A9270-GY; G0378